=== PATIENT | female | born 1990 | race Caucasian/White ===

== ENCOUNTER 2023-05-27 07:59 | Outpatient (OUT) | payer MEDICARE, MEDICAID, SELFPAY ==
[2023-05-27 08:35] LABS: BUN Creatinine Ratio 13.6; Calcium 8.9 mg/dL (8.5-10.1); Chloride 103 mmol/L (98-107); Estimated GFR (African America >60 (>=60); Estimated GFR (Non-African Ame 57 (>=60); Glucose 85 mg/dL (74-106); Sodium 139 mmol/L (136-145)
== END 2023-05-27 08:00 | disposition home or self-care (01) ==
PROVIDERS: PCP Family Medicine; Visit Provider Family Medicine
DX: N25.1 Nephrogenic diabetes insipidus (principal); E23.2 Diabetes insipidus
CPT/HCPCS: 36415; 80048

== ENCOUNTER 2024-01-02 14:28 | Outpatient (OUT) | payer MEDICARE, MEDICAID, SELFPAY ==
[2024-01-02 15:39] LABS: HCG Qualitative NEGATIVE (NEGATIVE)
[2024-01-03 05:08] LABS: HBsAg Screen Negative (Negative); HCV Ab Non Reactive (Non Reactive); Hep A Ab, IgM Negative (Negative); Hep B Core Ab, IgM Negative (Negative)
== END 2024-01-02 14:29 | disposition home or self-care (01) ==
LOC: LAB 14:29
DX: Z04.41 Encounter for examination and observation following alleged adult rape (principal)
CPT/HCPCS: 36415; 80074; 84703

== ENCOUNTER 2024-01-04 10:53 | Outpatient (OUT) | payer MEDICARE, MEDICAID, SELFPAY ==
[2024-01-05 09:09] LABS: HIV Ab/p24 Ag Screen Non Reactive (Non Reactive)
[2024-01-05 10:09] LABS: Rapid Plasma Reagin, Quant Non Reactive titer (NonRea<1:1)
== END 2024-01-04 10:54 | disposition home or self-care (01) ==
PROVIDERS: PCP Family Medicine; Visit Provider Family Medicine
DX: T76.21XA Adult sexual abuse, suspected, initial encounter (principal); Z32.00 Encounter for pregnancy test, result unknown
CPT/HCPCS: 36415; 86592; 87389

== ENCOUNTER 2024-02-07 11:01 | Outpatient (OUT) | payer MEDICARE, MEDICAID, SELFPAY ==
[2024-02-08 05:08] LABS: HBsAg Screen Negative (Negative); HCV Ab Non Reactive (Non Reactive); Hep A Ab, IgM Negative (Negative); Hep B Core Ab, IgM Negative (Negative)
== END 2024-02-07 11:02 | disposition home or self-care (01) ==
LOC: LAB 11:02
PROVIDERS: PCP Family Medicine; Visit Provider Family Medicine
DX: Z20.5 Contact with and (suspected) exposure to viral hepatitis (principal)
CPT/HCPCS: 36415; 80074

== ENCOUNTER 2024-06-04 07:13 | Outpatient (OUT) | payer MEDICARE, MEDICAID, SELFPAY ==
--- OUTSIDE RECORDS SUMMARY | 2024-06-04 07:17 | XMS_ITS | CCD ---
Author Organization [facility] Care Team Providers Care Tank Tester Name Role Phone Unavailable Primary Care Provider Unavailabl e AL NICHOLAS, ALEX Admitting Unavailable AL ALEX PETERSON Attending Unavailable PROVIDER, UNKNOWN Admitting Unavailable PROVIDER, UNKNOWN Attending Unavailable Vaughan Robin SEVERINO Primary Care Provider [phone] GERONIMO LANGLEY Admitting Unavailable PASTOR SUAREZ Attending Unavailable PRASANTH REYES Attending Unavailable VAUGHANROBIN Primary Care Unavailable PASTOR SUAREZ Referring Unavailable PRASANTH REYES Attending Unavailable VAUGHANROBIN Primary Care Unavailable PASTOR SUAREZ Referring Unavailable VAUGHAN, DR ROBIN Byrd Consulting Unavailable VAUGHAN, DR ROBIN Byrd Attending Unavailable VAUGHAN, DR ROBIN Byrd Admitting Unavailable VAUGHAN, DR ROBIN Byrd Primary Care Unavailable VAUGHAN, DR ROBIN Byrd Attending Unavailable VAUGHAN, DR ROBIN Byrd Admitting Unavailable VAUGHAN, DR ROBIN Byrd Primary Care Unavailable VAUGHAN, DR ROBIN Byrd Consulting Unavailable UNLU, AZUL Consulting Unavailable VAUGHAN, DR ROBIN Byrd Consulting Unavailable VAUGHAN, DR ROBIN Byrd Attending Unavailable VAUGHAN, DR ROBIN yBrd Admitting Unavailable VAUGHAN, DR ROBIN Byrd Primary Care Unavailable VAUGHAN, DR ROBIN Byrd Consulting Unavailable VAUGHAN, DR ROBIN Byrd Attending Unavailable VAUGHAN, DR ROBIN Byrd Admitting Unavailable VAUGHAN, DR ROBIN Byrd Primary Care Unavailable VAUGHAN, DR ROBIN Byrd Attending Unavailable VAUGHAN, DR ROBIN Byrd Admitting Unavailable VAUGHAN, DR ROBIN Byrd Primary Care Unavailable VAUGHAN, DR ROBIN Byrd Consulting Unavailable ROBIN VAUGHAN Primary Care Physician [phone] KATIUSKA GANDHI Attending Unavailable Unavailable Primary Care Provider Unavailabl e VAUGHANROBIN Admitting Unavailable VAUGHANROBIN Attending Unavailable VAUGHAN, ROBIN Attending Unavailable VAUGHAN, ROBIN Admitting Unavailable VAUGHAN, ROBIN Attending Unavailable VAUGHAN, ROBIN Admitting Unavailable VAUGHAN, ROBIN Referring Unavailable ROBIN VAUGHAN Admitting Unavailable VAUGHANROBIN Attending Unavailable VAUGHANROBIN Attending Unavailable VAUGHANROBIN Admitting Unavailable Allergies Allergy Classification Reported Allergen(s) Allergy Type Date of Onset Reaction(s) Facility (5 sources) Amoxicillin / Clavulanate; Translations: [AMOXICILLIN-POT CLAVULANATE] Drug Allergy 05-03-2016 [facility] (3 sources) loracarbef; Translations: [LORACARBEF] Drug Allergy 05-03-2016 [facility] (3 sources) loracarbef Drug Allergy 07-21-2022 [facility] (1 source) Amoxicillin / Clavulanate Drug Allergy 12-22-2015 [facility] (1 source) loracarbef Drug Allergy 12-22-2015 [facility] (6 sources) Penicillins; Translations: [penicillins] Drug allergy 09-07-2012 [facility] Medications Current Medications Medication Drug Class(es) Dates Sig (Normalized) Sig (Original) bifidobacterium animalis [id number] unt / lactobacillus acidophilus [id number] unt oral capsule (1 source) Probiotic Produc t (ACIDOPHILUS HIGH-POTENCY) CAPS Take by mouth. 0 Active bisacodyl 10 mg rectal suppository (1 source) Stimulant Laxative bisacodyl 10 MG Suppository suppository Insert 10 mg rectally as needed for Constipation. 0 Active busPIRone hydrochloride 10 mg oral tablet (4 sources) take 1.5 tablets by mouth three times daily busPIRone (BUSPAR) 10 mg tablet Take 1.5 tablets (15 mg total) by mouth 3 (three) times a day. 0 Active take 20 mg by mouth three times daily BUSPIRONE HCL PO Take 20 mg by mouth 3 times daily. 0 Active take 1 tablet by mouth twice henrry ly busPIRone (BUSPAR) 10 MG tablet Take 10 mg by mouth 2 times daily. 0 Active calcium carbonate 500 mg cristiana wable tablet (2 sources) calcium carbonat e (TUMS) 200 mg elemental (500 mg) chewable tablet Chew 1 tablet (200 mg total) and swallow in the morning. 0 Active calcium carbonat e (Tums) 500 MG Chew Tab tablet Chew 1,000 mg as needed. 0 Active chlorhexidine gluconate 40 m g/ml medicated liquid soap (2 sources) chlorhexidine (H IBICLENS) 4 % external liquid Apply 1 Application (1 mL total) topically daily as needed for wound care. 0 Active take 15 mL by mouth twice daily chlorhexidine 0.12 % Solution oral solution Take 15 mL by mouth 2 times daily. 0 Active clonazePAM (8 sources) Benzodiazepine Start: 05-21-2011 clonazepam Ora l, TID, Refills(s) 0 Start Date: 05/21/11 Status: Ordered take 1 tablet by gladis twice daily as needed clonazePAM (KlonoPIN) 0.5 mg tablet Take 1 tablet (0.5 mg total) by mouth 2 (two) times a day as needed for seizures. 0 Active take 0.5 mg by mouth three times daily CLONAZEPAM PO Take 0.5 mg by mouth 3 times daily. 0 Active cloNIDine (4 sources) Central alpha-2 Adrenergic Agonist Start: 05-21-2011 clonidine patch(es), Refills(s) 0 Start Date: 05/21/11 Status: Ordered desmopressin acetate 0.2 mg oral tablet (4 sources) Vasopressin Analog, Factor VIII Activator take 1 tablet by mouth in the morning desmopressin (DDAVP) 0.2 mg tablet Take 1 tablet (200 mcg total) by mouth in the morning. 0 Active take 1 tablet by mouth twice henrry ly desmopressin (DDAVP) 0.2 MG tablet Take 0.2 mg by mouth 2 times daily. 0 Active Dextromethorphan / guaiFENesin (1 source) Uncompetitive M-ttwktm-L-aspartate Receptor Antagonist, Sigma-1 Agonist take 400 mg by mouth twice daily as needed Dextromethorphan-guaiFENesin (CHEST CONGESTION/COUGH RELIEF PO) Take 400 mg by mouth 2 times daily as needed. 0 Active docusate sodium 100 mg oral capsule (2 sources) take 1 capsule by mouth in the morning, then take 1 capsule by mouth at bedtime docusate sodium (COLACE) 100 mg capsule Take 1 capsule (100 mg total) by mouth in the morning and 1 capsule (100 mg total) before bedtime. 0 Active Docusate Sodium (DOK) 100 MG tablet Take 100 mg by mouth As directed as needed for Constipation. 0 Active Ethinyl Estradiol / Levonorgestrel (3 sources) Progestin, Estrogen, Progestin-containing Intrauterine Device Start: 02-02-2024 take 1 tablet by mouth once in the morning levonorgestreL-ethinyl estrad (AVIANE,ALESSE,LESSINA) 0.1-20 mg-mcg per tablet Indications: Surveillance of previously prescribed contraceptive pill Take 1 tablet by mouth in the morning. Pt takes continuously . 84 tablet 4 02/02/2024 Active End: 02-02-2024 take 1 tablet by mouth once in the morning levonorgestreL-ethinyl estrad (AVIANE,ALESSE,LESSINA) 0.1-20 mg-mcg per tablet Take 1 tablet by mouth in the morning. Pt takes continuously . 0 02/02/2024 Discontinued (Reorder) take 0.1-20 tablets by mouth once daily in the morning levonorgestrel-ethinyl estradiol (Vienva ) 0.1-20 MG-MCG tablet Take 1 tablet by mouth daily every morning. 0 Active folic acid 1 mg oral tablet (3 sources) take 1 tablet by mouth in the morning folic acid (FOLVITE) 1 mg tablet Take 1 tablet (1 mg total) by mouth in the morning. 0 Active gabapentin (5 sources) Anti-epileptic Agent Start: 05-21-2011 gabapentin Oral, Refills(s) 0 Start Date: 05/21/11 Status: Ordered take 1 capsule by [facility] three times daily gabapentin (NEURONTIN) 300 MG capsule Ta ke 300 mg by mouth 3 times daily. 0 Active hydroCHLOROthiazide 25 mg oral tablet (3 sources) Thiazide Diuretic take 1 tablet by mouth once daily hydroCHLOROthiazide (HYDRODIURIL) 25 mg tablet Take 1 tablet (25 mg total) by mouth daily. 0 Active Lactobacillus (1 source) Lactobacillus (ACIDOPHILUS/BIFIDUS PO) Take by mouth. 0 Active Lactobacillus acidophilus (1 source) Lactobacillus ac idophilus (ACIDOPHILUS ORAL) Take by mouth. 0 Active Lactulose (4 sources) Osmotic Laxative Start: 2010 lactulose Oral, Daily, EA, Refills(s) 0 Start Date: 05/21/11 Status: Ordered Levonorgestrel-Ethinyl Estrad (AVIANE ORAL) (1 source) Levonorgestrel-E thinyl Estrad (AVIANE ORAL) Take by mouth. 0 Active levothyroxine sodium 0.075 mg oral tablet (8 sources) l-Thyroxine Start: 2022 End: 2023 take 1 tablet by mouth in the morning levothyroxine (SYNTHROID, LEVOTHROID) 75 MCG tablet Take 1 tablet (75 mcg total) by mouth in the morning. 0 11/02/2023 03/01/2024 Active Start: 05-21-2011 levothyroxine Daily, Refills(s) 0 Start Date: 05/21/11 Status: Ordered take 1 tablet by gladis th once daily before breakfast levothyroxine 75 MCG tablet Take 75 mcg by mouth every morning before breakfast. 0 Active [place] (4 sources) Start: 05-21-2011 lithium Oral, Refills(s) 0 Start Date: 05/21/11 Status: Ordered loperamide hydrochloride 2 mg oral tablet (1 source) Opioid Agonist Loperamide HCl 2 MG tablet Take 2 mg by mouth As directed as needed. 0 Active loratadine 10 mg disintegrating oral tablet (2 sources) loratadine (CLAR ITIN REDITABS) 10 mg disintegrating tablet Dissolve 1 tablet (10 mg total) on tongue in the morning. 0 Active take 1 tablet by gladis th once daily as needed loratadine 10 MG tablet Take 10 mg by mo uth daily as needed. 0 Active melatonin 5 mg oral capsule (2 sources) melatonin (CIRCA DIN) capsule Take by mouth. 0 Active Melatonin 5 MG C APS Take by mouth. 0 Active metoprolol tartrate 50 mg oral tablet (5 sources) beta-Adrenergic Rodney metoprol ol tartrate (LOPRESSOR) 100 mg tablet Take 25 mg by mouth in the morning. 0 Active take 1 tablet by gladis th in the morning, then take 1 tablet by mouth at bedtime metoprolol tartrate (LOPRESSOR) 50 mg tablet Take 1 tablet (50 mg total) by mouth in the morning and 1 tablet (50 mg total) before bedtime. 0 Active take 1 tablet by mouth four time s daily metoprolol 100 MG tab regular release Take 100 mg by mouth 4 times daily. 0 Active mirtazapine 15 mg oral tablet (2 sources) take 1 tablet by mouth once daily mirtazapine (REMERON) 15 mg tablet Take 1 tablet (15 mg total) by mouth nightly. 0 Active Nasonex (4 sources) Corticosteroid Start: 1 Nasonex Nasal, Daily, Refill(s) 0 Start Date: 05/21/11 Status: Ordered Singulair (8 sources) Leukotriene Receptor Antagonist Start: 1 Singulair qPM, Refills(s) 0 Start Date: 05/21/11 Status: Ordered take 1 tablet by mouth once sanjana y montelukast (SINGULAIR) 10 mg tablet Take 1 tablet (10 mg total) by mouth nightly. 0 Active naltrexone hydrochloride 50 mg oral tablet (4 sources) Opioid Antagonist take 1 tablet by mouth in the morning naltrexone (REVIA) 50 mg tablet Take 1 tablet (50 mg total) by mouth in the morning. 0 Active take 1 tablet by mouth once sanjana y naltrexone 50 MG tablet Take 50 mg by mouth daily. 0 Active Zyprexa (4 sources) Atypical Antipsychotic Start: 05-21-2011 Zyprexa Refills(s) 0 Start Date: 05/21/11 Status: Ordered ondansetron 4 mg oral tablet (2 sources) Serotonin-3 Receptor Antagonist take 1 tablet by mouth every eight hours as needed for nausea and vomiting ondansetron (ZOFRAN) 4 mg tablet Take 1 tablet (4 mg total) by mouth every 8 (eight) hours as needed for nausea or vomiting. 0 Active Potassium (1 source) Potassium (POTASSIMIN ORAL) Take by mouth. 0 Active potassium chloride 1.33 meq/ml oral solution (2 sources) take 20 mEq by mouth once daily in the morning potassium chloride 20 MEQ/15ML (10%) Solution Take 20 mEq by mouth daily every morning. 0 Active sennosides, alf 8.6 mg oral tablet (2 sources) take 1 tablet by mouth in the morning senna (SENOKOT) 8.6 mg tablet Take 1 tablet (8.6 mg total) by mouth in the morning. 0 Active take 2 tablets by mouth twice da tejal senna 8.6 MG tablet Take 17.2 mg by mouth 2 times daily. 0 Active Thioridazine (4 sources) Phenothiazine Start: 05-21-2011 thioridazine Oral, TID, Refills(s) 0 Start Date: 05/21/11 Status: Ordered divalproex sodium 125 mg delayed release oral capsule (1 source) Mood Stabilizer, Anti-epileptic Agent take 1 capsule by mouth in the morning, then take 1 capsule by mouth at bedtime divalproex sprinkle (DEPAKOTE SPRINKLE) 125 mg capsule Take 1 capsule (125 mg total) by mouth in the morning and 1 capsule (125 mg total) before bedtime. 0 Active Completed/Discontinued Medications Medication Drug Class(es) Dates Sig (Normalized) Sig (Original) acetaminophen 325 mg oral tablet (3 sources) Start: 08-26-2022 End: 08-26-2022 take 1 tablet by mouth every four hours as needed acetaminophen (TYLENOL) tablet 650 mg take 325 mg rectal r oute every four hours as needed for pain acetaminophen (TYLENOL) 325 mg supposito ry Insert 1 suppository (325 mg total) into the rectum every 4 (four) hours as needed for pain. 0 Active take 1 tablet by gladis th every four hours as needed acetaminophen 325 MG tablet Take 325 mg by mouth every 4 hours as needed for Mild Pain. 0 Active calcium chloride 0.0014 meq/ ml / potassium chloride 0.004 meq/ml / sodium chloride 0.103 meq/ml / sodium lactate 0.028 meq/ml injectable solution (1 source) Start: 08-26-2022 End: 08-26-2022 lactated ringers IV solution Problems Active Problems Problem Classification Problem Date Documented Date Episodic/Chronic Contraceptive and procreative management (1 source) Oral contraception; Translations: [Encounter for surveillance of contraceptive pills] 02-02-2024 Episodic Disorders of teeth and jaw (7 sources) Dental caries; Translations: [Dental caries, unspecified] Onset: 02-20-2019 Episodic Fever of unknown origin (4 sources) Fever, unspecified; Translations: [FEVER UNSPECIFIED] Onset: 02-17-2023 Episodic Malaise and fatigue (1 source) Weakness; Translations: [WEAKNESS] Onset: 02-20-2023 Episodic Other aftercare (5 sources) 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; Translations: [OTH INTERMEDIATE CURRENT DRUG THERAPY] Onset: 12-20-2022 Episodic Other diseases of kidney and ureters (5 sources) Nephrogenic diabetes insipidus; 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] Onset: 10-13-2022 Chronic Other endocrine disorders (2 sources) Diabetes insipidus; Translations: [Diabetes insipidus] Onset: 12-06-2023 Chronic Other nutritional; endocrine; and metabolic disorders (1 source) Developmental delay; Translations: [Unspecified lack of expected normal physiological development in childhood] Episodic Other nutritional; endocrine; and metabolic disorders (2 sources) Unspecified lack of expected normal physiological development in childhood; Translations: [Unspecified lack of expected normal physiological development in childhood] Onset: 08-17-2022 Episodic Other screening for suspected conditions (not mental disorders or infectious disease) (1 source) Patient encounter status; Translations: [Encounter for other screening for malignant neoplasm of breast] 02-02-2024 Episodic Other upper respiratory disease (1 source) Nasal congestion; Translations: [NASAL CONGESTION] Onset: 02-20-2023 Episodic Thyroid disorders (9 sources) Hypothyroidism; Translations: [Hypothyroidism, unspecified] Onset: 08-17-2022 Chronic Past or Other Problems Problem Classification Problem Date Documented Date Episodic/Chronic Fluid and electrolyte disorders (1 source) Hyperosmolality and hypernatremia; Translations: [HYPEROSMOLALITY AND HYPERNATREMIA] Onset: 10-15-2022 Episodic Genitourinary symptoms and ill-defined conditions (1 source) Other polyuria; Translations: [OTHER POLYURIA] Onset: 10-15-2022 Episodic Other and unspecified benign neoplasm (1 source) Benign neoplasm of pituitary gland; Translations: [BENIGN NEOPLASM OF PITUITARY GLAND] Onset: 10-15-2022 Episodic Other nutritional; endocrine; and metabolic disorders (1 source) Polydipsia; Translations: [POLYDIPSIA] Onset: 10-15-2022 Episodic Results Test Name Value Interpretation Reference Range Facility .Interpretation:on HCV Ab IA Ql Comment Invalid Interpretation Code [facility] Comment on above: Result Comment: Not infected with HCV unless early or acute infection is suspected (which may be delayed in an immunocompromised individual), or other evidence exists to indicate HCV infection. Performed at: [facility] [address] [id number] PhD Amaris Valdes Performed By: #### 2 [id number] #### [facility] [address] [place] [address] Acute Hepatitis A B C Panelo n 03-23-2024 HAV IgM IA Ql Negative Invalid Interpretation Code Negative [facility] Comment on above: Performed By: #### 2 [id number] #### [facility] [address] [place] [address] HBV core IgM IA Ql Negative Invalid Interpretation Code Negative [facility] Comment on above: Performed By: #### 2 [id number] #### [facility] [address] [place] [address] HBV surface Ag IA Ql Negative Invalid Interpretation Code Negative [facility] Comment on above: Performed By: #### 2 [id number] #### [facility] [address] [place] [address] HCV IgG IA Ql Non-Reactive Invalid Interpretation Code Non Reactive [facility] Comment on above: Result Comment: Perf ormed at: [facility] [address] [id number] PhD Amaris Valdes Performed By: #### 2 [id number], [id number] #### [facility] [address] [place] [address] Physician Orderon 03-21-2024 Physician Order [id number]# 1.00TIFF Normal [facility] Consent for Treatmenton Consent for Treatment [id number]#1 .00TIFF Normal [facility] Physician Orderon 02-01-2024 Physician Order [id number]# 1.00TIFF Normal [facility] XR Adult Swallowing Function w/ Videoon 02-01-2024 XR Adult Swallowing Function w/ Video Exam Date/Time: 02/01/2024 10:02 EST Reason for Exam: [id number] Report IMPRESSION: Modified barium swallow performed by Speech Pathology. Please refer to the report by the Speech Pathologist in the medical record. XR Adult Swallowing Function w/ Video HISTORY: Patient on nectar thick liquids currently. Mental disability. TECHNIQUE: Fluoroscopy was provided for an oropharyngeal phase swallowing examination performed by Speech Pathology with the patient swallowing multiple consistencies. Air Kerma (Ka,r): 4.1 mGy DAP: 94.91 uGy*m2 Comparison: 08/03/2016. RESULT: Limitations from patient cooperation. Oral phase: Grossly unremarkable mastication and bolus formation with transfer to the oropharynx. Pharyngeal phase: Good pharyngeal elevation and epiglottic excursion without distinct aspiration. Esophageal phase: No diverticulum, stricture, or fistula in the visualized upper esophagus. Residual: Some vallecular and piriform sinus residue, which adequately cleared with further swallowing. Ordering Provider: ROBIN VAUGHAN FINAL REPORT Dictated: 02/01/2024 10:27 am Robin Crawford MD Signed (Electronic Signature): 02/01/2024 10:27 am Signed by: Robin Crawford MD Transcribed by: BRITTANY Technologist: ALESSIA Technical Comments Radiation Dose: Ka,r in mGy = na DAP = na Normal [facility] Physician Orderon 01-11-2024 Physician Order [id number]# 1.00TIFF Normal [facility] T3 Freeon 12-02-2023 Free T3 [Mass/Vol] 2.5 pg/mL Invalid Interpretation Code 2.0-4.[address] [facility] Comment on above: Result Comment: Perf ormed at: [facility] [address] [id number] PhD Amaris Valdes Performed By: #### 2 [id number], [id number], 8266109, 8158569, 1100051, [id number], [id number] #### [facility] [address] [place] [address] CMPon 12-01-2023 Albumin [Mass/Vol] 3.8 g/dL Normal 3.3-5.[address] [facility] Comment on above: Performed By: #### 2 413066, 3809417, 0120390, 0517505, 2987889, 16210922, 6620979 #### [facility] [address] [place] [address] Albumin/Globulin [Mass ratio] 1.4 {ratio} Normal 1.1-2.[address] [facility] Comment on above: Performed By: #### 2 995350, 9447496, 3198050, 8826118, 7862888, 78586201, 4666337 #### [facility] [address] [place] [address] Alk Phos 38 Int._Unit/L Normal 21-98 [facility] Comment on above: Performed By: #### 2 410634, 1659786, 6300002, 6182168, 8863021, 07058013, 0750274 #### [facility] [address] [place] [address] ALT 7 Int._Unit/L Normal 6-46 [facility] Comment on above: Performed By: #### 2 395815, 7965411, 7465364, 2045742, 1298013, 10148477, 2804852 #### [facility] [address] [place] [address] Anion gap [Moles/Vol] 13 mmol/L Normal 6-[address] [facility] Comment on above: Performed By: #### 2 012406, 2457179, 5722210, 6076092, 4314869, 70090572, 9721400 #### [facility] [address] [place] [address] AST 17 Int._Unit/L Normal 5-43 [facility] Comment on above: Performed By: #### 2 621351, 2114434, 6909823, 1994204, 3994732, 48898481, 0115826 #### [facility] [address] [place] [address] Bili Total 0.3 mg/dL Normal 0.0-1.[address] [facility] Comment on above: Performed By: #### 2 242687, 2907606, 5629706, 3697222, 4976255, 04376989, 0361347 #### [facility] [address] [place] [address] BUN/Creat Ratio 16 No Units Normal 10-20 [facility] Comment on above: Performed By: #### 2 831863, 4340409, 3181529, 7388972, 5993846, 12343381, 3730741 #### [facility] [address] [place] [address] Calcium [Mass/Vol] 9.0 mg/dL Normal 8.9-11.[address] [facility] Comment on above: Performed By: #### 2 763253, 0316711, 5954526, 3302520, 5970704, 42840806, 7777735 #### [facility] [address] [place] [address] Chloride [Moles/Vol] 103 mmol/L Normal 101-111 [facility] Comment on above: Performed By: #### 2 212019, 5785534, 7679418, 9643952, 5683950, 16557569, 9786938 #### [facility] [address] [place] [address] CO2 [Moles/Vol] 26 mmol/L Normal 21-31 [facility] Comment on above: Performed By: #### 2 971639, 0656421, 6246955, 1067582, 1540979, 05630467, 2717415 #### [facility] [address] [place] [address] Creatinine [Mass/Vol] 1.1 mg/dL Normal 0.5-1.[address] [facility] Comment on above: Performed By: #### 2 713742, 9428275, 8573452, 7928410, 0275998, 20009159, 2446280 #### [facility] [address] [place] [address] Globulin (S) [Mass/Vol] 2.8 g/dL Normal 1.4-4.[address] [facility] Comment on above: Performed By: #### 2 111856, 7307315, 0042180, 2228684, 7599546, 17694924, 7025059 #### [facility] [address] [place] [address] Glucose [Mass/Vol] 68 mg/dL Normal 55-[address] [facility] Comment on above: Performed By: #### 2 242361, 3559596, 6801870, 3442412, 6486676, 41847459, 9438641 #### [facility] [address] [place] [address] Potassium [Moles/Vol] 4.1 mmol/L Normal 3.5-5.[address] [facility] Comment on above: Performed By: #### 2 684131, 1543390, 7940662, 0264271, 1611842, 07928703, 7639889 #### [facility] [address] [place] [address] Protein [Mass/Vol] 6.6 g/dL Normal 6.0-7.[address] [facility] Comment on above: Performed By: #### 2 644214, 5172688, 1372040, 9568865, 6542282, 25651201, 2313027 #### [facility] [address] [place] [address] Sodium [Moles/Vol] 138 mmol/L Normal 135-[address] [facility] Comment on above: Performed By: #### 2 652967, 2249129, 1581640, 8422700, 5501703, 23299654, 6925790 #### [facility] [address] [place] [address] Urea nitrogen [Mass/Vol] 18 mg/dL Normal 5-[address] [facility] Comment on above: Performed By: #### 2 005312, 0762358, 5151129, 7678715, 0081004, 09658628, 2174071 #### [facility] [facility] [address] [place] [address] Lipid Panelon 12-01-2023 Cholesterol [Mass/Vol] 113 mg/dL Low 120-[address] [facility] Comment on above: Performed By: #### 2 368086, 6851220, 2334894, 2120027, 2802106, 58820261, 7505392 #### [facility] [address] [place] [address] Cholesterol in HDL [Mass/Vol] 23 mg/dL Invalid Interpretation Code [facility] Comment on above: Result Comment: '>= 60 LOW RISK' '<= 40 HIGH RISK' Performed By: #### 2 707828, 4448551, 1887736, 9191950, 9220214, 07518537, 5186958 #### [facility] [address] [place] [address] Cholesterol in LDL [Mass/Vol] 71 mg/dL Normal <=[address] [facility] Comment on above: Performed By: #### 2 041326, 1310116, 1345142, 3666885, 6830777, 53517307, 3749950 #### [facility] [address] [place] [address] Cholesterol in VLDL [Mass/Vol] 37 mg/dL Normal 7-[address] [facility] Comment on above: Performed By: #### 2 569815, 8424349, 7472511, 8413425, 6074381, 38139502, 6791844 #### [facility] [address] [place] [address] Triglyceride [Mass/Vol] 186 mg/dL High <=[address] [facility] Comment on above: Performed By: #### 2 888596, 7786524, 3817228, 2109048, 7246097, 46720969, 5340979 #### [facility] [address] [place] [address] eGFRon 12-01-2023 GFR/1.73 sq M.predicted among non-blacks MDRD (S/P/Bld) [Vol rate/Area] mL/min/{1.73_m2} Normal >=[address] [facility] Comment on above: Order Comment: Order added by Discern Expert. Performed By: #### 2 891801, 0904548, 0547874, 7796252, 0878710, 15442421, 0004969 #### [facility] [address] [place] [address] CBC w/Indiceson 11-30-2023 Erythrocyte distribution width (RBC) [Ratio] 13.5 % Normal 10.9-14.[address] [facility] Comment on above: Performed By: #### 2 700973, 2440322, 8469307, 4088028, 7982731, 36597517, 2847666 #### [facility] [address] [place] [address] Hematocrit (Bld) [Volume fraction] 42.1 % Normal 34.0-46.[address] [facility] Comment on above: Performed By: #### 2 875281, 1452058, 6375306, 9288424, 1056342, 82572943, 9103404 #### [facility] [address] [place] [address] Hemoglobin (Bld) [Mass/Vol] 14.4 g/dL Normal 12.0-16.[address] [facility] Comment on above: Performed By: #### 2 304126, 7272942, 7569602, 8453020, 6612346, 59543236, 1437058 #### [facility] [address] [place] [address] MCH (RBC) [Entitic mass] 33.7 pg Normal 27.0-34.[address] [facility] Comment on above: Performed By: #### 2 640535, 5516057, 0934270, 0877364, 4374284, 23619942, 8316088 #### [facility] [address] [place] [address] MCHC (RBC) [Mass/Vol] 34.2 g/dL Normal 31.4-36.[address] [facility] Comment on above: Performed By: #### 2 873031, 9823899, 5095407, 4757351, 4781258, 62387911, 8832923 #### [facility] [address] [place] [address] MCV (RBC) [Entitic vol] 98.8 fL Normal 80.0-100.[address] [facility] Comment on above: Performed By: #### 2 608378, 4713454, 4819668, 7446851, 5489094, 11862782, 9980255 #### [facility] [address] [place] [address] Platelet mean volume (Bld) [Entitic vol] 8.6 fL Normal 6.4-10.[address] [facility] Comment on above: Performed By: #### 2 261550, 1256512, 2983642, 9380152, 9258035, 02486689, 9215328 #### [facility] [address] [place] [address] Platelets (Bld) [#/Vol] 141.0 E9/L Low 150.0-500.[address] [facility] Comment on above: Performed By: #### 2 159506, 1404888, 5994660, 0437395, 4268809, 03841299, 5538705 #### [facility] [address] [place] [address] RBC (Bld) [#/Vol] 4.3 E12/L Normal 4.3-5.[address] [facility] Comment on above: Performed By: #### 2 064190, 9558036, 2690041, 9781665, 6848309, 03330135, 1924461 #### [facility] [address] [place] [address] WBC corrected for nucl RBC Auto (Bld) [#/Vol] 9.8 E9/L Normal 4.0-11.[address] [facility] Comment on above: Performed By: #### 2 626143, 7835546, 9680472, 2442158, 2599072, 36258516, 0519319 #### [facility] [address] [place] [address] Free T4on 11-30-2023 Free T4 [Mass/Vol] 0.92 ng/dL Normal 0.58-1.[address] [facility] Comment on above: Performed By: #### 2 181424, 0564462, 0472901, 8151859, 5015816, 63397873, 0010173 #### [facility] [address] [place] [address] Physician Orderon 11-30-2023 Physician Order [id number]# 1.00TIFF Normal [facility] TSHon 11-30-2023 TSH Qn 5.07 m[IU]/L Normal 0.34-5.[address] [facility] Comment on above: Performed By: #### 2 240035, 0371225, 4067231, 8475472, 6905520, 46099691, 8472503 #### [facility] [address] [place] [address] Follow-Upon 11-02-2023 Follow-Up [id number] Tiffany Mcintosh 1990 F Date Provider Department Center 11/02/2023 316-ALIVIA, KATIUSKA Mackenzie [facility] ENDOCR [facility] No family history on file Level of Service:22639 FL OFFICE/OUTPATIENT ESTABLISHED MOD MDM 30-39 MIN () Reason for Visit and Comments: Follow-up [249790] Normal [facility] BMPon 10-13-2023 Anion gap [Moles/Vol] 13 mmol/L Normal - [facility] Comment on above: Performed By: #### 2 735080, 63906017, 1220838, 5002773 #### [facility] [address] [place] [address] Calcium [Mass/Vol] 8.8 mg/dL Low 8.9-11.[address] [facility] Comment on above: Performed By: #### 2 627623, 02793732, 6783681, 1696445 #### [facility] [address] [place] [address] Chloride [Moles/Vol] 109 mmol/L Normal 101-111 [facility] Comment on above: Performed By: #### 2 630624, 94928934, 3546520, 8150503 #### [facility] [address] [place] [address] CO2 [Moles/Vol] 23 mmol/L Normal 21-31 [facility] Comment on above: Performed By: #### 2 732932, 81832388, 7847677, 1360014 #### [facility] [address] [place] [address] Creatinine [Mass/Vol] 1.1 mg/dL Normal 0.5-1.[address] [facility] Comment on above: Performed By: #### 2 068273, 81517835, 4812312, 7455915 #### [facility] [address] [place] [address] Glucose [Mass/Vol] 74 mg/dL Normal 55-[address] [facility] Comment on above: Result Comment: If t his glucose result represents a fasting glucose, interpretation should refer to the following reference range: 55-99 mg/dL Performed By: #### 2 444782, 63313715, 4986736, 2528947 #### [facility] [address] [place] [address] Potassium [Moles/Vol] 4.0 mmol/L Normal 3.5-5.[address] [facility] Comment on above: Performed By: #### 2 902357, 41324276, 6597165, 7185482 #### [facility] [address] [place] [address] Sodium [Moles/Vol] 141 mmol/L Normal 135-[address] [facility] Comment on above: Performed By: #### 2 914054, 84612429, 1518840, 9406227 #### [facility] [address] [place] [address] Urea nitrogen [Mass/Vol] 23 mg/dL High 5-[address] [facility] Comment on above: Performed By: #### 2 536066, 46666836, 8387390, 0564359 #### [facility] [address] [place] [address] Urea nitrogen/Creatinine [Mass ratio] 21 No Units High 10-[address] [facility] Comment on above: Performed By: #### 2 667357, 13478059, 4871675, 8598994 #### [facility] [address] [place] [address] Free T4on 10-13-2023 Free T4 [Mass/Vol] 1.45 ng/dL Normal 0.58-1.[address] [facility] Comment on above: Performed By: #### 2 090559, 5915876, 0878176, 7112635, 1748603, 96541831, 3673010 #### [facility] [address] [place] [address] TSHon 10-13-2023 TSH Qn 6.49 m[IU]/L High 0.34-5.[address] [facility] Comment on above: Performed By: #### 2 293952, 7139565, 6608552, 3614757, 6437830, 23213552, 6939118 #### [facility] [address] [place] [address] eGFRon 10-13-2023 GFR/1.73 sq M.predicted among non-blacks MDRD (S/P/Bld) [Vol rate/Area] 67 mL/min/1.73 m2 Normal >=[address] [facility] Comment on above: Order Comment: Order added by Discern Expert. Result Comment: Principal Architect david kidney disease could be indicated at eGFR's of less than 60 mL/min/1.73m2. Kidney failure is indicated at less than 15 mL/min/1.73m2. Performed By: #### 2 990758, 6485836, 8667381, 6113582, 3467524, 11261990, 8941965 #### [facility] [address] [place] [address] CHEMISTRYOrdered By: SYSTEM SYSTEM on 10-12-2023 Anion gap [Moles/Vol] 13 mmol/L Normal 6 - 16 mEq/L [facility] Calcium [Mass/Vol] 8.8 mg/dL Low 8.9 - 11. 1 mg/dL [facility] Chloride [Moles/Vol] 109 mmol/L Normal 101 - 1 11 mmol/L [facility] CO2 [Moles/Vol] 23 mmol/L Normal 21 - 31 mmol/L [facility] Creatinine [Mass/Vol] 1.1 mg/dL Normal 0.5 - 1.3 mg/dL [facility] Free T4 [Mass/Vol] 1.45 ng/dL Normal 0.58 - 1. 64 ng/dL [facility] GFR/1.73 sq M.predicted among non-blacks MDRD (S/P/Bld) [Vol rate/Area] 67 mL/min/1.73 m2 Normal >=59mL/min/1 .73 m2 [facility] Comment on above: Interpretive Data: C hronic kidney disease could be indicated at eGFR's of less than 60 mL/min/1.73m2. Kidney failure is indicated at less than 15 mL/min/1.73m2. Glucose [Mass/Vol] 74 mg/dL Normal 55 - 199 mg/dL [facility] Comment on above: Interpretive Data: I f this glucose result represents a fasting glucose, interpretation should refer to the following reference range: 55-99 mg/dL Potassium [Moles/Vol] 4.0 mmol/L Normal 3.5 - 5.3 mmol/L [facility] Sodium [Moles/Vol] 141 mmol/L Normal 135 - 145 mmol/L [facility] TSH Qn 6.49 m[IU]/L High 0.34 - 5.60 mcIU/mL [facility] Urea nitrogen [Mass/Vol] 23 mg/dL High 5 - 21 mg/dL [facility] Urea nitrogen/Creatinine [Mass ratio] 21 mg/mg High 10 - 20 [facility] Physician Orderon 10-12-2023 Physician Order [id number]#1 .00TIFF Normal [facility] CHEMISTRYOrdered By: SYSTEM SYSTEM on 08-17-2023 Valproate [Moles/Vol] 70 microgram/mL Normal 50 - 99 mcg/mL [facility] Physician Orderon 08-17-2023 Physician Order [id number]# 1.00CD:[address] [facility] Valproic Acidon 08-17-2023 Valproate [Moles/Vol] 70 microgram/mL Normal 50-[address] [facility] Comment on above: Performed By: #### 2 720368, 1586793, 3470186, 3910843, 5647577, 70500470, 1219730 #### [facility] [address] [place] [address] XR CHEST 2 Von 02-18-2023 XR CHEST 2 V EXAM: XR CHEST 2 V HISTORY: Congestion COMPARISON: 12/14/2019 TECHNIQUE: PA and lateral views of the chest FINDINGS: The level of inspiration is suboptimal. There is no focal airspace consolidation or acute infiltrate. The cardiomediastinal silhouette is not enlarged. No evidence of pleural effusion or pneumothorax are identified. No acute osseous abnormality. IMPRESSION: No acute cardiopulmonary process. Electronically authenticated by: AZUL UNLU Date: 2023-02-17 22:47 Normal [facility] DEPAKENE/ VALPROIC ACIDon DEPAKENE 74.8 ug/ml Normal 50.0-100.0 [facility] Comment on above: Performed By: #### V ALP #### [facility] [address] [place] [address] Dr. Wali Holly Orders Onlyon 12-15-2022 Orders Only [id number] Tiffany Mcintosh 1990 F Date Provider Department Center 12/15/2022 316-KATIUSKA [facility] ENDOCR [facility] No family history on file Normal [facility] FREE T4on 12-14-2022 Free T4 [Mass/Vol] 0.83 ng/dL Normal 0.76-1.46 [facility] Comment on above: Performed By: #### F T4 #### [facility] [address] [place] [address] Dr. Wali Holly TSHon 12-14-2022 TSH 4.513 uIU/mL Critically high 0.358-3.740 [facility] Comment on above: Performed By: #### T SH #### [facility] [address] [place] [address] Dr. Wali Holly OSMOLALITY URINEon 2 Osmolality, Urine 280 mOsmol/kg Normal [facility] Comment on above: Result Comment: 24 h r : 300 - 900 Random: 50 - 1400 After 12hr fluid restriction: >850 Performed By: #### O SMOU #### [facility] [address] [place] [address] Dr. Wali Holly OSMOLALITYon 10-13-2022 Osmolality [Osmolality] 281 mosm/kg Normal 275-295 [facility] Comment on above: Performed By: #### O SMO #### [facility] [address] [place] [address] Dr. Wali Holly FREE T4on 10-12-2022 Free T4 [Mass/Vol] 0.91 ng/dL Normal 0.76-1.46 [facility] Comment on above: Performed By: #### F T4 #### [facility] [address] [place] [address] Dr. Wali Holly PROF CHEM 8 (BAS METB)on Anion gap [Moles/Vol] 6.1 mmol/L Normal [facility] Comment on above: Performed By: #### B MP, TSH #### [facility] [address] [place] [address] Dr. Wali Holly Calcium [Mass/Vol] 9.1 mg/dL Normal 8.5-10.1 [facility] Comment on above: Performed By: #### B MP, TSH #### [facility] [address] [place] [address] Dr. Wali Holly Chloride [Moles/Vol] 102 mmol/L Normal 98-107 [facility] Comment on above: Performed By: #### B MP, TSH #### [facility] [address] [place] [address] Dr. Wali Holly CO2 [Moles/Vol] 34.9 mmol/L Critically high 21.0-32.0 [facility] Comment on above: Performed By: #### B MP, TSH #### [facility] [address] [place] [address] Dr. Wali Holly Creatinine [Mass/Vol] 1.35 mg/dL Critically high 0.55-1.02 [facility] Comment on above: Performed By: #### B MP, TSH #### [facility] [address] [address] [address] Wali Holly EGFR-AF [place]TH [place]OREAN 54 mL/min/1.73m2 Critically low >=60 [facility] Comment on above: Performed By: #### B MP, TSH #### [facility] [address] [address] [address] Wali Holly EGFR-NON AF [place] 45 mL/min/1.73m2 Critically low >=60 [facility] Comment on above: Performed By: #### B MP, TSH #### [facility] [address] [address] [address] Wali Holly Glucose [Mass/Vol] 84 mg/dL Normal 74-106 [facility] Comment on above: Performed By: #### B JOB, TSH #### [facility] [address] [place] [address] Dr. Wali Holly Potassium [Moles/Vol] 4.0 mmol/L Normal 3.5-5.1 [facility] Comment on above: Performed By: #### B MP, TSH #### [facility] [address] [place] [address] Dr. Wali Holly Sodium [Moles/Vol] 139 mmol/L Normal 136-145 [facility] Comment on above: Performed By: #### B MP, TSH #### [facility] [address] [place] [address] Dr. Wali Holly Urea nitrogen [Mass/Vol] 15.0 mg/dL Normal 7.0-18.0 [facility] Comment on above: Performed By: #### B MP, TSH #### [facility] [address] [place] [address] Dr. Wali Holly Urea nitrogen/Creatinine [Mass ratio] 11.1 mg/mg Normal [facility] Comment on above: Performed By: #### B MP, TSH #### [facility] [address] [place] [address] Dr. Wali Holly TSHon 10-12-2022 TSH 5.185 uIU/mL Critically high 0.358-3.740 [facility] Comment on above: Performed By: #### B MP, TSH #### [facility] [address] [place], [place] [address] Dr. Wali Holly CARDIAC RHYTHM (SCANNED)on 0 08-26-2022 [facility] CBC AND ELECTRONIC DIFFon Basophils (Bld) [#/Vol] 0.06 10*3/uL Normal 0.00-0.15 [facility] Comment on above: Performed By: #### L AB980 #### [facility] (DEFAULT) [address] [address] Basophils/100 WBC (Bld) 0.8 % Normal [facility] Comment on above: Performed By: #### L AB980 #### [facility] (DEFAULT) [address] [address] DIFF STATUS Electronic Differential Normal [facility] Comment on above: Performed By: #### L AB980 #### [facility] (DEFAULT) [address] [address] Eosinophils (Bld) [#/Vol] 0.07 10*3/uL Normal 0.00-0.42 [facility] Comment on above: Performed By: #### L AB980 #### [facility] (DEFAULT) [address] [address] Eosinophils/100 WBC (Bld) 1.0 % Normal [facility] Comment on above: Performed By: #### L AB980 #### [facility] (DEFAULT) [address] [address] Hematocrit (Bld) [Volume fraction] 39.1 % Normal 34.9-44.3 [facility] Comment on above: Performed By: #### L AB980 #### [facility] (DEFAULT) [address] [address] Hemoglobin (Bld) [Mass/Vol] 13.3 g/dL Normal 11.4-15.2 [facility] Comment on above: Performed By: #### L AB980 #### [facility] (DEFAULT) [address] [place] [address] Immature Grans % 1.8 % Normal [facility] Comment on above: Performed By: #### L AB980 #### [facility] (DEFAULT) [address] [place] [address] Immature Grans Absolute 0.13 K/uL High <=0.08 [facility] Comment on above: Performed By: #### L AB980 #### [facility] (DEFAULT) [address] [place] [address] Lymphocytes (Bld) [#/Vol] 3.29 10*3/uL Normal 1.16-3.51 [facility] Comment on above: Performed By: #### L AB980 #### [facility] (DEFAULT) [address] [address] Lymphocytes/100 WBC (Bld) 46.0 % Normal [facility] Comment on above: Performed By: #### L AB980 #### [facility] (DEFAULT) [address] [address] MCV (RBC) [Entitic vol] 100.3 fL High 79.6-97.7 [facility] Comment on above: Performed By: #### L AB980 #### [facility] (DEFAULT) [address] [address] Mean Cell Hgb 34.1 pg High 25.9-33.9 [facility] Comment on above: Performed By: #### L AB980 #### [facility] (DEFAULT) [address] [address] Mean Cell Hgb Conc 34.0 g/dL Normal 31.4-35.9 [facility] Comment on above: Performed By: #### L AB980 #### [facility] (DEFAULT) [address] [place] [address] Monocytes (Bld) [#/Vol] 0.82 10*3/uL Normal 0.22-0.87 [facility] Comment on above: Performed By: #### L AB980 #### [facility] (DEFAULT) [address] [place] [address] Monocytes/100 WBC (Bld) 11.5 % Normal [facility] Comment on above: Performed By: #### L AB980 #### [facility] (DEFAULT) [address] [place] [address] Nucleated RBC 0.0 /100 WBC Normal <=0.2 [facility] Comment on above: Performed By: #### L AB980 #### [facility] (DEFAULT) [address] [place] [address] Platelet mean volume (Bld) [Entitic vol] 9.9 fL Normal 8.5-12.2 [facility] Comment on above: Performed By: #### L AB980 #### [facility] (DEFAULT) [address] [place] [address] Platelets (Bld) [#/Vol] 110 10*3/uL Low 150-393 [facility] Comment on above: Performed By: #### L AB980 #### [facility] (DEFAULT) [address] [place] [address] RBC (Bld) [#/Vol] 3.90 10*6/uL Low 3.91-5.04 [facility] Comment on above: Performed By: #### L AB980 #### [facility] (DEFAULT) [address] [place] [address] RBC Distribution 12.2 % Normal 10.8-14.9 [facility] Comment on above: Performed By: #### L AB980 #### [facility] (DEFAULT) [address] [place] [address] Segs + Bands Auto 38.9 % Normal [facility] Comment on above: Performed By: #### L AB980 #### [facility] (DEFAULT) [address] [place] [address] Segs + Bands,Absolute Auto 2.78 K/uL Normal 1.64-7.28 [facility] Comment on above: Performed By: #### L AB980 #### [facility] (DEFAULT) [address] [place] [address] WBC (Bld) [#/Vol] 7.15 10*3/uL Normal 3.99-11.19 [facility] Comment on above: Performed By: #### L AB980 #### [facility] (DEFAULT) [address] [place] [address] Basophils (Bld) [#/Vol] 0.06 10*3/uL 0.00 - 0.15 K/uL [facility] Basophils/100 WBC (Bld) 0.8 % [facility] Differential cell count method Nom (Bld) Electronic Differential [facility] Eosinophils (Bld) [#/Vol] 0.07 10*3/uL 0.00 - 0.42 K/uL [facility] Eosinophils/100 WBC (Bld) 1.0 % [facility] Erythrocyte distribution width (RBC) [Ratio] 12.2 % 10.8 - 14.9 % [facility] Hematocrit (Bld) [Volume fraction] 39.1 % 34.9 - 44.3 % [facility] Hemoglobin (Bld) [Mass/Vol] 13.3 g/dL 11.4 - 15.2 g/dL [facility] Immature granulocytes (Bld) [#/Vol] 0.13 10*3/uL High <=0.08 [facility] Immature granulocytes/100 WBC (Bld) 1.8 % [facility] Interpretation and review of laboratory results Abnormal [facility] Lymphocytes (Bld) [#/Vol] 3.29 10*3/uL 1.16 - 3.51 K/uL [facility] Lymphocytes/100 WBC (Bld) 46.0 % [facility] MCH (RBC) [Entitic mass] 34.1 pg High 25.9 - 33.9 pg [facility] MCHC (RBC) [Mass/Vol] 34.0 g/dL 31.4 - 35.9 g/dL [facility] MCV (RBC) [Entitic vol] 100.3 fL High 79.6 - 97.7 fL [facility] Monocytes (Bld) [#/Vol] 0.82 10*3/uL 0.22 - 0.87 K/uL [facility] Monocytes/100 WBC (Bld) 11.5 % [facility] Neutrophils (Bld) [#/Vol] 2.78 10*3/uL 1.64 - 7.28 K/uL [facility] Nucleated RBC/100 WBC (Bld) [Ratio] 0.0 % <=0.2 /100 WBC [facility] [facility] mean volume (Bld) [Entitic vol] 9.9 fL 8.5 - 12.2 fL [facility] Platelets (Bld) [#/Vol] 110 10*3/uL Low 150 - 393 K/uL [facility] RBC (Bld) [#/Vol] 3.90 10*6/uL Low [facility] Segmented neutrophils/100 WBC (Bld) 38.9 % [facility] WBC (Bld) [#/Vol] 7.15 10*3/uL 3.99 - 11. 19 K/uL [facility] CHEM 6 (LYTES, BUN CREA)on 0 08-17-2022 Anion gap [Moles/Vol] 10 mmol/L Normal 7-17 [facility] Comment on above: Performed By: #### C HM6 #### [facility] (DEFAULT) [address] [place] [address] Chloride [Moles/Vol] 103 mmol/L Normal 98-108 [facility] Comment on above: Performed By: #### C HM6 #### [facility] (DEFAULT) [address] [place] [address] CO2 [Moles/Vol] 31 mmol/L Normal 21-31 [facility] Comment on above: Performed By: #### C HM6 #### [facility] (DEFAULT) [address] [place] [address] Creatinine [Mass/Vol] 1.16 mg/dL Normal 0.50-1.20 [facility] Comment on above: Performed By: #### C HM6 #### [facility] (DEFAULT) [address] [place] [address] GFR/1.73 sq M.predicted among non-blacks MDRD (S/P/Bld) [Vol rate/Area] 63 mL/min/{1.73_m2} Normal >=60 [facility] Comment on above: Result Comment: Repo rted eGFR is based on the CKD-EPI 2020 equation using creatinine, age, and sex. Performed By: #### C HM6 #### [facility] (DEFAULT) [address] [place] [address] Potassium [Moles/Vol] 4.0 mmol/L Normal 3.5-5.0 [facility] Comment on above: Performed By: #### C HM6 #### [facility] (DEFAULT) [address] [place] [address] Sodium [Moles/Vol] 140 mmol/L Normal 135-145 [facility] Comment on above: Performed By: #### C HM6 #### [facility] (DEFAULT) [address] [place] [address] Urea nitrogen [Mass/Vol] 10 mg/dL Normal 7-25 [facility] Comment on above: Performed By: #### C HM6 #### [facility] (DEFAULT) [address] [place] [address] Urea nitrogen/Creatinine [Mass ratio] 9 mg/mg Normal [facility] Comment on above: Performed By: #### C HM6 #### [facility] (DEFAULT) [address] [place] [address] Anion gap [Moles/Vol] 10 mmol/L 7 - 17 mmol/L [facility] Chloride [Moles/Vol] 103 mmol/L 98 - 10 8 mmol/L [facility] CO2 [Moles/Vol] 31 mmol/L 21 - 31 mmol/L [facility] Creatinine [Mass/Vol] 1.16 mg/dL 0.50 - 1.20 mg/dL [facility] GFR/1.73 sq M.predicted CKD-EPI (S/P/Bld) [Vol rate/Area] 63 >=60 mL/min/1.73m 2 [facility] Comment on above: Reported eGFR is bas ed on the CKD-EPI 2020 equation using creatinine, age, and sex. Potassium [Moles/Vol] 4.0 mmol/L 3.5 - 5.0 mmol/L [facility] Sodium [Moles/Vol] 140 mmol/L 135 - 145 mmol/L [facility] Urea nitrogen [Mass/Vol] 10 mg/dL 7 - 25 mg/dL [facility] Urea nitrogen/Creatinine [Mass ratio] 9 mg/mg [facility] Progress Noteson 08-05-2022 [employer] Interface Message Text Spoke to Kari @ [facility], she will call back when she gets to her office to schedule patient's OR visit----- Friday, August 05, 2022 at 11:13:45 AM ----- ----- Provider: Edelmira Bella Specialist -- Clinic: [place] ----- Normal [facility] Progress Noteson 08-25-2021 [employer] Aut[employer] Interface Message Text Pt is special needs. She presents with her mother and a caregiver. Pt cannot tolerate dental work done in an office setting. She is very uncooperative. Mother states that she will hold her down, but that she is a biter. I explained that our staff cannot take the risk of getting bitten by a patient. Dr. De La Cruz did a limited exam. OR is recommended for comprehensive exam and prophy. Last OR was February of 2019. LG is mom: Camille Arnaldo [phone] Call the Replaced by [facility] for [phone] ext: [phone] Tx request sent. 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 [facility] [place]: OR ----- Signed on Wednesday, August 25, 2021 at 9:36:43 AM ----- ----- Provider: Rogelio Ryan DDS -- [place]: [place] ----- Normal [facility] Vital Signs Date Time Vital Sign Value Performing Clinician Facility 02-02-2024 11:15-0500 Body height 147.3 cm Pf Mingler Operator [facility] 02-02-2024 11:15-0500 Body mass index (BMI) [Ratio] 25.08 kg/m2 [facility] 02-02-2024 11:15-0500 Body weight 54.43 kg [facility] 02-02-2024 11:15-0500 Diastolic blood pressure 78 mm[Hg] [facility] 02-02-2024 11:15-0500 Systolic blood pressure 110 mm[Hg] [facility] 08-26-2022 15:30-0400 Body temperature 97.5 [degF] Pastorhakeem Pricestra DDS Work Phone: [facility] 08-26-2022 15:30-0400 Diastolic blood pressure 57 mm[Hg] Pastor Beetstra DDS Work Phone: [facility] 08-26-2022 15:30-0400 Heart rate 101 /min Pastor Beetstra DDS Work Phone: [facility] 08-26-2022 15:30-0400 Respiratory rate 16 /min Pastor Beetstra DDS Work Phone: [facility] 08-26-2022 15:30-0400 SaO2% (BldA) [Mass fraction] 99 % Pastor Beetstra DDS Work Phone: [facility] 08-26-2022 15:30-0400 Systolic blood pressure 107 mm[Hg] Pastor Beetstra DDS Work Phone: [facility] 08-26-2022 12:00-0400 Body height 160 cm Pastor Suarez DDS Work Phone: [facility] 08-26-2022 12:00-0400 Body mass index (BMI) [Ratio] 21.43 kg/m2 Pastor Suarez DDS Work Phone: [facility] 08-26-2022 12:00-0400 Body weight 54.88 kg Pastor Suarez DDS Work Phone: [facility] 08-17-2022 10:00-0400 Body height 160 cm Prasanth Reyes PA-C Work Phone: [facility] 08-17-2022 10:00-0400 Body mass index (BMI) [Ratio] 21.79 kg/m2 Prasanth Reyes PA-C Work Phone: [facility] 08-17-2022 10:00-0400 Body temperature 97.39 [degF] Prasanth Reyes PA-C Work Phone: [facility] 08-17-2022 10:00-0400 Body weight 55.79 kg Prasanth Reyes PA-C Work Phone: [facility] 08-17-2022 10:00-0400 Diastolic blood pressure 64 mm[Hg] Prasanth Reyes PA-C Work Phone: [facility] 08-17-2022 10:00-0400 Heart rate 69 /min Prasanth Reyes PA-C Work Phone: [facility] 08-17-2022 10:00-0400 Respiratory rate 18 /min Prasanth Reyes PA-C Work Phone: [facility] 08-17-2022 10:00-0400 SaO2% (BldA) [Mass fraction] 97 % Prasanth Reyes PA-C Work Phone: [facility] 08-17-2022 10:00-0400 Systolic blood pressure 98 mm[Hg] Prasanth Reyes PA-C Work Phone: [facility] Encounters Encounter Date Encounter Type Care Provider Facility Start: 03-21-2024 End: 03-21-2024 Lab Drop off ROBIN VAUGHAN [facility] Start: 03-21-2024 End: 03-22-2024 ambulatory ROBIN VAUGHAN [facility] Start: 02-02-2024 End: 02-02-2024 Patient encounter procedure 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 Operator [facility] Comment on above: Encounter for screen ing breast examination (Primary Dx); Surveillance of previously prescribed contraceptive pill Start: 02-01-2024 End: 02-02-2024 ambulatory ROBIN VAUGHAN [facility] Start: 02-01-2024 End: 02-01-2024 Patient encounter procedure ROBIN VAUGHAN [facility] Start: 11-30-2023 End: 12-01-2023 ambulatory ROBIN VAUGHAN [facility] Start: 11-02-2023 End: 11-02-2023 ambulatory KATIUSKA GANDHI [facility] Start: 10-12-2023 End: 10-13-2023 ambulatory ROBIN VAUGHAN [facility] Start: 10-12-2023 End: 10-12-2023 Lab Drop off ROBIN VAUGHAN [facility] Start: 08-17-2023 End: 08-18-2023 ambulatory ROBIN VAUGHAN [facility] Start: 08-17-2023 End: 08-17-2023 Lab Drop off ROBIN VAUGHAN [facility] Start: 02-17-2023 End: 02-18-[address] ROBIN VAUGHAN Facility: Start: 02-02-2023 End: 02-03-[address] ROBIN VAUGHAN Facility:[facility] Start: 12-14-2022 End: 12-15-[address] ROBIN VAUGHAN Facility:[facility] Start: 10-13-2022 End: 10-13-[address] ROBIN VAUGHAN Facility:[facility] Start: 10-12-2022 End: 10-13-[address] ROBIN VAUGHAN Facility: Start: 08-26-2022 End: 08-26-2022 ambulatory GERONIMO LANGLEY Facility:[facility] Start: 08-26-2022 End: 08-26-2022 Subsequent hospital visit by physician Pastor Suarez DDS Work Phone: [facility] Comment on above: Periodontal disease Start: 08-17-2022 ambulatory PRASANTH REYES Facility:[facility] Start: 08-17-2022 Encounter for other preprocedural examination PRASANTH REYES Facility:[facility] Start: 08-17-2022 End: 08-17-2022 Office consultation new/estab patient 40 min Prasanth Reyes PA-C Work Phone: [facility]Pro[facility] Comment on above: Preop exam for inter nal medicine (Primary Dx); Periodontal disease; Developmental delay; Hypothyroidism, unspecified type Start: 08-17-2022 End: 08-17-2022 Patient encounter status Prasanth Reyes PA-C Work Phone: Pre-Procedure [facility] Start: 08-05-2022 ambulatory ALEX RYAN [facility] Start: 08-04-2022 [facility] Leonela Dee DDTawana Work Phone: [facility] Start: 08-25-2021 End: 08-26-2021 ambulatory UNKNOWN PROVIDER Facility:[facility] Procedures Date Procedure Procedure Detail Performing Clinician Start: 02-02-2024 Microscopic observat ion [Identifier] in Cervix by Cyto stain Pfws Mingler Operator Start: 08-26-2022 CARDIAC RHYTHM Other Ot her Start: 08-17-2022 CBC AND ELECTRONIC DIFF Prasanth Reyes PA-C Work Phone: Start: 08-17-2022 Complete blood count with white cell differential, automated Prasanth Reyes PA-C Work Phone: Start: 08-17-2022 Creatinine blood Prasanth Reyes PA-C Work Phone: Plan of Treatment Date Care Activity Detail Author Start: 02-22-2038 Shingles (RZV) Vacci ne (1 of 2) Shingles (RZV) Vaccine (1 of 2) [facility] Start: 02-01-2025 Adult BMI Screening Adult BMI Screen ing [facility] Start: 02-01-2025 Tobacco Screening Tobacco Screening [facility] Start: 08-17-2023 Potassium [Moles/vol ume] in Serum or Plasma POTASSIUM [facility] Start: 07-29-2023 COVID-19 Vaccine ( season) COVID-19 Vaccine ( season) [facility] Start: 07-29-2023 Influenza vaccination Influenza Vacc ine [facility] Start: 08-28-2022 Influenza vaccination Influenza Vacc ine (#1) [facility] Start: 08-26-2022 End: 08-26-2022 Admission to same day surgery center 08/26/2022 Surgery Multispecialty Pastor Suarez DDS [address] [place] [address] [facility] Comment on above: FULL MOUTH REHABILIT ATION Start: 08-26-2022 Subsequent hospital visit by physician 08/26/2022 Hospital Encounter Multispecialty Pastor Suarez DDS [address] [place] [address] Periodontal disease [facility] Comment on above: Periodontal disease Start: 08-26-2022 End: 08-26-2022 Unlisted procedure dentoalveolar structures [facility]ATION Periodontal disease Dental caries 08/26/2022 1:35 PM EDT [facility] Start: 08-26-2022 End: 08-26-2022 Patient encounter procedure 08/26/2022 Appointment Multispecialty [facility] Start: 07-29-2022 Influenza vaccination INFLUENZA VACC INE (#1) [facility] Start: 05-29-2021 COVID-19 Vaccine (3 - Booster for Pfizer series) COVID-19 Vaccine (3 - Booster for Pfizer series) [facility] Start: 02-24-2021 COVID-19 VACCINE (3 - Booster for Pfizer series) COVID-19 VACCINE (3 - Booster for Pfizer series) [facility] Start: 07-17-2019 DTaP,Tdap and Td Vaccines (2 - Td or Tdap) DTaP,Tdap and Td Vaccines (2 - Td or Tdap) [facility] Start: 07-17-2019 Tetanus vaccination Tetanus (T d or Tdap) [facility] Start: 02-22-2009 Screening for malign ant neoplasm of cervix [facility] Start: 01-26-2009 Annual wellness visit Annual W ellness Visit (G0438) [facility] Start: 02-22-2007 Third diphtheria, tetanus and acellular pertussis (DTaP) vaccination TDAP (ADULT) [facility] Start: 02-22-2006 Adult BMI Follow Up Plan Adult BMI F ollow Up Plan [facility] Start: 02-22-2006 Hepatitis C screening Hepatitis C An tibody [facility] Start: 02-22-2006 Tetanus vaccination TETANUS [facility] Start: 02-22-2003 HIV screening [facility] Start: 2000 Depression Screening Depression [facility] Start: 1988 Hepatitis C antibody , confirmatory test HEPATITIS C VIRUS SCREENING [facility] Start: 1988 Thyroid stimulating hormone measurement TSH [facility] DENTAL RESTORATIONS DENTAL RADHA RATIONS Routine scheduled Caries [facility] Noninvasive ear/puls e oximetry single deter FL NONINVASV OXYGEN SATUR; SINGLE FL - OFFICE PERFORMED Routine Preop exam for internal medicine Periodontal disease Developmental delay Hypothyroidism, unspecified type Ordered: 08/17/2022 [facility] Comment on above: Ordered: 08/17/2022 Immunizations Immunization Date Immunization Notes Care Provider Scarlett woo 12-30-2020 Pfizer (12+ yrs) BREE S-COV-2 (COVID-19) vaccine, mRNA, spike protein, LNP, pres. free, 30 mcg/0.3mL dose (IVT=734) Leonela Lica DDS Work Phone: [facility] 12-09-2020 Pfizer (12+ yrs) BREE S-COV-2 (COVID-19) vaccine, mRNA, spike protein, LNP, pres. free, 30 mcg/0.3mL dose (ATM=925) Leonela Lica DDS Work Phone: [facility] 09-03-2020 influenza, injectabl e, quadrivalent, preservative free Leonela Lica DDS Work Phone: [facility] 09-03-2020 influenza virus vacc ine, unspecified formulation Leonela Lica DDS Work Phone: [facility] 07-17-2009 tetanus toxoid, redu magnus diphtheria toxoid, and acellular pertussis vaccine, adsorbed Leonela Lica DDS Work Phone: [facility] Payers Date Payer Category Payer Medicaid [id number] 2008 Medicare [id number] 1988 Unknown [id number] 2.16. [id number] 1988 Unknown [id number] 2.16. [id number] 1988 Unknown [id number] 2.16. [id number] 1988 Unknown [id number] 2.16. [id number] 1988 Unknown [id number] 2.16. [id number] 1988 Unknown [id number] 2.16.8 [id number] 1988 Unknown [id number] 2.16.8 [id number] 1988 Unknown [id number] 2.16.8 [id number] 1988 Unknown [id number] 2.16.8 [id number] 1988 Unknown [id number] 2.16.8 [id number] 1959 Medicaid [id number] 1961 Medicare [id number] Unknown [id number] 2.16.84 [id number] Unknown [id number] 2.16.84 [id number] Unknown [id number] 2.16.84 [id number] Unknown [id number] 2.16.84 [id number] Unknown [id number] 2.16.84 [id number] Social History Date Type Detail Facility Tobacco smoking stat [facility] Tobacco smoking consumption unknown [facility] Work Phone: Start: 1988 [facility]igned At [facility] Start: 08-26-2022 End: 02-02-2024 Tobacco smoking status NHIS Never smoked tobacco [facility] Start: 08-26-2022 End: 02-02-2024 Tobacco use and exposure Smokeless tobacco non-user [facility] Start: 08-26-2022 End: 02-02-2024 Alcohol intake Lifetime non-drinker (finding) [facility] Tobacco smoking status No Smokin g Status Entered [facility] Start: 05-09-2019 End: 02-02-2024 Sex Assigned At Female [facility] Start: 05-09-2019 End: 02-02-2024 History of Social function [facility] Childcare Unknown [facility] Clinical Notes 08-17-2022 to 03-21-2024 Thea Fuentes APRN-SKEIN TIER - 02/02/2024 11:00 AM ESTNursing Notes - Marcelino Augustin RN - 08/26/2022 3:35 PM EDTNursing Notes - Marcelino Augustin RN - 08/26/2022 3:35 PM EDTPatient Instructions Note Date & Type Note Facility 03-21-2024 Evaluation + Plan note Diagnostic Tests PendingAcute Hepatitis A B C Panel 03/21/24 [facility] 02-02-2024 History of Present illness Narrative Kyle Mcintosh is a 33 y.o. female new patient who presents for medicare pelvic and clinical breast exam screening for cancer. She is non verbal and accompanied by a caregiver today. Caregiver has written instructions that patient is not to have a pap / pelvic. She was seen by Dr. La last in 2021. She is not sexually active, but takes OCPs for period control. She skips placebo week for two months and takes it on the third month so she only has four periods per year. She needs a refill. Hot flashes - None Bladder issues - None Bowel issues - None History of abnormal Pap smear: no Last pap: last annual exam was 12/14/21. Mom refuses pap / pelvic exam for pt. Family history of uterine or ovarian cancer: unsure Regular self breast exam: no Last mammogram: na Family history of breast cancer: unsure Family history of colon cancer: unsure Family history of pancreatic or prostate cancer: unsure Working no : How many children? 0 Smoker no Dexa Scan: no Colonoscopy: no PHQ-9 screening: unable to obtain The following portions of the patient's history were reviewed and updated as appropriate: allergies, current medications, past family history, past medical history, past social history, past surgical history, problem list, and medication reconciliation was completed including current medication and post discharge medication. Review of Systems Constitutional: Negative. Respiratory: Negative. Negative for chest tightness and shortness of breath. Cardiovascular: Negative. Negative for chest pain and palpitations. Gastrointestinal: Negative. Genitourinary: Negative. Neurological: Positive for speech difficulty. Psychiatric/Behavioral: Positive for agitation and dysphoric mood. Objective Vitals: 02/02/24 1115 BP: 110/78 Body mass index is 25.08 kg/m . Physical Exam Vitals and nursing note reviewed. Cardiovascular: Rate and Rhythm: Normal rate and regular rhythm. Pulses: Normal pulses. Heart sounds: Normal heart sounds. Pulmonary: Effort: Pulmonary effort is normal. Breath sounds: Normal breath sounds. Abdominal: General: Bowel sounds are normal. Palpations: Abdomen is soft. Skin: General: Skin is warm and dry. Neurological: Mental Status: She is alert. Mental status is at baseline. Psychiatric: Speech: She is noncommunicative. Behavior: Behavior is cooperative. Cognition and Memory: Cognition is impaired. Tiffany was seen today for gynecologic exam. Diagnoses and all orders for this visit: Encounter for screening breast examination Surveillance of previously prescribed contraceptive pill - levonorgestreL-ethinyl estrad (AVIANE,ALESSE,LESSINA) 0.1-20 mg-mcg per tablet; Take 1 tablet by mouth in the morning. Pt takes continuously . 1. Refill of OCPs sent. 2. Warning signs discussed with caregiver. 3. Yearly mammograms recommended at age 40. 4. Educational material provided. 5. Questions answered. 6. Return for Medicare pelvic / breast exam and / or PRN. HANSEL Campa APRN-CNP Lisa M Franco, APRN-CNP 02/02/24 1525 documented in this encounter [facility] 11-02-2023 Note Attestation signed by Katiuska Gandhi at 11/02/2023 12:05 PM By using the attestations below, the signing clinician agrees that I have read and verify that the documentation has been personally reviewed by me and ensure that the documentation accurately reflects the encounter. GC: I personally saw this patient on the day of the encounter, performed the herring portion(s) of the service and participated in the management and confirm the resident's documentation. Please note there may be an additional personal documentation from me. Subjective Patient ID: Tiffany Mcintosh is a 33 y.o. female who presents for Follow-up. HPI Ms. Mcintosh was referred to the endocrinology clinic in 2016 for evaluation and management of diabetes insipidus. Her mother is present. 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 Her mother provided most of information at the initial visit Reportedly , in 2017 couple of month before the initial visit, when she was admitted to the Hospital due to aspirational pneumonia, her fluid intake was restricted and developed severe hypernatremia >160 mmol/L. She was born vaginally, and her process was complicated and difficulty and prolonged delivery and apparent meconium aspiration. At the time of initial visit she was one a half tablet of 0.2 mg desmopressin TID. In March 2017 her DDAVP was increased to 0.4 mg from 0.3 mg at bedtime and that helped with decreasing the number of wet diapers at night Interval history: Last appointment in October 2022. Patient is accompanied by her mother today. She denies any concerns. She thinks she asked for water whenever she is thirsty. Other than that no concerns, no recent sickness or hospitalization ROS: Unable to obtain from the patient due to verbal insufficiency Objective Visit Vitals BP 105/71 (BP Location: Left arm, Patient Position: Sitting, BP Cuff Size: Adult) Pulse 90 Physical Exam Constitutional: Appearance: She is not toxic-appearing. HENT: Head: Normocephalic and atraumatic. Mouth/Throat: Mouth: Mucous membranes are moist. Eyes: Extraocular Movements: Extraocular movements intact. Cardiovascular: Rate and Rhythm: Normal rate and regular rhythm. Pulmonary: Effort: Pulmonary effort is normal. No respiratory distress. Abdominal: Palpations: Abdomen is soft. Musculoskeletal: Cervical back: Normal range of motion. No tenderness. Right lower leg: No edema. Left lower leg: No edema. Skin: General: Skin is warm. Neurological: General: No focal deficit present. Mental Status: She is alert. Psychiatric: Comments: Unable to asses Labs: 10/14/2023 Sodium 141, TSH 6.47, free T41.41, rest of the electrolytes and creatinine stable 10/15/2022 Na: 139 K: 4.0 Cl: 102 HCO3: 34.9 Cr: 1.35 eGFR: 45 Serum osmolarity: 281 Urine osmolarity: 280 09/30/2021 Sodium: 142 Potassium: 4.3 creatinine: 1.1 eGFR, non-AA: 57 other remainder of CMP: unremarkable Hb: 14.3 Hct: 42.3 10/15/2022 TSH: 5.185 Free T4: 0.91 09/30/2021 TSH: 3.671 [0.34-=5.600 uIU/mL] Free T4: 0.98 [0.70-1.48 ng/dL] Assessment/Plan 1. Diabetes insipidus (CMS/HCC) -History of diabetes insipidus in the setting of injury due to prolonged labor - Currently on desmopressin 0.3 mg in the morning, 0.2 mg afternoon, 0.4 mg at night - Electrolytes stable as well as patient exhibited to ask for water, no evidence of any hyper or hypovolemia on physical examination - Continue current treatment with desmopressin - Osmolality, urine; Future - Basic metabolic panel; Future 2. Hypothyroidism, unspecified type Thyroid hormone status: [] Euthyroid (appropriately replaced) [x] Hypothyroid (under-replaced) [] Thyrotoxic (over-replaced) [] Unclear (to be determined) Levothyroxine dosage adjustment: [Increase] [ 75 ]mcg/day. From 50 mcg Instruction to patient [x] Patient' mother was made aware of medication changes and advised to update medication list [] Information regarding thyroid hormone treatment including proper administration was discussed and brochure was given to the patient [] Changes of thyroid hormone requirement with age was discussed and brochure was given to the patient [] With the advanced age (>65 years) and/or cardiovascular conditions, based on the current evidence it is reasonable to raise the target serum TSH to 4-6?mIU/L. [] Hypothyroidism or under-replacement and health risks including increased cholesterol, cardiovascular events, and myxedema coma were discussed [] Thyrotoxicosis or over-replacement and health risks including atrial fibrillation, thromboembolic events, and osteoporosis were discussed [] Information regarding thyroid hormone, and fe (more content not included)... [facility] 08-26-2022 Note Formatting of this n ote might be different from the original. 1530: Pt arrived on unit, initial assessment and vitals completed, pt positioned on cart, no belongings in SPR to return, call light in reach, family on their way from atrium, this RN to stay with pt until family arrives, no further needs at this time. 1545: IV removed, AVS reviewed with mother and caregiver, no questions. Pt helped to restroom and dressed for discharge. Pt escorted to lobby via wheelchair and left in care of mother while waiting for ship engineer by this RN. [facility] 08-26-2022 Miscellaneous Notes 1530: Pt arrived on unit, initial assessment and vitals completed, pt positioned on cart, no belongings in SPR to return, call light in reach, family on their way from atrium, this RN to stay with pt until family arrives, no further needs at this time. 1545: IV removed, AVS reviewed with mother and caregiver, no questions. Pt helped to restroom and dressed for discharge. Pt escorted to lobby via wheelchair and left in care of mother while waiting for ship engineer by this RN. Current Facility-Administered Medications: chlorhexidine (PERIDEX) 0.12 % oral solution, , , PRN, Pastor Suarez DDS, 15 mL at 08/26/22 1358 haloperidol lactate (HALDOL) injection 1 mg, 1 mg, Intravenous, Once PRN, Juan Dozier DDS HYDROmorphone (DILAUDID) injection 0.2 mg, 0.2 mg, Intravenous, Q5 MIN PRN OR HYDROmorphone (DILAUDID) injection 0.5 mg, 0.5 mg, Intravenous, Q5 MIN PRN, Juan Dozier DDS ketamine (KETALAR) injection 0-500 mg, 0-500 mg, Intramuscular, Once, Juan Dozier DDS lactated ringers IV solution, , Intravenous, Continuous, Rosa Rochelle Siddiqui DDS, Last Rate: 50 mL/hr at 08/26/22 1245, New Bag at 08/26/22 1245 promethazine (PHENERGAN) injection 6.25 mg, 6.25 mg, Intravenous, Q1H PRN, Juan Dozier DDS Facility-Administered Medications Ordered in Other Encounters: dexAMETHasone (DECADRON) injection, , Intravenous, PRN, Juan Dozier DDS, 8 mg at 08/26/22 1357 glycopyrrolate (ROBINUL) injection, , Intravenous, PRN, Juan Dozier DDS, 0.2 mg at 08/26/22 1349 ketamine (KETALAR) injection, , Intravenous, PRN, Juan Dozier DDS, 50 mg at 08/26/22 1347 ketorolac (TORADOL) injection, , Intravenous, PRN, Juan Dozier DDS, 30 mg at 08/26/22 1430 lactated ringers IV solution, , Intravenous, Continuous PRN, Juan Dozier DDS, New Bag at 08/26/22 1337 Midazolam HCl (PF) (VERSED) injection, , Intravenous, PRN, Juan Dozier DDS, 2 mg at 08/26/22 1337 ondansetron 4mg/2ml (ZOFRAN) injection, , Intravenous, PRN, Juan Dozier DDS, 8 mg at 08/26/22 1435 phenylephrine (NEOSYNEPHRINE) syringe, , Intravenous, PRN, Juan Dozier DDS, 100 mcg at 08/26/22 1405 propofol (DIPRIVAN) injection, , Intravenous, PRN, Juan Dozier DDS, 100 mg at 08/26/22 1348 rocuronium (ZEMURON) injection, , Intravenous, PRN, Juan Dozier DDS, 50 mg at 08/26/22 1349 sugammadex (BRIDION) injection, , Intravenous, PRN, Juan Dozier DDS, 110 mg at 08/26/22 1443 Current Outpatient Medications Medication Instructions acetaminophen (TYLENOL) 325 mg, Oral, EVERY 4 HOURS NEEDED bisacodyl (DULCOLAX) 10 mg, Rectal, NEEDED BUSPIRONE HCL PO 20 mg, Oral, 3 TIMES DAILY calcium carbonate (TUMS) 1,000 mg, Oral, NEEDED chlorhexidine 0.12 % Solution oral solution 15 mL, Oral, 2 TIMES DAILY CLONAZEPAM PO 0.5 mg, Oral, 3 TIMES DAILY desmopressin (DDAVP) 0.2 mg, Oral, 3 TIMES DAILY, Take 1 and 1/5 tablets in the morning. 1 tablet at noon and two tablets at bedtime. Dextromethorphan-guaiFENesin (CHEST CONGESTION/COUGH RELIEF PO) 400 mg, Oral, 2 TIMES DAILY NEEDED Docusate Sodium (DOK) 100 mg, Oral, DIRECTED PRN FOLIC ACID PO 1 mg, Oral, DAILY EVERY MORNING hydroCHLOROthiazide (HYDRODIURIL) 25 mg, Oral, DAILY EVERY MORNING Lactobacillus (ACIDOPHILUS/BIFIDUS PO) Take by mouth. levonorgestrel-ethinyl estradiol (Vienva) 0.1-20 MG-MCG tablet 1 tablet, Oral, DAILY EVERY MORNING levothyroxine (SYNTHROID) 75 mcg, Oral, DAILY BEFORE BREAKFAST Loperamide HCl 2 mg, Oral, DIRECTED PRN loratadine (CLARITIN) 10 mg, Oral, DAILY NEEDED metoprolol (LOPRESSOR) 100 mg, Oral, 4 TIMES DAILY montelukast (SINGULAIR) 10 mg, Oral, EVERY EVENING naltrexone (DEPADE) 50 mg, Oral, 2 TIMES DAILY ondansetron (ZOFRAN) 4 mg, Oral, EVERY 8 HOURS NEEDED potassium chloride 20 MEQ/15ML (10%) Solution 20 mEq, Oral, DAILY EVERY MORNING senna (SENOKOT) 17.2 mg, Oral, 2 TIMES DAILY Op Note Attending: Pastor Suarez Surgeons: Pastor Suarez Resident: Rosa Siddiqui Pre-op Diagnosis: Dental Caries, Periodontal Disease Post-op Diagnosis: Dental Caries, Periodontal Disease Operation: FMR Anesthesia (including local): GA via NETT 0 mL 0.5% Marcaine with 1:200,000 epinephrine 0 mL 1% Lidocaine with 1:100,000 epinephrine Indications & Consents: Due to patient s uncooperative nature and regarding dental treatment as well as her medical diagnoses of developmental delay, requires dental treatment in an OR setting under general anesthesia for the safety of the patient and the providers. Consents were obtained from patient / patient s guardian and updated. Procedure: The patient was brought to the OR NPO appropriate and placed in a supine position at 13:37. Following a ketamine injection (if applicable) IV access was obtained and anesthesia was initiated. The patient was prepped and draped in routine fashion. A full mouth series of radiographs were exposed. A throat pack was placed at 14:13. A complete intra/extra oral exam was completed and a treatment plan was established. Mouth was rinsed with 0.12% Chlorhexidine gluconate solution with toothbrush. Noted Class II mobility teeth #[id number]. Full mouth scaling was performed with an ultrasonic watch assembly inspector. Teeth were polished with prophy paste and prophy cup on slow speed handpiece. Fluoride varnish was applied to teeth. The throat pack was removed at 14:43. The patient was extubated and transferred to PACU in stable condition. Written and verbal post-operative instructions were provided to the patient s escort. Condition: Stable Disposition: Patient to follow up at dental clinic prn and with the [facility] dental clinic for regular exams. EBL (estimated blood loss): minimal TRF (total fluid replacement): 500 mL Lactated Ringers TABBY Guzman DDS, [facility] Tiffany Mcintosh ([id number]) PRE OPERATIVE DIAGNOSIS Periodontal disease [K05.6] Dental caries [K02.9] POST OPERATIVE DIAGNOSIS Post-Op Diagnosis Codes: * Periodontal disease [K05.6] * Dental caries [K02.9] PROCEDURE PERFORMED Procedure(s) (LRB): FULL MOUTH REHABILITATION (N/A) PRIMARY CLOSURE Yes INTRAOPERATIVE FINDINGS No significant abnormalities SURGEON Surgeon(s) and Role: * Pastor Suarez DDS - Primary ANESTHESIOLOGIST Anesthesiologist: Katiuska Aguirre DO Magnetizer Assisting: Juan Dozier DDS SURGICAL STAFF Board Certified Behavioral Analyst: Maria Del Rosario Scanlon RN Scrub Person: Jimmy Neri Resident Assisting: Rosa Siddiqui DDS COMPLICATIONS None ESTIMATED BLOOD LOSS minimal SPECIMENS No specimen sent * No specimens in log * Pastor Suarez DDS August 26, 2022 2:47 PM documented in this encounter [facility] 08-26-2022 Note Formatting of this n ote is different from the original. Current Facility-Administered Medications: chlorhexidine (PERIDEX) 0.12 % oral solution, , , PRN, Pastor Suarez DDS, 15 mL at 08/26/22 1358 haloperidol lactate (HALDOL) injection 1 mg, 1 mg, Intravenous, Once PRN, Juan Dozier DDS HYDROmorphone (DILAUDID) injection 0.2 mg, 0.2 mg, Intravenous, Q5 MIN PRN OR HYDROmorphone (DILAUDID) injection 0.5 mg, 0.5 mg, Intravenous, Q5 MIN PRN, Juan Dozier DDS ketamine (KETALAR) injection 0-500 mg, 0-500 mg, Intramuscular, Once, Juan Dozier DDS lactated ringers IV solution, , Intravenous, Continuous, Rosa Siddiqui DDS, Last Rate: 50 mL/hr at 08/26/22 1245, New Bag at 08/26/22 1245 promethazine (PHENERGAN) injection 6.25 mg, 6.25 mg, Intravenous, Q1H PRN, Juan Doizer DDS Facility-Administered Medications Ordered in Other Encounters: dexAMETHasone (DECADRON) injection, , Intravenous, PRN, Juan Dozier DDS, 8 mg at 08/26/22 1357 glycopyrrolate (ROBINUL) injection, , Intravenous, PRN, Juan Dozier DDS, 0.2 mg at 08/26/22 1349 ketamine (KETALAR) injection, , Intravenous, PRN, Juan Dozier DDS, 50 mg at 08/26/22 1347 ketorolac (TORADOL) injection, , Intravenous, PRN, Juan Dozier DDS, 30 mg at 08/26/22 1430 lactated ringers IV solution, , Intravenous, Continuous PRN, Juan Dozier DDS, New Bag at 08/26/22 1337 Midazolam HCl (PF) (VERSED) injection, , Intravenous, PRN, Juan Dozier DDS, 2 mg at 08/26/22 1337 ondansetron 4mg/2ml (ZOFRAN) injection, , Intravenous, PRN, Juan Dozier DDS, 8 mg at 08/26/22 1435 phenylephrine (NEOSYNEPHRINE) syringe, , Intravenous, PRN, Juan Dozier DDS, 100 mcg at 08/26/22 1405 propofol (DIPRIVAN) injection, , Intravenous, PRN, Juan Dozier DDS, 100 mg at 08/26/22 1348 rocuronium (ZEMURON) injection, , Intravenous, PRN, Juan Dozier DDS, 50 mg at 08/26/22 1349 sugammadex (BRIDION) injection, , Intravenous, PRN, Juan Dozier DDS, 110 mg at 08/26/22 1443 Current Outpatient Medications Medication Instructions acetaminophen (TYLENOL) 325 mg, Oral, EVERY 4 HOURS NEEDED bisacodyl (DULCOLAX) 10 mg, Rectal, NEEDED BUSPIRONE HCL PO 20 mg, Oral, 3 TIMES DAILY calcium carbonate (TUMS) 1,000 mg, Oral, NEEDED chlorhexidine 0.12 % Solution oral solution 15 mL, Oral, 2 TIMES DAILY CLONAZEPAM PO 0.5 mg, Oral, 3 TIMES DAILY desmopressin (DDAVP) 0.2 mg, Oral, 3 TIMES DAILY, Take 1 and 1/5 tablets in the morning. 1 tablet at noon and two tablets at bedtime. Dextromethorphan-guaiFENesin (CHEST CONGESTION/COUGH RELIEF PO) 400 mg, Oral, 2 TIMES DAILY NEEDED Docusate Sodium (DOK) 100 mg, Oral, DIRECTED PRN FOLIC ACID PO 1 mg, Oral, DAILY EVERY MORNING hydroCHLOROthiazide (HYDRODIURIL) 25 mg, Oral, DAILY EVERY MORNING Lactobacillus (ACIDOPHILUS/BIFIDUS PO) Take by mouth. levonorgestrel-ethinyl estradiol (Vienva) 0.1-20 MG-MCG tablet 1 tablet, Oral, DAILY EVERY MORNING levothyroxine (SYNTHROID) 75 mcg, Oral, DAILY BEFORE BREAKFAST Loperamide HCl 2 mg, Oral, DIRECTED PRN loratadine (CLARITIN) 10 mg, Oral, DAILY NEEDED metoprolol (LOPRESSOR) 100 mg, Oral, 4 TIMES DAILY montelukast (SINGULAIR) 10 mg, Oral, EVERY EVENING naltrexone (DEPADE) 50 mg, Oral, 2 TIMES DAILY ondansetron (ZOFRAN) 4 mg, Oral, EVERY 8 HOURS NEEDED potassium chloride 20 MEQ/15ML (10%) Solution 20 mEq, Oral, DAILY EVERY MORNING senna (SENOKOT) 17.2 mg, Oral, 2 TIMES DAILY Op Note Attending: Pastor Suarez Surgeons: Pastor Suarez Resident: Rosa Siddiqui Pre-op Diagnosis: Dental Caries, Periodontal Disease Post-op Diagnosis: Dental Caries, Periodontal Disease Operation: FMR Anesthesia (including local): GA via NETT 0 mL 0.5% Marcaine with 1:200,000 epinephrine 0 mL 1% Lidocaine with 1:100,000 epinephrine Indications & Consents: Due to patient s uncooperative nature and regarding dental treatment as well as her medical diagnoses of developmental delay, requires dental treatment in an OR setting under general anesthesia for the safety of the patient and the providers. Consents were obtained from patient / patient s guardian and updated. Procedure: The patient was brought to the OR NPO appropriate and placed in a supine position at 13:37. Following a ketamine injection (if applicable) IV access was obtained and anesthesia was initiated. The patient was prepped and draped in routine fashion. A full mouth series of radiographs were exposed. A throat pack was placed at 14:13. A complete intra/extra oral exam was completed and a treatment plan was established. Mouth was rinsed with 0.12% Chlorhexidine gluconate solution with toothbrush. Noted Class II mobility teeth #[id number]. Full mouth scaling was performed with an ultrasonic watch assembly inspector. Teeth were polished with prophy paste and prophy cup on slow speed handpiece. Fluoride varnish was applied to teeth. The throat pack was removed at 14:43. The patient was extubated and transferred to PACU in stable condition. Written and verbal post-operative instructions were provided to the patient s escort. Condition: Stable Disposition: Patient to follow up at dental clinic prn and with the [facility] dental clinic for regular exams. EBL (estimated blood loss): minimal TRF (total fluid replacement): 500 mL Lactated Ringers TABBY Guzman DDS, [facility] Work Phone: 08-26-2022 Note Formatting of this n ote might be different from the original. Tiffany Mcintosh ([id number]) PRE OPERATIVE DIAGNOSIS Periodontal disease [K05.6] Dental caries [K02.9] POST OPERATIVE DIAGNOSIS Post-Op Diagnosis Codes: * Periodontal disease [K05.6] * Dental caries [K02.9] PROCEDURE PERFORMED Procedure(s) (LRB): FULL MOUTH REHABILITATION (N/A) PRIMARY CLOSURE Yes INTRAOPERATIVE FINDINGS No significant abnormalities SURGEON Surgeon(s) and Role: * Pastor Suarez DDS - Primary ANESTHESIOLOGIST Anesthesiologist: Katiuska Aguirre DO Magnetizer Assisting: Juan Dozier DDS SURGICAL STAFF Board Certified Behavioral Analyst: Maria Del Rosario Scanlon RN Scrub Person: Jimmy Neri Resident Assisting: Rosa Siddiqui DDS COMPLICATIONS None ESTIMATED BLOOD LOSS minimal SPECIMENS No specimen sent * No specimens in log * Pastor Suarez DDS August 26, 2022 2:47 PM [facility] 08-26-2022 Nurse Surgical operation note Pt came to OR with toy ball. Ball taken with pt to PACU. [facility] 08-26-2022 Nurse Note Pt came to OR with toy ball. Ball taken with pt to PACU. documented in this encounter [facility] 08-26-2022 History and physical note Hospitalist updated H&P. Patient seen and examined at bedside. Chart reviewed including recent OPAC note on 08/17/2022. Collateral information obtained from the patient's mother and caregiver (also at bedside.) No recent changes. Appears to be around her baseline. No recent medication changes. The facility has been holding the patient's medications in anticipation for the procedure as directed. NAD Heart without murmur Lungs CTAB No absolute contraindications to proceed with surgery at this time. Hubert Ledbetter DO [facility] Work Phone: 08-26-2022 History and physical note Hospitalist updated H&P. Patient seen and examined at bedside. Chart reviewed including recent OPAC note on 08/17/2022. Collateral information obtained from the patient's mother and caregiver (also at bedside.) No recent changes. Appears to be around her baseline. No recent medication changes. The facility has been holding the patient's medications in anticipation for the procedure as directed. NAD Heart without murmur Lungs CTAB No absolute contraindications to proceed with surgery at this time. Hubert Ledbetter DO documented in this encounter [facility] 08-17-2022 History and physical note Images from the original note were not included. History of Present Illness Ms. Mcintosh is a 32 y.o. female is being evaluated in [facility] due to her medical condition of Periodontal disease , which increases her risk for perioperative complications. Pt also has a hx of: Developmental Delay Hypothyroidism Name: Tiffany Mcintosh Date of Surgery: 08/26/2022 1:35 PM Surgeon: Pastor Suarez DDS Pre-Op Diagnosis: Periodontal disease Planned Procedure: FULL MOUTH REHABILITATION Do you take ASA? No Why do you take ASA? N/A Do you have any cardiac stents? No Do you have a Port? No Where is it located? N/A When was it last used? N/A ANESTHESIA/AIRWAY Anesthesia alerts - Severe Developmental Delay, Autism, NonVerbal Personal history of problems related to anesthesia (ex.Malignant Hyperthermia): no Family History of problems related to anesthesia (ex.Malignant Hyperthermia: no Pacer/AICD: no Glaucoma: no Beta Rodney: no Diabetic Mellitus: no HANSA: no STOP-BANG Risk Assessment (3 or more YES responses is high risk) Do you snore - No Are you frequently tired during the day? - No Have you been observed gasping or choking while asleep? - No Do you have high blood pressure? - No Age more than 50? - No Gender male? - No Neck circumference greater than 40 cm? - No Neck Circumference (cm): 28 BMI more then 35? - No Body mass index is 21.79 kg/m . Mallampati class - Unable to access TM Distance - 3 Oral Opening - Unable to access Teeth - Unable to access Cervical range of motion - Unable to access Neck circumference - Neck Circumference (cm): 28 Allergies and adverse drug reactions Allergies Allergen Reactions Augmentin [Amoxicillin-Pot Clavulanate] Lorabid [Loracarbef] Anesthesia/Airway A/P - Does pt meet criteria for liberalized NPO? no. If no, why? ASA 3 or more Anesthesia Record Reviewed by me 03/02/19: CARDIOVASCULAR History: Blood pressure 98/64, pulse 69, temperature 97.4 F (36.3 C), resp. rate 18, height 1.6 m (5' 3 ), weight 55.8 kg (123 lb), SpO2 97 %. Pt denies any hx of CAD, Arrhythmia's, CHF or CVA/TIA. Pt denies any cardiac stents, pacemaker or artificial heart valvular replacement. Pt denies any chest pain, JAMES, palpitations or orthopnea. BP Readings from Last 3 Encounters: 08/17/22 98/64 Functional status - :Low: Pt is not able to go up one flight of stairs, walk one block around neighborhood or perform household duties. CARDIAC TESTING: No ECG performed today. Cardiovascular A/P - No further cardiac testing. This patient is in a low risk category as calculated using the RCRI with 0 risk factors. This pt has 0 points and a 3.9% risk of major cardiac event in the perioperative setting. PULMONARY Social History Tobacco Use Smoking Status Not on file Smokeless Tobacco Not on file Do you Vape? No Pulmonary A/P - Pt denies any smoking hx. Pt denies any SOB, wheezing, cough, fever, chills or any acute illnesses. SUBSTANCE ABUSE Social History Substance and Sexual Activity Alcohol Use None Social History Substance and Sexual Activity Drug Use Not on file Substance Abuse A/P - Pt denies any substance abuse hx. CLOTTING/BLEEDING History of DVT/PE - no Are you a Jehovah Witness? - no In case of surgeons plan or unforseen emergency, are you okay with receiving blood products? - yes Mother Camille Mcintosh(Mother) is the guardian and will be present on the morning of surgery. Estimated Creatinine Clearance: 57 mL/min (by C-G formula based on SCr of 1.16 mg/dL). A/P - Pt denies any bleeding or clotting disorders. Recommend standard DVT/PE prophylaxis postoperatively. ENDOCRINE Diabetes A/P - Pt denies any hx of diabetes. No results found for: HGBA1C No results found for: GLUCOSE ADDITIONAL DIAGNOSES OF CONCERN Developmental Disorder/Autism/Schizoaffective Disorder- Pt is in a nursing facility and requires 24hr supervision. Pt is in a wheelchair. Mother denies any seizure hx. MEDICATIONS Current Outpatient Medications Medication Sig acetaminophen 325 MG tablet Take 325 mg by mouth every 4 hours as needed for Mild Pain. bisacodyl 10 MG Suppository suppository Insert 10 mg rectally as needed for Constipation. BUSPIRONE HCL PO Take 20 mg by mouth 3 times daily. calcium carbonate (Tums) 500 MG Chew Tab tablet Chew 1,000 mg as needed. chlorhexidine 0.12 % Solution oral solution Take 15 mL by mouth 2 times daily. CLONAZEPAM PO Take 0.5 mg by mouth 3 times daily. desmopressin 0.2 MG tablet Take 0.2 mg by mouth 3 times daily. Take 1 and 1/5 tablets in the morning. 1 tablet at noon and two tablets at bedtime. Dextromethorphan-guaiFENesin (CHEST CONGESTION/COUGH RELIEF PO) Take 400 mg by mouth 2 times daily as needed. Docusate Sodium (DOK) 100 MG tablet Take 100 mg by mouth As directed as needed for Constipation. FOLIC ACID PO Take 1 mg by mouth daily every morning. hydroCHLOROthiazide 25 MG tablet Take 25 mg by mouth daily every morning. levonorgestrel-ethinyl estradiol (Vienva) 0.1-20 MG-MCG tablet Take 1 tablet by mouth daily every morning. levothyroxine 75 MCG tablet Take 75 mcg by mouth every morning before breakfast. Loperamide HCl 2 MG tablet Take 2 mg by mouth As directed as needed. loratadine 10 MG tablet Take 10 mg by mouth daily as needed. metoprolol 100 MG tab regular release Take 100 mg by mouth 4 times daily. montelukast 10 MG tablet Take 10 mg by mouth every evening. naltrexone 50 MG tablet Take 50 mg by mouth 2 times daily. ondansetron 4 MG tablet Take 4 mg by mouth every 8 hours as needed for Nausea / Vomiting. potassium chloride 20 MEQ/15ML (10%) Solution Take 20 mEq by mouth daily every morning. Lactobacillus (ACIDOPHILUS/BIFIDUS PO) Take by mouth. (Patient not taking: Reported on 08/17/2022) senna 8.6 MG tablet Take 17.2 mg by mouth 2 times daily. Medication A/P - Instructions for preoperative medications given to the patient in AVS. LABS Orders Placed This Encounter CBC, EDIF, PLATELET CHEM 6 (LYTES, BUN CREA) CBC AND ELECTRONIC DIFF desmopressin 0.2 MG tablet hydroCHLOROthiazide 25 MG tablet levothyroxine 75 MCG tablet metoprolol 100 MG tab regular release montelukast 10 MG tablet naltrexone 50 MG tablet potassium chloride 20 MEQ/15ML (10%) Solution levonorgestrel-ethinyl estradiol (Vienva) 0.1-20 MG-MCG tablet acetaminophen 325 MG tablet bisacodyl 10 MG Suppository suppository Dextromethorphan-guaiFENesin (CHEST CONGESTION/COUGH RELIEF PO) Docusate Sodium (DOK) 100 MG tablet Loperamide HCl 2 MG tablet loratadine 10 MG tablet ondansetron 4 MG tablet senna 8.6 MG tablet calcium carbonate (Tums) 500 MG Chew Tab tablet Pulse Ox Lab A/P - Labs ordered. Lab Results Component Value Date SODIUM 140 08/17/2022 POTASSIUM 4.0 08/17/2022 CHLORIDE 103 08/17/2022 CO2 31 08/17/2022 BUN 10 08/17/2022 CREATSERUM 1.16 08/17/2022 Lab Results Component Value Date WBC 7.15 08/17/2022 HGB 13.3 08/17/2022 HCT 39.1 08/17/2022 PLATELET 110 (L) 08/17/2022 MCV 100.3 (H) 08/17/2022 Anesthesia/Medical Assessment/plan: Reviewed patient's history, assessment & ECG findings with Anesthesiologist Dr Catarina Angeles. This patient has been medically OPTIMIZED FOR SURGERY. [facility] [address] [facility] Review of Systems (OSUROS)Review of Systems Unable to perform ROS: Patient nonverbal Physical Examination (PHYSEXAM)Physical Exam Constitutional: Comments: Very limited exam. Pt screaming/yelling during encounter. HENT: Head: Normocephalic. Eyes: Conjunctiva/sclera: Conjunctivae normal. Pulmonary: Effort: Pulmonary effort is normal. Abdominal: General: Abdomen is flat. Skin: General: Skin is dry. Psychiatric: Comments: Per family pt is a her baseline. Past Medical History: Diagnosis Date Constipation Hypothyroidism Kidney failure 2014? Seizure No past surgical history on file. Patient Care Team: Robin Vaughan DO as PCP - General (Family Medicine) History reviewed. No pertinent family history. Social History Socioeconomic History Marital status: Single [facility] 08-17-2022 History and physical note Images from the original note were not included. History of Present Illness Ms. Mcintosh is a 32 y.o. female is being evaluated in [facility] due to her medical condition of Periodontal disease , which increases her risk for perioperative complications. Pt also has a hx of: Developmental Delay Hypothyroidism Name: Tiffany Mcintosh Date of Surgery: 08/26/2022 1:35 PM Surgeon: Pastor Suarez DDS Pre-Op Diagnosis: Periodontal disease Planned Procedure: FULL MOUTH REHABILITATION Do you take ASA? No Why do you take ASA? N/A Do you have any cardiac stents? No Do you have a Port? No Where is it located? N/A When was it last used? N/A ANESTHESIA/AIRWAY Anesthesia alerts - Severe Developmental Delay, Autism, NonVerbal Personal history of problems related to anesthesia (ex.Malignant Hyperthermia): no Family History of problems related to anesthesia (ex.Malignant Hyperthermia: no Pacer/AICD: no Glaucoma: no Beta Rodney: no Diabetic Mellitus: no HANSA: no STOP-BANG Risk Assessment (3 or more YES responses is high risk) Do you snore - No Are you frequently tired during the day? - No Have you been observed gasping or choking while asleep? - No Do you have high blood pressure? - No Age more than 50? - No Gender male? - No Neck circumference greater than 40 cm? - No Neck Circumference (cm): 28 BMI more then 35? - No Body mass index is 21.79 kg/m . Mallampati class - Unable to access TM Distance - 3 Oral Opening - Unable to access Teeth - Unable to access Cervical range of motion - Unable to access Neck circumference - Neck Circumference (cm): 28 Allergies and adverse drug reactions Allergies Allergen Reactions Augmentin [Amoxicillin-Pot Clavulanate] Lorabid [Loracarbef] Anesthesia/Airway A/P - Does pt meet criteria for liberalized NPO? no. If no, why? ASA 3 or more Anesthesia Record Reviewed by me 03/02/19: CARDIOVASCULAR History: Blood pressure 98/64, pulse 69, temperature 97.4 F (36.3 C), resp. rate 18, height 1.6 m (5' 3 ), weight 55.8 kg (123 lb), SpO2 97 %. Pt denies any hx of CAD, Arrhythmia's, CHF or CVA/TIA. Pt denies any cardiac stents, pacemaker or artificial heart valvular replacement. Pt denies any chest pain, JAMES, palpitations or orthopnea. BP Readings from Last 3 Encounters: 08/17/22 98/64 Functional status - :Low: Pt is not able to go up one flight of stairs, walk one block around neighborhood or perform household duties. CARDIAC TESTING: No ECG performed today. Cardiovascular A/P - No further cardiac testing. This patient is in a low risk category as calculated using the RCRI with 0 risk factors. This pt has 0 points and a 3.9% risk of major cardiac event in the perioperative setting. PULMONARY Social History Tobacco Use Smoking Status Not on file Smokeless Tobacco Not on file Do you Vape? No Pulmonary A/P - Pt denies any smoking hx. Pt denies any SOB, wheezing, cough, fever, chills or any acute illnesses. SUBSTANCE ABUSE Social History Substance and Sexual Activity Alcohol Use None Social History Substance and Sexual Activity Drug Use Not on file Substance Abuse A/P - Pt denies any substance abuse hx. CLOTTING/BLEEDING History of DVT/PE - no Are you a Jehovah Witness? - no In case of surgeons plan or unforseen emergency, are you okay with receiving blood products? - yes Mother Camille Mcintosh(Mother) is the guardian and will be present on the morning of surgery. Estimated Creatinine Clearance: 57 mL/min (by C-G formula based on SCr of 1.16 mg/dL). A/P - Pt denies any bleeding or clotting disorders. Recommend standard DVT/PE prophylaxis postoperatively. ENDOCRINE Diabetes A/P - Pt denies any hx of diabetes. No results found for: HGBA1C No results found for: GLUCOSE ADDITIONAL DIAGNOSES OF CONCERN Developmental Disorder/Autism/Schizoaffective Disorder- Pt is in a nursing facility and requires 24hr supervision. Pt is in a wheelchair. Mother denies any seizure hx. MEDICATIONS Current Outpatient Medications Medication Sig acetaminophen 325 MG tablet Take 325 mg by mouth every 4 hours as needed for Mild Pain. bisacodyl 10 MG Suppository suppository Insert 10 mg rectally as needed for Constipation. BUSPIRONE HCL PO Take 20 mg by mouth 3 times daily. calcium carbonate (Tums) 500 MG Chew Tab tablet Chew 1,000 mg as needed. chlorhexidine 0.12 % Solution oral solution Take 15 mL by mouth 2 times daily. CLONAZEPAM PO Take 0.5 mg by mouth 3 times daily. desmopressin 0.2 MG tablet Take 0.2 mg by mouth 3 times daily. Take 1 and 1/5 tablets in the morning. 1 tablet at noon and two tablets at bedtime. Dextromethorphan-guaiFENesin (CHEST CONGESTION/COUGH RELIEF PO) Take 400 mg by mouth 2 times daily as needed. Docusate Sodium (DOK) 100 MG tablet Take 100 mg by mouth As directed as needed for Constipation. FOLIC ACID PO Take 1 mg by mouth daily every morning. hydroCHLOROthiazide 25 MG tablet Take 25 mg by mouth daily every morning. levonorgestrel-ethinyl estradiol (Vienva) 0.1-20 MG-MCG tablet Take 1 tablet by mouth daily every morning. levothyroxine 75 MCG tablet Take 75 mcg by mouth every morning before breakfast. Loperamide HCl 2 MG tablet Take 2 mg by mouth As directed as needed. loratadine 10 MG tablet Take 10 mg by mouth daily as needed. metoprolol 100 MG tab regular release Take 100 mg by mouth 4 times daily. montelukast 10 MG tablet Take 10 mg by mouth every evening. naltrexone 50 MG tablet Take 50 mg by mouth 2 times daily. ondansetron 4 MG tablet Take 4 mg by mouth every 8 hours as needed for Nausea / Vomiting. potassium chloride 20 MEQ/15ML (10%) Solution Take 20 mEq by mouth daily every morning. Lactobacillus (ACIDOPHILUS/BIFIDUS PO) Take by mouth. (Patient not taking: Reported on 08/17/2022) senna 8.6 MG tablet Take 17.2 mg by mouth 2 times daily. Medication A/P - Instructions for preoperative medications given to the patient in AVS. LABS Orders Placed This Encounter CBC, EDIF, PLATELET CHEM 6 (LYTES, BUN CREA) CBC AND ELECTRONIC DIFF desmopressin 0.2 MG tablet hydroCHLOROthiazide 25 MG tablet levothyroxine 75 MCG tablet metoprolol 100 MG tab regular release montelukast 10 MG tablet naltrexone 50 MG tablet potassium chloride 20 MEQ/15ML (10%) Solution levonorgestrel-ethinyl estradiol (Vienva) 0.1-20 MG-MCG tablet acetaminophen 325 MG tablet bisacodyl 10 MG Suppository suppository Dextromethorphan-guaiFENesin (CHEST CONGESTION/COUGH RELIEF PO) Docusate Sodium (DOK) 100 MG tablet Loperamide HCl 2 MG tablet loratadine 10 MG tablet ondansetron 4 MG tablet senna 8.6 MG tablet calcium carbonate (Tums) 500 MG Chew Tab tablet Pulse Ox Lab A/P - Labs ordered. Lab Results Component Value Date SODIUM 140 08/17/2022 POTASSIUM 4.0 08/17/2022 CHLORIDE 103 08/17/2022 CO2 31 08/17/2022 BUN 10 08/17/2022 CREATSERUM 1.16 08/17/2022 Lab Results Component Value Date WBC 7.15 08/17/2022 HGB 13.3 08/17/2022 HCT 39.1 08/17/2022 PLATELET 110 (L) 08/17/2022 MCV 100.3 (H) 08/17/2022 Anesthesia/Medical Assessment/plan: Reviewed patient's history, assessment & ECG findings with Anesthesiologist Dr Catarina Angeles. This patient has been medically OPTIMIZED FOR SURGERY. [facility] [address] [facility] Review of Systems (OSUROS)Review of Systems Unable to perform ROS: Patient nonverbal Physical Examination (PHYSEXAM)Physical Exam Constitutional: Comments: Very limited exam. Pt screaming/yelling during encounter. HENT: Head: Normocephalic. Eyes: Conjunctiva/sclera: Conjunctivae normal. Pulmonary: Effort: Pulmonary effort is normal. Abdominal: General: Abdomen is flat. Skin: General: Skin is dry. Psychiatric: Comments: Per family pt is a her baseline. Past Medical History: Diagnosis Date Constipation Hypothyroidism Kidney failure 2014? Seizure No past surgical history on file. Patient Care Team: Robin Vaughan DO as PCP - General (Family Medicine) History reviewed. No pertinent family history. Social History Socioeconomic History Marital status: Single documented in this encounter [facility] 08-17-2022 History of Present illness Narrative 32 YO F for Full mouth rehabilitation with Dr. Suarez Developmental Delay Hypothyroid HTN Prior anesthetic with grade 1 view with mac 3 Prior ketamine IM though has had more recent anesthetics and tolerated IV well Arun Montes MD Sausage Cutter Anesthesiology / Pain Management [facility] Addendum 08/18/22: Family called an notified [facility] that pt was unable to take jello to take her medications on the morning of surgery. Pt's family was instructed the if pt was unable to follow strict guideline instructions that were provided on the morning of surgery, then she should not take any of pt's medications on the morning of surgery. Discussed this medication plan with Dr Catarina Angeles who agreed plan of action for this medication issue. documented in this encounter [facility] 08-17-2022 Instructions Opal Sparks RN - 08/17/2022 10:30 AM EDT Patient Medication Instructions: - Only take: acetaminophen 325 MG tablet, Take 325 mg by mouth every 4 hours as needed for Mild Pain. BUSPIRONE HCL 20 mg CLONAZEPAM 0.5 mg desmopressin 0.2 MG levonorgestrel-ethinyl estradiol (Vienva) 0.1-20 MG-MCG levothyroxine 75 MCG metoprolol 100 MG ondansetron 4 MG tablet, Take 4 mg by mouth every 8 hours as needed for Nausea / Vomiting. on the morning of surgery with a sip of water. Do not take any of your other medications on the morning of surgery. If you use an Inhaler/Inhalers on a daily basis, then use your inhaler on the morning of surgery. - Do NOT take Herbal Medication (including multi-vitamin, fish oil ([place]-3), garlic, Glucosamine - Chondroitin ,gingko, ginseng, Vitamin E, probiotics) vitamins and supplements 2 weeks before surgery. - Do NOT take Excedrin, ibuprofen, Advil, Voltaren (Diclofenac), Motrin, naproxen, or Aleve, Mobic (Meloxicam) for the 7-14 days before surgery. Acetaminophen (Tylenol) is ok to take up until the day of surgery. Patient Pre-Operative Instructions: Please hold your Naltrexone for 5 days prior to your scheduled procedure date. Diet Instructions: -NO food or drink after 11 pm the night before surgery except for enough water to take your medications. (No Candy, Mints and/or Gum) If she is unable to swallow medication using just water, then she may take it with a tablespoon (15 mL) of non-red jello or of mashed up, non-red popsicle. The jello or popsicle must NOT contain any fruit or other food bits and the amount must be minimal to reduce the risk of pneumonia if she vomits. The jello or popsicle also must NOT be red, pink or orange so that it will not be mistaken for blood if she vomits. - Do NOT wear any hearing aids, jewelry, watches, rings, hairpieces, makeup, glasses or contact lenses with you into your surgery. - Shower the night before and the morning of surgery. - Do NOT shave, or pluck hair from anywhere near the surgical site one week prior to surgery. - Price your teeth and rinse your mouth the morning of surgery. - Do NOT bring your dentures or partials with you into surgery. They may be lost. Give them to someone to bring to you after surgery. If you are unable to complete your scheduled testing or appointments made by [facility] please contact [facility] at [phone]. Failure to do so could delay or cancel your surgery. If you Vape, please do not Vape for 24 hrs prior to your scheduled surgery date. DO NOT USE ANY ILLICIT DRUGS BETWEEN NOW AND THE DAY OF YOUR SURGERY. LIMIT YOUR ALCOHOL USE BETWEEN NOW AND THE DAY OF SURGERY. Please hold any marijuana usage to 24 hrs prior to your scheduled surgery date. Illegal Drugs (suchs as; cocaine, heroine,crystal meth) and Alcohol, can alter the way anesthesia effects patients. In addition, smoking illicit drugs, can alter the way a patient returns to breathing on their own after being on a ventilator. Illegal drugs can change the effectiveness of prescription pain medications, requiring different dosages and can have interactions with anesthesia drugs, causing serious complications. Use of illicit drugs prior to your scheduled surgery date may be a cause for cancellation of your surgery. If you become ill, develop a fever, cough, or any type of infection within 14 days of your scheduled surgery, please call the surgeon's office. You may need to have your surgery moved, as we would not want to put you at risk for complications due to an illness. If you are placed on Antibiotics within 1 week of surgery, please notify our team immediately at [phone]. - If you have Sleep apnea and have a CPAP or BIPAP, then bring your CPAP mask and machine with you to the hospital. Also, if you have been ordered a chest x-ray, please report to the Imaging Department on to first floor (to the right of the [facility] on the first floor) prior to leaving the building. Please contact Medical Information Management Department for all records requests. [phone] [phone] AVS/ALBERT documented in this encounter [facility] Evaluation + Plan note No data available for this section [facility] Evaluation note Diagnosis Caries- Primary Unspecified dental caries [facility] Preop exam for internal medicine- Primary Other specified pre-operative examination Periodontal disease Unspecified gingival and periodontal disease Developmental delay Unspecified delay in development Hypothyroidism, unspecified type Periodontal disease Unspecified gingival and periodontal disease Dental caries Unspecified dental caries [facility] Encounter for screening breast examination- Primary Surveillance of previously prescribed contraceptive pill [facility]* Attachments The following attachments cannot be sent through Care Everywhere. * Dental Surgery: Generic: Post-op (Czech) [facility] No data available for this section [facility] Attachments The following attachments cannot be sent through Care Everywhere. * Ethinyl Estradiol and Levonorgestrel, ADULT (Czech) * Cervical cancer screening tests (Czech) [facility] No data available for this section [facility] Narrative* Auth/Cert Specialty Diagnoses / Procedures Referred By Herson terrazas Referred To Contact Diagnoses Periodontal disease Dental caries Periodontal disease [K05.6] Dental caries [K02.9] Procedures [place] DENTAL SURGERY PROCEDURE FULL MOUTH REHABILITATION [facility] [address] [place] [address] [facility] [address] [place] [address] Referral ID Status Reason Start Date Expiration Date Visits Re quested Visits Authorized [id number] 1 1 [facility] Summary Purpose Family History No Family History Records FoundNo Family History Records FoundNo Family History Records Found No data available for this section No Family History Records Found No data available for this section No data available for this section No Family History Records Found Advance Directives No Advanced Directives Records FoundDocuments on File Type Date Recorded 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 Physician Order 02/02/2024 11:17 AM DNR CC Reason for Referral Specialty Diagnoses / Procedures Referred By Contac t Referred To Contact Procedures LOW RISK - NO PHARMACOLOGICAL DVT PROPHYLAXIS Pastor Suarez DDS [address] [place] [address] Referral ID Status Reason Start Date Expiration Date V isits Requested Visits Authorized [id number] New Request 08/26/2022 09/20/2023 1 1 Specialty Diagnoses / Procedures Referred By Contac t Referred To Contact Procedures DVT/VTE RISK ASSESSMENT Pastor Suarez DDS [address] [place] [address] Referral ID Status Reason Start Date Expiration Date V isits Requested Visits Authorized [id number] New Request 08/26/2022 09/20/2023 1 1 Additional Source Comments INFORMATION SOURCE (unrecogn ized section and content) DATE CREATED AUTHOR 08/07/2022 [facility] DATE CREATED AUTHOR AUTHOR'S ORGANIZ ATION 08/29/2022 [facility] DATE CREATED AUTHOR AUTHOR'S ORGANIZ ATION 03/05/2023 [facility] DATE CREATED AUTHOR AUTHOR'S ORGANIZ ATION 11/04/2023 [facility] DATE CREATED AUTHOR AUTHOR'S ORGANIZ ATION 03/23/2024 [facility] Reason for Visit (unrecogniz ed section and content) Reason Comments Preoperative Assessment Specialty Diagnoses / Procedures Referred By Contac t Referred To Contact PreOp Diagnoses Periodontal disease Dental caries Fidel Suarezhen Carmelita TABBY [address] [place] [address] [facility] [address] [place] [address] Referral ID Status Reason Start Date Expiration Date V isits Requested Visits Authorized [id number] Pending Review 06/24/2022 07/19/2023 1 1 Reason Comments Gynecologic Exam Pt is here for breas t exam. Care Teams (unrecognized sec tion and content) Tank Tester Relationship Specialty Start Date End Date Robin Vaughan DO [address] [place] [address] PCP - General Family Medicine 08/17/22 Tank Tester Relationship Specialty Start Date End Date Robin VaughanDO [address] [place] [address] PCP - General Family Medicine 08/17/22 Continuous Active and Recently Administ ered Medications (unrecognized section and content) Medication Order 08/24/2022 08/25/2022 08/26/2022 lactated ringers IV solution (CANCELED) Intravenous, at 50 mL/hr, CONTINUOUS, Starting on Sary 08/26/22 at 1145, Until Sary 08/26/22 at 1527, Pre-op/Pre-Proc 1245 ($$New Bag$$ - Provider: Eunice Desai RN) PRN Medication Order 08/24/2022 08/25/2022 08/26/2022 acetaminophen (TYLENOL) tablet 650 mg 650 mg, Oral, EVERY 4 HOURS NEEDED, Starting on Sary 08/26/22 at 1518, Until Sary 08/26/22 at 1804, Mild Pain, Maximum dose of acetaminophen is 4000 mg from all sources in 24 hours., Post-op/Post-Proc chlorhexidine (PERIDEX) 0.12 % oral solution (CANCELED) NEEDED, Starting on Sary 08/26/22 at 1358, Until Sary 08/26/22 at 1453, Intra-op/Intra-Proc 1358 (Given - Provid er: Pastor Suarez, DDS - Comment: mouth) FOR RECORDS PERTAINING TO PATIENTS WHO ARE OR HAVE BEEN ENROLLED IN A CHEMICAL DEPENDENCY/SUBSTANCEABUSE PROGRAM, SOME INFORMATION MAY BE OMITTED. This clinical summary was aggregated from multiple sources. Caution should be exercised in using it in the provision of clinical care. This summary normalizes information from multiple sources, and as a consequence, information in this document may materially change the coding, format and clinical context of patient data. In addition, data may be omitted in some cases. CLINICAL DECISIONS SHOULD BE BASED ON THE PRIMARY CLINICAL RECORDS. [facility]. provides no warranty or guarantee of the accuracy or completeness of information in this document.
[2024-06-04 08:04] LABS: Anion Gap 9.6; BUN Creatinine Ratio 13.2; Calcium 8.7 mg/dL (8.5-10.1); Carbon Dioxide 31.1 mmol/L (21.0-32.0); Chloride 103 mmol/L (98-107); Estimated GFR (African America >60 (>=60); Estimated GFR (Non-African Ame 54 (>=60); Glucose 84 mg/dL (74-106); Potassium 3.7 mmol/L (3.5-5.1); Sodium 140 mmol/L (136-145)
== END 2024-06-04 07:14 | disposition home or self-care (01) ==
LOC: LAB 07:15
PROVIDERS: PCP Family Medicine; Visit Provider Family Medicine
DX: E23.2 Diabetes insipidus (principal); N18.9 Chronic kidney disease, unspecified
CPT/HCPCS: 36415; 80048

== ENCOUNTER 2024-08-21 06:24 | Outpatient (OUT) | payer MEDICARE, MEDICAID, SELFPAY ==
--- OUTSIDE RECORDS SUMMARY | 2024-08-21 06:27 | XMS_ITS | CCD ---
Author Organization [facility] Care Team Providers Care Route Rider Supervisor Name Role Phone Unavailable Primary Care Provider Unavailabl e AL NICHOLAS, ALEX Admitting Unavailable AL ALEX PETERSON Attending Unavailable PROVIDER, UNKNOWN Admitting Unavailable PROVIDER, UNKNOWN Attending Unavailable Vaughan Robin SEVERINO Primary Care Provider GERONIMO LANGLEY Admitting Unavailable PASTOR SUAREZ Attending [...] Consulting Unavailable ROBIN VAUGHAN Primary Care Physician KATIUSKA GANDHI Attending Unavailable Unavailable Primary Care [...] Clavulanate; Translations: [AMOXICILLIN-POT CLAVULANATE] Drug Allergy 05-03-2016 [facility] (3 sources) loracarbef; Translations: [LORACARBEF] Drug Allergy 05-03-2016 [facility] (3 sources) loracarbef Drug Allergy 07-21-[address] [facility] (1 source) Amoxicillin / Clavulanate Drug Allergy 12-22-2015 [facility] (1 source) loracarbef Drug Allergy 12-22-2015 [facility] (6 sources) Penicillins; Translations: [penicillins] Drug allergy 09-07-2012 [facility] Medications Current Medications Medication Drug Class(es) Dates Sig (Normalized) Sig (Original) bifidobacterium animalis [id number] unt / lactobacillus acidophilus [id number] unt oral capsule (1 source) Probiotic Produc [...] Active Dextromethorphan / guaiFENesin (1 source) Uncompetitive Q-wtzjae-J-aspartate Receptor Antagonist, Sigma-1 Agonist take 400 mg [...] 05/21/11 Status: Ordered take 1 capsule by [facility] three times daily gabapentin (NEURONTIN) 300 MG [...] mouth every morning before breakfast. 0 Active [place] (4 sources) Start: 05-21-2011 lithium Oral, Refills(s) [...] mouth daily every morning. 0 Active sennosides, retirement 8.6 mg oral tablet (2 sources) take [...] 02-20-2023 Epis[facility] Other aftercare (5 sources) Other terminal manager (current) drug therapy; Translations: [OTH [facility] CURRENT DRUG THERAPY] Onset: 12-20-2022 Episodic Other [...] Ab IA Ql Comment Invalid Interpretation Code [facility] Comment on above: Result Comment: Not infected with HCV unless early or acute infection is suspected (which may be delayed in an immunocompromised individual), or other evidence exists to indicate HCV infection. Performed at: [facility] [address] [id number] PhD Amaris Valdes Performed By: #### 2 [id number], [id number] #### [facility] [address] [place] [address] Acute Hepatitis A B C Panelo n 03-23-2024 HAV IgM IA Ql Negative Invalid Interpretation Code Negative [facility] Comment on above: Performed By: #### 2 [id number] #### [facility] [address] [place] [address] HBV core IgM IA Ql Negative Invalid Interpretation Code Negative [facility] Comment on above: Performed By: #### 2 [id number], [id number] #### [facility] [address] [place] [address] HBV surface Ag IA Ql Negative Invalid Interpretation Code Negative [facility] Comment on above: Performed By: #### 2 [id number], [id number] #### [facility] [address] [place] [address] HCV IgG IA Ql Non-Reactive Invalid Interpretation Code Non Reactive [facility] Comment on above: Result Comment: Perf ormed at: [facility] [address] [id number] PhD Amaris Valdes Performed By: #### 2 [id number], [id number] #### [facility] [address] [place] [address] Physician Orderon 03-21-2024 Physician Order [id number]# 1.00TIFF Normal [facility] Consent for Treatmenton Consent for Treatment [id number]#1 .00TIFF Normal [facility] Physician Orderon 02-01-2024 Physician Order [id number]# 1.00TIFF Normal [facility] XR Adult Swallowing Function w/ Videoon [...] mGy = na DAP = na Normal [facility] Physician Orderon 01-11-2024 Physician Order [id number]# 1.00TIFF Normal [facility] T3 Freeon 12-02-2023 Free T3 [Mass/Vol] 2.5 pg/mL Invalid Interpretation Code 2.0-4.4 [facility] Comment on above: Result Comment: Perf ormed at: [facility] [address] [id number] PhD Amaris Valdes Performed By: #### 2 739838, 0042246, 3305834, 1986258, 4888179, 83168357, 9303529 #### [facility] [address] [place] [address] CMPon 12-01-2023 Albumin [Mass/Vol] 3.8 g/dL Normal 3.3-5.0 [facility] Comment on above: Performed By: #### 2 226778, 3799333, 7596995, 6995248, 0502292, 67085522, 4520882 #### [facility] [address] [place] [address] Albumin/Globulin [Mass ratio] 1.4 {ratio} Normal 1.1-2.2 [facility] Comment on above: Performed By: #### 2 407322, 5468978, 3387047, 3068765, 9941855, 51261255, 4776761 #### [facility] [address] [place] [address] Alk Phos 38 Int._Unit/L Normal 21-98 [facility] Comment on above: Performed By: #### 2 036205, 5942806, 5378219, 3376911, 5485254, 04921214, 9993469 #### [facility] [address] [place] [address] ALT 7 Int._Unit/L Normal 6-46 [facility] Comment on above: Performed By: #### 2 641582, 8263063, 9874972, 2655668, 7303470, 28352298, 9619364 #### [facility] [address] [place] [address] Anion gap [Moles/Vol] 13 mmol/L Normal 6-16 [facility] Comment on above: Performed By: #### 2 530431, 8373017, 6694270, 0697521, 0227657, 02823118, 8965675 #### [facility] [address] [place] [address] AST 17 Int._Unit/L Normal 5-43 [facility] Comment on above: Performed By: #### 2 318731, 9012627, 0198201, 4976201, 1928356, 83426318, 5620393 #### [facility] [address] [place] [address] Bili Total 0.3 mg/dL Normal 0.0-1.1 [facility] Comment on above: Performed By: #### 2 936810, 7422555, 2940616, 1188483, 6192291, 52282673, 6280290 #### [facility] [address] [place] [address] BUN/Creat Ratio 16 No Units Normal 10-20 [facility] Comment on above: Performed By: #### 2 351855, 8601536, 3260714, 6296309, 4881732, 01454620, 0602573 #### [facility] [address] [place] [address] Calcium [Mass/Vol] 9.0 mg/dL Normal 8.9-11.1 [facility] Comment on above: Performed By: #### 2 639219, 5254439, 9692714, 1147856, 6600464, 97641399, 3852019 #### [facility] [address] [place] [address] Chloride [Moles/Vol] 103 mmol/L Normal 101-111 [facility] Comment on above: Performed By: #### 2 749280, 5690065, 2231160, 6600646, 9812684, 63351432, 2572981 #### [facility] [address] [place] [address] CO2 [Moles/Vol] 26 mmol/L Normal 21-31 [facility] Comment on above: Performed By: #### 2 906506, 7438365, 1949447, 1210626, 0074775, 01012040, 6918616 #### [facility] [address] [place] [address] Creatinine [Mass/Vol] 1.1 mg/dL Normal 0.5-1.3 [facility] Comment on above: Performed By: #### 2 498208, 7769726, 1910371, 1413671, 9863606, 49869901, 6557337 #### [facility] [address] [place] [address] Globulin (S) [Mass/Vol] 2.8 g/dL Normal 1.4-4.0 [facility] Comment on above: Performed By: #### 2 031097, 1457245, 8629023, 7538423, 5468995, 23116613, 0043121 #### [facility] [address] [place] [address] Glucose [Mass/Vol] 68 mg/dL Normal 55-199 [facility] Comment on above: Performed By: #### 2 140519, 7263595, 0785403, 9001385, 1683992, 55045979, 1333726 #### [facility] [address] [place] [address] Potassium [Moles/Vol] 4.1 mmol/L Normal 3.5-5.3 [facility] Comment on above: Performed By: #### 2 199016, 3984604, 1186132, 3138710, 7289050, 99179782, 5390657 #### [facility] [address] [place] [address] Protein [Mass/Vol] 6.6 g/dL Normal 6.0-7.8 [facility] Comment on above: Performed By: #### 2 324590, 7970743, 0833010, 7389428, 2129508, 56446626, 2399535 #### [facility] [address] [place] [address] Sodium [Moles/Vol] 138 mmol/L Normal 135-145 [facility] Comment on above: Performed By: #### 2 291789, 2324816, 6873685, 3055906, 4330545, 66174481, 0113144 #### [facility] [address] [place] [address] Urea nitrogen [Mass/Vol] 18 mg/dL Normal 5-21 [facility] Comment on above: Performed By: #### 2 894078, 8589900, 6208067, 9853607, 9136819, 85320595, 2240547 #### [facility] [address] [place] [address] Lipid Panelon 12-01-2023 Cholesterol [Mass/Vol] 113 mg/dL Low 120-200 [facility] Comment on above: Performed By: #### 2 032046, 0959518, 7693744, 1519305, 1318879, 91441531, 7033989 #### [facility] [address] [place] [address] Cholesterol in HDL [Mass/Vol] 23 mg/dL Invalid Interpretation Code [facility] Comment on above: Result Comment: '>= 60 LOW RISK' '<= 40 HIGH RISK' Performed By: #### 2 490086, 0604303, 2395026, 8502135, 7082143, 87989019, 7477699 #### [facility] [address] [place] [address] Cholesterol in LDL [Mass/Vol] 71 mg/dL Normal <=129 [facility] Comment on above: Performed By: #### 2 604588, 8707611, 6314343, 1424593, 1617155, 64132330, 9430557 #### [facility] [address] [place] [address] Cholesterol in VLDL [Mass/Vol] 37 mg/dL Normal 7-40 [facility] Comment on above: Performed By: #### 2 824053, 8082354, 2783544, 5266028, 5441939, 33070597, 6612763 #### [facility] [address] [place] [address] Triglyceride [Mass/Vol] 186 mg/dL High <=149 [facility] Comment on above: Performed By: #### 2 714902, 5569203, 8437956, 9372696, 4355667, 88050937, 1451175 #### [facility] [address] [place] [address] eGFRon 12-01-2023 GFR/1.73 sq M.predicted among non-blacks MDRD (S/P/Bld) [Vol rate/Area] mL/min/{1.73_m2} Normal >=59 [facility] Comment on above: Order Comment: Order added by Discern Expert. Performed By: #### 2 694791, 5468674, 7438478, 5619398, 3545367, 15492860, 3605264 #### [facility] [address] [place] [address] CBC w/Indiceson 11-30-2023 Erythrocyte distribution width (RBC) [Ratio] 13.5 % Normal 10.9-14.2 [facility] Comment on above: Performed By: #### 2 978521, 2418853, 3842370, 0018526, 7446448, 61427789, 8615212 #### [facility] [address] [place] [address] Hematocrit (Bld) [Volume fraction] 42.1 % Normal 34.0-46.0 [facility] Comment on above: Performed By: #### 2 638967, 6103177, 2481142, 6749063, 5213438, 97567659, 9993945 #### [facility] [address] [place] [address] Hemoglobin (Bld) [Mass/Vol] 14.4 g/dL Normal 12.0-16.0 [facility] Comment on above: Performed By: #### 2 828943, 6761048, 2640047, 9689640, 6142064, 80474409, 0500585 #### [facility] [address] [place] [address] MCH (RBC) [Entitic mass] 33.7 pg Normal 27.0-34.0 [facility] Comment on above: Performed By: #### 2 429415, 8741601, 6968413, 5589576, 4722440, 11407942, 0742055 #### [facility] [address] [place] [address] MCHC (RBC) [Mass/Vol] 34.2 g/dL Normal 31.4-36.0 [facility] Comment on above: Performed By: #### 2 678686, 9775055, 6840221, 7121483, 6202961, 56013739, 1499296 #### [facility] [address] [place] [address] MCV (RBC) [Entitic vol] 98.8 fL Normal 80.0-100.0 [facility] Comment on above: Performed By: #### 2 822170, 9131241, 7047635, 2486540, 6821307, 08123535, 3415931 #### [facility] [address] [place] [address] Platelet mean volume (Bld) [Entitic vol] 8.6 fL Normal 6.4-10.8 [facility] Comment on above: Performed By: #### 2 222373, 1473594, 8855662, 2138553, 7590209, 41318544, 1398385 #### [facility] [address] [place] [address] Platelets (Bld) [#/Vol] 141.0 E9/L Low 150.0-500.0 [facility] Comment on above: Performed By: #### 2 574143, 9228641, 8612884, 4736936, 0577711, 94157378, 5358992 #### [facility] [address] [place] [address] RBC (Bld) [#/Vol] 4.3 E12/L Normal 4.3-5.9 [facility] Comment on above: Performed By: #### 2 962971, 2593890, 6015741, 7473927, 4651439, 43759208, 1630838 #### [facility] [address] [place] [address] WBC corrected for nucl RBC Auto (Bld) [#/Vol] 9.8 E9/L Normal 4.0-11.0 [facility] Comment on above: Performed By: #### 2 722405, 7994550, 0761392, 2298175, 3629684, 53232874, 8065380 #### [facility] [address] [place] [address] Free T4on 11-30-2023 Free T4 [Mass/Vol] 0.92 ng/dL Normal 0.58-1.64 [facility] Comment on above: Performed By: #### 2 429135, 3154358, 5827993, 0315799, 8605088, 16988886, 2496483 #### [facility] [address] [place] [address] Physician Orderon 11-30-2023 Physician Order [id number]# 1.00TIFF Normal [facility] TSHon 11-30-2023 TSH Qn 5.07 m[IU]/L Normal 0.34-5.60 [facility] Comment on above: Performed By: #### 2 470443, 8812948, 7263744, 1476310, 6034171, 65463423, 0882892 #### [facility] [address] [place] [address] Follow-Upon 11-02-2023 Follow-Up [id number] Tiffany Mcintosh 1990 F Date Provider Department Center 11/02/2023 316-ALIVIA, KATIUSKA Mackenzie [facility] ENDOCR [facility] No family history on file Level of Service:68511 LA OFFICE/OUTPATIENT ESTABLISHED MOD MDM 30-39 MIN () Reason for Visit and Comments: Follow-up [693132] Normal [facility] BMPon 10-13-2023 Anion gap [Moles/Vol] 13 mmol/L Normal - [facility] Comment on above: Performed By: #### 2 904778, 52652594, 2586557, 3826761 #### [facility] [address] [place] [address] Calcium [Mass/Vol] 8.8 mg/dL Low 8.9-11.1 [facility] Comment on above: Performed By: #### 2 500188, 23973838, 3674981, 9479374 #### [facility] [address] [place] [address] Chloride [Moles/Vol] 109 mmol/L Normal 101-111 [facility] Comment on above: Performed By: #### 2 252358, 21611287, 4180166, 6485492 #### [facility] [address] [place] [address] CO2 [Moles/Vol] 23 mmol/L Normal 21-31 [facility] Comment on above: Performed By: #### 2 242328, 54189455, 0624304, 3466697 #### [facility] [address] [place] [address] Creatinine [Mass/Vol] 1.1 mg/dL Normal 0.5-1.3 [facility] Comment on above: Performed By: #### 2 484837, 75285052, 6478620, 5125744 #### [facility] [address] [place] [address] Glucose [Mass/Vol] 74 mg/dL Normal 55-199 [facility] Comment on above: Result Comment: If t his glucose result represents a fasting glucose, interpretation should refer to the following reference range: 55-99 mg/dL Performed By: #### 2 308924, 96439741, 4929258, 1404079 #### [facility] [address] [place] [address] Potassium [Moles/Vol] 4.0 mmol/L Normal 3.5-5.3 [facility] Comment on above: Performed By: #### 2 204794, 41352493, 3869514, 1320501 #### [facility] [address] [place] [address] Sodium [Moles/Vol] 141 mmol/L Normal 135-145 [facility] Comment on above: Performed By: #### 2 668876, 36549260, 3557736, 3324558 #### [facility] [address] [place] [address] Urea nitrogen [Mass/Vol] 23 mg/dL High 5-21 [facility] Comment on above: Performed By: #### 2 593880, 60050440, 1757267, 2319762 #### [facility] [address] [place] [address] Urea nitrogen/Creatinine [Mass ratio] 21 No Units High 10-20 [facility] Comment on above: Performed By: #### 2 971606, 37472754, 0463901, 3781751 #### [facility] [address] [place] [address] Free T4on 10-13-2023 Free T4 [Mass/Vol] 1.45 ng/dL Normal 0.58-1.64 [facility] Comment on above: Performed By: #### 2 204681, 7615340, 6963813, 3624496, 4587312, 14422508, 7930503 #### [facility] [address] [place] [address] TSHon 10-13-2023 TSH Qn 6.49 m[IU]/L High 0.34-5.60 [facility] Comment on above: Performed By: #### 2 505391, 3188410, 6466189, 1523185, 5912630, 43837637, 2909534 #### [facility] [address] [place] [address] eGFRon 10-13-2023 GFR/1.73 sq M.predicted among non-blacks MDRD (S/P/Bld) [Vol rate/Area] 67 mL/min/1.73 m2 Normal >=59 [facility] Comment on above: Order Comment: Order added by Discern Expert. Result Comment: Tuber Helper david kidney disease could be indicated at eGFR's of less than 60 mL/min/1.73m2. Kidney failure is indicated at less than 15 mL/min/1.73m2. Performed By: #### 2 647665, 7871378, 5091492, 1707502, 0465956, 32836170, 1285296 #### [facility] [address] [place] [address] CHEMISTRYOrdered By: SYSTEM SYSTEM on 10-12-2023 Anion [...] 67 mL/min/1.73 m2 Normal >=59mL/min/1 .73 m2 [facility] Comment on above: Interpretive Data: [...] [facility] Physician Orderon 10-12-2023 Physician Order [id number]#1 .00TIFF Normal [facility] CHEMISTRYOrdered By: SYSTEM SYSTEM on 08-17-2023 Valproate [Moles/Vol] 70 microgram/mL Normal 50 - 99 mcg/mL [facility] Remisol Physician Orderon 08-17-2023 Physician Order [id number]# 1.00CD:127 Normal [facility] Valproic Acidon 08-17-2023 Valproate [Moles/Vol] 70 microgram/mL Normal 50-99 [facility] Comment on above: Performed By: #### 2 239521, 2482524, 3073760, 0782314, 3313469, 23937430, 6728696 #### [facility] [address] [place] [address] XR CHEST 2 Von 02-18-2023 XR CHEST [...] by: AZUL UNLU Date: 2023-02-17 22:47 Normal [facility] DEPAKENE/ VALPROIC ACIDon DEPAKENE 74.8 ug/ml Normal 50.0-100.0 [facility] Comment on above: Performed By: #### V ALP #### [facility] [address] [place] [address] Dr. Wali Holly Orders Onlyon 12-15-2022 Orders Only [id number] Tiffany Mcintosh 1990 F Date Provider Department Center 12/15/2022 316-KATIUSKA GANDHI [facility] ENDOCR [facility] No family history on file Normal [facility] FREE T4on 12-14-2022 Free T4 [Mass/Vol] 0.83 ng/dL Normal 0.76-1.46 [facility] Comment on above: Performed By: #### F T4 #### [facility] [address] [place] [address] Dr. Wali Holly TSHon 12-14-2022 TSH 4.513 uIU/mL Critically high 0.358-3.740 [facility] Comment on above: Performed By: #### T SH #### [facility] [address] [place] [address] Dr. Wali Holly OSMOLALITY URINEon 2 Osmolality, Urine 280 mOsmol/kg Normal [facility] Comment on above: Result Comment: 24 h r : 300 - 900 Random: 50 - 1400 After 12hr fluid restriction: >850 Performed By: #### O SMOU #### [facility] [address] [place] [address] Dr. Wali Holly OSMOLALITYon 10-13-2022 Osmolality [Osmolality] 281 mosm/kg Normal 275-295 [facility] Comment on above: Performed By: #### O SMO #### [facility] [address] [place] [address] Dr. Wali Holly FREE T4on 10-12-2022 Free T4 [Mass/Vol] 0.91 ng/dL Normal 0.76-1.46 [facility] Comment on above: Performed By: #### F T4 #### [facility] [address] [place] [address] Dr. Wali Holly PROF CHEM 8 (BAS METB)on Anion gap [Moles/Vol] 6.1 mmol/L Normal [facility] Comment on above: Performed By: #### B MP, TSH #### [facility] [address] [place] [address] Dr. Wali Holly Calcium [Mass/Vol] 9.1 mg/dL Normal 8.5-10.1 [facility] Comment on above: Performed By: #### B MP, TSH #### [facility] [address] [place] [address] Dr. Wali Holly Chloride [Moles/Vol] 102 mmol/L Normal 98-107 [facility] Comment on above: Performed By: #### B MP, TSH #### [facility] [address] [place] [address] Dr. Wali Holly CO2 [Moles/Vol] 34.9 mmol/L Critically high 21.0-32.0 [facility] Comment on above: Performed By: #### B MP, TSH #### [facility] [address] [place] [address] Dr. Wali Holly Creatinine [Mass/Vol] 1.35 mg/dL Critically high 0.55-1.02 [facility] Comment on above: Performed By: #### B MP, TSH #### [facility] [address] [address] [address] Wali Holly EGFR-AF PALAUAN 54 mL/min/1.73m2 Critically low >=60 [facility] Comment on above: Performed By: #### B MP, TSH #### [facility] [address] [address] [address] Wali Holly EGFR-NON AF PALAUAN 45 mL/min/1.73m2 Critically low >=60 [facility] Comment on above: Performed By: #### B MP, TSH #### [facility] [address] [address] [address] Wali Holly Glucose [Mass/Vol] 84 mg/dL Normal 74-106 [facility] Comment on above: Performed By: #### B JOB, TSH #### [facility] [address] [place] [address] Dr. Wali Holly Potassium [Moles/Vol] 4.0 mmol/L Normal 3.5-5.1 [facility] Comment on above: Performed By: #### B MP, TSH #### [facility] [address] [place] [address] Dr. Wali Holly Sodium [Moles/Vol] 139 mmol/L Normal 136-145 [facility] Comment on above: Performed By: #### B MP, TSH #### [facility] [address] [place] [address] Dr. Wali Holly Urea nitrogen [Mass/Vol] 15.0 mg/dL Normal 7.0-18.0 [facility] Comment on above: Performed By: #### B MP, TSH #### [facility] [address] [place] [address] Dr. Wali Holly Urea nitrogen/Creatinine [Mass ratio] 11.1 mg/mg Normal [facility] Comment on above: Performed By: #### B MP, TSH #### [facility] [address] [place] [address] Dr. Wali Holly TSHon 10-12-2022 TSH 5.185 uIU/mL Critically high 0.358-3.740 [facility] Comment on above: Performed By: #### B MP, TSH #### [facility] [address] [place], [place] [address] Dr. Wali Holly CARDIAC RHYTHM (SCANNED)on 0 08-26-[address] [facility] CBC AND ELECTRONIC DIFFon Basophils (Bld) [#/Vol] 0.06 10*3/uL Normal 0.00-0.15 [facility] Comment on above: Performed By: #### L [id number] #### [facility] (DEFAULT) [address] [address] Basophils/100 WBC (Bld) 0.8 % Normal [facility] Comment on above: Performed By: #### L [id number] #### [facility] (DEFAULT) [address] [address] DIFF STATUS Electronic Differential Normal [facility] Comment on above: Performed By: #### L [id number] #### [facility] (DEFAULT) [address] [address] Eosinophils (Bld) [#/Vol] 0.07 10*3/uL Normal 0.00-0.42 [facility] Comment on above: Performed By: #### L [id number] #### [facility] (DEFAULT) [address] [address] Eosinophils/100 WBC (Bld) 1.0 % Normal [facility] Comment on above: Performed By: #### L [id number] #### [facility] (DEFAULT) [address] [address] Hematocrit (Bld) [Volume fraction] 39.1 % Normal 34.9-44.3 [facility] Comment on above: Performed By: #### L [id number] #### [facility] (DEFAULT) [address] [address] Hemoglobin (Bld) [Mass/Vol] 13.3 g/dL Normal 11.4-15.2 [facility] Comment on above: Performed By: #### L [id number] #### [facility] (DEFAULT) [address] [place] [address] Immature Grans % 1.8 % Normal [facility] Comment on above: Performed By: #### L [id number] #### [facility] (DEFAULT) [address] [place] [address] Immature Grans Absolute 0.13 K/uL High <=0.08 [facility] Comment on above: Performed By: #### L [id number] #### [facility] (DEFAULT) [address] [place] [address] Lymphocytes (Bld) [#/Vol] 3.29 10*3/uL Normal 1.16-3.51 [facility] Comment on above: Performed By: #### L [id number] #### [facility] (DEFAULT) [address] [address] Lymphocytes/100 WBC (Bld) 46.0 % Normal [facility] Comment on above: Performed By: #### L [id number] #### [facility] (DEFAULT) [address] [address] MCV (RBC) [Entitic vol] 100.3 fL High 79.6-97.7 [facility] Comment on above: Performed By: #### L [id number] #### [facility] (DEFAULT) [address] [address] Mean Cell Hgb 34.1 pg High 25.9-33.9 [facility] Comment on above: Performed By: #### L [id number] #### [facility] (DEFAULT) [address] [address] Mean Cell Hgb Conc 34.0 g/dL Normal 31.4-35.9 [facility] Comment on above: Performed By: #### L [id number] #### [facility] (DEFAULT) [address] [place] [address] Monocytes (Bld) [#/Vol] 0.82 10*3/uL Normal 0.22-0.87 [facility] Comment on above: Performed By: #### L [id number] #### [facility] (DEFAULT) [address] [place] [address] Monocytes/100 WBC (Bld) 11.5 % Normal [facility] Comment on above: Performed By: #### L [id number] #### [facility] (DEFAULT) [address] [place] [address] Nucleated RBC 0.0 /100 WBC Normal <=0.2 [facility] Comment on above: Performed By: #### L [id number] #### [facility] (DEFAULT) [address] [place] [address] Platelet mean volume (Bld) [Entitic vol] 9.9 fL Normal 8.5-12.2 [facility] Comment on above: Performed By: #### L [id number] #### [facility] (DEFAULT) [address] [place] [address] Platelets (Bld) [#/Vol] 110 10*3/uL Low 150-393 [facility] Comment on above: Performed By: #### L [id number] #### [facility] (DEFAULT) [address] [place] [address] RBC (Bld) [#/Vol] 3.90 10*6/uL Low 3.91-5.04 [facility] Comment on above: Performed By: #### L [id number] #### [facility] (DEFAULT) [address] [place] [address] RBC Distribution 12.2 % Normal 10.8-14.9 [facility] Comment on above: Performed By: #### L [id number] #### [facility] (DEFAULT) [address] [place] [address] Segs + Bands Auto 38.9 % Normal [facility] Comment on above: Performed By: #### L [id number] #### [facility] (DEFAULT) [address] [place] [address] Segs + Bands,Absolute Auto 2.78 K/uL Normal 1.64-7.28 [facility] Comment on above: Performed By: #### L [id number] #### [facility] (DEFAULT) [address] [place] [address] WBC (Bld) [#/Vol] 7.15 10*3/uL Normal 3.99-11.19 [facility] Comment on above: Performed By: #### L [id number] #### [facility] (DEFAULT) [address] [place] [address] Basophils (Bld) [#/Vol] 0.06 10*3/uL 0.00 - 0.15 K/uL [facility] Basophils/100 WBC (Bld) 0.8 % [facility] Differential cell count method Nom (Bld) Electronic Differential [facility] Eosinophils (Bld) [#/Vol] 0.07 10*3/uL 0.00 - 0.42 K/uL [facility] Eosinophils/100 WBC (Bld) 1.0 % [facility] Erythrocyte distribution width (RBC) [Ratio] 12.2 % 10.8 - 14.9 % [facility] Hematocrit (Bld) [Volume fraction] 39.1 % 34.9 - 44.3 % [facility] Hemoglobin (Bld) [Mass/Vol] 13.3 g/dL 11.4 - 15.2 g/dL [facility] Immature granulocytes (Bld) [#/Vol] 0.13 10*3/uL High <=0.[address] [facility] Immature granulocytes/100 WBC (Bld) 1.8 % [facility] Interpretation and review of laboratory results Abnormal [facility] Lymphocytes (Bld) [#/Vol] 3.29 10*3/uL 1.16 - 3.51 K/uL [facility] Lymphocytes/100 WBC (Bld) 46.0 % [facility] MCH (RBC) [Entitic mass] 34.1 pg High 25.9 - 33.[address] [facility] MCHC (RBC) [Mass/Vol] 34.0 g/dL 31.4 - 35.9 g/dL [facility] MCV (RBC) [Entitic vol] 100.3 fL High 79.6 - 97.[address] [facility] Monocytes (Bld) [#/Vol] 0.82 10*3/uL 0.22 - 0.87 K/uL [facility] Monocytes/100 WBC (Bld) 11.5 % [facility] Neutrophils (Bld) [#/Vol] 2.78 10*3/uL 1.64 - 7.28 K/uL [facility] Nucleated RBC/100 WBC (Bld) [Ratio] 0.0 % <=0.2 /[address] [facility] Platelet mean volume (Bld) [Entitic vol] 9.9 fL 8.5 - 12.[address] [facility] Platelets (Bld) [#/Vol] 110 10*3/uL Low 150 - 393 K/uL [facility] RBC (Bld) [#/Vol] 3.90 10*6/uL Low [facility] Segmented neutrophils/100 WBC (Bld) 38.9 % [facility] WBC (Bld) [#/Vol] 7.15 10*3/uL 3.99 - 11. 19 K/uL [facility] CHEM 6 (LYTES, BUN CREA)on 0 08-17-2022 Anion gap [Moles/Vol] 10 mmol/L Normal 7-17 [facility] Comment on above: Performed By: #### C HM6 #### [facility] (DEFAULT) [address] [place] [address] Chloride [Moles/Vol] 103 mmol/L Normal 98-108 [facility] Comment on above: Performed By: #### C HM6 #### [facility] (DEFAULT) [address] [place] [address] CO2 [Moles/Vol] 31 mmol/L Normal 21-31 [facility] Comment on above: Performed By: #### C HM6 #### [facility] (DEFAULT) [address] [place] [address] Creatinine [Mass/Vol] 1.16 mg/dL Normal 0.50-1.20 [facility] Comment on above: Performed By: #### C HM6 #### [facility] (DEFAULT) [address] [place] [address] GFR/1.73 sq M.predicted among non-blacks MDRD (S/P/Bld) [Vol rate/Area] 63 mL/min/{1.73_m2} Normal >=60 [facility] Comment on above: Result Comment: Repo rted eGFR is based on the CKD-EPI 2020 equation using creatinine, age, and sex. Performed By: #### C HM6 #### [facility] (DEFAULT) [address] [place] [address] Potassium [Moles/Vol] 4.0 mmol/L Normal 3.5-5.0 [facility] Comment on above: Performed By: #### C HM6 #### [facility] (DEFAULT) [address] [place] [address] Sodium [Moles/Vol] 140 mmol/L Normal 135-145 [facility] Comment on above: Performed By: #### C HM6 #### [facility] (DEFAULT) [address] [place] [address] Urea nitrogen [Mass/Vol] 10 mg/dL Normal 7-25 [facility] Comment on above: Performed By: #### C HM6 #### [facility] (DEFAULT) [address] [place] [address] Urea nitrogen/Creatinine [Mass ratio] 9 mg/mg Normal [facility] Comment on above: Performed By: #### C HM6 #### [facility] (DEFAULT) [address] [place] [address] Anion gap [Moles/Vol] 10 mmol/L 7 - 17 mmol/L [facility] Chloride [Moles/Vol] 103 mmol/L 98 - 10 8 mmol/L [facility] CO2 [Moles/Vol] 31 mmol/L 21 - 31 mmol/L [facility] Creatinine [Mass/Vol] 1.16 mg/dL 0.50 - 1.20 mg/dL [facility] GFR/1.73 sq M.predicted CKD-EPI (S/P/Bld) [Vol rate/Area] 63 >=60 mL/min/1.73m [address] [facility] Comment on above: Reported eGFR is bas ed on the CKD-EPI 2020 equation using creatinine, age, and sex. Potassium [Moles/Vol] 4.0 mmol/L 3.5 - 5.0 mmol/L [facility] Sodium [Moles/Vol] 140 mmol/L 135 - 145 mmol/L [facility] Urea nitrogen [Mass/Vol] 10 mg/dL 7 - 25 mg/dL [facility] Urea nitrogen/Creatinine [Mass ratio] 9 mg/mg [facility] Progress Noteson 08-05-2022 Top Bottom Attaching Machine Operator Authentication Interface Message Text Spoke to Kari @ [place], she will call back when she gets to her office to schedule patient's OR visit----- Friday, August 05, 2022 at 11:13:45 AM ----- ----- Provider: Edelmira Bella Specialist -- Clinic: [facility] ----- Normal [facility] Progress Noteson 08-25-2021 Top Bottom Attaching Machine Operator Authentication Interface Message Text Pt is special [...] of 2019. LG is mom: Camille Arnaldo [phone] Call the [facility] for [phone] ext: [phone] Tx request sent. SCRUB WHEEL OPERATOR [facility] [place]: OR ----- Signed on Wednesday, August 25, 2021 at 9:36:43 AM ----- ----- Provider: Rogelio Ryan DDS -- Clinic: [facility] ----- Normal [facility] Vital Signs Date Time Vital Sign Value Performing Clinician Facility 02-02-2024 11:15-0500 Body height 147.3 cm Pf Brick [facility] 02-02-2024 11:15-0500 Body mass index (BMI) [Ratio] 25.08 kg/m2 [facility] 02-02-2024 11:15-0500 Body weight 54.43 kg [facility] 02-02-2024 11:15-0500 Diastolic blood pressure 78 mm[Hg] [facility] 02-02-2024 11:15-0500 Systolic blood pressure 110 mm[Hg] [facility] 08-26-2022 15:30-0400 Body temperature 97.5 [degF] Pastorhakeem Pricestra DDS Work Phone: [facility] 08-26-2022 15:30-0400 Diastolic blood pressure 57 mm[Hg] Pastor Beetstra DDS Work Phone: [facility] 08-26-2022 15:30-0400 Heart rate 101 /min Pastor Beetstra DDS Work Phone: [facility] 08-26-2022 15:30-0400 Respiratory rate 16 /min Pastor Beetstra DDS Work Phone: [facility] 08-26-2022 15:30-0400 SaO2% (BldA) [Mass fraction] 99 % Pastor Beetstra DDS Work Phone: [facility] 08-26-2022 15:30-0400 Systolic blood pressure 107 mm[Hg] Pastor Beetstra DDS Work Phone: [facility] 08-26-2022 12:00-0400 Body height 160 cm Pastor Suarez DDS Work Phone: [facility] 08-26-2022 12:00-0400 Body mass index (BMI) [Ratio] 21.43 kg/m2 Pastor Suarez DDS Work Phone: [facility] 08-26-2022 12:00-0400 Body weight 54.88 kg Pastor Suarez DDS Work Phone: [facility] 08-17-2022 10:00-0400 Body height 160 cm Prasanth Reyes PA-C Work Phone: [facility] 08-17-2022 10:00-0400 Body mass index (BMI) [Ratio] 21.79 kg/m2 Prasanth Reyes PA-C Work Phone: [facility] 08-17-2022 10:00-0400 Body temperature 97.39 [degF] Prasanth Reyes PA-C Work Phone: [facility] 08-17-2022 10:00-0400 Body weight 55.79 kg Prasanth Reyes PA-C Work Phone: [facility] 08-17-2022 10:00-0400 Diastolic blood pressure 64 mm[Hg] Prasanth Reyes PA-C Work Phone: [facility] 08-17-2022 10:00-0400 Heart rate 69 /min Prasanth Reyes PA-C Work Phone: [facility] 08-17-2022 10:00-0400 Respiratory rate 18 /min Prasanth Reyes PA-C Work Phone: [facility] 08-17-2022 10:00-0400 SaO2% (BldA) [Mass fraction] 97 % Prasanth Reyes PA-C Work Phone: [facility] 08-17-2022 10:00-0400 Systolic blood pressure 98 mm[Hg] Prasanth Reyes PA-C Work Phone: [facility] Encounters Encounter Date Encounter Type Care Provider Facility Start: 03-21-2024 End: 03-21-2024 Lab Drop off ROBIN VAUGHAN [facility] Start: 03-21-2024 End: 03-22-2024 ambulatory ROBIN VAUGHAN Facility:[facility] Start: 02-02-2024 End: 02-02-2024 Patient encounter procedure Pfws Ob [facility] Comment on above: Encounter for screen ing breast examination (Primary Dx); Surveillance of previously prescribed contraceptive pill Start: 02-01-2024 End: 02-02-2024 ambulatory ROBIN VAUGHAN Facility:[facility] Start: 02-01-2024 End: 02-01-2024 Patient encounter procedure ROBIN VAUGHAN [facility] Start: 11-30-2023 End: 12-01-2023 ambulatory ROBIN VAUGHAN Facility:[facility] Start: 11-02-2023 End: 11-02-2023 ambulatory KATIUSKA GANDHI [facility] Start: 10-12-2023 End: 10-13-2023 ambulatory ROBIN VAUGHAN Facility:[facility] Start: 10-12-2023 End: 10-12-2023 Lab Drop off ROBIN VAUGHAN [facility] Start: 08-17-2023 End: 08-18-2023 ambulatory ROBIN VAUGHAN Facility:[facility] Start: 08-17-2023 End: 08-17-2023 Lab Drop off ROBIN VAUGHAN [facility] Start: 02-17-2023 End: 02-18-[address] ROBIN VAUGHAN Facility: Start: 02-02-2023 End: 02-03-[address] ROBIN VAUGHAN Facility:[facility] Start: 12-14-2022 End: 12-15-[address] ROBIN VAUGHAN Facility:[facility] Start: 10-13-2022 End: 10-13-[address] ROBIN VAUGHAN Facility:[facility] Start: 10-12-2022 End: 10-13-[address] ROBIN VAUGHAN Facility: Start: 08-26-2022 End: 08-26-2022 ambulatory GERONIMO LANGLEY Facility:[facility] Start: 08-26-2022 End: 08-26-2022 Subsequent hospital visit by physician Pastor Suarez DDS Work Phone: [facility] Comment on above: Periodontal disease Start: 08-17-2022 ambulatory PRASANTH REYES Facility:[facility] Start: 08-17-2022 Encounter for other preprocedural examination PRASANTH REYES Facility:[facility] Start: 08-17-2022 End: 08-17-2022 Office consultation new/estab patient 40 min Prasanth Reyes PA-C Work Phone: Pre-Procedure Evaluation and Assessment [facility] Comment on above: Preop exam for inter nal medicine (Primary Dx); Periodontal disease; Developmental delay; Hypothyroidism, unspecified type Start: 08-17-2022 End: 08-17-2022 Patient encounter status Prasanth Reyes PA-C Work Phone: Pre-Procedure Evaluation and Assessment [facility] Start: 08-05-2022 ambulatory [facility]LEX RYAN [facility] Start: 08-04-2022 Admission to [facility] Leonela Dee DDTawana Work Phone: [facility] Start: 08-25-2021 End: 08-26-2021 ambulatory UNKNOWN PROVIDER Facility:[facility] Procedures Date Procedure Procedure Detail Performing Clinician Start: 02-02-2024 Microscopic observat ion [Identifier] in Cervix by Cyto stain Pfws [facility] Start: 08-26-2022 CARDIAC RHYTHM Other Ot her [...] 2) Shingles (RZV) Vaccine (1 of 2) [facility] Start: 02-01-2025 Adult BMI Screening Adult BMI Screen ing [facility] Start: 02-01-2025 Tobacco Screening Tobacco Screening [facility] Start: 08-17-2023 Potassium [Moles/vol ume] in Serum or Plasma POTASSIUM [facility] Start: 07-29-2023 COVID-19 Vaccine ( season) COVID-19 Vaccine ( season) [facility] Start: 07-29-2023 Influenza vaccination Influenza Vacc ine [facility] Start: 08-28-2022 Influenza vaccination Influenza Vacc ine (#1) [facility] Start: 08-26-2022 End: 08-26-2022 Admission to same day surgery center 08/26/2022 Surgery Multispecialty Pastor Suarez DDS [address] [place] [address] FULL MOUTH REHABILITATION [facility] Comment on above: FULL MOUTH REHABILIT ATION Start: 08-26-2022 Subsequent hospital visit by physician 08/26/2022 Hospital Encounter Multispecialty Pastor Suarez DDS [address] [place] [address] Periodontal disease [facility] Comment on above: Periodontal disease Start: 08-26-2022 End: 08-26-2022 Unlisted procedure dentoalveolar structures FULL MOUTH REHABILITATION Periodontal disease Dental caries 08/26/2022 1:35 PM EDT [facility] Start: 08-26-2022 End: 08-26-2022 Patient encounter procedure 08/26/2022 Appointment Multispecialty [facility] Start: 07-29-2022 Influenza vaccination INFLUENZA VACC INE (#1) [facility] Start: 05-29-2021 COVID-19 Vaccine (3 - Booster for Pfizer series) COVID-19 Vaccine (3 - Booster for Pfizer series) [facility] Start: 02-24-2021 COVID-19 VACCINE (3 - Booster for Pfizer series) COVID-19 VACCINE (3 - Booster for Pfizer series) [facility] Start: 07-17-2019 DTaP,Tdap and Td Vaccines (2 - Td or Tdap) DTaP,Tdap and Td Vaccines (2 - Td or Tdap) [facility] Start: 07-17-2019 Tetanus vaccination Tetanus (T d or Tdap) [facility] Start: 02-22-2009 Screening for malign ant neoplasm of cervix [facility] Start: 01-26-2009 Annual wellness visit Annual W ellness Visit (G0438) [facility] Start: 02-22-2007 Third diphtheria, tetanus and acellular pertussis (DTaP) vaccination TDAP (ADULT) [facility] Start: 02-22-2006 Adult BMI Follow Up Plan Adult BMI F ollow Up Plan [facility] Start: 02-22-2006 Hepatitis C screening Hepatitis C An tibody [facility] Start: 02-22-2006 Tetanus vaccination TETANUS [facility] Start: 02-22-2003 HIV screening [facility] Start: 2000 Depression Screening Depression [facility] Start: 1988 Hepatitis C antibody , confirmatory test HEPATITIS C VIRUS SCREENING [facility] Start: 1988 Thyroid stimulating hormone measurement TSH [facility] DENTAL RESTORATIONS DENTAL RADHA RATIONS Routine scheduled Caries [facility] Noninvasive ear/puls e oximetry single deter LA NONINVASV OXYGEN SATUR; SINGLE LA - OFFICE PERFORMED Routine Preop exam for internal medicine Periodontal disease Developmental delay Hypothyroidism, unspecified type Ordered: 08/17/[address] [facility] Comment on above: Ordered: 08/17/2022 Immunizations Immunization Date Immunization Notes Care Provider Scarlett woo 12-30-2020 Pfizer (12+ yrs) BREE S-COV-2 (COVID-19) vaccine, mRNA, spike protein, LNP, pres. free, 30 mcg/0.3mL dose (PRQ=242) Leonela Lica DDS Work Phone: [facility] 12-09-2020 Pfizer (12+ yrs) BREE S-COV-2 (COVID-19) vaccine, mRNA, spike protein, LNP, pres. free, 30 mcg/0.3mL dose (SDS=014) Leonela Lica DDS Work Phone: [facility] 09-03-2020 influenza, injectabl e, quadrivalent, preservative free Leonela Lica DDS Work Phone: [facility] 09-03-2020 influenza virus vacc ine, unspecified formulation Leonela Lica DDS Work Phone: [facility] 07-17-2009 tetanus toxoid, redu magnus diphtheria toxoid, and acellular pertussis vaccine, adsorbed Leonela Lica DDS Work Phone: [facility] Payers Date Payer Category Payer Medicaid [id number] 2008 Medicare [id number] 1988 Unknown [id number] 2.16. [id number] 1988 Unknown [id number] 2.16. [id number] 1988 Unknown [id number] 2.16. [id number] 1988 Unknown [id number] 2.16. [id number] 1988 Unknown [id number] 2.16. [id number] 1988 Unknown [id number] 2.16.8 [id number] 1988 Unknown [id number] 2.16.8 [id number] 1988 Unknown [id number] 2.16.8 [id number] 1988 Unknown [id number] 2.16.8 [id number] 1988 Unknown [id number] 2.16.8 [id number] 1959 Medicaid [id number] 1961 Medicare [id number] Unknown [id number] 2.16.84 [id number] Unknown [id number] 2.16.84 [id number] Unknown [id number] 2.16.84 [id number] Unknown [id number] 2.16.84 [id number] Unknown [id number] 2.16.84 [id number] Social History Date Type Detail Facility Tobacco smoking stat [facility] Tobacco smoking consumption unknown [facility] Work Phone: Start: 1988 Sex Assigned At [facility] Start: 08-26-2022 End: 02-02-2024 Tobacco smoking status NHIS Never smoked tobacco [facility] Start: 08-26-2022 End: 02-02-2024 Tobacco use and exposure Smokeless tobacco non-user [facility] Start: 08-26-2022 End: 02-02-2024 Alcohol intake Lifetime non-drinker (finding) [facility] Tobacco smoking status No Smokin g Status Entered [facility] Start: 05-09-2019 End: 02-02-2024 Sex Assigned At Female [facility] Start: 05-09-2019 End: 02-02-2024 History of Social function [facility] Childcare Unknown [facility] Clinical Notes 08-17-2022 to 03-21-2024 Thea Fuentes APRN-NETWORKING TECHNICIAN - 02/02/2024 11:00 AM ESTNursing Notes - Marcelino Augustin RN - 08/26/2022 3:35 PM EDTNursing Notes - Marcelino Augustin RN - 08/26/2022 3:35 PM EDTPatient Instructions Note Date & Type Note Facility 03-21-2024 Evaluation + Plan note Diagnostic Tests PendingAcute Hepatitis A B C Panel 03/21/24 [facility] 02-02-2024 History of Present illness Narrative [...] APRN-CNP 02/02/24 1525 documented in this encounter [facility] [employer] 11-02-2023 Note Attestation signed by Katiuska Gandhi [...] hormone, and fe (more content not included)... [facility] 08-26-2022 Note Formatting of this n [...] in care of mother while waiting for coordinator of online programs by this RN. [facility] 08-26-2022 Miscellaneous Notes 1530: Pt arrived on [...] in care of mother while waiting for coordinator of online programs by this RN. Current Facility-Administered Medications: chlorhexidine [...] mouth scaling was performed with an ultrasonic supervisor drapery hanging. Teeth were polished with prophy paste and prophy cup on slow speed handpiece. Fluoride varnish was applied to teeth. The throat pack was removed at 14:43. The patient was extubated and transferred to PACU in stable condition. Written and verbal post-operative instructions were provided to the patient s escort. Condition: Stable Disposition: Patient to follow up at dental clinic prn and with the [facility] dental clinic for regular exams. EBL (estimated blood loss): minimal TRF (total fluid replacement): 500 mL Lactated Ringers TABBY Guzman DDS, [facility] Tiffany Mcintosh ([id number]) PRE OPERATIVE DIAGNOSIS Periodontal disease [K05.6] Dental caries [K02.9] POST OPERATIVE DIAGNOSIS Post-Op Diagnosis Codes: * Periodontal disease [K05.6] * Dental caries [K02.9] PROCEDURE PERFORMED Procedure(s) (LRB): FULL MOUTH REHABILITATION (N/A) PRIMARY CLOSURE Yes INTRAOPERATIVE FINDINGS No significant abnormalities SURGEON Surgeon(s) and Role: * Pastor Suarez DDS - Primary ANESTHESIOLOGIST Anesthesiologist: Katiuska Aguirre DO School Resource Officer Assisting: Juan Dozier DDS SURGICAL STAFF [employer] Rep: Maria Del Rosario Scanlon RN Scrub Person: Jimmy Neri Resident Assisting: Rosa Siddiqui DDS COMPLICATIONS None ESTIMATED BLOOD LOSS minimal SPECIMENS No specimen sent * No specimens in log * Pastor Suarez DDS August 26, 2022 2:47 PM documented in this encounter [facility] 08-26-2022 Note Formatting of this n ote [...] mouth scaling was performed with an ultrasonic supervisor drapery hanging. Teeth were polished with prophy paste and prophy cup on slow speed handpiece. Fluoride varnish was applied to teeth. The throat pack was removed at 14:43. The patient was extubated and transferred to PACU in stable condition. Written and verbal post-operative instructions were provided to the patient s escort. Condition: Stable Disposition: Patient to follow up at dental clinic prn and with the [facility] dental clinic for regular exams. EBL (estimated blood loss): minimal TRF (total fluid replacement): 500 mL Lactated Ringers TABBY Guzman DDS[facility] Work Phone: 08-26-2022 Note Formatting of this n ote might be different from the original. Tiffany Mcintosh ([id number]) PRE OPERATIVE DIAGNOSIS Periodontal disease [K05.6] Dental caries [K02.9] POST OPERATIVE DIAGNOSIS Post-Op Diagnosis Codes: * Periodontal disease [K05.6] * Dental caries [K02.9] PROCEDURE PERFORMED Procedure(s) (LRB): FULL MOUTH REHABILITATION (N/A) PRIMARY CLOSURE Yes INTRAOPERATIVE FINDINGS No significant abnormalities SURGEON Surgeon(s) and Role: * Pastor Suarez DDS - Primary ANESTHESIOLOGIST Anesthesiologist: Katiuska Aguirre DO School Resource Officer Assisting: Juan Dozier DDS SURGICAL STAFF Solar Sales Rep: Maria Del Rosario Scanlon RN Scrub Person: Jimmy Neri Resident Assisting: Rosa Siddiqui DDS COMPLICATIONS None ESTIMATED BLOOD LOSS minimal SPECIMENS No specimen sent * No specimens in log * Pastor Suarez DDS August 26, 2022 2:[address] [facility] 08-26-2022 Nurse Surgical operation note Pt came to OR with toy ball. Ball taken with pt to PACU. [facility] 08-26-2022 Nurse Note Pt came to OR with toy ball. Ball taken with pt to PACU. documented in this encounter [facility] 08-26-2022 History and physical note Hospitalist updated [...] surgery at this time. Hubert Ledbetter DO [facility] Work Phone: 08-26-2022 History and physical note [...] Hubert Ledbetter DO documented in this encounter [facility] 08-17-2022 History and physical note Images from the original note were not included. History of Present Illness Ms. Mcintosh is a 32 y.o. female is being evaluated in [facility] due to her medical condition of [...] patient has been medically OPTIMIZED FOR SURGERY. [facility] Perioperative Clinic [facility] [address] [facility] Review of Systems (OSUROS)Review of Systems [...] Social History Socioeconomic History Marital status: Single [facility] 08-17-2022 History and physical note Images from the original note were not included. History of Present Illness Ms. Mcintosh is a 32 y.o. female is being evaluated in [facility] due to her medical condition of [...] patient has been medically OPTIMIZED FOR SURGERY. [facility] Perioperative Clinic [facility] [address] [facility] Review of Systems (OSUROS)Review of Systems [...] Marital status: Single documented in this encounter [facility] 08-17-2022 History of Present illness Narrative 32 YO F for Full mouth rehabilitation with Dr. Suarez Developmental Delay Hypothyroid HTN Prior anesthetic with grade 1 view with mac 3 Prior ketamine IM though has had more recent anesthetics and tolerated IV well Arun Montes MD Antenna Installer Anesthesiology / Pain Management [facility] Addendum 08/18/22: Family called an notified [facility] [...] medication issue. documented in this encounter [facility] 08-17-2022 Instructions Opal Sparks RN - 08/17/2022 [...] take Herbal Medication (including multi-vitamin, fish oil ([place]-3), garlic, Glucosamine - Chondroitin ,gingko, ginseng, Vitamin [...] site one week prior to surgery. - [place] your teeth and rinse your mouth the morning of surgery. - Do NOT bring your dentures or partials with you into surgery. They may be lost. Give them to someone to bring to you after surgery. If you are unable to complete your scheduled testing or appointments made by [facility] please contact [facility] at [phone]. Failure to do so could delay or [...] surgery, please notify our team immediately at [phone]. - If you have Sleep apnea and have a CPAP or BIPAP, then bring your CPAP mask and machine with you to the hospital. Also, if you have been ordered a chest x-ray, please report to the Imaging Department on to first floor (to the right of the [facility] on the first floor) prior to leaving the building. Please contact Medical Information Management Department for all records requests. [phone] [phone] AVS/ALBERT documented in this encounter [facility] Evaluation + Plan note No data available for this section [facility] Evaluation note Diagnosis Caries- Primary Unspecified dental caries [facility] Preop exam for internal medicine- Primary Other specified pre-operative examination Periodontal disease Unspecified gingival and periodontal disease Developmental delay Unspecified delay in development Hypothyroidism, unspecified type Periodontal disease Unspecified gingival and periodontal disease Dental caries Unspecified dental caries [facility] Encounter for screening breast examination- Primary Surveillance of previously prescribed contraceptive [facility] Attachments The following attachments cannot be sent through Care Everywhere. * Dental Surgery: Generic: Post-op (Czech) [facility] No data available for this section [facility] Attachments The following attachments cannot be sent through Care Everywhere. * Ethinyl Estradiol and Levonorgestrel, ADULT (Czech) * Cervical cancer screening tests (Czech) [facility] No data available for this section [facility] Narrative* Auth/Cert Specialty Diagnoses / Procedures Referred By Herson terrazas Referred To Contact Diagnoses Periodontal disease Dental caries Periodontal disease [K05.6] Dental caries [K02.9] Procedures LA DENTAL SURGERY PROCEDURE FULL MOUTH REHABILITATION [facility] [address] [place] [address] [facility] [address] [place] [address] Referral ID Status Reason Start Date Expiration Date Visits Re quested Visits Authorized [id number] [address] [facility] Summary Purpose Family History No Family History Records FoundNo Family History Records FoundNo Family History Records Found No data available for this section No Family History Records Found No data available for this section No data available for this section No Family History Records Found Advance Directives No Advanced Directives Records FoundDocuments on File Type Date Recorded Patient Process Control Specialist Expl anation DNR Physician Order 02/02/2024 11:17 AM DNR CC Reason for Referral Specialty Diagnoses / Procedures Referred By Contac t Referred To Contact Procedures LOW RISK - NO PHARMACOLOGICAL DVT PROPHYLAXIS Pastor Suarez DDS [address] [place] [address] Referral ID Status Reason Start Date Expiration Date V isits Requested Visits Authorized [id number] New Request 08/26/2022 09/20/2023 1 1 Specialty Diagnoses / Procedures Referred By Contac t Referred To Contact Procedures DVT/VTE RISK ASSESSMENT Pastor Suarez DDS [address] [place] [address] Referral ID Status Reason Start Date Expiration Date V isits Requested Visits Authorized [id number] New Request 08/26/2022 09/20/2023 1 1 Additional Source Comments INFORMATION SOURCE (unrecogn ized section and content) DATE CREATED AUTHOR 08/07/2022 [facility] DATE CREATED AUTHOR AUTHOR'S ORGANIZ ATION 08/29/2022 [facility] DATE CREATED AUTHOR AUTHOR'S ORGANIZ ATION 03/05/2023 [facility] DATE CREATED AUTHOR AUTHOR'S ORGANIZ ATION 11/04/2023 [facility] DATE CREATED AUTHOR AUTHOR'S ORGANIZ ATION 03/23/2024 [facility] Reason for Visit (unrecogniz ed section and content) Reason Comments Preoperative Assessment Specialty Diagnoses / Procedures Referred By Contac t Referred To Contact PreOp Diagnoses Periodontal disease Dental caries Fidel Suarezhen Carmelita TABBY [address] [place] [address] [facility] [address] [place] [address] Referral ID Status Reason Start Date Expiration Date V isits Requested Visits Authorized [id number] Pending Review 06/24/2022 07/19/2023 1 1 Reason Comments Gynecologic Exam Pt is here for breas t exam. 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 [facility]. provides no warranty or guarantee of the accuracy or completeness of information in this document.
[2024-08-22 05:08] LABS: HBsAg Screen Negative (Negative); HCV Ab Non Reactive (Non Reactive); Hep A Ab, IgM Negative (Negative); Hep B Core Ab, IgM Negative (Negative)
== END 2024-08-21 06:25 | disposition home or self-care (01) ==
LOC: LAB 06:25
PROVIDERS: PCP Family Medicine; Visit Provider Family Medicine
DX: Z04.41 Encounter for examination and observation following alleged adult rape (principal)
CPT/HCPCS: 36415; 80074

== ENCOUNTER 2024-10-09 07:00 | Outpatient (OUT) | payer MEDICARE, MEDICAID, SELFPAY ==
--- OUTSIDE RECORDS SUMMARY | 2024-10-09 07:03 | XMS_ITS | CCD ---
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 General Name Role Phone Unavailable Primary Care Provider Unavailabl e AL MASHNI, ALEX Admitting Unavailable AL MASOPAL, ALEX Attending Unavailable PROVIDER, UNKNOWN Admitting Unavailable PROVIDER, [...] Consulting Unavailable ROBIN VAUGHAN Primary Care Physician [phone] KATIUSKA GANDHI Attending Unavailable Unavailable Primary Care Provider Unavailabl e VAUGHANROBIN Admitting Unavailable VAUGHAN, ROBIN Attending Unavailable VAUGHAN, ROBIN Attending Unavailable VAUGHAN, ROBIN Admitting Unavailable VAUGHAN, ROBNI Attending Unavailable VAUGHAN, ROBIN Admitting Unavailable ROBIN VAUGHAN Referring Unavailable ROBIN VAUGHAN Admitting Unavailable ROBIN VAUGHAN Attending Unavailable ROBIN VAUGHAN Attending Unavailable VAUGHANROBIN Admitting Unavailable Unavailable Primary Care Provider UnavailRobin Reyez MD Primary Care Provider [phone] MEDHAT RANGEL Attending Unavailable SREEDHAR RANGEL Attending Unavailable Allergies Allergy Classification Reported Allergen(s) Allergy Type Date of Onset Reaction(s) Facility (7 sources) Amoxicillin / Clavulanate; Translations: [AMOXICILLIN-POT CLAVULANATE] Drug Allergy 02-12-2016 [facility] (5 sources) loracarbef; Translations: [LORACARBEF] Drug Allergy 05-03-2016 [facility] (3 sources) loracarbef Drug Allergy 07-21-2022 [facility] (1 source) Amoxicillin / Clavulanate Drug Allergy 12-22-2015 [facility] (1 source) loracarbef Drug Allergy 12-22-2015 [facility] (8 sources) Penicillins; Translations: [penicillins] Drug allergy 09-07-[address] [facility] Medications Current Medications Medication Drug Class(es) Dates Sig (Normalized) Sig (Original) bacillus coagulans [id number] unt / lactobacillus acidophilus [id number] unt oral tablet (2 sources) take 1 tablet by mouth once daily Lactobacillus (Acidophilus/L-Spo rogenes) tablet Acidophilus Ex Str (L. sporog) 35 million-25 million cell tablet TAKE ONE TABLET BY MOUTH ONCE DAILY Active betamethasone 0.5 mg/ml / clotrimazole 10 mg/ml topical lotion (2 sources) Azole Antifungal, Corticosteroid Start: 09-20-2024 End: 10-20-2024 clotrimazole-betam ethasone (Lotrisone) lotion Indications: Tinea Pedis Apply topically 2 (two) times a day Apply To Affected Area Twice per Day 30 mL 1 09/20/2024 10/20/2024 Active bifidobacterium animalis [id number] unt / lactobacillus acidophilus [id number] unt oral capsule (1 source) Probiotic Produc t (ACIDOPHILUS HIGH-POTENCY) CAPS Take by mouth. 0 Active bisacodyl 10 mg rectal suppository (1 source) Stimulant Laxative bisacodyl 10 MG Suppository suppository Insert 10 mg rectally as needed for Constipation. 0 Active busPIRone hydrochloride 15 mg oral tablet (6 sources) take 1 tablet by mouth three times daily busPIRone (Buspar) 15 MG tablet TAKE ONE TABLET BY MOUTH 3 TIMES DAILY BUSPAR Active take 1.5 tablets by mouth three times [...] mouth 2 times daily. 0 Active clonazePAM (10 sources) Benzodiazepine Start: 05-21-2011 clonazepam Ora l, TID, Refills(s) 0 Start Date: 05/21/11 Status: Ordered take 1 tablet by mouth three alyssa es daily clonazePAM (KlonoPIN) 0.5 MG tablet TAKE ONE TABLET BY MOUTH 3 TIMES DAILY KLONOPIN Active take 1 tablet by gladis th twice daily as needed clonazePAM (KlonoPIN) 0.5 mg tablet Take 1 tablet (0.5 mg total) by mouth 2 (two) times a day as needed for seizures. 0 Active cloNIDine (4 sources) Central alpha-2 Adrenergic Agonist Start: 05-21-2011 clonidine patch(es), Refills(s) 0 Start Date: 05/21/11 Status: Ordered desmopressin acetate 0.2 mg oral tablet (6 sources) Vasopressin Analog, Factor VIII Activator desmopressin (DDAV P) 0.2 MG tablet TAKE 1 AND 12 TABLETS IN THE MORNING, 1 TABLET AT NOON AND 2 TABLETS AT BEDTIME DDAVP Active take 1 tablet by mouth twice henrry ly desmopressin (DDAVP) 0.2 MG tablet Take 0.2 mg by mouth 2 times daily. 0 Active Dextromethorphan / guaiFENesin (1 source) Uncompetitive G-fsouml-O-aspartate Receptor Antagonist, Sigma-1 Agonist take 400 mg [...] Constipation. 0 Active Ethinyl Estradiol / Levonorgestrel (5 sources) Progestin, Estrogen, Progestin-containing Intrauterine Device Start: 02-02-2024 take 1 tablet by mouth once in the morning levonorgestreL-ethinyl estrad (AVIANE,ALESSE,LESSINA) 0.1-20 mg-mcg per tablet Indications: Surveillance of previously prescribed contraceptive pill Take 1 tablet by mouth in the morning. Pt takes continuously . 84 tablet 4 02/02/2024 Active Aviane 0.1-20 MG -MCG tablet TAKE 1 TABLET BY MOUTH DAILY. SKIP PLACEBO PILLS FOR PACK 1 AND 2, TAKE PLACEBO PILLS FOR PACK 3. Active End: 02-02-2024 take 1 tablet by mouth once in the morning levonorgestreL-ethinyl estrad (AVIANE,ALESSE,LESSINA) 0.1-20 mg-mcg per tablet Take 1 tablet by mouth in the morning. Pt takes continuously . 0 02/02/2024 Discontinued (Reorder) folic acid 1 mg oral tablet (5 sources) take 1 tablet by mouth once daily folic acid (Folvite) 1 MG tablet Take 1 tablet by mouth Daily Active gabapentin (5 sources) Anti-epileptic Agent Start: 05-21-2011 gabapentin Oral, Refills(s) 0 Start Date: 05/21/11 Status: Ordered take 1 capsule by mo [facility] three times daily gabapentin (NEURONTIN) 300 MG capsule Ta ke 300 mg by mouth 3 times daily. 0 Active hydroCHLOROthiazide 25 mg oral tablet (5 sources) Thiazide Diuretic take 1 tablet by mouth once daily hydroCHLOROthiazide (HYDRODiuril) 25 MG tablet Take 1 tablet by mouth Daily Active Lactobacillus (1 source) Lactobacillus (ACIDOPHILUS/BIFIDUS PO) Take by mouth. 0 Active Lactobacillus acidophilus (1 source) Lactobacillus ac idophilus (ACIDOPHILUS ORAL) Take by mouth. 0 Active Lactulose (4 sources) Osmotic Laxative Start: 011 lactulose Oral, Daily, EA, Refills(s) 0 Start Date: 05/21/11 Status: Ordered Levonorgestrel-Ethinyl Estrad (AVIANE ORAL) (1 source) Levonorgestrel-E thinyl Estrad (AVIANE ORAL) Take by mouth. 0 Active levothyroxine sodium 0.075 mg oral tablet (10 sources) l-Thyroxine Start: 023 End: 024 levothyroxine (Synthroid, Levoxyl) 75 MCG tablet TAKE 12 TABLET BY MOUTH ONCE DAILY 11/02/2023 Active Start: 05-21-2011 levothyroxine Daily, Refills(s) 0 Start Date: 05/21/11 Status: Ordered take 1 tablet by gladis once daily before breakfast levothyroxine 75 MCG tablet Take 75 mcg by mouth every morning before breakfast. 0 Active [place] (4 sources) Start: 05-21-2011 lithium Oral, Refills(s) 0 Start Date: 05/21/11 Status: Ordered loperamide hydrochloride 2 mg oral tablet (1 source) Opioid Agonist Loperamide HCl 2 MG tablet Take 2 mg by mouth As directed as needed. 0 Active loratadine 10 mg oral tablet (4 sources) take 1 tablet by mouth once daily loratadine (Claritin) 10 MG tablet Take 1 tablet by mouth Daily Active loratadine (CLAR ITIN REDITABS) 10 mg disintegrating tablet Dissolve 1 tablet (10 mg total) on tongue in the morning. 0 Active melatonin 5 mg oral capsule (2 sources) melatonin (CIRCA DIN) capsule Take by mouth. 0 Active Melatonin 5 MG C APS Take by mouth. 0 Active metoprolol tartrate 25 mg oral tablet (9 sources) beta-Adrenergic Rodney Start: 09-13-2024 metopr olol tartrate (Lopressor) 25 MG tablet 09/13/2024 Active take 1 tablet by mouth in the mo rning metoprolol tartrate (Lopressor) 50 MG tablet Take 50 mg by mouth in the morning and 50 mg in the evening. Active metoprolol tartr ate (LOPRESSOR) 100 mg tablet Take 25 mg by mouth in the morning. 0 Active take 1 tablet by mouth four time s daily metoprolol 100 MG tab regular release Take 100 mg by mouth 4 times daily. 0 Active mirtazapine 15 mg oral tablet (4 sources) take 1 tablet by mouth at bedtime mirtazapine (Remeron) 15 MG tablet Take 1 tablet by mouth at bedtime Active Nasonex (4 sources) Corticosteroid Start: 05-21-20 11 Nasonex Nasal, Daily, Refill(s) 0 Start Date: 05/21/11 Status: Ordered Singulair (10 sources) Leukotriene Receptor Antagonist Start: 05-21-20 11 Singulair qPM, Refills(s) 0 Start Date: 05/21/11 Status: Ordered take 1 tablet by mouth at bedtim e montelukast (Singulair) 10 MG tablet Take 1 tablet by mouth at bedtime Active naltrexone hydrochloride 50 mg oral tablet (6 sources) Opioid Antagonist take 1 tablet by mouth twice daily naltrexone (Depade) 50 MG tablet TAKE ONE TABLET BY MOUTH TWICE A DAY REVIA Active take 1 tablet by mouth once [...] Take by mouth. 0 Active potassium chloride 2.67 meq/ml oral solution (4 sources) take 6 [oz_av] by mouth once daily potassium chloride 40 MEQ/15ML (20%) solution TAKE 15ML BY MOUTH ONCE DAILY DILUTE IN 6 OZ OF WATER/JUICE PRIOR TO ADMINISTERING Active take 20 mEq by mouth once daily in the morning potassium chloride 20 MEQ/15ML (10%) Solution Take 20 mEq by mouth daily every morning. 0 Active sennosides, intermediate 8.6 mg oral tablet (2 sources) take 1 tablet by gladis th in the morning senna (SENOKOT) 8.6 mg [...] sodium 125 mg delayed release oral capsule (3 sources) Mood Stabilizer, Anti-epileptic Agent take 1 capsule by mouth in the morning divalproex sprinkle (Depakote Sprinkle) [address] capsule Take 125 mg by mouth in the morning and 125 mg in the evening. Active Completed/Discontinued Medications Medication Drug Class(es) Dates [...] source) Weakness; Translations: [WEAKNESS] Onset: 02-20-2023 Episodic Mycoses (2 sources) Onychomycosis due to dermatophyte ; Translations: [Tinea unguium] 09-20-2024 Episodic Other aftercare (5 sources) Other [employer] (current) drug therapy; Translations: [OTH [facility] CURRENT DRUG THERAPY] Onset: 12-20-2022 Episodic Other connective tissue disease (4 sources) Pain of toe of left foot; Translations: [Pain in left toe(s)] 08-28-2024 Episodic Other connective tissue disease (2 sources) Pain of toe of right foot; Translations: [Pain in right toe(s)] 09-20-2024 Episodic Other diseases of kidney and ureters (5 sources) Nephrogenic diabetes insipidus; 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] Onset: 10-13-2022 Chronic Other endocrine disorders (2 sources) Diabetes insipidus; Translations: [Diabetes insipidus] Onset: 11-02-2023 Chronic Other nutritional; endocrine; and metabolic disorders [...] malignant neoplasm of breast] 02-02-2024 Episodic Other skin disorders (4 sources) Ingrowing nail; Translations: [Ingrowing nail] 08-28-2024 Episodic Other upper respiratory disease (1 source) Nasal congestion; Translations: [NASAL CONGESTION] Onset: 02-20-2023 Episodic Skin and subcutaneous tissue infections (6 sources) Cellulitis of left toe; Translations: [Cellulitis and abscess of toe, unspecified] 08-28-2024 Episodic Past or Other Problems Problem Classification Problem Date Documented Date Episodic/Chronic Anxiety disorders (5 sources) Anxiety; Translations: [Anxiety disorder, unspecified] Onset: 10-11-2018 Resolved: 08-28-2024 08-28-2024 Chronic Attention-deficit, conduct, and disruptive behavior disorders (5 sources) Attention deficit hyperactivity disorder; Translations: [Attention-deficit hyperactivity disorder, unspecified type] Onset: 10-11-2018 Resolved: 08-28-2024 08-28-2024 Chronic Coagulation and hemorrhagic disorders (5 sources) Thrombocytopenic disorder; Translations: [Thrombocytopenia, unspecified] Onset: 01-08-2016 Resolved: 08-28-2024 08-28-2024 Chronic Developmental disorders (10 sources) Developmental disorder; 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] Onset: 01-08-2016 Resolved: 08-28-2024 08-28-2024 Chronic Fluid and electrolyte disorders (1 source) Hyperosmolality and hypernatremia; Translations: [HYPEROSMOLALITY AND HYPERNATREMIA] Onset: 10-15-2022 Episodic Genitourinary symptoms and ill-defined conditions (1 source) Other polyuria; Translations: [OTHER POLYURIA] Onset: 10-15-2022 Episodic Mood disorders (5 sources) Bipolar disorder; Translations: [Bipolar disorder, unspecified] Onset: 10-11-2018 Resolved: 08-28-2024 08-28-2024 Chronic Other and unspecified benign neoplasm (1 source) Benign neoplasm of pituitary gland; Translations: [BENIGN NEOPLASM OF PITUITARY GLAND] Onset: 10-15-2022 Episodic Other diseases of kidney and ureters (5 sources) Acquired nephrogenic diabetes insipidus; 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] Onset: 01-15-2016 Resolved: 08-28-2024 08-28-2024 Chronic Other nutritional; endocrine; and metabolic disorders (1 source) Polydipsia; Translations: [POLYDIPSIA] Onset: 10-15-2022 Episodic Thyroid disorders (14 sources) Hypothyroidism; Translations: [Hypothyroidism, unspecified] Onset: 01-15-2016 Resolved: 08-28-2024 Chronic Results Test Name Value Interpretation Reference Range Facility .Interpretation:on HCV Ab IA Ql Comment Invalid Interpretation Code [facility] Comment on above: Result Comment: Not infected with HCV unless early or acute infection is suspected (which may be delayed in an immunocompromised individual), or other evidence exists to indicate HCV infection. Performed at: [facility] [id number] PhD Amaris Valdes Performed By: #### 2 [id number] #### [facility] [address] [place] [address] Acute Hepatitis A B C Panelo n 03-23-2024 HAV IgM IA Ql Negative Invalid Interpretation Code Negative [facility] Comment on above: Performed By: #### 2 [id number] #### [facility] [address] [id number] HBV core IgM IA Ql Negative Invalid Interpretation Code Negative [facility] Comment on above: Performed By: #### 2 [id number] #### [facility] [address] [id number] HBV surface Ag IA Ql Negative Invalid Interpretation Code Negative [facility] Comment on above: Performed By: #### 2 [id number], [id number] #### [facility] [address] [place] [address] HCV IgG IA Ql Non-Reactive Invalid Interpretation Code Non Reactive [facility] Comment on above: Result Comment: [facility] [address] [place], [place] [id number] PhD Amaris Valdes Performed By: #### 2 [id number], [id number] #### [facility] [address] [place] [address] Physician Orderon 03-21-2024 Physician Order [id number]# 1.00TIFF Normal [facility] Consent for Treatmenton 0 Consent for Treatment [id number]#1 .00TIFF Normal [facility] Physician Orderon 02-01-2024 Physician Order [id number]# 1.00TIFF Normal [facility] XR Adult Swallowing Function w/ Videoon 02-01-2024 [...] mGy = na DAP = na Normal [facility] Physician Orderon 01-11-2024 Physician Order [id number]# 1.00TIFF Normal [facility] T3 Freeon 12-02-2023 Free T3 [Mass/Vol] 2.5 pg/mL Invalid Interpretation Code 2.0-4.4 [facility] Comment on above: Result Comment: Perf ormed at: [facility] [address] [id number] PhD Amaris Valdes Performed By: #### 2 542306, 8862036, 1979267, 1512645, 3067023, 46757566, 9811010 #### [facility] [address] [place] [address] CMPon 12-01-2023 Albumin [Mass/Vol] 3.8 g/dL Normal 3.3-5.0 [facility] Comment on above: Performed By: #### 2 255106, 9038341, 4602579, 7486942, 8974448, 86435354, 2345173 #### [facility] [address] [place] [address] Albumin/Globulin [Mass ratio] 1.4 {ratio} Normal 1.1-2.2 [facility] Comment on above: Performed By: #### 2 453151, 1233133, 3493422, 5608565, 9715496, 74558378, 8407726 #### [facility] [address] [place] [address] Alk Phos 38 Int._Unit/L Normal 21-98 [facility] Comment on above: Performed By: #### 2 647663, 0864135, 9592043, 6951646, 6287487, 14173475, 8087241 #### [facility] [address] [place] [address] ALT 7 Int._Unit/L Normal 6-46 [facility] Comment on above: Performed By: #### 2 747581, 0577176, 9032296, 8265600, 3847328, 38333743, 2808420 #### [facility] [address] [place] [address] Anion gap [Moles/Vol] 13 mmol/L Normal 6-16 [facility] Comment on above: Performed By: #### 2 426612, 0961547, 7685130, 9550672, 7793372, 07183668, 3537447 #### [facility] [address] [place] [address] AST 17 Int._Unit/L Normal 5-43 [facility] Comment on above: Performed By: #### 2 394934, 4654768, 2446777, 7634512, 0588722, 61668884, 5519744 #### [facility] [address] [place] [address] Bili Total 0.3 mg/dL Normal 0.0-1.1 [facility] Comment on above: Performed By: #### 2 531717, 2731912, 0556806, 5610092, 6817670, 61959750, 0980424 #### [facility] [address] [place] [address] BUN/Creat Ratio 16 No Units Normal 10-[address] [facility] Comment on above: Performed By: #### 2 366579, 9850288, 7345233, 7778874, 4522323, 07494431, 8978551 #### [facility] [address] [place] [address] Calcium [Mass/Vol] 9.0 mg/dL Normal 8.9-11.1 [facility] Comment on above: Performed By: #### 2 541542, 2708468, 7001519, 8942406, 1327854, 85443665, 2180870 #### [facility] [address] [place] [address] Chloride [Moles/Vol] 103 mmol/L Normal 101-111 [facility] Comment on above: Performed By: #### 2 088532, 4223648, 0087264, 7285450, 0200876, 55437437, 7000751 #### [facility] [address] [place] [address] CO2 [Moles/Vol] 26 mmol/L Normal 21-31 [facility] Comment on above: Performed By: #### 2 467867, 8269249, 7362421, 2314678, 8205587, 99245302, 0886092 #### [facility] [address] [place] [address] Creatinine [Mass/Vol] 1.1 mg/dL Normal 0.5-1.3 [facility] Comment on above: Performed By: #### 2 769597, 5495278, 2581623, 9095594, 5170529, 73845328, 6289787 #### [facility] [address] [place] [address] Globulin (S) [Mass/Vol] 2.8 g/dL Normal 1.4-4.0 [facility] Comment on above: Performed By: #### 2 851941, 6640412, 3871399, 0028809, 3636081, 53717260, 7757358 #### [facility] [address] [place] [address] Glucose [Mass/Vol] 68 mg/dL Normal 55-199 [facility] Comment on above: Performed By: #### 2 521392, 9863339, 9759525, 5724194, 5623417, 27187092, 5826365 #### [facility] [address] [place] [address] Potassium [Moles/Vol] 4.1 mmol/L Normal 3.5-5.3 [facility] Comment on above: Performed By: #### 2 603701, 1861045, 9950123, 8425285, 7826355, 38799332, 1679982 #### [facility] [address] [place] [address] Protein [Mass/Vol] 6.6 g/dL Normal 6.0-7.8 [facility] Comment on above: Performed By: #### 2 976746, 7463574, 5288537, 9056615, 7064829, 54047267, 9454538 #### [facility] [address] [place] [address] Sodium [Moles/Vol] 138 mmol/L Normal 135-145 [facility] Comment on above: Performed By: #### 2 894716, 4762492, 5559215, 1678303, 8954971, 97167877, 2544406 #### [facility] [address] [place] [address] Urea nitrogen [Mass/Vol] 18 mg/dL Normal 5-21 [facility] Comment on above: Performed By: #### 2 137476, 1131959, 9038551, 7056649, 0897600, 84276832, 7044053 #### [facility] [address] [place] [address] Lipid Panelon 12-01-2023 Cholesterol [Mass/Vol] 113 mg/dL Low 120-200 [facility] Comment on above: Performed By: #### 2 656227, 1575196, 4575975, 2731166, 3791845, 00288919, 9449142 #### [facility] [address] [place] [address] Cholesterol in HDL [Mass/Vol] 23 mg/dL Invalid Interpretation Code [facility] Comment on above: Result Comment: '>= 60 LOW RISK' '<= 40 HIGH RISK' Performed By: #### 2 579862, 5115638, 5492601, 4596667, 5319979, 96351273, 8834827 #### [facility] [address] [place] [address] Cholesterol in LDL [Mass/Vol] 71 mg/dL Normal <=129 [facility] Comment on above: Performed By: #### 2 085183, 2057493, 0383090, 5624544, 6526936, 91500341, 7741786 #### [facility] [address] [place] [address] Cholesterol in VLDL [Mass/Vol] 37 mg/dL Normal 7-40 [facility] Comment on above: Performed By: #### 2 281459, 0265100, 1832091, 5047182, 4369140, 81608141, 6737983 #### [facility] [address] [place] [address] Triglyceride [Mass/Vol] 186 mg/dL High <=149 [facility] Comment on above: Performed By: #### 2 039930, 5602246, 9779467, 3811769, 5573885, 63349666, 0713349 #### [facility] [address] [place] [address] eGFRon 12-01-2023 GFR/1.73 sq M.predicted among non-blacks MDRD (S/P/Bld) [Vol rate/Area] mL/min/{1.73_m2} Normal >=59 [facility] Comment on above: Order Comment: Order added by Discern Expert. Performed By: #### 2 721561, 6177114, 6163746, 1480993, 8003252, 39039127, 9184216 #### [facility] [address] [place] [address] CBC w/Indiceson 11-30-2023 Erythrocyte distribution width (RBC) [Ratio] 13.5 % Normal 10.9-14.2 [facility] Comment on above: Performed By: #### 2 931220, 8208454, 9581289, 5138543, 2061079, 78308868, 8258266 #### [facility] [address] [place] [address] Hematocrit (Bld) [Volume fraction] 42.1 % Normal 34.0-46.0 [facility] Comment on above: Performed By: #### 2 722537, 8394831, 3580793, 4234471, 6360219, 50956646, 0743459 #### [facility] [address] [place] [address] Hemoglobin (Bld) [Mass/Vol] 14.4 g/dL Normal 12.0-16.0 [facility] Comment on above: Performed By: #### 2 921116, 5256555, 9195550, 5961483, 8293143, 00712452, 7687931 #### [facility] [address] [place] [address] MCH (RBC) [Entitic mass] 33.7 pg Normal 27.0-34.0 [facility] Comment on above: Performed By: #### 2 810023, 3291266, 0869950, 3039119, 2593642, 16577506, 4998514 #### [facility] [address] [place] [address] MCHC (RBC) [Mass/Vol] 34.2 g/dL Normal 31.4-36.0 [facility] Comment on above: Performed By: #### 2 667497, 3340880, 1282468, 2099023, 9229568, 97147212, 8632510 #### [facility] [address] [place] [address] MCV (RBC) [Entitic vol] 98.8 fL Normal 80.0-100.0 [facility] Comment on above: Performed By: #### 2 039911, 2463363, 6124441, 4056293, 7910833, 88596055, 8455981 #### [facility] [address] [place] [address] Platelet mean volume (Bld) [Entitic vol] 8.6 fL Normal 6.4-10.8 [facility] [facility] Comment on above: Performed By: #### 2 750906, 3391123, 7506947, 4496757, 9932720, 53004899, 8929586 #### [facility] [address] [place] [address] Platelets (Bld) [#/Vol] 141.0 E9/L Low 150.0-500.0 [facility] Comment on above: Performed By: #### 2 230990, 4317087, 4876384, 5274803, 9516126, 50078442, 5389793 #### [facility] [address] [place] [address] RBC (Bld) [#/Vol] 4.3 E12/L Normal 4.3-5.9 [facility] Comment on above: Performed By: #### 2 250053, 6705793, 9229294, 9057836, 9952078, 67822382, 9399746 #### [facility] [address] [place] [address] WBC corrected for nucl RBC Auto (Bld) [#/Vol] 9.8 E9/L Normal 4.0-11.0 [facility] Comment on above: Performed By: #### 2 102391, 6225305, 9158919, 2475612, 0367812, 53979430, 0758039 #### [facility] [address] [place] [address] Free T4on 11-30-2023 Free T4 [Mass/Vol] 0.92 ng/dL Normal 0.58-1.64 [facility] Comment on above: Performed By: #### 2 832811, 4327290, 5428486, 1827481, 3384026, 68609698, 7477438 #### [facility] [address] [place] [address] Physician Orderon 11-30-2023 Physician Order [id number]# 1.00TIFF Normal [facility] TSHon 11-30-2023 TSH Qn 5.07 m[IU]/L Normal 0.34-5.60 [facility] Comment on above: Performed By: #### 2 479531, 5911146, 6506187, 9895930, 1988145, 37390000, 3662942 #### [facility] [address] [place] [address] Follow-Upon 11-02-2023 Follow-Up [id number] Tiffany Mcintosh 1990 F Date Provider Department Center 11/02/2023 [facility] ENDOCR [facility] No family history on file Level of Service:43610 SC OFFICE/OUTPATIENT ESTABLISHED MOD MDM 30-39 MIN (GC) Reason for Visit and Comments: Follow-up [273111] Normal [facility] BMPon 10-13-2023 Anion gap [Moles/Vol] 13 mmol/L Normal 05-13 [facility] Comment on above: Performed By: #### 2 507495, 57991702, 1209175, 9848963 #### [facility] [address] [place] [address] Calcium [Mass/Vol] 8.8 mg/dL Low 8.9-11.1 [facility] Comment on above: Performed By: #### 2 774539, 08195438, 5088983, 2560945 #### [facility] [address] [place] [address] Chloride [Moles/Vol] 109 mmol/L Normal 101-111 [facility] Comment on above: Performed By: #### 2 751895, 98996787, 2370271, 4524170 #### [facility] [address] [place] [address] CO2 [Moles/Vol] 23 mmol/L Normal 21-31 [facility] Comment on above: Performed By: #### 2 225741, 21439506, 3798268, 9579404 #### [facility] [address] [place] [address] Creatinine [Mass/Vol] 1.1 mg/dL Normal 0.5-1.3 [facility] Comment on above: Performed By: #### 2 206125, 25154030, 1271932, 3203725 #### [facility] [address] [place] [address] Glucose [Mass/Vol] 74 mg/dL Normal 55-199 [facility] Comment on above: Result Comment: If t his glucose result represents a fasting glucose, interpretation should refer to the following reference range: 55-99 mg/dL Performed By: #### 2 445548, 95471965, 8846208, 6815841 #### [facility] [address] [place] [address] Potassium [Moles/Vol] 4.0 mmol/L Normal 3.5-5.3 [facility] Comment on above: Performed By: #### 2 474348, 99011188, 3993190, 8178669 #### [facility] [address] [place] [address] Sodium [Moles/Vol] 141 mmol/L Normal 135-145 [facility] Comment on above: Performed By: #### 2 873844, 84927217, 4409517, 0545062 #### [facility] [address] [place] [address] Urea nitrogen [Mass/Vol] 23 mg/dL High 5-21 [facility] Comment on above: Performed By: #### 2 714181, 70419858, 8788883, 7388886 #### [facility] [address] [place] [address] Urea nitrogen/Creatinine [Mass ratio] 21 No Units High 10-20 [facility] Comment on above: Performed By: #### 2 922031, 80380861, 9587209, 2365687 #### [facility] [address] [place] [address] Free T4on 10-13-2023 Free T4 [Mass/Vol] 1.45 ng/dL Normal 0.58-1.64 [facility] Comment on above: Performed By: #### 2 054382, 6365437, 4443555, 3325816, 2403273, 75875814, 4952961 #### [facility] [address] [place] [address] TSHon 10-13-2023 TSH Qn 6.49 m[IU]/L High 0.34-5.60 [facility] Comment on above: Performed By: #### 2 188404, 5776380, 1380762, 3091044, 2094991, 90975330, 8633936 #### [facility] [address] [place] [address] eGFRon 10-13-2023 GFR/1.73 sq M.predicted among non-blacks MDRD (S/P/Bld) [Vol rate/Area] 67 mL/min/1.73 m2 Normal >=59 [facility] Comment on above: Order Comment: Order added by Discern Expert. Result Comment: Shuttle Spotter david kidney disease could be indicated at eGFR's of less than 60 mL/min/1.73m2. Kidney failure is indicated at less than 15 mL/min/1.73m2. Performed By: #### 2 714508, 2881930, 2977876, 3795060, 9130849, 00043168, 4852025 #### [facility] [address] [place] [address] CHEMISTRYOrdered By: SYSTEM SYSTEM on 10-12-2023 Anion [...] 67 mL/min/1.73 m2 Normal >=59mL/min/1 .73 m2 [facility] Chem S Comment on above: Interpretive Data: [...] [facility] Physician Orderon 10-12-2023 Physician Order [id number]#1 .00TIFF Normal [facility] CHEMISTRYOrdered By: SYSTEM SYSTEM on 08-17-2023 Valproate [Moles/Vol] 70 microgram/mL Normal 50 - 99 mcg/mL [facility] Remisol Physician Orderon 08-17-2023 Physician Order [id number]# 1.00CD:127 Normal [facility] Valproic Acidon 08-17-2023 Valproate [Moles/Vol] 70 microgram/mL Normal 50-99 [facility] Comment on above: Performed By: #### 2 396186, 4767351, 5205597, 1276657, 5937182, 99362444, 9531169 #### [facility] [address] [place] [address] XR CHEST 2 Von 02-18-2023 XR CHEST [...] by: AZUL UNLU Date: 2023-02-17 22:47 Normal [facility] DEPAKENE/ VALPROIC ACIDon DEPAKENE 74.8 ug/ml Normal 50.0-100.[address] [facility] Comment on above: Performed By: #### V ALP #### [facility] [address] [place], [place] [address] Dr. Wali Holly Orders Onlyon 12-15-2022 Orders Only [id number] Tiffany Mcintosh 1990 F Date Provider Department Center 12/15/2022 316-[facility] ENDOCR [facility] No family history on file Normal [facility] FREE T4on 12-14-2022 Free T4 [Mass/Vol] 0.83 ng/dL Normal 0.76-1.46 [facility] Comment on above: Performed By: #### F T4 #### [facility] [address] [address] [address] Wali Holly TSHon 12-14-2022 TSH 4.513 uIU/mL Critically high 0.358-3.740 [facility] Comment on above: Performed By: #### T SH #### [facility] [address] [address] [address] Wali Holly OSMOLALITY URINEon Osmolality, Urine 280 mOsmol/kg Normal [facility] Comment on above: Result Comment: 24 h r : 300 - 900 Random: 50 - 1400 After 12hr fluid restriction: >850 Performed By: #### O SMOU #### [facility] [address] [place] [address] Dr. Wali Holly OSMOLALITYon 10-13-2022 Osmolality [Osmolality] 281 mosm/kg Normal 275-[address] [facility] Comment on above: Performed By: #### O SMO #### [facility] [address] [place] [address] Dr. Wali Holly FREE T4on 10-12-2022 Free T4 [Mass/Vol] 0.91 ng/dL Normal 0.76-1.46 [facility] Comment on above: Performed By: #### F T4 #### [facility] [address] [place] [address] Dr. Wali Holly PROF CHEM 8 (BAS METB)on Anion gap [Moles/Vol] 6.1 mmol/L Normal [facility] Comment on above: Performed By: #### B MP, TSH #### [facility] [address] [place] [address] Dr. Wali Holly Calcium [Mass/Vol] 9.1 mg/dL Normal 8.5-10.1 [facility] Comment on above: Performed By: #### B MP, TSH #### [facility] [address] [place] [address] Dr. Wali Holly Chloride [Moles/Vol] 102 mmol/L Normal 98-[address] [facility] Comment on above: Performed By: #### B MP, TSH #### [facility] [address] [address] [address] Wali Holly CO2 [Moles/Vol] 34.9 mmol/L Critically high 21.0-32.[address] [facility] Comment on above: Performed By: #### B MP, TSH #### [facility] [address] [address] [address] Wali Holly Creatinine [Mass/Vol] 1.35 mg/dL Critically high 0.55-1.[address] [facility] Comment on above: Performed By: #### B MP, TSH #### [facility] [address] [address] [address] Wali Holly EGFR-AF PRYDEINIG 54 mL/min/1.73m2 Critically low >=[address] [facility] Comment on above: Performed By: #### B JOB, TSH #### [facility] [address] [place] [address] Dr. Wali Holly EGFR-NON AF PRYDEINIG 45 mL/min/1.73m2 Critically low >=[address] [facility] Comment on above: Performed By: #### B JOB, TSH #### [facility] [address] [place] [address] Dr. Wali Holly Glucose [Mass/Vol] 84 mg/dL Normal 74-106 [facility] Comment on above: Performed By: #### B JOB, TSH #### [facility] [address] [address] [address] Wali Holly Potassium [Moles/Vol] 4.0 mmol/L Normal 3.5-5.[address] [facility] Comment on above: Performed By: #### B MP, TSH #### [facility] [address] [place] [address] Dr. Wali Holly Sodium [Moles/Vol] 139 mmol/L Normal 136-145 [facility] Comment on above: Performed By: #### B MP, TSH #### [facility] [address] [place] [address] Dr. Wali Holly Urea nitrogen [Mass/Vol] 15.0 mg/dL Normal 7.0-18.[address] [facility] Comment on above: Performed By: #### B JOB, TSH #### [facility] [address] [place] [address] Dr. Wali Holly Urea nitrogen/Creatinine [Mass ratio] 11.1 mg/mg Normal [facility] Comment on above: Performed By: #### B JOB, TSH #### [facility] [address] [address] [address] Wali Holly TSHon 10-12-2022 TSH 5.185 uIU/mL Critically high 0.358-3.740 [facility] Comment on above: Performed By: #### B JOB, TSH #### [facility] [address] [place] [address] Dr. Wali Holly CARDIAC RHYTHM (SCANNED)on 0 08-26-2022 [facility] CBC AND ELECTRONIC DIFFon Basophils (Bld) [#/Vol] 0.06 10*3/uL Normal 0.00-0.15 [facility] Comment on above: Performed By: #### L [id number] #### [facility] (DEFAULT) [address] [address] Basophils/100 WBC (Bld) 0.8 % Normal [facility] Comment on above: Performed By: #### L AB980 #### [facility] (DEFAULT) [address] [address] DIFF STATUS Electronic Differential Normal [facility] Comment on above: Performed By: #### L AB980 #### [facility] (DEFAULT) [address] [address] Eosinophils (Bld) [#/Vol] 0.07 10*3/uL Normal 0.00-0.42 [facility] Comment on above: Performed By: #### L AB980 #### [facility] (DEFAULT) [address] [address] Eosinophils/100 WBC (Bld) 1.0 % Normal [facility] Comment on above: Performed By: #### L AB980 #### [facility] (DEFAULT) [address] [address] Hematocrit (Bld) [Volume fraction] 39.1 % Normal 34.9-44.3 [facility] Comment on above: Performed By: #### L AB980 #### [facility] (DEFAULT) [address] [address] Hemoglobin (Bld) [Mass/Vol] 13.3 g/dL Normal 11.4-15.2 [facility] Comment on above: Performed By: #### L AB980 #### [facility] (DEFAULT) [address] [address] Immature Grans % 1.8 % Normal [facility] Comment on above: Performed By: #### L AB980 #### [facility] (DEFAULT) [address] [address] Immature Grans Absolute 0.13 K/uL High <=0.08 [facility] Comment on above: Performed By: #### L AB980 #### [facility] (DEFAULT) [address] [address] Lymphocytes (Bld) [#/Vol] 3.29 10*3/uL Normal 1.16-3.51 [facility] Comment on above: Performed By: #### L AB980 #### [facility] (DEFAULT) [address] [address] Lymphocytes/100 WBC (Bld) 46.0 % Normal [facility] Comment on above: Performed By: #### L AB980 #### [facility] (DEFAULT) [address] [address] MCV (RBC) [Entitic vol] 100.3 fL High 79.6-97.7 [facility] Comment on above: Performed By: #### L AB980 #### [facility] (DEFAULT) [address] [address] Mean Cell Hgb 34.1 pg High 25.9-33.9 [facility] Comment on above: Performed By: #### L AB980 #### [facility] (DEFAULT) [address] [address] Mean Cell Hgb Conc 34.0 g/dL Normal 31.4-35.9 [facility] Comment on above: Performed By: #### L AB980 #### [facility] (DEFAULT) [address] [place] [address] Monocytes (Bld) [#/Vol] 0.82 10*3/uL Normal 0.22-0.87 [facility] Comment on above: Performed By: #### L AB980 #### [facility] (DEFAULT) [address] [address] Monocytes/100 WBC (Bld) 11.5 % Normal [facility] Comment on above: Performed By: #### L AB980 #### [facility] (DEFAULT) [address] [address] Nucleated RBC 0.0 /100 WBC Normal <=0.2 [facility] Comment on above: Performed By: #### L AB980 #### [facility] (DEFAULT) [address] [address] Platelet mean volume (Bld) [Entitic vol] 9.9 fL Normal 8.5-12.2 [facility] Comment on above: Performed By: #### L AB980 #### [facility] (DEFAULT) [address] [address] Platelets (Bld) [#/Vol] 110 10*3/uL Low 150-393 [facility] Comment on above: Performed By: #### L AB980 #### [facility] (DEFAULT) [address] [address] RBC (Bld) [#/Vol] 3.90 10*6/uL Low 3.91-5.04 [facility] Comment on above: Performed By: #### L AB980 #### [facility] (DEFAULT) [address] [place] [address] RBC Distribution 12.2 % Normal 10.8-14.9 [facility] Comment on above: Performed By: #### L AB980 #### [facility] (DEFAULT) [address] [place] [address] Segs + Bands Auto 38.9 % Normal [facility] Comment on above: Performed By: #### L AB980 #### [facility] (DEFAULT) [address] [place] [address] Segs + Bands,Absolute Auto 2.78 K/uL Normal 1.64-7.28 [facility] Comment on above: Performed By: #### L AB980 #### [facility] (DEFAULT) [address] [place] [address] WBC (Bld) [#/Vol] 7.15 10*3/uL Normal 3.99-11.19 [facility] Comment on above: Performed By: #### L AB980 #### [facility] (DEFAULT) [address] [place] [address] Basophils (Bld) [#/Vol] 0.06 10*3/uL 0.00 - 0.15 K/uL [facility] Basophils/100 WBC (Bld) 0.8 % [facility] Differential cell count method Nom (Bld) Electronic Differential [facility] Eosinophils (Bld) [#/Vol] 0.07 10*3/uL 0.00 - 0.42 K/uL [facility] Eosinophils/100 WBC (Bld) 1.0 % [facility] Erythrocyte distribution width (RBC) [Ratio] 12.2 % 10.8 - 14.9 % [facility] Hematocrit (Bld) [Volume fraction] 39.1 % 34.9 - 44.3 % [facility] Hemoglobin (Bld) [Mass/Vol] 13.3 g/dL 11.4 - 15.2 g/dL [facility] Immature granulocytes (Bld) [#/Vol] 0.13 10*3/uL High <=0.08 [facility] Immature granulocytes/100 WBC (Bld) 1.8 % [facility] Interpretation and review of laboratory results Abnormal [facility] Lymphocytes (Bld) [#/Vol] 3.29 10*3/uL 1.16 - 3.51 K/uL [facility] Lymphocytes/100 WBC (Bld) 46.0 % [facility] MCH (RBC) [Entitic mass] 34.1 pg High 25.9 - 33.9 pg [facility] MCHC (RBC) [Mass/Vol] 34.0 g/dL 31.4 - 35.9 g/dL [facility] MCV (RBC) [Entitic vol] 100.3 fL High 79.6 - 97.7 fL [facility] Monocytes (Bld) [#/Vol] 0.82 10*3/uL 0.22 - 0.87 K/uL [facility] Monocytes/100 WBC (Bld) 11.5 % [facility] Neutrophils (Bld) [#/Vol] 2.78 10*3/uL 1.64 - 7.28 K/uL [facility] Nucleated RBC/100 WBC (Bld) [Ratio] 0.0 % <=0.2 /100 WBC [facility] Platelet mean volume (Bld) [Entitic vol] 9.9 fL 8.5 - 12.2 fL [facility] Platelets (Bld) [#/Vol] 110 10*3/uL Low 150 - 393 K/uL [facility] RBC (Bld) [#/Vol] 3.90 10*6/uL Low [facility] Segmented neutrophils/100 WBC (Bld) 38.9 % [facility] WBC (Bld) [#/Vol] 7.15 10*3/uL 3.99 - 11. 19 K/uL [facility] CHEM 6 (LYTES, BUN CREA)on 0 9-20-2022 Anion gap [Moles/Vol] 10 mmol/L Normal 7-17 [facility] Comment on above: Performed By: #### C HM6 #### [facility] (DEFAULT) [address] [place] [address] Chloride [Moles/Vol] 103 mmol/L Normal 98-108 [facility] Comment on above: Performed By: #### C HM6 #### OSDanni [facility] (DEFAULT) [address] [place] [address] CO2 [Moles/Vol] 31 mmol/L Normal 21-31 [facility] Comment on above: Performed By: #### C HM6 #### [facility] (DEFAULT) [address] [place] [address] Creatinine [Mass/Vol] 1.16 mg/dL Normal 0.50-1.20 [facility] Comment on above: Performed By: #### C HM6 #### Danni [facility] (DEFAULT) [address] [place] [address] GFR/1.73 sq M.predicted among non-blacks MDRD (S/P/Bld) [Vol rate/Area] 63 mL/min/{1.73_m2} Normal >=60 [facility] Comment on above: Result Comment: Repo rted eGFR is based on the CKD-EPI 2020 equation using creatinine, age, and sex. Performed By: #### C HM6 #### Danni [facility] (DEFAULT) [address] [place] [address] Potassium [Moles/Vol] 4.0 mmol/L Normal 3.5-5.0 [facility] Comment on above: Performed By: #### C HM6 #### [facility] (DEFAULT) [address] [place] [address] Sodium [Moles/Vol] 140 mmol/L Normal 135-145 [facility] Comment on above: Performed By: #### C HM6 #### [facility] (DEFAULT) [address] [place] [address] Urea nitrogen [Mass/Vol] 10 mg/dL Normal 7-25 [facility] Comment on above: Performed By: #### C HM6 #### [facility] (DEFAULT) [address] [place] [address] Urea nitrogen/Creatinine [Mass ratio] 9 mg/mg Normal [facility] Comment on above: Performed By: #### C HM6 #### [facility] (DEFAULT) [address] [place] [address] Anion gap [Moles/Vol] 10 mmol/L 7 - 17 mmol/L [facility] Chloride [Moles/Vol] 103 mmol/L 98 - 10 8 mmol/L [facility] CO2 [Moles/Vol] 31 mmol/L 21 - 31 mmol/L [facility] Creatinine [Mass/Vol] 1.16 mg/dL 0.50 - 1.20 mg/dL [facility] GFR/1.73 sq M.predicted CKD-EPI (S/P/Bld) [Vol rate/Area] 63 >=60 mL/min/1.73m 2 [facility] Comment on above: Reported eGFR is bas ed on the CKD-EPI 2020 equation using creatinine, age, and sex. Potassium [Moles/Vol] 4.0 mmol/L 3.5 - 5.0 mmol/L [facility] Sodium [Moles/Vol] 140 mmol/L 135 - 145 mmol/L [facility] Urea nitrogen [Mass/Vol] 10 mg/dL 7 - 25 mg/dL [facility] Urea nitrogen/Creatinine [Mass ratio] 9 mg/mg [facility] Progress Noteson 08-05-2022 [employer] Authentication Interface Message Text Spoke to Kari @ [employer], she will call back when she gets to her office to schedule patient's OR visit----- Friday, August 05, 2022 at 11:13:45 AM ----- ----- Provider: Edelmira Bella Specialist -- Clinic: [place] ----- Normal [facility] Progress Noteson 08-25-2021 [employer] Authentication Interface Message Text Pt is [...] February of 2019. LG is mom: Camille Mcintosh [phone] Call the [facility] for [phone] ext: [phone] Tx request sent. [facility] [place]: [place] ----- Signed on Wednesday, August 25, 2021 at 9:36:43 AM ----- ----- Provider: Rogelio Ryan DDS -- Clinic: [place] ----- Normal [facility] Vital Signs Date Time Vital Sign Value Performing Clinician Facility 02-02-2024 11:15-0500 Body height 147.3 cm [facility] 02-02-2024 11:15-0500 Body mass index (BMI) [Ratio] 25.08 kg/m2 [facility] 02-02-2024 11:15-0500 Body weight 54.43 kg [facility] 02-02-2024 11:15-0500 Diastolic blood pressure 78 mm[Hg] [facility] 02-02-2024 11:15-0500 Systolic blood pressure 110 mm[Hg] [facility] 08-26-2022 15:30-0400 Body temperature 97.5 [degF] Pastor Suarez DDS Work Phone: [facility] 08-26-2022 15:30-0400 Diastolic blood pressure 57 mm[Hg] Pastor Suarez DDS Work Phone: [facility] 08-26-2022 15:30-0400 Heart rate 101 /min Pastor Beetstra DDS Work Phone: [facility] 08-26-2022 15:30-0400 Respiratory rate 16 /min Pastor Pricestra DDS Work Phone: [facility] 08-26-2022 15:30-0400 SaO2% (BldA) [Mass fraction] 99 % Pastor Pricestra DDS Work Phone: [facility] 08-26-2022 15:30-0400 Systolic blood pressure 107 mm[Hg] Pastor Pricestra DDS Work Phone: [facility] 08-26-2022 12:00-0400 Body height 160 cm Pastor Pricestra DDS Work Phone: [facility] 08-26-2022 12:00-0400 Body mass index (BMI) [Ratio] 21.43 kg/m2 Pastor Pricestra DDS Work Phone: [facility] 08-26-2022 12:00-0400 Body weight 54.88 kg Pastor Pricestra DDS Work Phone: [facility] 08-17-2022 10:00-0400 Body height 160 cm Prasanth Reyes PA-C Work Phone: [facility] 08-17-2022 10:00-0400 Body mass index (BMI) [Ratio] 21.79 kg/m2 Prasanth Reyes PA-C Work Phone: [facility] 08-17-2022 10:00-0400 Body temperature 97.39 [degF] Prasanth Reyes PA-C Work Phone: [facility] 08-17-2022 10:00-0400 Body weight 55.79 kg Prasanth Reyes PA-C Work Phone: [facility] 09-20-2022 10:00-0400 Diastolic blood pressure 64 mm[Hg] Prasanth Reyes PA-C Work Phone: [facility] 08-17-2022 10:00-0400 Heart rate 69 /min Prasanth Reyes PA-C Work Phone: [facility] 08-17-2022 10:00-0400 Respiratory rate 18 /min Prasanth Reyes PA-C Work Phone: [facility] 08-17-2022 10:00-0400 SaO2% (BldA) [Mass fraction] 97 % Prasanth Reyes PA-C Work Phone: [facility] 08-17-2022 10:00-0400 Systolic blood pressure 98 mm[Hg] Prasanth Reyes PA-C Work Phone: [facility] Encounters Encounter Date Encounter Type Care Provider Facility Start: 09-20-2024 End: 09-20-2024 Bamboo flowsheet Sreedhar Caitlyn Mckinnonce DPM FACFAS Work Phone: [facility] Start: 09-20-2024 End: 09-20-2024 Bamboo flowsheet Sreedhar R Dolce DPM FACFAS Work Phone: [facility] Start: 09-20-2024 End: 09-20-2024 Patient encounter procedure Sreedhar R Dolce DPM FACFAS Work Phone: [facility] Comment on above: Onychocryptosis (Archana clayton Dx); Abscess, toe, left; Tinea unguium; Pain in left toe(s); Pain in right toe(s) Start: 09-20-2024 End: 09-20-2024 ambulatory SREEDHAR R KATHICE Not Available Start: 08-28-2024 End: 08-28-2024 Bamboo flowsheet Medhat Rangel DPM FACFAS Work Phone: [facility] Start: 08-28-2024 End: 08-28-2024 Bamboo flowsheet Medhat Rangel DPM FACFAS Work Phone: [facility] Start: 08-28-2024 End: 08-28-2024 ambulatory MEDHAT Walter RANGEL Not Available Start: 08-28-2024 End: 08-28-2024 Office outpatient new 30 minutes Medhat Walter Rangel DPM FACFAS Work Phone: [facility] Comment on above: Onychocryptosis (Archana clayton Dx); Pain in left toe(s); Cellulitis of left toe; Abscess, toe, left Start: 03-21-2024 End: 03-21-2024 Lab Drop off ROBIN VAUGHAN [facility] Start: 03-21-2024 End: 03-22-2024 ambulatory ROBIN VAUGHAN Facility:[facility] Start: 02-02-2024 End: 02-02-2024 Patient encounter procedure Pfws Ob Generation Technologist [facility] Comment on above: Encounter for screen ing breast examination (Primary Dx); Surveillance of previously prescribed contraceptive pill Start: 02-01-2024 End: 02-02-2024 ambulatory ROBIN VAUGHAN Facility:[facility] Start: 02-01-2024 End: 02-01-2024 Patient encounter procedure ROBIN VAUGHAN [facility] Start: 11-30-2023 End: 12-01-2023 ambulatory ROBIN VAUGHAN Facility:[facility] Start: 11-02-2023 End: 11-02-2023 ambulatory KATIUSKA GANDHI [facility] Start: 10-12-2023 End: 10-13-2023 ambulatory ROBIN VAUGHAN Facility:[facility] Start: 10-12-2023 End: 10-12-2023 Lab Drop off ROBIN VAUGHAN [facility] Start: 08-17-2023 End: 08-18-2023 ambulatory ROBIN VAUGHAN Facility:[facility] Start: 08-17-2023 End: 08-17-2023 Lab Drop off ROBIN VAUGHAN [facility] Start: 02-17-2023 End: 02-18-[address] ROBIN VAUGHAN Facility:[facility] Start: 02-02-2023 End: 02-03-[address] ROBIN VAUGHAN Facility:[facility] Start: 12-14-2022 End: 12-15-[address] ROBIN VAUGHAN Facility:[facility] Start: 10-13-2022 End: 10-13-[address] ROBIN VAUGHAN Facility:[facility] Start: 10-12-2022 End: 10-13-[address] ROBIN VAUGHAN Facility:[facility] Start: 08-26-2022 End: 08-26-2022 ambulatory GERONIMO LANGLEY Facility:[facility] Start: 08-26-2022 End: 08-26-2022 Subsequent hospital visit by physician Pastor Suarez DDTawana Work Phone: [facility] Comment on above: Periodontal disease Start: 08-17-2022 ambulatory PRASANTH REYES Facility:[facility] Start: 08-17-2022 Encounter for other preprocedural examination PRASANTH REYES Facility:[facility] Start: 08-17-2022 End: 08-17-2022 Office consultation new/estab patient 40 min Prasanth Reyes PA-C Work Phone: Pre-Procedure Evaluation and Assessment [facility] Comment on above: Preop exam for inter nal medicine (Primary Dx); Periodontal disease; Developmental delay; Hypothyroidism, unspecified type Start: 08-17-2022 End: 08-17-2022 Patient encounter status Prasanth Reyes PA-C Work Phone: Pre-Procedure Evaluation and Assessment [facility] Start: 08-05-2022 ambulatory ALEX Amanda y:[facility] Start: 08-04-[address] [facility] [place] Leonela Price DDTawana Work Phone: [facility] Start: 08-25-2021 End: 08-26-2021 ambulatory UNKNOWN PROVIDER Facility:[facility] Procedures Date Procedure Procedure Detail Performing Clinician Start: 02-02-2024 Microscopic observat ion [Identifier] in Cervix by Cyto stain Pfws Generation Technologist Start: 08-26-2022 CARDIAC RHYTHM Other Ot her [...] 2) Shingles (RZV) Vaccine (1 of 2) [facility] Start: 02-01-2025 Adult BMI Screening Adult BMI Screen ing [facility] Start: 02-01-2025 Tobacco Screening Tobacco Screening [facility] Start: 09-20-2024 End: 09-20-2024 Patient encounter procedure 09/20/2024 1:00 PM EDT Office Visit [facility] [address] [place] [id number] Sreedhar Rangel, DPM FACFAS [address] [place] [address] Arrived [facility] Comment on above: Arrived Start: 07-29-2024 Influenza vaccination Influenza Vacc ine (#1) [facility] Start: 08-17-2023 Potassium [Moles/vol ume] in Serum or Plasma POTASSIUM [facility] Start: 07-29-2023 COVID-19 Vaccine ( season) COVID-19 Vaccine ( season) [facility] Start: 07-29-2023 Influenza vaccination Influenza Vacc ine [facility] Start: 08-28-2022 Influenza vaccination Influenza Vacc ine (#1) [facility] Start: 08-26-2022 End: 08-26-2022 Admission to same day surgery center 08/26/2022 Surgery Multispecialty Pastor Suarez, MARTINEZS [address] [place] [id number] FULL MOUTH REHABILITATION PERIOP Comment on above: FULL MOUTH REHABILIT ATION Start: 08-26-2022 Subsequent hospital visit by physician 08/26/2022 Hospital Encounter Multispecialty Pastor Suarez, DDS [address] [place] [address] Periodontal disease [facility] Comment on above: Periodontal disease Start: 08-26-2022 End: 08-26-2022 Unlisted procedure dentoalveolar structures FULL MOUTH REHABILITATION Periodontal disease Dental caries 08/26/2022 1:35 PM EDT [facility] Start: 08-26-2022 End: 08-26-2022 Patient encounter procedure 08/26/2022 Appointment Multispecialty [facility] Start: 07-29-2022 Influenza vaccination INFLUENZA VACC INE (#1) [facility] Start: 05-29-2021 COVID-19 Vaccine (3 - Booster for Pfizer series) COVID-19 Vaccine (3 - Booster for Pfizer series) [facility] Start: 02-24-2021 COVID-19 VACCINE (3 - Booster for Pfizer series) COVID-19 VACCINE (3 - Booster for Pfizer series) [facility] Start: 07-17-2019 DTaP,Tdap and Td Vaccines (2 - Td or Tdap) DTaP,Tdap and Td Vaccines (2 - Td or Tdap) [facility] Start: 07-17-2019 Tetanus vaccination Tetanus (T d or Tdap) Booster [facility] Start: 02-22-2018 Screening for malign ant neoplasm of cervix [facility] Start: 02-22-2009 Screening for malign ant neoplasm of cervix [facility] Start: 01-26-2009 Annual wellness visit [id number] Start: 02-22-2007 Third diphtheria, tetanus and acellular pertussis (DTaP) vaccination TDAP (ADULT) [facility] Start: 02-22-2006 Adult BMI Follow Up Plan Adult BMI F ollow Up Plan [facility] Start: 02-22-2006 Hepatitis C screening Hepatitis C An tibody [facility] Start: 02-22-2006 Tetanus vaccination TETANUS [facility] Start: 02-22-2003 HIV screening [facility] Start: 2000 Depression Screening Depression [facility] Start: 1988 Hepatitis C antibody , confirmatory test HEPATITIS C VIRUS SCREENING [facility] Start: 1988 Thyroid stimulating hormone measurement TSH [facility] DENTAL RESTORATIONS DENTAL RADHA RATIONS Routine scheduled Caries [facility] Noninvasive ear/puls e oximetry single deter SC NONINVASV OXYGEN SATUR; SINGLE SC - OFFICE PERFORMED Routine Preop exam for internal medicine Periodontal disease Developmental delay Hypothyroidism, unspecified type Ordered: 08/17/2022 [facility] Comment on above: Ordered: 08/17/2022 Immunizations Immunization Date Immunization Notes Care Provider Scarlett woo 12-30-2020 Pfizer (12+ yrs) BREE S-COV-2 (COVID-19) vaccine, mRNA, spike protein, LNP, pres. free, 30 mcg/0.3mL dose (WED=247) Leonela Lica DDS Work Phone: [facility] 12-09-2020 Pfizer (12+ yrs) BREE S-COV-2 (COVID-19) vaccine, mRNA, spike protein, LNP, pres. free, 30 mcg/0.3mL dose (PNX=629) Leonela Lica DDS Work Phone: [facility] 09-03-2020 influenza, injectabl e, quadrivalent, preservative free Leonela Lica DDS Work Phone: [facility] 09-03-2020 influenza virus vacc ine, unspecified formulation Leonela Lica DDS Work Phone: [facility] 07-17-2009 tetanus toxoid, redu magnus diphtheria toxoid, and acellular pertussis vaccine, adsorbed Leonela Lica DDS Work Phone: [facility] Payers Date Payer Category Payer Medicaid [id number] 2008 Medicare [id number] 1988 Unknown [id number] 2.16. [id number] 1988 Unknown [id number] 2.16. [id number] 1988 Unknown [id number] 2.16. [id number] 1988 Unknown [id number] 2.16. [id number] 1988 Unknown [id number] 2.16. [id number] 1988 Unknown [id number] 2.16.8 40.1.518836.3.579.2.727 1988 Unknown [id number] 2.16.8 40.1.825327.3.579.2.727 1988 Unknown [id number] 2.16.8 40.1.876950.3.579.2.727 1988 Unknown [id number] 2.16.8 40.1.012784.3.579.2.727 1988 Unknown [id number] 2.16.8 [id number] 1988 Unknown [id number] 2.16.84 [id number] 1988 Unknown [id number] 2.16.84 [id number] 1961 Medicaid [id number] 1961 Medicare [id number] Unknown [id number] 2.16.84 [id number] Unknown [id number] 2.16.84 [id number] Unknown [id number] 2.16.84 [id number] Unknown [id number] 2.16.84 [id number] Unknown [id number] 2.16.84 [id number] Social History Date Type Detail Facility [facility] Work Phone: Start: 1990 [facility] Start: 08-26-2022 End: 09-20-2024 Tobacco smoking status IAIS Never smoked tobacco [facility] Start: 08-26-2022 End: 09-20-2024 Tobacco use and exposure Smokeless tobacco non-user [facility] Start: 08-26-2022 End: 02-02-2024 Alcohol intake Lifetime non-drinker (finding) [facility] Tobacco smoking status No Smokin g Status Entered [facility] Start: 02-02-2024 End: 09-20-2024 [facility]igned At [facility] Start: 02-02-2024 End: 09-20-2024 History of Social function [facility] Childcare Unknown [facility] Clinical Notes 08-17-2022 to 09-20-2024 Sreedhar Rangel DPM FACFAS - 09/20/2024 1:00 PM EDShayy Rangel DPM FACFAS - 08/28/2024 9:20 AM Jenny Fuentes APRN-GREGORY - 02/02/2024 11:00 AM Chet Scanlon RN - 08/26/2022 2:08 PM EDT Note Date & Type Note Facility 09-20-2024 History of Present illness Narrative Images from the original note were not included. Patient: iTffany Mcintosh : 1990 PCP: Robin Vaughan MD SUBJECTIVE This is a 34 y.o. female that presents today from [facility] facility with aid for follow up a nail avulsion /incision and drainage of abscess left . Patient is doing well they deny fever chills nausea vomiting. They deny any pain they have been compliant with her postoperative care they have been soaking the nail as directed and applying topical antibiotics. This patient presents today chief complaint of painful elongated nails digits 1 through 10. They cause marked limitation in ambulation due to pain and pressure from shoe gear. 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 ROS: Constitutional: Denies fever, chills, nausea, vomiting GI: Denies abdominal pain, cramping, loose stool, gastric ulcers Musculoskeletal: Denies low back pain, knee pain, systemic arthritis Neurologic: Denies burning, tingling, transient paralysis OBJECTIVE Physical examination: DERM: Positive hair growth to b/l feet with good skin turgor noted. Nail avulsion site is healing well no signs of infection no drainage no malodor. Mild fibrotic tissue noted within the nail fold. No ascending cellulitis or lymphangitis noted. Nails 1 through ten are elongated painful thick with subungual debris and discoloration VASC: Palpable pedal pulsed b/l with warm to cool tibia to toes b/l NEURO: Gross sensation intact digits 1-10 and b/l feeT MUSCULOSKELETAL: Muscle strength is +5 over 5 all intrinsic and extrinsic muscles tested ASSESSMENT 1. Onychocryptosis 2. Abscess, toe, left 3. Tinea unguium 4. Pain in left toe(s) 5. Pain in right toe(s) PLAN Patient may discontinue soaking the nail. They may discontinue topical antibiotics follow up p.r.n. The patient was educated on proper foot care as well as the etiology of onychomycosis. I educated the patient on proper shoe gear as well. Today the nails were debrided both in length and thickness 1 through 10 ALFONSO Villeda documented in this encounter [facility] 08-28-2024 History of Present illness Narrative Images from the original note were not included. Patient: Tiffany Mcintosh : 1990 PCP: Robin Vaughan MD SUBJECTIVE This is a 34 y.o. female presents today with a chief complaint of a painful ingrown toenail left foot. The state the pain has been present for several weeks and has progressively worsened. They have attempted trimming the nail back to no avail. They have noticed some erythema in drainage coming from the area. They have attempted soaking the nail and topical antibiotics to no avail. 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 Review of systems: Constitutional: Denies fever, chills, nausea, vomiting GI: Denies abdominal pain, cramping, loose stool, gastric ulcers Musculoskeletal: Denies low back pain, knee pain, systemic arthritis Neurologic: Denies burning, tingling, transient paralysis OBJECTIVE Physical Examination: DERM: Positive hair growth to b/l feet with good skin turgor noted. Negative openings in skin. The left great toe is incurvated and painful at the nail border. There is mild erythema and drainage noted. Pain on direct palpation of the incurvated border. Localized erythema. No ascending cellulitis or lymphangitis noted. VASC: DP /PT were palpable bilateral. Capillary refill time < 3 seconds Digits 1-5 bilateral NEUR: [place] 5.07 monofilament was intact B/L. Vibratory sensation was intact B/L Musculoskeletal: Muscle strength was +5 over 5 all intrinsic and extrinsic muscles tested. Radiographs: AP/MO/LAT: ASSESSMENT 1. Onychocryptosis 2. Pain in left toe(s) 3. Cellulitis of left toe PLAN The digit was prepped and draped in the usual sterile manner. We freed the offending nail border from the underlying ungual labia. Performed a slant back procedure draining a small abscess at the medial nail fold copiously lavaged with normal sterile saline. Apply topical antibiotics the patient's mother is to apply topical antibiotics daily and follow up with me in 2 weeks for reassessment. ALFONSO Marino documented in this encounter [facility] 03-21-2024 Evaluation + Plan note Diagnostic Tests PendingAcute Hepatitis A B C Panel 03/21/24 [facility] 02-02-2024 History of Present illness Narrative [...] APRN-CNP 02/02/24 1525 documented in this encounter [facility] 11-02-2023 Note Attestation signed by Katiuska Ganhdi at 11/02/2023 12:05 PM By using the [...] personal documentation from me. Subjective Patient ID: Tiffnay Mcintosh is a 33 y.o. female who [...] hormone, and fe (more content not included)... [facility] 08-26-2022 Note Formatting of this n [...] in care of mother while waiting for break and load operator by this RN. [facility] 08-26-2022 Miscellaneous Notes 1530: Pt arrived [...] in care of mother while waiting for break and load operator by this RN. Current Facility-Administered Medications: chlorhexidine [...] mouth scaling was performed with an ultrasonic platform operations director. Teeth were polished with prophy paste and prophy cup on slow speed handpiece. Fluoride varnish was applied to teeth. The throat pack was removed at 14:43. The patient was extubated and transferred to PACU in stable condition. Written and verbal post-operative instructions were provided to the patient s escort. Condition: Stable Disposition: Patient to follow up at dental clinic prn and [facility]. EBL (estimated blood loss): minimal TRF (total fluid replacement): 500 mL Lactated Ringers TABBY Guzman DDS, [facility] Tiffany Mcintosh ([id number]) PRE OPERATIVE DIAGNOSIS Periodontal disease [K05.6] Dental caries [K02.9] POST OPERATIVE DIAGNOSIS Post-Op Diagnosis Codes: * Periodontal disease [K05.6] * Dental caries [K02.9] PROCEDURE PERFORMED Procedure(s) (LRB): FULL MOUTH REHABILITATION (N/A) PRIMARY CLOSURE Yes INTRAOPERATIVE FINDINGS No significant abnormalities SURGEON Surgeon(s) and Role: * Pastor Suarez DDS - Primary ANESTHESIOLOGIST Anesthesiologist: Katiuska Aguirre DO Control Analyst Assisting: Juan Dozier DDS SURGICAL STAFF Loop Drier Operator: Maria Del Rosario Scanlon RN Scrub Person: Jimmy Neri Resident Assisting: Rosa Siddiqui DDS COMPLICATIONS None ESTIMATED BLOOD LOSS minimal SPECIMENS No specimen sent * No specimens in log * Pastor Suarez DDS August 26, 2022 2:47 PM documented in this encounter [facility] 08-26-2022 Note Formatting of this n [...] mouth scaling was performed with an ultrasonic platform operations director. Teeth were polished with prophy paste and prophy cup on slow speed handpiece. Fluoride varnish was applied to teeth. The throat pack was removed at 14:43. The patient was extubated and transferred to PACU in stable condition. Written and verbal post-operative instructions were provided to the patient s escort. Condition: Stable Disposition: Patient to follow up at dental clinic prn and [facility] for regular exams. EBL (estimated blood loss): minimal TRF (total fluid replacement): 500 mL Lactated Ringers TABBY Guzman DDS, [facility] Work Phone: 08-26-2022 Note Formatting of this n ote might be different from the original. Tiffany Mcintosh ([id number]) PRE OPERATIVE DIAGNOSIS Periodontal disease [K05.6] Dental caries [K02.9] POST OPERATIVE DIAGNOSIS Post-Op Diagnosis Codes: * Periodontal disease [K05.6] * Dental caries [K02.9] PROCEDURE PERFORMED Procedure(s) (LRB): FULL MOUTH REHABILITATION (N/A) PRIMARY CLOSURE Yes INTRAOPERATIVE FINDINGS No significant abnormalities SURGEON Surgeon(s) and Role: * Pastor Suarez DDS - Primary ANESTHESIOLOGIST Anesthesiologist: Katiuska Aguirre DO Control Analyst Assisting: Juan Dozier DDS SURGICAL STAFF Loop Drier Operator: Maria Del Rosario Scanlon RN Scrub Person: Jimmy Neri Resident Assisting: Rosa Siddiqui DDS COMPLICATIONS None ESTIMATED BLOOD LOSS minimal SPECIMENS No specimen sent * No specimens in log * Pastor Suarez DDS August 26, 2022 2:47 PM [facility] 08-26-2022 Nurse Surgical operation note Pt came to OR with toy ball. Ball taken with pt to PACU. [facility] 08-26-2022 Nurse Note Pt came to OR with toy ball. Ball taken with pt to PACU. documented in this encounter [facility] 08-26-2022 History and physical note Hospitalist [...] surgery at this time. Hubert Ledbetter DO [facility] Work Phone: 08-26-2022 History and physical [...] Hubert Ledbetter DO documented in this encounter [facility] 08-17-2022 History and physical note Images from the original note were not included. History of Present Illness Ms. Mcintosh is a 32 y.o. female is being evaluated in OPAC due to her medical condition of Periodontal [...] patient has been medically OPTIMIZED FOR SURGERY. [facility]ioperative [facility] [address] Review of Systems (OSUROS)Review of Systems [...] Social History Socioeconomic History Marital status: Single [facility] 08-17-2022 History and physical note Images from the original note were not included. History of Present Illness Ms. Mcintosh is a 32 y.o. female is being evaluated in [facility] due to her medical condition of Periodontal [...] patient has been medically OPTIMIZED FOR SURGERY. [facility] [address] Review of Systems (OSUROS)Review of Systems [...] Marital status: Single documented in this encounter [facility] 08[facility] History of Present illness Narrative 32 YO F for Full mouth rehabilitation with Dr. Suarez Developmental Delay Hypothyroid HTN Prior anesthetic with grade 1 view with mac 3 Prior ketamine IM though has had more recent anesthetics and tolerated IV well Arun Montes MD [employer] Anesthesiology / Pain Management [facility] Addendum 08/18/22: Family called an notified [...] medication issue. documented in this encounter [facility] 08-17-2022 Instructions Opal Sparks RN - 08/17/2022 [...] take Herbal Medication (including multi-vitamin, fish oil ([place]-3), garlic, Glucosamine - Chondroitin ,gingko, ginseng, Vitamin [...] site one week prior to surgery. - Sublette your teeth and rinse your mouth the morning of surgery. - Do NOT bring your dentures or partials with you into surgery. They may be lost. Give them to someone to bring to you after surgery. If you are unable to complete your scheduled testing or appointments made by [facility] please contact [facility] at [phone]. Failure to do so could delay or [...] surgery, please notify our team immediately at [phone]. - If you have Sleep apnea and have a CPAP or BIPAP, then bring your CPAP mask and machine with you to the hospital. Also, if you have been ordered a chest x-ray, please report to the Imaging Department on to first floor (to the right of the [employer] [facility] on the first floor) prior to leaving the building. Please contact Medical Information Management Department for all records requests. [phone] [phone] JOSH/ALBERT documented in this encounter [facility] Evaluation + Plan note No data available for this section [facility] Evaluation note Diagnosis Caries- Primary Unspecified dental caries [facility] Preop exam for internal medicine- Primary Other specified pre-operative examination Periodontal disease Unspecified gingival and periodontal disease Developmental delay Unspecified delay in development Hypothyroidism, unspecified type Periodontal disease Unspecified gingival and periodontal disease Dental caries Unspecified dental caries [facility] Encounter for screening breast examination- Primary Surveillance of previously prescribed contraceptive pill [facility]* Diagnosis Onychocryptosis- Primary Ingrowing nail Pain in left toe(s) Cellulitis of left toe Abscess, toe, left documented in this encounter [facility]* Diagnosis Onychocryptosis- Primary Ingrowing nail Abscess, toe, left Tinea unguium Dermatophytosis of nail Pain in left toe(s) Pain in right toe(s) [facility] Attachments The following attachments cannot be sent through Care Everywhere. * Dental Surgery: Generic: Post-op (Yemeni) [facility] No data available for this section [facility] Attachments The following attachments cannot be sent through Care Everywhere. * Ethinyl Estradiol and Levonorgestrel, ADULT (Yemeni) * Cervical cancer screening tests (Yemeni) [facility] No data available for this section [facility] Narrative* Auth/Cert Specialty Diagnoses / Procedures Referred By Herson terrazas Referred To Contact Diagnoses Periodontal disease Dental caries Periodontal disease [K05.6] Dental caries [K02.9] Procedures SC DENTAL SURGERY PROCEDURE [facility] [address] [place] [address] [facility] [address] [place] [address] Referral ID Status Reason Start Date Expiration Date Visits Re quested Visits Authorized [id number] 1 1 [facility] Summary Purpose Family History No Family History Records FoundNo Family History Records FoundNo Family History Records Found No data available for this section No Family History Records Found No data available for this section No data available for this section No Family History Records FoundNo Family History Records Found Advance Directives No Advanced Directives Records FoundDocuments on File Type Date Recorded 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 DNR Physician Order 02/02/2024 11:17 AM DNR CC Reason for Referral Specialty Diagnoses / Procedures Referred By Contac t Referred To Contact Procedures LOW RISK - NO PHARMACOLOGICAL DVT PROPHYLAXIS Pastor Suarez DDS [address] [employer] [address] [place] [address] Referral ID Status Reason Start Date Expiration Date V isits Requested Visits Authorized [id number] New Request 08/26/2022 09/20/2023 1 1 Specialty Diagnoses / Procedures Referred By Contac t Referred To Contact Procedures DVT/VTE RISK ASSESSMENT Pastor Suarez DDS [address] [place] [id number] Referral ID Status Reason Start Date Expiration Date V isits Requested Visits Authorized [id number] New Request 08/26/2022 09/20/2023 1 1 Additional Source Comments INFORMATION SOURCE (unrecogn ized section and content) DATE CREATED AUTHOR 08/07/2022 [facility] [employer] [facility] DATE CREATED AUTHOR AUTHOR'S ORGANIZ ATION 08/29/2022 [facility] DATE CREATED AUTHOR AUTHOR'S ORGANIZ ATION 03/05/2023 [facility] DATE CREATED AUTHOR AUTHOR'S ORGANIZ ATION 11/04/2023 [facility] DATE CREATED AUTHOR AUTHOR'S ORGANIZ ATION 03/23/2024 [facility] DATE CREATED AUTHOR AUTHOR'S ORGANIZ ATION 09/22/2024 [facility] EPIC Reason for Visit (unrecogniz ed section and content) Reason Comments Preoperative Assessment Specialty Diagnoses / Procedures Referred By Contac t Referred To Contact PreOp Diagnoses Periodontal disease Dental caries Beetstra, Pastor M, DDS [address] [place] [address] [facility] [address] [place] [address] Referral ID Status Reason Start Date Expiration Date V isits Requested Visits Authorized [id number] Pending Review 06/24/2022 07/19/2023 1 1 Reason Comments Gynecologic Exam Pt is here for breas t exam. Reason Comments Toenail Care Non DM nail care Care Teams (unrecognized sec tion and content) Machine Operator General Relationship Specialty Start Date End Date Robin Vaughan DO [address] [place] [address] PCP - General Family Medicine 08/17/22 Machine Operator General Relationship Specialty Start Date End Date Robin Vaughan DO [address] [place] [address] PCP - General Family Medicine 08/17/22 Machine Operator General Relationship Specialty Start Date End Date Robin Vaughan MD [address] [place] [address] PCP - General Family Medicine 08/28/24 Machine Operator General Relationship Specialty Start Date End Date Robin Vaughan MD [address] [place] [address] PCP - General Family Medicine 08/28/24 Machine Operator General Relationship Specialty Start Date End Date Robin Vaughna MD [address] [place] [address] PCP - General Family Medicine 08/28/24 Continuous Active and Recently Administ ered Medications [...] Intra-op/Intra-Proc 1358 (Given - Provid er: Pastor Suarez DDS - Comment: mouth) FOR RECORDS PERTAINING [...] BE BASED ON THE PRIMARY CLINICAL RECORDS. [employer] provides no warranty or guarantee of the accuracy or completeness of information in this document.
[2024-10-09 07:49] LABS: Basophils Absolute Auto 0.1 10^3/uL (0.0-0.1); Basophils Percent Auto 0.5 % (0.2-2.0); Eosinophils Absolute Auto 0.2 10^3/uL (0.0-0.7); Eosinophils Percent Auto 2.4 % (0.9-7.0); Hematocrit 43.4 % (36.0-48.0); Hemoglobin 14.8 g/dL (12.0-16.0); Immature Granulocytes Pct Auto 1.1 % (0.0-0.5); Lymphocytes Absolute Auto 4.3 10^3/uL (1.2-3.8); Lymphocytes Percent Auto 45.9 % (20.5-60.0); Mean Corpuscular HGB Conc 34.1 g/dL (29.9-35.2); Mean Corpuscular Hemoglobin 32.9 pg (26.7-34.0); Mean Corpuscular Volume 96.4 fL (81.0-99.0); Mean Platelet Volume 9.1 fL (9.5-13.5); Monocytes Percent Auto 11.2 % (1.7-12.0); Neutrophils Absolute Auto 3.6 10^3/uL (1.4-6.5); Neutrophils Percent Auto 38.9 % (43.0-75.0); Platelet Count 160 10^3/uL (150-450); Red Cell Distribution Width 12.4 % (11.0-15.0); White Blood Count 9.3 10^3/uL (4.0-11.0)
[2024-10-09 08:26] LABS: Alanine Aminotransferase 10 U/L (14-59); Albumin Globulin Ratio 0.8; Albumin Level 3.3 g/dL (3.4-5.0); Alkaline Phosphatase 45 U/L (46-116); Anion Gap 15.6; Aspartate Amino Transferase 16 U/L (15-37); Bilirubin Total 0.5 mg/dL (0.2-1.0); Calcium 8.9 mg/dL (8.5-10.1); Carbon Dioxide 26.5 mmol/L (21.0-32.0); Chloride 106 mmol/L (98-107); Estimated GFR (African America 56 (>=60 mL/min/1.73m^2); Estimated GFR (Non-African Ame 46 (>=60 mL/min/1.73m^2); Free T3 2.24 pg/mL (2.18-3.98); Globulin 3.9 g/dL; Glucose 81 mg/dL (74-106); Potassium 4.1 mmol/L (3.5-5.1); Sodium 144 mmol/L (136-145); Thyroid Stimulating Hormone 1.363 uIU/mL (0.358-3.740); Total Protein 7.2 g/dL (6.4-8.2)
[2024-10-09 08:48] LABS: Free T4 0.92 ng/dL (0.76-1.46)
[2024-10-10 04:08] LABS: Prolactin 32.2 ng/mL (4.8-33.4)
== END 2024-10-09 07:01 | disposition home or self-care (01) ==
LOC: LAB 07:00
PROVIDERS: PCP Family Medicine; Visit Provider Family Medicine
DX: F31.9 Bipolar disorder, unspecified (principal); D52.9 Folate deficiency anemia, unspecified; K59.00 Constipation, unspecified; E03.9 Hypothyroidism, unspecified; E22.1 Hyperprolactinemia
CPT/HCPCS: 36415; 80053; 84146; 84439; 84443; 84481; 85025

== ENCOUNTER 2024-12-11 06:52 | Outpatient (OUT) | payer MEDICARE, MEDICAID, SELFPAY ==
--- OUTSIDE RECORDS SUMMARY | 2024-12-11 06:56 | XMS_ITS | CCD ---
Author Organization [facility] Care Team Providers Care Computer Laboratory Technician Name Role Phone Unavailable Primary Care Provider [...] ROBIN Attending Unavailable VAUGHAN, ROBIN Admitting Unavailable ROBIN VAUGHAN Referring Unavailable ROBIN VAUGHAN Admitting Unavailable ROBIN VAUGHAN Attending Unavailable ROBIN VAUGHAN Attending Unavailable VAUGHANROBIN Admitting Unavailable Unavailable Primary Care Provider UnavailRobin Reyez MD Primary Care Provider [phone] MEDHAT RANGEL Attending Unavailable SREEDHAR RANGEL Attending Unavailable Allergies Allergy Classification Reported Allergen(s) Allergy Type Date of Onset Reaction(s) Facility (7 sources) Amoxicillin / Clavulanate; Translations: [AMOXICILLIN-POT CLAVULANATE] Drug Allergy 02-12-2016 [facility] (5 sources) loracarbef; Translations: [LORACARBEF] Drug Allergy 05-03-2016 [facility] (3 sources) loracarbef Drug Allergy 07-21-2022 [facility] (1 source) Amoxicillin / Clavulanate Drug Allergy 12-22-2015 [facility] (1 source) loracarbef Drug Allergy 12-22-2015 [facility] (8 sources) Penicillins; Translations: [penicillins] Drug allergy 09-07-2012 [facility] Medications Current Medications Medication Drug Class(es) Dates Sig (Normalized) Sig (Original) bacillus coagulans [id number] unt / lactobacillus acidophilus [id number] unt oral tablet (2 sources) take 1 [...] mL 1 09/20/2024 10/20/2024 Active bifidobacterium animalis [id number] unt / lactobacillus acidophilus [id number] unt oral capsule (1 source) Probiotic Produc [...] Active Dextromethorphan / guaiFENesin (1 source) Uncompetitive L-lcpcgh-M-aspartate Receptor Antagonist, Sigma-1 Agonist take 400 mg [...] Status: Ordered take 1 capsule by mo [facility] three times daily gabapentin (NEURONTIN) 300 MG [...] mouth every morning before breakfast. 0 Active [place] [facility] (4 sources) Start: 05-21-2011 lithium Oral, Refills(s) [...] mouth daily every morning. 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 Performed at: [facility] [id number] PhD Amaris Valdes Performed By: #### 2 [id number], [id number] #### [facility] [address] [place] [address] Acute Hepatitis A B C Panelo n 03-23-2024 HAV IgM IA Ql Negative Invalid Interpretation Code Negative [facility] Comment on above: Performed By: #### 2 [id number], [id number] #### [facility] [address] [id number] HBV core IgM IA Ql Negative Invalid Interpretation Code Negative [facility] Comment on above: Performed By: #### 2 [id number], [id number] #### [facility] [address] [id number] HBV surface Ag IA Ql Negative Invalid Interpretation Code Negative [facility] Comment on above: Performed By: #### 2 [id number], [id number] #### [facility] [address] [place] [address] HCV IgG IA Ql Non-Reactive Invalid Interpretation Code Non Reactive [facility] Comment on above: Result Comment: [facility] [address], [place] [id number] PhD Amaris Valdes Performed By: #### 2 [id number], [id number] #### [facility] [address] [place] [address] Physician Orderon 03-21-2024 Physician Order [id number]# 1.00TIFF Normal [facility] Consent for Treatmenton 0 Consent for Treatment [id number]#1 .00TIFF Normal [facility] Physician Orderon 02-01-2024 Physician Order [id number]# 1.00TIFF Normal [facility] XR Adult Swallowing Function w/ Videoon [...] mGy = na DAP = na Normal [facility] Physician Orderon 01-11-2024 Physician Order [id number]# 1.00TIFF Normal [facility] T3 Freeon 12-02-2023 Free T3 [Mass/Vol] 2.5 pg/mL Invalid Interpretation Code 2.0-4.4 [facility] Comment on above: Result Comment: Perf ormed at: [facility] [address] [id number] PhD Amaris Valdes Performed By: #### 2 580563, 0566867, 8749854, 6321450, 4224680, 50176856, 0867065 #### [facility] [address] [place] [address] CMPon 12-01-2023 Albumin [Mass/Vol] 3.8 g/dL Normal 3.3-5.0 [facility] Comment on above: Performed By: #### 2 146277, 4870487, 9108330, 9552847, 0060169, 10642342, 6652965 #### [facility] [address] [place] [address] Albumin/Globulin [Mass ratio] 1.4 {ratio} Normal 1.1-2.2 [facility] Comment on above: Performed By: #### 2 748979, 4679777, 9771541, 5171301, 3487190, 67630639, 2147845 #### [facility] [address] [place] [address] Alk Phos 38 Int._Unit/L Normal 21-98 [facility] Comment on above: Performed By: #### 2 262068, 4682292, 7775352, 0853720, 4370078, 34648070, 9262858 #### [facility] [address] [place] [address] ALT 7 Int._Unit/L Normal 6-46 [facility] Comment on above: Performed By: #### 2 327516, 0489304, 6825111, 9284697, 1898924, 83619973, 7037355 #### [facility] [address] [place] [address] Anion gap [Moles/Vol] 13 mmol/L Normal 6-16 [facility] Comment on above: Performed By: #### 2 076357, 3058393, 9378574, 1739757, 9365483, 68856310, 9400980 #### [facility] [address] [place] [address] AST 17 Int._Unit/L Normal 5-43 [facility] Comment on above: Performed By: #### 2 944514, 3721300, 9274267, 9396203, 2615125, 56290500, 2210030 #### [facility] [address] [place] [address] Bili Total 0.3 mg/dL Normal 0.0-1.1 [facility] Comment on above: Performed By: #### 2 385249, 0148224, 0441241, 2331507, 1957915, 60634944, 5270218 #### [facility] [address] [place] [address] BUN/Creat Ratio 16 No Units Normal 10-20 [facility] Comment on above: Performed By: #### 2 419174, 0517161, 5152920, 5168230, 4206573, 18525777, 8106775 #### [facility] [address] [place] [address] Calcium [Mass/Vol] 9.0 mg/dL Normal 8.9-11.1 [facility] Comment on above: Performed By: #### 2 590476, 3061676, 1728712, 2174169, 8505770, 28890208, 4293685 #### [facility] [address] [place] [address] Chloride [Moles/Vol] 103 mmol/L Normal 101-111 [facility] Comment on above: Performed By: #### 2 101152, 6488049, 0838956, 5035077, 9529904, 02482046, 8758237 #### [facility] [address] [place] [address] CO2 [Moles/Vol] 26 mmol/L Normal 21-31 [facility] Comment on above: Performed By: #### 2 073012, 2122204, 6650247, 3339085, 3498892, 40201899, 0158218 #### [facility] [address] [place] [address] Creatinine [Mass/Vol] 1.1 mg/dL Normal 0.5-1.3 [facility] Comment on above: Performed By: #### 2 505057, 1579553, 6422387, 9183647, 3739333, 00923600, 6427033 #### [facility] [address] [place] [address] Globulin (S) [Mass/Vol] 2.8 g/dL Normal 1.4-4.0 [facility] Comment on above: Performed By: #### 2 385591, 4132101, 9676098, 9950542, 7579011, 42415865, 8390060 #### [facility] [address] [place] [address] Glucose [Mass/Vol] 68 mg/dL Normal 55-199 [facility] Comment on above: Performed By: #### 2 050555, 9025878, 2400708, 2225020, 5583347, 50538960, 3703933 #### [facility] [address] [place] [address] Potassium [Moles/Vol] 4.1 mmol/L Normal 3.5-5.3 [facility] Comment on above: Performed By: #### 2 927734, 0872022, 9707990, 9635870, 3227854, 99345823, 2252100 #### [facility] [address] [place] [address] Protein [Mass/Vol] 6.6 g/dL Normal 6.0-7.8 [facility] Comment on above: Performed By: #### 2 585320, 2448188, 7080155, 3079636, 1201876, 57832906, 9893149 #### [facility] [address] [place] [address] Sodium [Moles/Vol] 138 mmol/L Normal 135-145 [facility] Comment on above: Performed By: #### 2 562353, 4958320, 5385690, 2641421, 9717003, 80429929, 1505655 #### [facility] [address] [place] [address] Urea nitrogen [Mass/Vol] 18 mg/dL Normal 5-21 [facility] Comment on above: Performed By: #### 2 882461, 9046819, 8052589, 1596868, 1383015, 57062630, 8574831 #### [facility] [address] [place] [address] Lipid Panelon 12-01-2023 Cholesterol [Mass/Vol] 113 mg/dL Low 120-200 [facility] Comment on above: Performed By: #### 2 537887, 3515762, 8371199, 4521385, 3048973, 63156416, 9200080 #### [facility] [address] [place] [address] Cholesterol in HDL [Mass/Vol] 23 mg/dL Invalid Interpretation Code [facility] Comment on above: Result Comment: '>= 60 LOW RISK' '<= 40 HIGH RISK' Performed By: #### 2 193351, 2537734, 0083086, 9965619, 5683702, 84382357, 2098669 #### [facility] [address] [place] [address] Cholesterol in LDL [Mass/Vol] 71 mg/dL Normal <=129 [facility] Comment on above: Performed By: #### 2 809595, 1902977, 4377566, 6637554, 5349341, 41195018, 2338395 #### [facility] [address] [place] [address] Cholesterol in VLDL [Mass/Vol] 37 mg/dL Normal 7-40 [facility] Comment on above: Performed By: #### 2 269017, 1563046, 8814704, 1076674, 3650519, 87358813, 2369680 #### [facility] [address] [place] [address] Triglyceride [Mass/Vol] 186 mg/dL High <=149 [facility] Comment on above: Performed By: #### 2 730649, 1497098, 8450764, 2711791, 4177280, 80425341, 2789499 #### [facility] [address] [place] [address] eGFRon 12-01-2023 GFR/1.73 sq M.predicted among non-blacks MDRD (S/P/Bld) [Vol rate/Area] mL/min/{1.73_m2} Normal >=59 [facility] Comment on above: Order Comment: Order added by Discern Expert. Performed By: #### 2 080531, 3742630, 3854335, 6150294, 3611399, 64059116, 1120961 #### [facility] [address] [place] [address] CBC w/Indiceson 11-30-2023 Erythrocyte distribution width (RBC) [Ratio] 13.5 % Normal 10.9-14.2 [facility] Comment on above: Performed By: #### 2 587552, 1997579, 8992785, 4669820, 0526488, 16323915, 4977353 #### [facility] [address] [place] [address] Hematocrit (Bld) [Volume fraction] 42.1 % Normal 34.0-46.0 [facility] Comment on above: Performed By: #### 2 030797, 8148196, 7457523, 0102944, 8316442, 34437437, 0889409 #### [facility] [address] [place] [address] Hemoglobin (Bld) [Mass/Vol] 14.4 g/dL Normal 12.0-16.0 [facility] Comment on above: Performed By: #### 2 167692, 4388949, 0124589, 2355586, 9695315, 42599492, 8403008 #### [facility] [address] [place] [address] MCH (RBC) [Entitic mass] 33.7 pg Normal 27.0-34.0 [facility] Comment on above: Performed By: #### 2 643906, 9326861, 3475590, 2008288, 2042450, 51446065, 8007302 #### [facility] [address] [place] [address] MCHC (RBC) [Mass/Vol] 34.2 g/dL Normal 31.4-36.0 [facility] Comment on above: Performed By: #### 2 474770, 3169837, 9253398, 6208489, 5786975, 31584988, 5482697 #### [facility] [address] [place] [address] MCV (RBC) [Entitic vol] 98.8 fL Normal 80.0-100.0 [facility] Comment on above: Performed By: #### 2 809985, 5469480, 2605216, 8379353, 4997606, 83768278, 0338126 #### [facility] [address] [place] [address] Platelet mean volume (Bld) [Entitic vol] 8.6 fL Normal 6.4-10.8 [facility] Comment on above: Performed By: #### 2 695844, 3675963, 2034454, 5787834, 3220335, 34978852, 5656093 #### [facility] [address] [place] [address] Platelets (Bld) [#/Vol] 141.0 E9/L Low 150.0-500.0 [facility] Comment on above: Performed By: #### 2 495988, 4100961, 0417755, 1470063, 4790692, 51562819, 9975117 #### [facility] [address] [place] [address] RBC (Bld) [#/Vol] 4.3 E12/L Normal 4.3-5.9 [facility] Comment on above: Performed By: #### 2 234152, 1559255, 7026749, 3445043, 0002856, 09453115, 6609537 #### [facility] [address] [place] [address] WBC corrected for nucl RBC Auto (Bld) [#/Vol] 9.8 E9/L Normal 4.0-11.0 [facility] Comment on above: Performed By: #### 2 499202, 6821747, 0525366, 1480125, 0462626, 30194333, 5501906 #### [facility] [address] [place] [address] Free T4on 11-30-2023 Free T4 [Mass/Vol] 0.92 ng/dL Normal 0.58-1.64 [facility] Comment on above: Performed By: #### 2 912562, 9300802, 7985340, 5080923, 4146236, 27759923, 2998775 #### [facility] [address] [place] [address] Physician Orderon 11-30-2023 Physician Order [id number]# 1.00TIFF Normal [facility] TSHon 11-30-2023 TSH Qn 5.07 m[IU]/L Normal 0.34-5.60 [facility] Comment on above: Performed By: #### 2 734531, 0130388, 1846805, 8598056, 9282578, 73182669, 8981046 #### [facility] [address] [place] [address] Follow-Upon 11-02-2023 Follow-Up [id number] Tiffany Mcintosh 1990 F Date Provider Department Center 11/02/2023 [facility]KATIUSKA GANDHI [facility] ENDOCR [facility] No family history on file Level of Service:98656 [place] OFFICE/OUTPATIENT ESTABLISHED MOD MDM 30-39 MIN (GC) Reason for Visit and Comments: Follow-up [634570] Normal [facility] BMPon 10-13-2023 Anion gap [Moles/Vol] 13 mmol/L Normal 05-13 [facility] Comment on above: Performed By: #### 2 503517, 55030755, 2767980, 4277109 #### [facility] [address] [place] [address] Calcium [Mass/Vol] 8.8 mg/dL Low 8.9-11.1 [facility] Comment on above: Performed By: #### 2 133028, 26360505, 0953161, 4187602 #### [facility] [address] [place] [address] Chloride [Moles/Vol] 109 mmol/L Normal 101-111 [facility] Comment on above: Performed By: #### 2 781688, 54622445, 4951113, 7858806 #### [facility] [address] [place] [address] CO2 [Moles/Vol] 23 mmol/L Normal 21-31 [facility] Comment on above: Performed By: #### 2 684342, 03674649, 1230386, 2101621 #### [facility] [address] [place] [address] Creatinine [Mass/Vol] 1.1 mg/dL Normal 0.5-1.3 [facility] Comment on above: Performed By: #### 2 820297, 48711469, 0059269, 8251663 #### [facility] [address] [place] [address] Glucose [Mass/Vol] 74 mg/dL Normal 55-199 [facility] Comment on above: Result Comment: If t his glucose result represents a fasting glucose, interpretation should refer to the following reference range: 55-99 mg/dL Performed By: #### 2 491472, 23848069, 8637622, 9514822 #### [facility] [address] [place] [address] Potassium [Moles/Vol] 4.0 mmol/L Normal 3.5-5.3 [facility] Comment on above: Performed By: #### 2 895791, 96235650, 4865413, 9970219 #### [facility] [address] [place] [address] Sodium [Moles/Vol] 141 mmol/L Normal 135-145 [facility] Comment on above: Performed By: #### 2 284537, 70887752, 7487661, 8639859 #### [facility] [address] [place] [address] Urea nitrogen [Mass/Vol] 23 mg/dL High 5-21 [facility] Comment on above: Performed By: #### 2 363111, 26797346, 1328285, 2552374 #### [facility] [address] [place] [address] Urea nitrogen/Creatinine [Mass ratio] 21 No Units High 10-20 [facility] Comment on above: Performed By: #### 2 665554, 03237869, 2160390, 0838784 #### [facility] [address] [place] [address] Free T4on 10-13-2023 Free T4 [Mass/Vol] 1.45 ng/dL Normal 0.58-1.64 [facility] Comment on above: Performed By: #### 2 035553, 0536949, 6759739, 8045274, 8016751, 77993936, 6523627 #### [facility] [address] [place] [address] TSHon 10-13-2023 TSH Qn 6.49 m[IU]/L High 0.34-5.60 [facility] Comment on above: Performed By: #### 2 720277, 8390517, 2223802, 9479739, 0588108, 16754293, 5846146 #### [facility] [address] [place] [address] eGFRon 10-13-2023 GFR/1.73 sq M.predicted among non-blacks MDRD (S/P/Bld) [Vol rate/Area] 67 mL/min/1.73 m2 Normal >=59 [facility] Comment on above: Order Comment: Order added by Discern Expert. Result Comment: Textile Colorist Formulator david kidney disease could be indicated at eGFR's of less than 60 mL/min/1.73m2. Kidney failure is indicated at less than 15 mL/min/1.73m2. Performed By: #### 2 753926, 8983455, 8776864, 0236485, 5906517, 49623916, 7387288 #### [facility] [address] [place] [address] CHEMISTRYOrdered By: SYSTEM SYSTEM on 10-12-2023 Anion [...] 67 mL/min/1.73 m2 Normal >=59mL/min/1 .73 m2 [facility] Comment on above: [...] [facility] Remisol Physician Orderon 10-12-2023 Physician Order [id number]#1 .00TIFF Normal [facility] CHEMISTRYOrdered By: SYSTEM SYSTEM on 08-17-2023 Valproate [Moles/Vol] 70 microgram/mL Normal 50 - 99 mcg/mL [facility] [place]isol Physician Orderon 08-17-2023 Physician Order [id number]# 1.00CD:127 Normal [facility] Valproic Acidon 08-17-2023 Valproate [Moles/Vol] 70 microgram/mL Normal 50-99 [facility] Comment on above: Performed By: #### 2 065311, 4704943, 5779954, 4589768, 2851091, 47474077, 8136889 #### [facility] [address] [place] [address] XR CHEST 2 Von 02-18-2023 XR CHEST [...] AZUL UNLU Date: 2023-02-17 22:47 Normal [facility] DEPAKENE/ VALPROIC ACIDon DEPAKENE 74.8 ug/ml Normal 50.0-100.0 [facility] Comment on above: Performed By: #### V ALP #### [facility] [address], [place] [address] Dr. Wali Holly Orders Onlyon 12-15-2022 Orders Only [id number] Tiffany Mcintosh 1990 F Date Provider Department Center 12/15/2022 316-KATIUSKA GANDHI [facility] ENDOCR [facility] No family history on file Normal [facility] FREE T4on 12-14-2022 Free T4 [Mass/Vol] 0.83 ng/dL Normal 0.76-1.46 [facility] Comment on above: Performed By: #### F T4 #### [facility] [address] [address] [address] Wali Holly TSHon 12-14-2022 TSH 4.513 uIU/mL Critically high 0.358-3.740 [facility] Comment on above: Performed By: #### T SH #### [facility] [address] [address] [address] Wali Holly OSMOLALITY URINEon Osmolality, Urine 280 mOsmol/kg Normal [facility] Comment on above: Result Comment: 24 h r : 300 - 900 Random: 50 - 1400 After 12hr fluid restriction: >850 Performed By: #### O SMOU #### [facility] [address] [place] [address] Dr. Wali Holly OSMOLALITYon 10-13-2022 Osmolality [Osmolality] 281 mosm/kg Normal 275-295 [facility] Comment on above: Performed By: #### O SMO #### [facility] [address] [place] [address] Dr. Wali Holly FREE T4on 10-12-2022 Free T4 [Mass/Vol] 0.91 ng/dL Normal 0.76-1.46 [facility] Comment on above: Performed By: #### F T4 #### [facility] [address] [place] [address] Dr. Wali Holly PROF CHEM 8 (BAS METB)on Anion gap [Moles/Vol] 6.1 mmol/L Normal [facility] Comment on above: Performed By: #### B MP, TSH #### [facility] [address] [place] [address] Dr. Wali Holly Calcium [Mass/Vol] 9.1 mg/dL Normal 8.5-10.1 [facility] Comment on above: Performed By: #### B MP, TSH #### [facility] [address] [place] [address] Dr. Wali Holly Chloride [Moles/Vol] 102 mmol/L Normal 98-107 [facility] Comment on above: Performed By: #### B MP, TSH #### [facility] [address] [address] [address] Wali Holly CO2 [Moles/Vol] 34.9 mmol/L Critically high 21.0-32.0 [facility] Comment on above: Performed By: #### B MP, TSH #### [facility] [address] [address] [address] Wali Holly Creatinine [Mass/Vol] 1.35 mg/dL Critically high 0.55-1.02 [facility] Comment on above: Performed By: #### B MP, TSH #### [facility] [address] [address] [address] Wali Holly EGFR-AF [place] 54 mL/min/1.73m2 Critically low >=60 [facility] Comment on above: Performed By: #### B JOB, TSH #### [facility] [address] [place] [address] Dr. Wali Holly EGFR-NON AF [place] 45 mL/min/1.73m2 Critically low >=60 [facility] Comment on above: Performed By: #### B JOB, TSH #### [facility] [address] [place] [address] Dr. Wali Holly Glucose [Mass/Vol] 84 mg/dL Normal 74-106 [facility] Comment on above: Performed By: #### B JOB, TSH #### [facility] [address] [address] [address] Wali Holly Potassium [Moles/Vol] 4.0 mmol/L Normal 3.5-5.1 [facility] Comment on above: Performed By: #### B MP, TSH #### [facility] [address] [place] [address] Dr. Wali Holly Sodium [Moles/Vol] 139 mmol/L Normal 136-145 [facility] Comment on above: Performed By: #### B MP, TSH #### [facility] [address] [place] [address] Dr. Wali Holly Urea nitrogen [Mass/Vol] 15.0 mg/dL Normal 7.0-18.0 [facility] Comment on above: Performed By: #### B JOB, TSH #### [facility] [address] [place] [address] Dr. Wali Holly Urea nitrogen/Creatinine [Mass ratio] 11.1 mg/mg Normal [facility] Comment on above: Performed By: #### B JOB, TSH #### [facility] [address] [address] [address] Wali Holly TSHon 10-12-2022 TSH 5.185 uIU/mL Critically high 0.358-3.740 [facility] Comment on above: Performed By: #### B JOB, TSH #### [facility] [address] [place] [address] Dr. Wali Holly CARDIAC RHYTHM (SCANNED)on 0 08-26-2022 [facility] CBC AND ELECTRONIC DIFFon Basophils (Bld) [#/Vol] 0.06 10*3/uL Normal 0.00-0.15 [facility] Comment on above: Performed By: #### L [id number] #### [facility] (DEFAULT) [address] [address] Basophils/100 WBC (Bld) 0.8 % Normal [facility] Comment on above: Performed By: #### L [id number] #### [facility] (DEFAULT) [address] [address] DIFF STATUS Electronic Differential Normal [facility] Comment on above: Performed By: #### L [id number] #### [facility] (DEFAULT) [address] [address] Eosinophils (Bld) [#/Vol] 0.07 10*3/uL Normal 0.00-0.42 [facility] Comment on above: Performed By: #### L [id number] #### [facility] (DEFAULT) [address] [address] Eosinophils/100 WBC (Bld) 1.0 % Normal [facility] Comment on above: Performed By: #### L [id number] #### [facility] (DEFAULT) [address] [address] Hematocrit (Bld) [Volume fraction] 39.1 % Normal 34.9-44.3 [facility] Comment on above: Performed By: #### L [id number] #### [facility] (DEFAULT) [address] [address] Hemoglobin (Bld) [Mass/Vol] 13.3 g/dL Normal 11.4-15.2 [facility] Comment on above: Performed By: #### L [id number] #### [facility] (DEFAULT) [address] [address] Immature Grans % 1.8 % Normal [facility] Comment on above: Performed By: #### L [id number] #### [facility] (DEFAULT) [address] [address] Immature Grans Absolute 0.13 K/uL High <=0.08 [facility] Comment on above: Performed By: #### L [id number] #### [facility] (DEFAULT) [address] [address] Lymphocytes (Bld) [#/Vol] 3.29 10*3/uL Normal 1.16-3.51 [facility] Comment on above: Performed By: #### L [id number] #### [facility] (DEFAULT) [address] [address] Lymphocytes/100 WBC (Bld) 46.0 % Normal [facility] Comment on above: Performed By: #### L [id number] #### [facility] (DEFAULT) [address] [address] MCV (RBC) [Entitic vol] 100.3 fL High 79.6-97.7 [facility] Comment on above: Performed By: #### L [id number] #### [facility] (DEFAULT) [address] [address] Mean Cell Hgb 34.1 pg High 25.9-33.9 [facility] Comment on above: Performed By: #### L [id number] #### [facility] (DEFAULT) [address] [address] Mean Cell Hgb Conc 34.0 g/dL Normal 31.4-35.9 [facility] Comment on above: Performed By: #### L [id number] #### [facility] (DEFAULT) [address] [place] [address] Monocytes (Bld) [#/Vol] 0.82 10*3/uL Normal 0.22-0.87 [facility] Comment on above: Performed By: #### L [id number] #### [facility] (DEFAULT) [address] [address] Monocytes/100 WBC (Bld) 11.5 % Normal [facility] Comment on above: Performed By: #### L [id number] #### [facility] (DEFAULT) [address] [address] Nucleated RBC 0.0 /100 WBC Normal <=0.2 [facility] Comment on above: Performed By: #### L [id number] #### [facility] (DEFAULT) [address] [address] Platelet mean volume (Bld) [Entitic vol] 9.9 fL Normal 8.5-12.2 [facility] Comment on above: Performed By: #### L [id number] #### [facility] (DEFAULT) [address] [address] Platelets (Bld) [#/Vol] 110 10*3/uL Low 150-393 [facility] Comment on above: Performed By: #### L [id number] #### [facility] (DEFAULT) [address] [address] RBC (Bld) [#/Vol] 3.90 10*6/uL Low 3.91-5.04 [facility] Comment on above: Performed By: #### L [id number] #### [facility] (DEFAULT) [address] [place] [address] RBC Distribution 12.2 % Normal 10.8-14.9 [facility] Comment on above: Performed By: #### L [id number] #### [facility] (DEFAULT) [address] [place] [address] Segs + Bands Auto 38.9 % Normal [facility] Comment on above: Performed By: #### L [id number] #### [facility] (DEFAULT) [address] [place] [address] Segs + Bands,Absolute Auto 2.78 K/uL Normal 1.64-7.28 [facility] Comment on above: Performed By: #### L [id number] #### [facility] (DEFAULT) [address] [place] [address] WBC (Bld) [#/Vol] 7.15 10*3/uL Normal 3.99-11.19 [facility] Comment on above: Performed By: #### L [id number] #### [facility] (DEFAULT) [address] [place] [address] Basophils (Bld) [#/Vol] 0.06 10*3/uL 0.00 - 0.15 K/uL [facility] Basophils/100 WBC (Bld) 0.8 % [facility] Differential cell count method Nom (Bld) Electronic Differential [facility] Eosinophils (Bld) [#/Vol] 0.07 10*3/uL 0.00 - 0.42 K/uL [facility] Eosinophils/100 WBC (Bld) 1.0 % [facility] Erythrocyte distribution width (RBC) [Ratio] 12.2 % 10.8 - 14.9 % [facility] Hematocrit (Bld) [Volume fraction] 39.1 % 34.9 - 44.3 % [facility] Hemoglobin (Bld) [Mass/Vol] 13.3 g/dL 11.4 - 15.2 g/dL [facility] Immature granulocytes (Bld) [#/Vol] 0.13 10*3/uL High <=0.08 [facility] Immature granulocytes/100 WBC (Bld) 1.8 % [facility] Interpretation and review of laboratory results Abnormal [facility] Lymphocytes (Bld) [#/Vol] 3.29 10*3/uL 1.16 - 3.51 K/uL [facility] Lymphocytes/100 WBC (Bld) 46.0 % [facility] MCH (RBC) [Entitic mass] 34.1 pg High 25.9 - 33.9 pg [facility] MCHC (RBC) [Mass/Vol] 34.0 g/dL 31.4 - 35.9 g/dL [facility] MCV (RBC) [Entitic vol] 100.3 fL High 79.6 - 97.7 fL [facility] Monocytes (Bld) [#/Vol] 0.82 10*3/uL 0.22 - 0.87 K/uL [facility] Monocytes/100 WBC (Bld) 11.5 % [facility] Neutrophils (Bld) [#/Vol] 2.78 10*3/uL 1.64 - 7.28 K/uL [facility] Nucleated RBC/100 WBC (Bld) [Ratio] 0.0 % <=0.2 /100 WBC [facility] Platelet mean volume (Bld) [Entitic vol] 9.9 fL 8.5 - 12.2 fL [facility] Platelets (Bld) [#/Vol] 110 10*3/uL Low 150 - 393 K/uL [facility] RBC (Bld) [#/Vol] 3.90 10*6/uL Low [facility] Segmented neutrophils/100 WBC (Bld) 38.9 % [facility] WBC (Bld) [#/Vol] 7.15 10*3/uL 3.99 - 11. 19 K/uL [facility] CHEM 6 (LYTES, BUN CREA)on 0 9-20-2022 Anion gap [Moles/Vol] 10 mmol/L Normal 7-17 [facility] Comment on above: Performed By: #### C HM6 #### [facility] (DEFAULT) [address] [place] [address] Chloride [Moles/Vol] 103 mmol/L Normal 98-108 [facility] Comment on above: Performed By: #### C HM6 #### [facility] (DEFAULT) [address] [place] [address] CO2 [Moles/Vol] 31 mmol/L Normal 21-31 [facility] Comment on above: Performed By: #### C HM6 #### [facility] (DEFAULT) [address] [place] [address] Creatinine [Mass/Vol] 1.16 mg/dL Normal 0.50-1.20 [facility] Comment on above: Performed By: #### C HM6 #### [facility] (DEFAULT) [address] [place] [address] GFR/1.73 sq M.predicted among non-blacks MDRD (S/P/Bld) [Vol rate/Area] 63 mL/min/{1.73_m2} Normal >=60 [facility] Comment on above: Result Comment: Repo rted eGFR is based on the CKD-EPI 2020 equation using creatinine, age, and sex. Performed By: #### C HM6 #### [facility] (DEFAULT) [address] [place] [address] Potassium [Moles/Vol] 4.0 mmol/L Normal 3.5-5.0 [facility] Comment on above: Performed By: #### C HM6 #### [facility] (DEFAULT) [address] [place] [address] Sodium [Moles/Vol] 140 mmol/L Normal 135-145 [facility] Comment on above: Performed By: #### C HM6 #### [facility] (DEFAULT) [address] [place] [address] Urea nitrogen [Mass/Vol] 10 mg/dL Normal 7-25 [facility] Comment on above: Performed By: #### C HM6 #### [facility] (DEFAULT) [address] [place] [address] Urea nitrogen/Creatinine [Mass ratio] 9 mg/mg Normal [facility] Comment on above: Performed By: #### C HM6 #### [facility] (DEFAULT) [address] [place] [address] Anion gap [Moles/Vol] 10 mmol/L 7 - 17 [facility] Chloride [Moles/Vol] 103 mmol/L 98 - 10 8 mmol/L [facility] CO2 [Moles/Vol] 31 mmol/L 21 - 31 mmol/L [facility] Creatinine [Mass/Vol] 1.16 mg/dL 0.50 - 1.20 mg/dL [facility] GFR/1.73 sq M.predicted CKD-EPI (S/P/Bld) [Vol rate/Area] 63 >=60 mL/min/1.73m 2 [facility] Comment on above: Reported eGFR is bas ed on the CKD-EPI 2020 equation using creatinine, age, and sex. Potassium [Moles/Vol] 4.0 mmol/L 3.5 - 5.0 mmol/L [facility] Sodium [Moles/Vol] 140 mmol/L 135 - 145 mmol/L [facility] Urea nitrogen [Mass/Vol] 10 mg/dL 7 - 25 mg/dL [facility] Urea nitrogen/Creatinine [Mass ratio] 9 mg/mg [facility] Progress Noteson 08-05-2022 [employer] Authentication Interface Message Text Spoke to Kari @ [place], she will call back when she gets to her office to schedule patient's OR visit----- Friday, August 05, 2022 at 11:13:45 AM ----- ----- Provider: Edelmira Bella Specialist -- Clinic: [place] ----- Normal [employer] [facility] Progress Noteson 08-25-2021 [employer] Visual Equipment Rental Clerk Authentication Interface Message Text Pt is special [...] of 2019. LG is mom: Camille Mcintosh [phone] Call the [facility] for [phone] ext: [phone] Tx request sent. [facility] [place]: OR ----- Signed on Wednesday, August 25, 2021 at 9:36:43 AM ----- ----- Provider: Rogelio Ryan DDS -- Clinic: [place] ----- Normal [employer] [facility] Vital Signs Date Time Vital Sign Value Performing Clinician Facility 02-02-2024 11:15-0500 Body height 147.3 cm [facility] 02-02-2024 11:15-0500 Body mass index (BMI) [Ratio] 25.08 kg/m2 [facility] 02-02-2024 11:15-0500 Body weight 54.43 kg [facility] 02-02-2024 11:15-0500 Diastolic blood pressure 78 mm[Hg] [facility] 02-02-2024 11:15-0500 Systolic blood pressure 110 mm[Hg] [facility] 08-26-2022 15:30-0400 Body temperature 97.5 [degF] Pastor Suarez DDS Work Phone: [facility] 08-26-2022 15:30-0400 Diastolic blood pressure 57 mm[Hg] Pastor Suarez DDS Work Phone: [facility] 08-26-2022 15:30-0400 Heart rate 101 /min Pastor Beetstra DDS Work Phone: [facility] 08-26-2022 15:30-0400 Respiratory rate 16 /min Pastor Pricestra DDS Work Phone: [facility] 08-26-2022 15:30-0400 SaO2% (BldA) [Mass fraction] 99 % Pastor Pricestra DDS Work Phone: [facility] 08-26-2022 15:30-0400 Systolic blood pressure 107 mm[Hg] Pastor Pricestra DDS Work Phone: [facility] 08-26-2022 12:00-0400 Body height 160 cm Pastor Pricestra DDS Work Phone: [facility] 08-26-2022 12:00-0400 Body mass index (BMI) [Ratio] 21.43 kg/m2 Pastor Pricestra DDS Work Phone: [facility] 08-26-2022 12:00-0400 Body weight 54.88 kg Pastor Pricestra DDS Work Phone: [facility] 08-17-2022 10:00-0400 Body height 160 cm Prasanth Reyes PA-C Work Phone: [facility] 08-17-2022 10:00-0400 Body mass index (BMI) [Ratio] 21.79 kg/m2 Prasanth Reyes PA-C Work Phone: [facility] 08-17-2022 10:00-0400 Body temperature 97.39 [degF] Prasanth Reyes PA-C Work Phone: [facility] 08-17-2022 10:00-0400 Body weight 55.79 kg Prasanth Reyes PA-C Work Phone: [facility] 09-20-2022 10:00-0400 Diastolic blood pressure 64 mm[Hg] Prasanth Reyes PA-C Work Phone: [facility] 08-17-2022 10:00-0400 Heart rate 69 /min Prasanth Reyes PA-C Work Phone: [facility] 08-17-2022 10:00-0400 Respiratory rate 18 /min Prasanth Reyes PA-C Work Phone: [facility] 08-17-2022 10:00-0400 SaO2% (BldA) [Mass fraction] 97 % Prasanth Reyes PA-C Work Phone: [facility] 08-17-2022 10:00-0400 Systolic blood pressure 98 mm[Hg] Prasanth Reyes PA-C Work Phone: [facility] Encounters Encounter Date Encounter Type Care [...] End: 03-21-2024 Lab Drop off ROBIN VAUGHAN [facility] Start: 03-21-2024 End: 03-22-2024 ambulatory ROBIN VAUGHAN [place] Start: 02-02-2024 End: 02-02-2024 Patient encounter procedure [employer] [employer] [facility] Comment on above: Encounter for screen ing breast examination (Primary Dx); Surveillance of previously prescribed contraceptive pill Start: 02-01-2024 End: 02-02-2024 ambulatory ROBIN VAUGHAN [place] Start: 02-01-2024 End: 02-01-2024 Patient encounter procedure ROBIN VAUGHAN [facility] Start: 11-30-2023 End: 12-01-2023 ambulatory ROBIN VAUGHAN [place] Start: 11-02-2023 End: 11-02-2023 ambulatory KATIUSKA GANDHI [facility] Start: 10-12-2023 End: 10-13-2023 ambulatory ROBIN VAUGHAN [place] Start: 10-12-2023 End: 10-12-2023 Lab Drop off ROBIN VAUGHAN [facility] Start: 08-17-2023 End: 08-18-2023 ambulatory ROBIN VAUGHAN [place] Start: 08-17-2023 End: 08-17-2023 Lab Drop off ROBIN VAUGHAN [facility] Start: 02-17-2023 End: 02-18-[address] ROBIN VAUGHAN Facility:[facility] Start: 02-02-2023 End: 02-03-[address] ROBIN VAUGHAN Facility:[facility] Start: 12-14-2022 End: 12-15-[address] ROBIN VAUGHAN Facility:[facility] Start: 10-13-2022 End: 10-13-[address] ROBIN VAUGHAN Facility:[facility] Start: 10-12-2022 End: 10-13-[address] ROBIN VAUGHAN Facility:[facility] Start: 08-26-2022 End: 08-26-2022 ambulatory GERONIMO LANGLEY Facility:[facility] Start: 08-26-2022 End: 08-26-2022 Subsequent hospital visit by physician Pastor Suarez DDTawana Work Phone: [facility] Comment on above: Periodontal disease Start: 08-17-2022 ambulatory PRASANTH REYES Facility:[facility] Start: 08-17-2022 Encounter for other preprocedural examination PRASANTH REYES Facility:[facility] Start: 08-17-2022 End: 08-17-2022 Office consultation new/estab patient 40 min Prasanth Reyes PA-C Work Phone: Pre-Procedure Evaluation and Assessment [facility] Comment on above: Preop exam for inter nal medicine (Primary Dx); Periodontal disease; Developmental delay; Hypothyroidism, unspecified type Start: 08-17-2022 End: 08-17-2022 Patient encounter status Prasanth Reyes PA-C Work Phone: Pre-Procedure Evaluation and Assessment [facility] Start: 08-05-2022 ambulatory ALEX Amanda y:[facility] Start: 08-04-2022 Admission to [facility] Leonela Price DDTawana Work Phone: [facility] Start: 08-25-2021 End: 08-26-2021 ambulatory UNKNOWN PROVIDER Facility:[facility] Procedures Date Procedure Procedure Detail Performing Clinician Start: 02-02-2024 Microscopic observat ion [Identifier] in Cervix by Cyto stain [employer] Start: 08-26-2022 CARDIAC RHYTHM Other Ot her [...] 2) Shingles (RZV) Vaccine (1 of 2) [facility] Start: 02-01-2025 Adult BMI Screening Adult BMI Screen ing [facility] Start: 02-01-2025 Tobacco Screening Tobacco Screening [facility] Start: 09-20-2024 End: 09-20-2024 Patient encounter procedure 09/20/2024 1:00 PM EDT Office Visit [facility] [address] [place] [id number] Sreedhar Rangel, DPM FACFAS [address] [place] [address] Arrived [facility] Comment on above: Arrived Start: 07-29-2024 Influenza vaccination Influenza Vacc ine (#1) [facility] Start: 08-17-2023 Potassium [Moles/vol ume] in Serum or Plasma POTASSIUM [facility] Start: 07-29-2023 COVID-19 Vaccine ( season) COVID-19 Vaccine ( season) [facility] Start: 07-29-2023 Influenza vaccination Influenza Vacc ine [facility] Start: 08-28-2022 Influenza vaccination Influenza Vacc ine (#1) [facility] Start: 08-26-2022 End: 08-26-2022 Admission to same day surgery center 08/26/2022 Surgery Multispecialty Pastor Suarez, MARTINEZS [address] [place] [address] [facility] Comment on above: FULL MOUTH REHABILIT ATION Start: 08-26-2022 Subsequent hospital visit by physician 08/26/2022 Hospital Encounter Multispecialty Pastor Suarez, DDS [address] [place] [address] Periodontal disease [facility] Comment on above: Periodontal disease Start: 08-26-2022 End: 08-26-2022 Unlisted procedure dentoalveolar structures [facility] Periodontal disease Dental caries 08/26/2022 1:35 PM EDT [facility] Start: 08-26-2022 End: 08-26-2022 Patient encounter procedure 08/26/2022 Appointment Multispecialty [facility] Start: 07-29-2022 Influenza vaccination INFLUENZA VACC INE (#1) [facility] Start: 05-29-2021 COVID-19 Vaccine (3 - Booster for Pfizer series) COVID-19 Vaccine (3 - Booster for Pfizer series) [facility] Start: 02-24-2021 COVID-19 VACCINE (3 - Booster for Pfizer series) COVID-19 VACCINE (3 - Booster for Pfizer series) [facility] Start: 07-17-2019 DTaP,Tdap and Td Vaccines (2 - Td or Tdap) DTaP,Tdap and Td Vaccines (2 - Td or Tdap) [facility] Start: 07-17-2019 Tetanus vaccination Tetanus (T d or Tdap) Booster [facility] Start: 02-22-2018 Screening for malign ant neoplasm of cervix [facility] Start: 02-22-2009 Screening for malign ant neoplasm of cervix [facility] Start: 01-26-2009 Annual wellness visit [id number] Start: 02-22-2007 Third diphtheria, tetanus and acellular pertussis (DTaP) vaccination TDAP (ADULT) [facility] Start: 02-22-2006 Adult BMI Follow Up Plan Adult BMI F ollow Up Plan [facility] Start: 02-22-2006 Hepatitis C screening Hepatitis C An tibody [facility] Start: 02-22-2006 Tetanus vaccination TETANUS [facility] Start: 02-22-2003 HIV screening [facility] Start: 2000 Depression Screening Depression [facility] Start: 1988 Hepatitis C antibody , confirmatory test HEPATITIS C VIRUS SCREENING [facility] Start: 1988 Thyroid stimulating hormone measurement TSH [facility] DENTAL RESTORATIONS DENTAL RADHA RATIONS Routine scheduled Caries [facility] Noninvasive ear/puls e oximetry single deter [place] NONINVASV OXYGEN SATUR; SINGLE NV - OFFICE PERFORMED Routine Preop exam for internal medicine Periodontal disease Developmental delay Hypothyroidism, unspecified type Ordered: 08/17/2022 [facility] Comment on above: Ordered: 08/17/2022 Immunizations Immunization Date Immunization Notes Care Provider Scarlett woo 12-30-2020 Pfizer (12+ yrs) BREE S-COV-2 (COVID-19) vaccine, mRNA, spike protein, LNP, pres. free, 30 mcg/0.3mL dose (EZL=579) Leonela Lica DDS Work Phone: [facility] 12-09-2020 Pfizer (12+ yrs) BREE S-COV-2 (COVID-19) vaccine, mRNA, spike protein, LNP, pres. free, 30 mcg/0.3mL dose (DFP=199) Leonela Lica DDS Work Phone: [facility] 09-03-2020 influenza, injectabl e, quadrivalent, preservative free Leonela Lica DDS Work Phone: [facility] 09-03-2020 influenza virus vacc ine, unspecified formulation Leonela Lica DDS Work Phone: [facility] 07-17-2009 tetanus toxoid, redu magnus diphtheria toxoid, and acellular pertussis vaccine, adsorbed Leonela Lica DDS Work Phone: [facility] Payers Date Payer Category Payer Medicaid [id number] 2008 Medicare [id number] 1988 Unknown [id number] 2.16. [id number] 1988 Unknown [id number] 2.16. [id number] 1988 Unknown [id number] 2.16. [id number] 1988 Unknown [id number] 2.16. 840.1.033602.3.579.2.594 1988 Unknown [id number] 2.16. 840.1.193343.3.579.2.594 1988 Unknown [id number] 2.16.8 40.1.454186.3.579.2.727 1988 Unknown [id number] 2.16.8 40.1.910060.3.579.2.727 1988 Unknown [id number] 2.16.8 40.1.319238.3.579.2.727 1988 Unknown [id number] 2.16.8 40.1.363821.3.579.2.727 1988 Unknown [id number] 2.16.8 40.1.947302.3.579.2.727 1988 Unknown [id number] 2.16.84 0.1.153745.3.579.2.1259 1988 Unknown [id number] 2.16.84 0.1.160479.3.579.2.1259 1959 Medicaid [id number] 1961 Medicare [id number] Unknown [id number] 2.16.84 0.1.097982.3.579.2.593 Unknown [id number] 2.16.84 0.1.225703.3.579.2.593 Unknown [id number] 2.16.84 0.1.453116.3.579.2.593 Unknown [id number] 2.16.84 0.1.927537.3.579.2.593 Unknown [id number] 2.16.84 0.1.055076.3.579.2.593 Social History Date Type Detail [facility] Work Phone: Start: 1988 [facility] [facility] Start: 08-26-2022 End: 09-20-2024 Tobacco smoking status MAIS Never smoked tobacco [facility] Start: 08-26-2022 End: 09-20-2024 Tobacco use and exposure Smokeless tobacco non-user [facility] Start: 08-26-2022 End: 02-02-2024 Alcohol intake Lifetime non-drinker (finding) [facility] Tobacco smoking status No Smokin g Status Entered [facility] Start: 02-02-2024 End: 09-20-2024 Sex Assigned At Female [facility] Start: 02-02-2024 End: 09-20-2024 History of Social function [facility] Childcare Unknown [facility] Clinical Notes 08-17-2022 to 09-20-2024 Sreedhar [...] Date Anxiety 10/11/2018 Attention deficit hyperactivity disorder ([facility]) 10/11/2018 Bipolar disorder ([facility]) 10/11/2018 Developmental disorder 08/28/2024 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 Mental developmental delay 01/08/2016 Thrombocytopenia ([facility]) 01/08/2016 Medications: No current outpatient medications on [...] 10 ALFONSO Villeda documented in this encounter [facility] 08-28-2024 History of Present illness Narrative Images [...] Date Anxiety 10/11/2018 Attention deficit hyperactivity disorder ([facility]) 10/11/2018 Bipolar disorder ([facility]) 10/11/2018 Developmental disorder 08/28/2024 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 Vibratory [...] reassessment. ALFONSO Marino documented in this encounter [facility] 03-21-2024 Evaluation + Plan note Diagnostic Tests PendingAcute Hepatitis A B C Panel 03/21/24 [facility] 02-02-2024 History of Present illness Narrative Kyle [...] APRN-CNP 02/02/24 1525 documented in this encounter [employer] 11-02-2023 Note Attestation signed by Katiuska Gandhi [...] hormone, and fe (more content not included)... [facility] 08-26-2022 Note Formatting of this n [...] in care of mother while waiting for ios architect by this RN. [facility] 08-26-2022 Miscellaneous Notes 1530: Pt arrived [...] in care of mother while waiting for ios architect by this RN. Current Facility-Administered Medications: chlorhexidine (PERIDEX) 0.12 % oral solution, , , PRN, Psator Suarez DDS, 15 mL at 08/26/22 1358 [...] 4mg/2ml (ZOFRAN) injection, , Intravenous, PRN, Juan Dzoier DDS, 8 mg at 08/26/22 1435 phenylephrine [...] mouth scaling was performed with an ultrasonic underground bolting machine operator. Teeth were polished with prophy paste and prophy cup on slow speed handpiece. Fluoride varnish was applied to teeth. The throat pack was removed at 14:43. The patient was extubated and transferred to PACU in stable condition. Written and verbal post-operative instructions were provided to the patient s escort. Condition: Stable Disposition: Patient to follow up at dental clinic prn and with the [facility] dental clinic for regular exams. EBL (estimated blood loss): minimal TRF (total fluid replacement): 500 mL Lactated Ringers TABBY Guzman DDS, [facility] Tiffany Mcintosh ([id number]) PRE OPERATIVE DIAGNOSIS Periodontal disease [K05.6] Dental caries [K02.9] POST OPERATIVE DIAGNOSIS Post-Op Diagnosis Codes: * Periodontal disease [K05.6] * Dental caries [K02.9] PROCEDURE PERFORMED Procedure(s) (LRB): FULL MOUTH REHABILITATION (N/A) PRIMARY CLOSURE Yes INTRAOPERATIVE FINDINGS No significant abnormalities SURGEON Surgeon(s) and Role: * Pastor Suarez DDS - Primary ANESTHESIOLOGIST Anesthesiologist: Katiuska Aguirre DO Project Design Engineer Assisting: Juan Dozier DDS SURGICAL STAFF Principal Clerk Typist: Maria Del Rosario Scanlon RN Scrub Person: Jimmy Neri Resident Assisting: Rosa Siddiqui DDS COMPLICATIONS None ESTIMATED BLOOD LOSS minimal SPECIMENS No specimen sent * No specimens in log * Pasotr Suarez DDS August 26, 2022 2:47 PM documented in this encounter [facility] 08-26-2022 Note Formatting of this n [...] mouth scaling was performed with an ultrasonic underground bolting machine operator. Teeth were polished with prophy paste and prophy cup on slow speed handpiece. Fluoride varnish was applied to teeth. The throat pack was removed at 14:43. The patient was extubated and transferred to PACU in stable condition. Written and verbal post-operative instructions were provided to the patient s escort. Condition: Stable Disposition: Patient to follow up at dental clinic prn and with the [facility] dental clinic for regular exams. EBL (estimated blood loss): minimal TRF (total fluid replacement): 500 mL Lactated Ringers TABBY Guzman DDS, [facility] Work Phone: 08-26-2022 Note Formatting of this n ote might be different from the original. Tiffany Mcintosh ([id number]) PRE OPERATIVE DIAGNOSIS Periodontal disease [K05.6] Dental caries [K02.9] POST OPERATIVE DIAGNOSIS Post-Op Diagnosis Codes: * Periodontal disease [K05.6] * Dental caries [K02.9] PROCEDURE PERFORMED Procedure(s) (LRB): FULL MOUTH REHABILITATION (N/A) PRIMARY CLOSURE Yes INTRAOPERATIVE FINDINGS No significant abnormalities SURGEON Surgeon(s) and Role: * Pastor Suarez DDS - Primary ANESTHESIOLOGIST Anesthesiologist: Katiuska Aguirre DO Project Design Engineer Assisting: Juan Dozier DDS SURGICAL STAFF Principal Clerk Typist: Maria Del Rosario Scanlon RN Scrub Person: Jimmy Neri Resident Assisting: Rosa Siddiqui DDS COMPLICATIONS None ESTIMATED BLOOD LOSS minimal SPECIMENS No specimen sent * No specimens in log * Pastor Suarez DDS August 26, 2022 2:47 PM [facility] 08-26-2022 Nurse Surgical operation note Pt came to OR with toy ball. Ball taken with pt to PACU. [facility] 08-26-2022 Nurse Note Pt came to OR with toy ball. Ball taken with pt to PACU. documented in this encounter [facility] 08-26-2022 History and physical note Hospitalist [...] surgery at this time. Hubert Ledbetter DO [facility] Work Phone: 08-26-2022 History and physical [...] Hubert Ledbetter DO documented in this encounter [facility] 08-17-2022 History and physical note Images [...] patient has been medically OPTIMIZED FOR SURGERY. [facility] Perioperative Clinic [facility] [address] [facility] Review of Systems (OSUROS)Review of Systems Unable [...] Social History Socioeconomic History Marital status: Single [facility] 08-17-2022 History and physical note Images [...] patient has been medically OPTIMIZ[facility] SURGERY. [facility] [address] [facility] Review of Systems (OSUROS)Review of Systems Unable [...] Marital status: Single [facility] History of Present illness Narrative 32 YO F for Full mouth rehabilitation with Dr. Suarez Developmental Delay Hypothyroid HTN Prior anesthetic with grade 1 view with mac 3 Prior ketamine IM though has had more recent anesthetics and tolerated IV well Arun Montes MD Program Manager Slp Anesthesiology / Pain Management [facility] Addendum 08/18/22: Family called an notified [...] medication issue. documented in this encounter [facility] 08-17-2022 Instructions Opal Sparks RN - [...] take Herbal Medication (including multi-vitamin, fish oil ([place]-3), garlic, Glucosamine - Chondroitin ,gingko, ginseng, Vitamin [...] site one week prior to surgery. - [place] your teeth and rinse your mouth the morning of surgery. - Do NOT bring your dentures or partials with you into surgery. They may be lost. Give them to someone to bring to you after surgery. If you are unable to complete your scheduled testing or appointments made by [facility] please contact [facility] at [phone]. Failure to do so could delay or [...] surgery, please notify our team immediately at [phone]. - If you have Sleep apnea and have a CPAP or BIPAP, then bring your CPAP mask and machine with you to the hospital. Also, if you have been ordered a chest x-ray, please report to the Imaging Department on to first floor (to the right of the [employer] [facility] on the first floor) prior to leaving the building. Please contact Medical Information Management Department for all records requests. [phone] JOSH/ALBERT documented [facility] Evaluation + Plan note No data available for this section [facility] Evaluation note Diagnosis Caries- Primary Unspecified dental caries [facility] Preop exam for internal medicine- Primary Other specified pre-operative examination Periodontal disease Unspecified gingival and periodontal disease Developmental delay Unspecified delay in development Hypothyroidism, unspecified type Periodontal disease Unspecified gingival and periodontal disease Dental caries Unspecified dental caries [facility] Diagnosis Encounter for screening breast examination- Primary Surveillance of previously prescribed contraceptive pill [facility] Diagnosis Onychocryptosis- Primary Ingrowing nail Pain in left toe(s) Cellulitis of left toe Abscess, toe, left [facility] Diagnosis Onychocryptosis- Primary Ingrowing nail Abscess, toe, left Tinea unguium Dermatophytosis of nail Pain in left toe(s) Pain in right toe(s) [facility]* Attachments The following attachments cannot be sent through Care Everywhere. * Dental Surgery: Generic: Post-op (Colombian) [facility] No data available for this section [facility] Attachments The following attachments cannot be sent through Care Everywhere. * Ethinyl Estradiol and Levonorgestrel, ADULT (Colombian) * Cervical cancer screening tests (Colombian) [facility] No data available for this section [facility] Narrative* Auth/Cert Specialty Diagnoses / Procedures Referred By Herson terrazas Referred To Contact Diagnoses Periodontal disease Dental caries Periodontal disease [K05.6] Dental caries [K02.9] Procedures [place] DENTAL SURGERY PROCEDURE FULL MOUTH REHABILITATION [facility] [address] [place] [address] [facility] [address] [place] [address] Referral ID Status Reason Start Date Expiration Date Visits Re quested Visits Authorized [id number] 1 1 [facility] Summary Purpose Family History No Family History Records FoundNo Family History Records FoundNo Family History Records Found No data available for this section No Family History Records Found No data available for this section No data available for this section No Family History Records FoundNo Family History Records Found Advance Directives No Advanced Directives Records FoundDocuments on File Type Date Recorded Patient Bisque Placer Expl anation DNR Physician Order 02/02/2024 11:17 AM DNR CC Reason for Referral Specialty Diagnoses / Procedures Referred By Contac t Referred To Contact Procedures LOW RISK - NO PHARMACOLOGICAL DVT PROPHYLAXIS Pastor Suarez DDS [address] [place] [address] Referral ID Status Reason Start Date Expiration Date V isits Requested Visits Authorized [id number] New Request 08/26/2022 09/20/2023 1 1 Specialty Diagnoses / Procedures Referred By Contac t Referred To Contact Procedures DVT/VTE RISK ASSESSMENT Pastor Suarez DDS [address] [place] [address] Referral ID Status Reason Start Date Expiration Date V isits Requested Visits Authorized [id number] New Request 08/26/2022 09/20/2023 1 1 Additional Source Comments INFORMATION SOURCE (unrecogn ized section and content) DATE CREATED AUTHOR 08/07/2022 [employer] [facility] DATE CREATED AUTHOR AUTHOR'S ORGANIZ ATION 08/29/2022 [facility] DATE CREATED AUTHOR AUTHOR'S ORGANIZ ATION 03/05/2023 [facility] DATE CREATED AUTHOR AUTHOR'S ORGANIZ ATION 11/04/2023 [facility] DATE CREATED AUTHOR AUTHOR'S ORGANIZ ATION 03/23/2024 [facility] DATE CREATED AUTHOR AUTHOR'S ORGANIZ ATION 09/22/2024 [facility] d[facility] Specialists EPIC Reason for Visit (unrecogniz ed section and content) Reason Comments Preoperative Assessment Specialty Diagnoses / Procedures Referred By Contac t Referred To Contact PreOp Diagnoses Periodontal disease Dental caries [employer], Pastor M, DDS [address] [place] [address] [facility] [address] [place] [address] Referral ID Status Reason Start Date Expiration Date V isits Requested Visits Authorized [id number] Pending Review 06/24/2022 07/19/2023 1 1 Reason Comments Gynecologic Exam Pt is here for breas t exam. 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 Relationship Specialty Start Date End Date Robin Vaughan DO [address] [place] [address] PCP - General Family Medicine 08/17/22 Computer Laboratory Technician Relationship Specialty Start Date End Date Robin Vaughan DO [address] [place] [address] PCP - General Family Medicine 08/17/22 Computer Laboratory Technician Relationship Specialty Start Date End Date Robin Vaughan MD [address] [place] [address] PCP - General Family Medicine 08/28/24 Computer Laboratory Technician Relationship Specialty Start Date End Date Robin Vaughan MD [address] [place] [address] PCP - General Family Medicine 08/28/24 Computer Laboratory Technician Relationship Specialty Start Date End Date Robin Vaughan MD [address] [place] [address] PCP - General Family Medicine 08/28/24 Continuous [...] BE BASED ON THE PRIMARY CLINICAL RECORDS. [employer] provides no warranty or guarantee of the accuracy or completeness of information in this document.
[2024-12-11 08:08] LABS: BUN Creatinine Ratio 9.8; Calcium 8.4 mg/dL (8.5-10.1); Chloride 107 mmol/L (98-107); Estimated GFR (African America >60 (>=60 mL/min/1.73m^2); Estimated GFR (Non-African Ame 55 (>=60 mL/min/1.73m^2); Glucose 79 mg/dL (74-106); Sodium 144 mmol/L (136-145)
== END 2024-12-11 06:53 | disposition home or self-care (01) ==
LOC: LAB 06:54
PROVIDERS: PCP Family Medicine; Visit Provider Family Medicine
DX: Z79.899 Other long term (current) drug therapy (principal); N18.30 Chronic kidney disease, stage 3 unspecified; E87.0 Hyperosmolality and hypernatremia; E22.1 Hyperprolactinemia; F31.9 Bipolar disorder, unspecified; F90.9 Attention-deficit hyperactivity disorder, unspecified type
CPT/HCPCS: 36415; 80048

== ENCOUNTER 2025-01-08 06:36 | Outpatient (OUT) | payer MEDICARE, MEDICAID, SELFPAY ==
--- OUTSIDE RECORDS SUMMARY | 2025-01-08 06:39 | XMS_ITS | CCD ---
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 Role Phone Unavailable Primary Care Provider Unavailabl e AL MASOPAL, ALEX Admitting Unavailable AL MASNGHIA JOSEPHTH Attending Unavailable PROVIDER, UNKNOWN Admitting Unavailable PROVIDER, [...] Consulting Unavailable ROBIN VAUGHAN Primary Care Physician [phone] Unavailable Primary Care Provider Unavailwolf e VAUGHANROBIN Admitting Unavailable VAUGHANROBIN Attending Unavailable VAUGHAN, ROBIN Attending Unavailable VAUGHAN, ROBIN Admitting Unavailable VAUGHAN, ROBIN Attending Unavailable VAUGHANROBIN Admitting Unavailable ROBIN VAUGHAN Referring Unavailable ROBIN VAUGHAN Admitting Unavailable ROBIN VAUGHAN Attending Unavailable ROBIN VAUGHAN Attending Unavailable ROBIN VAUGHAN Admitting Unavailable Unavailable Primary Care Provider UnavailRobin Reyez MD Primary Care Provider [phone] MEDHAT RANGEL Attending Unavailable SREEDHAR RANGEL Attending Unavailable KATIUSKA GANDHI Attending Unavailable Allergies Allergy Classification Reported Allergen(s) Allergy Type Date of Onset Reaction(s) Facility (8 sources) Amoxicillin / Clavulanate; Translations: [AMOXICILLIN-POT CLAVULANATE] Drug Allergy 02-12-2016 [facility] (5 sources) loracarbef; Translations: [LORACARBEF] Drug Allergy 05-03-2016 [facility] (4 sources) loracarbef Drug Allergy 07-21-2022 [facility] (1 source) Amoxicillin / Clavulanate Drug Allergy 12-22-2015 [facility] (1 source) loracarbef Drug Allergy 12-22-2015 [facility] (8 sources) Penicillins; Translations: [penicillins] Drug allergy 09-07-2012 [facility] Medications Current Medications Medication Drug Class(es) Dates Sig (Normalized) Sig (Original) bacillus coagulans [id number] unt / lactobacillus acidophilus [id number] unt oral tablet (2 sources) take 1 [...] mL 1 09/20/2024 10/20/2024 Active bifidobacterium animalis [id number] unt / lactobacillus acidophilus [id number] unt oral capsule (1 source) Probiotic Produc t (ACIDOPHILUS HIGH-POTENCY) CAPS Take by mouth. 0 Active bisacodyl 10 mg rectal suppository (1 source) Stimulant Laxative bisacodyl 10 MG Suppository suppository Insert 10 mg rectally as needed for Constipation. 0 Active busPIRone hydrochloride 15 mg oral tablet (7 sources) take 1 tablet by mouth three times daily busPIRone (Buspar) 15 MG tablet TAKE ONE TABLET BY MOUTH 3 TIMES DAILY BUSPAR Active take 1.5 tablets by mouth three times daily busPIRone (BUSPAR) 10 mg tablet Take 1.5 tablets (15 mg total) by mouth 3 (three) times a day. Active take 20 mg by mouth three times daily BUSPIRONE HCL PO Take 20 mg by mouth 3 times daily. 0 Active take 1 tablet by mouth twice henrry ly busPIRone (BUSPAR) 10 MG tablet Take 10 mg by mouth 2 times daily. 0 Active calcium carbonate 500 mg cristiana wable tablet (3 sources) calcium carbonat e (TUMS) 200 mg elemental (500 mg) chewable tablet Chew 1 tablet (200 mg total) and swallow in the morning. Active calcium carbonat e (Tums) 500 MG Chew Tab tablet Chew 1,000 mg as needed. 0 Active chlorhexidine gluconate 40 m g/ml medicated liquid soap (3 sources) chlorhexidine (H IBICLENS) 4 % external liquid Apply 1 Application (1 mL total) topically daily as needed for wound care. Active take 15 mL by mouth twice daily chlorhexidine 0.12 % Solution oral solution Take 15 mL by mouth 2 times daily. 0 Active clonazePAM (11 sources) Benzodiazepine Start: 05-21-2011 clonazepam Ora l, TID, Refills(s) 0 Start Date: 05/21/11 Status: Ordered take 1 tablet by mouth three alyssa es daily clonazePAM (KlonoPIN) 0.5 MG tablet TAKE ONE TABLET BY MOUTH 3 TIMES DAILY KLONOPIN Active take 1 tablet by gladis twice daily as needed clonazePAM (KlonoPIN) 0.5 mg tablet Take 1 tablet (0.5 mg total) by mouth 2 (two) times a day as needed for seizures. Active cloNIDine (4 sources) Central alpha-2 Adrenergic Agonist Start: 05-21-2011 clonidine patch(es), Refills(s) 0 Start Date: 05/21/11 Status: Ordered desmopressin acetate 0.2 mg oral tablet (7 sources) Vasopressin Analog, Factor VIII Activator desmopressin (DDAV P) 0.2 MG tablet TAKE 1 AND 12 TABLETS IN THE MORNING, 1 TABLET AT NOON AND 2 TABLETS AT BEDTIME DDAVP Active take 1 tablet by mouth twice henrry ly desmopressin (DDAVP) 0.2 MG tablet Take 0.2 mg by mouth 2 times daily. 0 Active Dextromethorphan / guaiFENesin (1 source) Uncompetitive T-iraewv-T-aspartate Receptor Antagonist, Sigma-1 Agonist take 400 mg by mouth twice daily as needed Dextromethorphan-guaiFENesin (CHEST CONGESTION/COUGH RELIEF PO) Take 400 mg by mouth 2 times daily as needed. 0 Active docusate sodium 100 mg oral capsule (3 sources) take 1 capsule by mouth in the morning, then take 1 capsule by mouth at bedtime docusate sodium (COLACE) 100 mg capsule Take 1 capsule (100 mg total) by mouth in the morning and 1 capsule (100 mg total) before bedtime. Active Docusate Sodium (DOK) 100 MG tablet Take 100 mg by mouth As directed as needed for Constipation. 0 Active Ethinyl Estradiol / Levonorgestrel (6 sources) Progestin, Estrogen, Progestin-containing Intrauterine Device Start: [...] (Reorder) folic acid 1 mg oral tablet (6 sources) take 1 tablet by mouth once daily folic acid (Folvite) 1 MG tablet Take 1 tablet by mouth Daily Active gabapentin (5 sources) Anti-epileptic Agent Start: 05-21-2011 gabapentin Oral, Refills(s) 0 Start Date: 05/21/11 Status: Ordered take 1 capsule by mo [facility] three times daily gabapentin (NEURONTIN) 300 MG capsule Ta ke 300 mg by mouth 3 times daily. 0 Active hydroCHLOROthiazide 25 mg oral tablet (6 sources) Thiazide Diuretic take 1 tablet by mouth once daily hydroCHLOROthiazide (HYDRODiuril) 25 MG tablet Take 1 tablet by mouth Daily Active Lactobacillus (1 source) Lactobacillus (ACIDOPHILUS/BIFIDUS PO) Take by mouth. 0 Active Lactobacillus acidophilus (2 sources) Lactobacillus ac idophilus (ACIDOPHILUS ORAL) Take by mouth. Active Lactobacillus ac idophilus (ACIDOPHILUS ORAL) Take by mouth. 0 Active Lactulose (4 sources) Osmotic Laxative Start: 05-21-2011 lactulose Ora l, Daily, EA, Refills(s) 0 Start Date: 05/21/11 Status: Ordered Levonorgestrel-Ethinyl Estrad (AVIANE ORAL) (1 source) Levonorgestrel-E thinyl Estrad (AVIANE ORAL) Take by mouth. 0 Active levothyroxine sodium 0.075 mg oral tablet (10 sources) l-Thyroxine Start: 11-02-2023 End: 03-01-2024 levothyroxine (Synthroid, Levoxyl) 75 MCG tablet TAKE 12 TABLET BY MOUTH ONCE DAILY 11/02/2023 Active Start: 05-21-2011 levothyroxine Daily, Refills(s) 0 Start Date: 05/21/11 Status: Ordered take 1 tablet by [facility] once daily before breakfast levothyroxine 75 MCG tablet Take 75 mcg by mouth every morning before breakfast. 0 Active Silas (4 sources) Start: 05-21-2011 lithium Oral, Refills(s) 0 Start Date: 05/21/11 Status: Ordered loperamide hydrochloride 2 mg oral tablet (1 source) Opioid Agonist Loperamide HCl 2 MG tablet Take 2 mg by mouth As directed as needed. 0 Active loratadine 10 mg oral tablet (5 sources) take 1 tablet by mouth once daily loratadine (Claritin) 10 MG tablet Take 1 tablet by mouth Daily Active loratadine (CLAR ITIN REDITABS) 10 mg disintegrating tablet Dissolve 1 tablet (10 mg total) on tongue in the morning. Active melatonin 5 mg oral capsule (3 sources) melatonin (CIRCA DIN) capsule Take by mouth. Active Melatonin 5 MG C APS Take by mouth. 0 Active metoprolol tartrate 25 mg oral tablet (11 sources) beta-Adrenergic Rodney Start: 09-13-2024 metopr olol tartrate (Lopressor) 25 MG tablet 09/13/2024 Active take 1 tablet by mouth in the mo rning metoprolol tartrate (Lopressor) 50 MG tablet Take 50 mg by mouth in the morning and 50 mg in the evening. Active metoprolol tartr ate (LOPRESSOR) 100 mg tablet Take 25 mg by mouth in the morning. Active take 1 tablet by mouth four time s daily metoprolol 100 MG tab regular release Take 100 mg by mouth 4 times daily. 0 Active mirtazapine 15 mg oral tablet (5 sources) take 1 tablet by mouth at bedtime mirtazapine (Remeron) 15 MG tablet Take 1 tablet by mouth at bedtime Active Nasonex (4 sources) Corticosteroid Start: 05-21-20 11 Nasonex Nasal, Daily, Refill(s) 0 Start Date: 05/21/11 Status: Ordered Singulair (11 sources) Leukotriene Receptor Antagonist Start: 05-21-20 11 Singulair qPM, Refills(s) 0 Start Date: 05/21/11 Status: Ordered take 1 tablet by mouth at bedtim e montelukast (Singulair) 10 MG tablet Take 1 tablet by mouth at bedtime Active naltrexone hydrochloride 50 mg oral tablet (7 sources) Opioid Antagonist take 1 tablet by [...] Status: Ordered ondansetron 4 mg oral tablet (3 sources) Serotonin-3 Receptor Antagonist take 1 tablet by mouth every eight hours as needed for nausea and vomiting ondansetron (ZOFRAN) 4 mg tablet Take 1 tablet (4 mg total) by mouth every 8 (eight) hours as needed for nausea or vomiting. Active Potassium (1 source) Potassium (POTASSIMIN ORAL) [...] mouth daily every morning. 0 Active sennosides, custodial 8.6 mg oral tablet (3 sources) take 1 tablet by gladis th in the morning senna (SENOKOT) 8.6 mg tablet Take 1 tablet (8.6 mg total) by mouth in the morning. Active take 2 tablets by mouth twice da tejal senna 8.6 MG tablet Take 17.2 mg by mouth 2 times daily. 0 Active Thioridazine (4 sources) Phenothiazine Start: 05-21-2011 thioridazine Oral, TID, Refills(s) 0 Start Date: 05/21/11 Status: Ordered divalproex sodium 125 mg delayed release oral capsule (4 sources) Mood Stabilizer, Anti-epileptic Agent take 1 capsule by mouth in the morning divalproex sprinkle (Depakote Sprinkle) [address] capsule Take 125 mg by mouth in the morning and 125 mg in the evening. Active Completed/Discontinued Medications Medication Drug Class(es) Dates Sig (Normalized) Sig (Original) acetaminophen 325 mg oral tablet (4 sources) Start: 08-26-2022 End: 08-26-2022 take 1 tablet by mouth every four hours as needed acetaminophen (TYLENOL) tablet 650 mg take 325 mg rectal r oute every four hours as needed for pain acetaminophen (TYLENOL) 325 mg supposito ry Insert 1 suppository (325 mg total) into the rectum every 4 (four) hours as needed for pain. 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 Normal [facility] Abstracton 12-27-2024 Abstract [id number] Tiffany Mcintosh 1990 F Date Provider Department O'Brien 12/27/2024 [id number] GANDHI. [facility]F [facility] No family history on file Normal [facility] Follow-Upon 12-27-2024 Follow-Up [id number] Tiffany Mcintosh 1990 F Date Provider Department O'Brien 12/27/2024 316-KATIUSKA GANDHI. [facility] No family history on file Level of Service:67717 [place] OFFICE/OUTPATIENT ESTABLISHED LOW MDM 20 MIN (GC) Reason for Visit and Comments: Follow-up [726366] Normal [facility] .Interpretation:on HCV Ab IA Ql Comment Invalid Interpretation Code [facility] Comment on above: Result Comment: Not infected with HCV unless early or acute infection is suspected (which may be delayed in an immunocompromised individual), or other evidence exists to indicate HCV infection. Performed at: [facility] [id number] PhD Amaris Valdes Performed By: #### 2 [id number], [id number] #### [facility] [address] [place] [address] Acute Hepatitis A B C Panelo n 03-23-2024 HAV IgM IA Ql Negative Invalid Interpretation Code Negative [facility] Comment on above: Performed By: #### 2 [id number] #### [facility] [address] [place] [address] HBV core IgM IA Ql Negative Invalid Interpretation Code Negative [facility] Comment on above: Performed By: #### 2 [id number] #### [facility] [address] [place] [address] HBV surface Ag IA Ql Negative Invalid Interpretation Code Negative [facility] Comment on above: Performed By: #### 2 [id number], [id number] #### [facility] [address] [place] [address] HCV IgG IA Ql Non-Reactive Invalid Interpretation Code Non Reactive [facility] Comment on above: Result Comment: Perf ormed at: [facility] [address] [id number] PhD Amaris Linaresfederica Performed By: #### 2 [id number], [id number] #### [facility] [address] [place] [address] Physician Orderon 03-21-2024 Physician Order [id number]# 1.00TIFF Normal [facility] Consent for Treatmenton Consent for Treatment [id number]#1 .00TIFF Normal [facility] Physician Orderon 02-01-2024 Physician Order [id number]# 1.00TIFF Normal [facility] XR Adult Swallowing Function w/ Videoon [...] mGy = na DAP = na Normal [facility] Physician Orderon 01-11-2024 Physician Order [id number]# 1.00TIFF Normal [facility] T3 Freeon 12-02-2023 Free T3 [Mass/Vol] 2.5 pg/mL Invalid Interpretation Code 2.0-4.4 [facility] Comment on above: Result Comment: Perf ormed at: [facility] [address] [id number] PhD Amaris Valdes Performed By: #### 2 309911, 1252383, 1824132, 5308571, 9414803, 88034910, 7164042 #### [facility] [address] [place] [address] CMPon 12-01-2023 Albumin [Mass/Vol] 3.8 g/dL Normal 3.3-5.0 [facility] Comment on above: Performed By: #### 2 094667, 4489160, 9418704, 8857325, 0436117, 42851612, 8525593 #### [facility] [address] [place] [address] Albumin/Globulin [Mass ratio] 1.4 {ratio} Normal 1.1-2.2 [facility] Comment on above: Performed By: #### 2 022152, 6322577, 3556468, 0085380, 3225905, 97225865, 4423377 #### [facility] [address] [place] [address] Alk Phos 38 Int._Unit/L Normal 21-98 [facility] Comment on above: Performed By: #### 2 238823, 7181522, 8587318, 6023947, 8776865, 82447361, 0064466 #### [facility] [address] [place] [address] ALT 7 Int._Unit/L Normal 6-46 [facility] Comment on above: Performed By: #### 2 765992, 8381042, 5678012, 7977976, 4857268, 24913413, 6879166 #### [facility] [address] [place] [address] Anion gap [Moles/Vol] 13 mmol/L Normal 6-16 [facility] Comment on above: Performed By: #### 2 209807, 0977262, 3081317, 4912037, 9104550, 03012371, 8890518 #### [facility] [address] [place] [address] AST 17 Int._Unit/L Normal 5-43 [facility] Comment on above: Performed By: #### 2 690705, 4851089, 2093783, 4255529, 4375312, 27141672, 8244930 #### [facility] [address] [place] [address] Bili Total 0.3 mg/dL Normal 0.0-1.1 [facility] Comment on above: Performed By: #### 2 921296, 8567260, 1992898, 2281907, 5823535, 22283345, 4748725 #### [facility] [address] [place] [address] BUN/Creat Ratio 16 No Units Normal 10-20 [facility] Comment on above: Performed By: #### 2 079345, 8845702, 6434501, 6539197, 5593335, 17276351, 2386303 #### [facility] [address] [place] [address] Calcium [Mass/Vol] 9.0 mg/dL Normal 8.9-11.1 [facility] Comment on above: Performed By: #### 2 137707, 3465186, 0681433, 3064804, 9182502, 65513582, 7438735 #### [facility] [address] [place] [address] Chloride [Moles/Vol] 103 mmol/L Normal 101-111 [facility] Comment on above: Performed By: #### 2 644969, 1729223, 2073627, 4764832, 8380582, 44217655, 9412079 #### [facility] [address] [place] [address] CO2 [Moles/Vol] 26 mmol/L Normal 21-31 [facility] Comment on above: Performed By: #### 2 379888, 9921430, 7800861, 3163871, 8995739, 41170023, 2866630 #### [facility] [address] [place] [address] Creatinine [Mass/Vol] 1.1 mg/dL Normal 0.5-1.3 [facility] Comment on above: Performed By: #### 2 336494, 7869934, 5809520, 7739916, 8191723, 56847607, 6042444 #### [facility] [address] [place] [address] Globulin (S) [Mass/Vol] 2.8 g/dL Normal 1.4-4.0 [facility] Comment on above: Performed By: #### 2 801319, 6434645, 5396657, 9057230, 3727451, 17497072, 0794053 #### [facility] [address] [place] [address] Glucose [Mass/Vol] 68 mg/dL Normal 55-199 [facility] Comment on above: Performed By: #### 2 913411, 0599583, 4250900, 5350921, 7838978, 93186351, 2900475 #### [facility] [address] [place] [address] Potassium [Moles/Vol] 4.1 mmol/L Normal 3.5-5.3 [facility] Comment on above: Performed By: #### 2 897903, 5740207, 6033889, 6965881, 9409371, 17592149, 3318086 #### [facility] [address] [place] [address] Protein [Mass/Vol] 6.6 g/dL Normal 6.0-7.8 [facility] Comment on above: Performed By: #### 2 583350, 9496843, 8381829, 4694728, 9139334, 26484278, 1979029 #### [facility] [address] [place] [address] Sodium [Moles/Vol] 138 mmol/L Normal 135-145 [facility] Comment on above: Performed By: #### 2 050411, 5912592, 0185776, 6113925, 5254603, 17080772, 3321071 #### [facility] [address] [place] [address] Urea nitrogen [Mass/Vol] 18 mg/dL Normal 5-21 [facility] Comment on above: Performed By: #### 2 038441, 2427191, 1080751, 7189425, 8931407, 16502039, 0245443 #### [facility] [address] [place] [address] Lipid Panelon 12-01-2023 Cholesterol [Mass/Vol] 113 mg/dL Low 120-200 [facility] Comment on above: Performed By: #### 2 156181, 9848831, 7721383, 9298706, 7812972, 14935851, 4033417 #### [facility] [address] [place] [address] Cholesterol in HDL [Mass/Vol] 23 mg/dL Invalid Interpretation Code [facility] Comment on above: Result Comment: '>= 60 LOW RISK' '<= 40 HIGH RISK' Performed By: #### 2 378532, 8446303, 8491081, 1427882, 3412759, 10575254, 8065669 #### [facility] [address] [place] [address] Cholesterol in LDL [Mass/Vol] 71 mg/dL Normal <=129 [facility] Comment on above: Performed By: #### 2 261252, 5625235, 9645715, 0706827, 6530034, 50051855, 6407548 #### [facility] [address] [place] [address] Cholesterol in VLDL [Mass/Vol] 37 mg/dL Normal 7-40 [facility] Comment on above: Performed By: #### 2 842230, 1896427, 3940206, 8141576, 2571201, 94723120, 1746603 #### [facility] [address] [place] [address] Triglyceride [Mass/Vol] 186 mg/dL High <=149 [facility] Comment on above: Performed By: #### 2 484771, 2383320, 3229248, 0034936, 9015251, 03253588, 8475789 #### [facility] [address] [place] [address] eGFRon 12-01-2023 GFR/1.73 sq M.predicted among non-blacks MDRD (S/P/Bld) [Vol rate/Area] mL/min/{1.73_m2} Normal >=59 [facility] Comment on above: Order Comment: Order added by Discern Expert. Performed By: #### 2 069242, 9207137, 1574316, 9798771, 7082030, 54806233, 2100500 #### [facility] [address] [place] [address] CBC w/Indiceson 11-30-2023 Erythrocyte distribution width (RBC) [Ratio] 13.5 % Normal 10.9-14.2 [facility] Comment on above: Performed By: #### 2 629739, 0078629, 0713097, 4429826, 4945488, 21238558, 3117619 #### [facility] [address] [place] [address] Hematocrit (Bld) [Volume fraction] 42.1 % Normal 34.0-46.0 [facility] Comment on above: Performed By: #### 2 416662, 6706249, 1796321, 0775441, 7150472, 70905736, 8065549 #### [facility] [address] [place] [address] Hemoglobin (Bld) [Mass/Vol] 14.4 g/dL Normal 12.0-16.0 [facility] Comment on above: Performed By: #### 2 515345, 5567953, 7006276, 2018619, 0825639, 73876947, 9241564 #### [facility] [address] [place] [address] MCH (RBC) [Entitic mass] 33.7 pg Normal 27.0-34.0 [facility] Comment on above: Performed By: #### 2 510627, 3628726, 6377118, 1904594, 6256632, 05049641, 4364498 #### [facility] [address] [place] [address] MCHC (RBC) [Mass/Vol] 34.2 g/dL Normal 31.4-36.0 [facility] Comment on above: Performed By: #### 2 056386, 3200023, 3910073, 2244387, 3029461, 03930162, 0101407 #### [facility] [address] [place] [address] MCV (RBC) [Entitic vol] 98.8 fL Normal 80.0-100.0 [facility] Comment on above: Performed By: #### 2 509475, 8071127, 3277120, 9429475, 4155241, 77549545, 8460754 #### [facility] [address] [place] [address] Platelet mean volume (Bld) [Entitic vol] 8.6 fL Normal 6.4-10.8 [facility] Comment on above: Performed By: #### 2 954801, 2160848, 5542663, 4432200, 0718763, 12200055, 9552645 #### [facility] [address] [place] [address] Platelets (Bld) [#/Vol] 141.0 E9/L Low 150.0-500.0 [facility] Comment on above: Performed By: #### 2 789254, 4820960, 1555136, 3581160, 1130912, 68975394, 9912601 #### [facility] [address] [place] [address] RBC (Bld) [#/Vol] 4.3 E12/L Normal 4.3-5.9 [facility] Comment on above: Performed By: #### 2 139888, 4472869, 5250887, 7078781, 1420359, 71234283, 9375144 #### [facility] [address] [place] [address] WBC corrected for nucl RBC Auto (Bld) [#/Vol] 9.8 E9/L Normal 4.0-11.0 [facility] Comment on above: Performed By: #### 2 422276, 2184447, 8835854, 8030385, 6710360, 98554564, 1557764 #### [facility] [address] [place] [address] Free T4on 11-30-2023 Free T4 [Mass/Vol] 0.92 ng/dL Normal 0.58-1.64 [facility] Comment on above: Performed By: #### 2 107227, 8510593, 6417351, 5837818, 4740531, 51149706, 1808383 #### [facility] [address] [place] [address] Physician Orderon 11-30-2023 Physician Order [id number]# 1.00TIFF Normal [facility] TSHon 11-30-2023 TSH Qn 5.07 m[IU]/L Normal 0.34-5.60 [facility] Comment on above: Performed By: #### 2 019610, 9645382, 4386459, 7612429, 9263821, 01624887, 2328176 #### [facility] [address] [place] [address] BMPon 10-13-2023 Anion gap [Moles/Vol] 13 mmol/L Normal 6-16 [facility] Comment on above: Performed By: #### 2 551686, 12966749, 3184594, 5321516 #### [facility] [address] [place] [address] Calcium [Mass/Vol] 8.8 mg/dL Low 8.9-11.1 [facility] Comment on above: Performed By: #### 2 393771, 81829816, 9393388, 5532219 #### [facility] [address] [place] [address] Chloride [Moles/Vol] 109 mmol/L Normal 101-111 [facility] Comment on above: Performed By: #### 2 106943, 09601238, 1279063, 2292724 #### [facility] [address] [place] [address] CO2 [Moles/Vol] 23 mmol/L Normal 21-31 [facility] Comment on above: Performed By: #### 2 966677, 58462698, 1782317, 2909970 #### [facility] [address] [place] [address] Creatinine [Mass/Vol] 1.1 mg/dL Normal 0.5-1.3 [facility] Comment on above: Performed By: #### 2 460549, 07220818, 7372968, 5399320 #### [facility] [address] [place] [address] Glucose [Mass/Vol] 74 mg/dL Normal 55-199 [facility] Comment on above: Result Comment: If t his glucose result represents a fasting glucose, interpretation should refer to the following reference range: 55-99 mg/dL Performed By: #### 2 [id number], [id number], [id number], [id number] #### [facility] [address] [place] [address] Potassium [Moles/Vol] 4.0 mmol/L Normal 3.5-5.3 [facility] Comment on above: Performed By: #### 2 [id number], [id number], [id number], [id number] #### [facility] [address] [place] [address] Sodium [Moles/Vol] 141 mmol/L Normal 135-145 [facility] Comment on above: Performed By: #### 2 [id number], [id number], [id number], [id number] #### [facility] [address] [place] [address] Urea nitrogen [Mass/Vol] 23 mg/dL High 5-21 [facility] Comment on above: Performed By: #### 2 186711, [id number], [id number], [id number] #### [facility] [address] [place] [address] Urea nitrogen/Creatinine [Mass ratio] 21 No Units High 10-20 [facility] Comment on above: Performed By: #### 2 [id number], [id number], [id number], [id number] #### [facility] [address] [place] [address] Free T4on 10-13-2023 Free T4 [Mass/Vol] 1.45 ng/dL Normal 0.58-1.64 [facility] Comment on above: Performed By: #### 2 723709, 8609105, 2962652, 4341218, 0112180, [id number], 8540488 #### [facility] [address] [place] [address] TSHon 10-13-2023 TSH Qn 6.49 m[IU]/L High 0.34-5.60 [facility] Comment on above: Performed By: #### 2 754772, 5632091, 3714223, 7141483, 4634666, [id number], 4439100 #### [facility] [address] [place] [address] eGFRon 10-13-2023 GFR/1.73 sq M.predicted among non-blacks MDRD (S/P/Bld) [Vol rate/Area] 67 mL/min/1.73 m2 Normal >=59 [facility] Comment on above: Order Comment: Order added by Discern Expert. Result Comment: Assistant Analyst david kidney disease could be indicated at eGFR's of less than 60 mL/min/1.73m2. Kidney failure is indicated at less than 15 mL/min/1.73m2. Performed By: #### 2 539102, 7878881, 0296316, 8401101, 9573826, [id number], [id number] #### [facility] [address] [place] [address] CHEMISTRYOrdered By: SYSTEM SYSTEM on 10-12-2023 Anion gap [Moles/Vol] 13 mmol/L Normal 6 - 16 mEq/L [facility] Calcium [Mass/Vol] 8.8 mg/dL Low 8.9 - 11. 1 mg/dL [facility] Chloride [Moles/Vol] 109 mmol/L Normal 101 - 1 11 mmol/L [facility] CO2 [Moles/Vol] 23 mmol/L Normal 21 - 31 mmol/L [facility] Creatinine [Mass/Vol] 1.1 mg/dL Normal 0.5 - 1.3 mg/dL [facility] Free T4 [Mass/Vol] 1.45 ng/dL Normal 0.58 - 1. 64 ng/dL [facility] Remisol GFR/1.73 sq M.predicted among non-blacks MDRD (S/P/Bld) [Vol rate/Area] 67 mL/min/1.73 m2 Normal >=59mL/min/1 .73 m2 [facility] Chem S Comment on above: Interpretive Data: C hronic kidney disease could be indicated at eGFR's of less than 60 mL/min/1.73m2. Kidney failure is indicated at less than 15 mL/min/1.73m2. Glucose [Mass/Vol] 74 mg/dL Normal 55 - 199 mg/dL [facility] Comment on above: Interpretive Data: I [...] [facility] Physician Orderon 10-12-2023 Physician Order [id number] .[id number] Normal [facility] CHEMISTRYOrdered By: SYSTEM SYSTEM on 08-17-2023 Valproate [Moles/Vol] 70 microgram/mL Normal 50 - 99 mcg/mL [facility] Physician Orderon 08-17-2023 Physician Order [id number]# [id number] Normal [facility] Valproic Acidon 08-17-2023 Valproate [Moles/Vol] 70 microgram/mL Normal 50-99 [facility] Comment on above: Performed By: #### 2 [id number], 0551153, 6638855, 0116392, [id number], [id number], 1315852 #### [facility] [address] [place] [address] XR CHEST 2 Von 02-18-2023 XR CHEST [...] acute cardiopulmonary process. Electronically authenticated by: AZUL BURTONU Date: 2023-02-17 22:47 Normal [facility] DEPAKENE/ VALPROIC ACIDon DEPAKENE 74.8 ug/ml Normal 50.0-100.0 [facility] Comment on above: Performed By: #### V ALP #### [facility] [address] [place] [address] Dr. Wali Holly FREE T4on 12-14-2022 Free T4 [Mass/Vol] 0.83 ng/dL Normal 0.76-1.46 [facility] Comment on above: Performed By: #### F T4 #### [facility] [address] [place] [address] Dr. Wali Holly TSHon 12-14-2022 TSH 4.513 uIU/mL Critically high 0.358-3.[address] [facility] Comment on above: Performed By: #### T SH #### [facility] [address] [place] [address] Dr. Wali Holly OSMOLALITY URINEon Osmolality, Urine 280 mOsmol/kg Normal [facility] Comment on above: Result Comment: 24 h r : 300 - 900 Random: 50 - 1400 After 12hr fluid restriction: >850 Performed By: #### O SMOU #### [facility] [address] [place] [address] Dr. Wali Holly OSMOLALITYon 10-13-2022 Osmolality [Osmolality] 281 mosm/kg Normal 275-295 [facility] Comment on above: Performed By: #### O SMO #### [facility] [address] [place] [address] Dr. Wali Holly FREE T4on 10-12-2022 Free T4 [Mass/Vol] 0.91 ng/dL Normal 0.76-1.[address] [facility] Comment on above: Performed By: #### F T4 #### [facility] [address] [place] [address] Dr. Wali Holly PROF CHEM 8 (BAS METB)on Anion gap [Moles/Vol] 6.1 mmol/L Normal [facility] Comment on above: Performed By: #### B MP, TSH #### [facility] [address] [place] [address] Dr. Wali Holly Calcium [Mass/Vol] 9.1 mg/dL Normal 8.5-10.[address] [facility] Comment on above: Performed By: #### B MP, TSH #### [facility] [address] [address] [address] Wali Holly Chloride [Moles/Vol] 102 mmol/L Normal 98-107 [facility] Comment on above: Performed By: #### B MP, TSH #### [facility] [address] [address] [address] Wali Holly CO2 [Moles/Vol] 34.9 mmol/L Critically high 21.0-32.0 [facility] Comment on above: Performed By: #### B MP, TSH #### [facility] [address] [address] [address] Wali Holly Creatinine [Mass/Vol] 1.35 mg/dL Critically high 0.55-1.02 [facility] Comment on above: Performed By: #### B MP, TSH #### [facility] [address] [place] [address] Dr. Wali Holly EGFR-AF VIET[place]ESE 54 mL/min/1.73m2 Critically low >=60 [facility] Comment on above: Performed By: #### B MP, TSH #### [facility] [address] [place] [address] Dr. Wali Holly EGFR-NON AF VIET[place]ESE 45 mL/min/1.73m2 Critically low >=60 [facility] Comment on above: Performed By: #### B MP, TSH #### [facility] [address] [place] [address] Dr. Wali Holly Glucose [Mass/Vol] 84 mg/dL Normal 74-[address] [facility] Comment on above: Performed By: #### B MP, TSH #### [facility] [address] [address] [address] Wali Holly Potassium [Moles/Vol] 4.0 mmol/L Normal 3.5-5.1 [facility] Comment on above: Performed By: #### B MP, TSH #### [facility] [address] [place] [address] Dr. Wali Holly Sodium [Moles/Vol] 139 mmol/L Normal 136-145 [facility] Comment on above: Performed By: #### B MP, TSH #### [facility] [address] [address] [address] Wali Holly Urea nitrogen [Mass/Vol] 15.0 mg/dL Normal 7.0-18.0 [facility] Comment on above: Performed By: #### B MP, TSH #### [facility] [address] [address] [address] Wali Holly Urea nitrogen/Creatinine [Mass ratio] 11.1 mg/mg Normal [facility] Comment on above: Performed By: #### B MP, TSH #### [facility] [address] [address] [address] Wali Holly TSHon 10-12-2022 TSH 5.185 uIU/mL Critically high 0.358-3.740 [facility] Comment on above: Performed By: #### B MP, TSH #### [facility] [address] [address] [address] Wali Holly CARDIAC RHYTHM (SCANNED)on 0 08-26-2022 [facility] CBC AND ELECTRONIC DIFFon Basophils (Bld) [#/Vol] 0.06 10*3/uL Normal 0.00-0.15 [facility] Comment on above: Performed By: #### L [id number] #### [facility] (DEFAULT) [address] [address] Basophils/100 WBC (Bld) 0.8 % Normal [facility] Comment on above: Performed By: #### L [id number] #### [facility] (DEFAULT) [address] [address] DIFF STATUS Electronic Differential Normal [facility] Comment on above: Performed By: #### L [id number] #### [facility] (DEFAULT) [address] [address] Eosinophils (Bld) [#/Vol] 0.07 10*3/uL Normal 0.00-0.42 [facility] Comment on above: Performed By: #### L AB980 #### [facility] (DEFAULT) [address] [place] [address] Eosinophils/100 WBC (Bld) 1.0 % Normal [facility] Comment on above: Performed By: #### L AB980 #### [facility] (DEFAULT) [address] [place] [address] Hematocrit (Bld) [Volume fraction] 39.1 % Normal 34.9-44.3 [facility] Comment on above: Performed By: #### L AB980 #### [facility] (DEFAULT) [address] [place] [address] Hemoglobin (Bld) [Mass/Vol] 13.3 g/dL Normal 11.4-15.2 [facility] Comment on above: Performed By: #### L AB980 #### [facility] (DEFAULT) [address] [address] Immature Grans % 1.8 % Normal [facility] Comment on above: Performed By: #### L AB980 #### [facility] (DEFAULT) [address] [place] [address] Immature Grans Absolute 0.13 K/uL High <=0.08 [facility] Comment on above: Performed By: #### L [id number] #### [facility] (DEFAULT) [address] [place] [address] Lymphocytes (Bld) [#/Vol] 3.29 10*3/uL Normal 1.16-3.51 [facility] Comment on above: Performed By: #### L AB980 #### [facility] (DEFAULT) [address] [address] Lymphocytes/100 WBC (Bld) 46.0 % Normal [facility] Comment on above: Performed By: #### L AB980 #### [facility] (DEFAULT) [address] [place] [address] MCV (RBC) [Entitic vol] 100.3 fL High 79.6-97.7 [facility] Comment on above: Performed By: #### L AB980 #### [facility] (DEFAULT) [address] [address] Mean Cell Hgb 34.1 pg High 25.9-33.9 [facility] Comment on above: Performed By: #### L AB980 #### [facility] (DEFAULT) [address] [address] Mean Cell Hgb Conc 34.0 g/dL Normal 31.4-35.9 [facility] Comment on above: Performed By: #### L AB980 #### [facility] (DEFAULT) [address] [address] Monocytes (Bld) [#/Vol] 0.82 10*3/uL Normal 0.22-0.87 [facility] Comment on above: Performed By: #### L AB980 #### [facility] (DEFAULT) [address] [address] Monocytes/100 WBC (Bld) 11.5 % Normal [facility] Comment on above: Performed By: #### L AB980 #### [facility] (DEFAULT) [address] [address] Nucleated RBC 0.0 /100 WBC Normal <=0.2 [facility] Comment on above: Performed By: #### L AB980 #### [facility] (DEFAULT) [address] [address] Platelet mean volume (Bld) [Entitic vol] 9.9 fL Normal 8.5-12.2 [facility] Comment on above: Performed By: #### L AB980 #### [facility] (DEFAULT) [address] [address] Platelets (Bld) [#/Vol] 110 10*3/uL Low 150-393 [facility] Comment on above: Performed By: #### L AB980 #### [facility] (DEFAULT) [address] [place] [address] RBC (Bld) [#/Vol] 3.90 10*6/uL Low 3.91-5.04 [facility] Comment on above: Performed By: #### L AB980 #### [facility] (DEFAULT) [address] [place] [address] RBC Distribution 12.2 % Normal 10.8-14.9 [facility] Comment on above: Performed By: #### L AB980 #### [facility] (DEFAULT) [address] [place] [address] Segs + Bands Auto 38.9 % Normal [facility] Comment on above: Performed By: #### L AB980 #### [facility] (DEFAULT) [address] [place] [address] Segs + Bands,Absolute Auto 2.78 K/uL Normal 1.64-7.28 [facility] Comment on above: Performed By: #### L AB980 #### [facility] (DEFAULT) [address] [place] [address] WBC (Bld) [#/Vol] 7.15 10*3/uL Normal 3.99-11.19 [facility] Comment on above: Performed By: #### L AB980 #### [facility] (DEFAULT) [address] [place] [address] Basophils (Bld) [#/Vol] 0.06 10*3/uL 0.00 - 0.15 K/uL [facility] Basophils/100 WBC (Bld) 0.8 % [facility] Differential cell count method Nom (Bld) Electronic Differential [facility] Eosinophils (Bld) [#/Vol] 0.07 10*3/uL 0.00 - 0.42 K/uL [facility] Eosinophils/100 WBC (Bld) 1.0 % [facility] Erythrocyte distribution width (RBC) [Ratio] 12.2 % 10.8 - 14.9 % [facility] Hematocrit (Bld) [Volume fraction] 39.1 % 34.9 - 44.3 % [facility] Hemoglobin (Bld) [Mass/Vol] 13.3 g/dL 11.4 - 15.2 g/dL [facility] Immature granulocytes (Bld) [#/Vol] 0.13 10*3/uL High <=0.08 [facility] Immature granulocytes/100 WBC (Bld) 1.8 % [facility] Interpretation and review of laboratory results Abnormal [facility] Lymphocytes (Bld) [#/Vol] 3.29 10*3/uL 1.16 - 3.51 K/uL [facility] Lymphocytes/100 WBC (Bld) 46.0 % [facility] MCH (RBC) [Entitic mass] 34.1 pg High 25.9 - 33.9 pg [facility] MCHC (RBC) [Mass/Vol] 34.0 g/dL 31.4 - 35.9 g/dL [facility] MCV (RBC) [Entitic vol] 100.3 fL High 79.6 - 97.7 fL [facility] Monocytes (Bld) [#/Vol] 0.82 10*3/uL 0.22 - 0.87 K/uL [facility] Monocytes/100 WBC (Bld) 11.5 % [facility] Neutrophils (Bld) [#/Vol] 2.78 10*3/uL 1.64 - 7.28 K/uL [facility] Nucleated RBC/100 WBC (Bld) [Ratio] 0.0 % <=0.2 /100 WBC [facility] Platelet mean volume (Bld) [Entitic vol] 9.9 fL 8.5 - 12.2 fL [facility] Platelets (Bld) [#/Vol] 110 10*3/uL Low 150 - 393 K/uL [facility] RBC (Bld) [#/Vol] 3.90 10*6/uL Low [facility] Segmented neutrophils/100 WBC (Bld) 38.9 % [facility] WBC (Bld) [#/Vol] 7.15 10*3/uL 3.99 - 11. 19 K/uL [facility] CHEM 6 (LYTES, BUN CREA)on 0 08-17-2022 Anion gap [Moles/Vol] 10 mmol/L Normal 7-17 [facility] Comment on above: Performed By: #### C HM6 #### [facility] (DEFAULT) [address] [place] [address] Chloride [Moles/Vol] 103 mmol/L Normal 98-108 [facility] Comment on above: Performed By: #### C HM6 #### [facility] (DEFAULT) [address] [address] CO2 [Moles/Vol] 31 mmol/L Normal 21-31 [facility] Comment on above: Performed By: #### C HM6 #### [facility] (DEFAULT) [address] [place] [address] Creatinine [Mass/Vol] 1.16 mg/dL Normal 0.50-1.20 [facility] Comment on above: Performed By: #### C HM6 #### [facility] (DEFAULT) [address] [place] [address] GFR/1.73 sq M.predicted among non-blacks MDRD (S/P/Bld) [Vol rate/Area] 63 mL/min/{1.73_m2} Normal >=60 [facility] Comment on above: Result Comment: Repo rted eGFR is based on the CKD-EPI 2020 equation using creatinine, age, and sex. Performed By: #### C HM6 #### [facility] (DEFAULT) [address] [place] [address] Potassium [Moles/Vol] 4.0 mmol/L Normal 3.5-5.0 [facility] Comment on above: Performed By: #### C HM6 #### [facility] (DEFAULT) [address] [place] [address] Sodium [Moles/Vol] 140 mmol/L Normal 135-145 [facility] Comment on above: Performed By: #### C HM6 #### [facility] (DEFAULT) [address] [place] [address] Urea nitrogen [Mass/Vol] 10 mg/dL Normal 7-25 [facility] Comment on above: Performed By: #### C HM6 #### [facility] (DEFAULT) [address] [place] [address] Urea nitrogen/Creatinine [Mass ratio] 9 mg/mg Normal [facility] Comment on above: Performed By: #### C HM6 #### [facility] (DEFAULT) [address] [place] [address] Anion gap [Moles/Vol] 10 mmol/L 7 - 17 mmol/L [facility] Chloride [Moles/Vol] 103 mmol/L 98 - 10 8 mmol/L [facility] CO2 [Moles/Vol] 31 mmol/L 21 - 31 mmol/L [facility] Creatinine [Mass/Vol] 1.16 mg/dL 0.50 - 1.20 mg/dL [facility] GFR/1.73 sq M.predicted CKD-EPI (S/P/Bld) [Vol rate/Area] 63 >=60 mL/min/1.73m 2 [facility] Comment on above: Reported eGFR is bas ed on the CKD-EPI 2020 equation using creatinine, age, and sex. Potassium [Moles/Vol] 4.0 mmol/L 3.5 - 5.0 mmol/L [facility] Sodium [Moles/Vol] 140 mmol/L 135 - 145 mmol/L [facility] Urea nitrogen [Mass/Vol] 10 mg/dL 7 - 25 mg/dL [facility] Urea nitrogen/Creatinine [Mass ratio] 9 mg/mg [facility] Progress Noteson 08-05-2022 Principal Developer Authentication Interface Message Text Spoke to Kari @ [employer], she will call back when she gets to her office to schedule patient's OR visit----- Friday, August 05, 2022 at 11:13:45 AM ----- ----- Provider: Edelmira Bella Specialist -- Clinic: [place] ----- Normal [facility] Progress Noteson 08-25-2021 Principal Developer Authentication Interface Message Text Pt is special [...] of 2019. LG is mom: Camille Mcintosh [phone] Call the [facility] for [phone] ext: [phone] Tx request sent. 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 [facility] [place]: OR ----- Signed on Wednesday, August 25, 2021 at 9:36:43 AM ----- ----- Provider: Rogelio Ryan DDS -- Clinic: [place] ----- Normal [facility] Vital Signs Date Time Vital Sign Value Performing Clinician Facility 02-02-2024 11:15-0500 Body height 147.3 cm [facility] 02-02-2024 11:15-0500 Body mass index (BMI) [Ratio] 25.08 kg/m2 [facility] 02-02-2024 11:15-0500 Body weight 54.43 kg [facility] 02-02-2024 11:15-0500 Diastolic blood pressure 78 mm[Hg] [facility] 02-02-2024 11:15-0500 Systolic blood pressure 110 mm[Hg] [facility] 08-26-2022 15:30-0400 Body temperature 97.5 [degF] Pastor Suarez DDS Work Phone: [facility] 08-26-2022 15:30-0400 Diastolic blood pressure 57 mm[Hg] Pastor Beetstra DDS Work Phone: [facility] 08-26-2022 15:30-0400 Heart rate 101 /min Pastor Beetstra DDS Work Phone: [facility] 08-26-2022 15:30-0400 Respiratory rate 16 /min Pastor Beetstra DDS Work Phone: [facility] 08-26-2022 15:30-0400 SaO2% (BldA) [Mass fraction] 99 % Pastor Beetstra DDS Work Phone: [facility] 08-26-2022 15:30-0400 Systolic blood pressure 107 mm[Hg] Pastor Beetstra DDS Work Phone: [facility] 08-26-2022 12:00-0400 Body height 160 cm Pastor Beetstra DDS Work Phone: [facility] 08-26-2022 12:00-0400 Body mass index (BMI) [Ratio] 21.43 kg/m2 Pastor Beetstra DDS Work Phone: [facility] 08-26-2022 12:00-0400 Body weight 54.88 kg Pastor Beetstra DDS Work Phone: [facility] 08-17-2022 10:00-0400 Body height 160 cm Prasanth Reyes PA-C Work Phone: [facility] 08-17-2022 10:00-0400 Body mass index (BMI) [Ratio] 21.79 kg/m2 Prasanth Reyes PA-C Work Phone: [facility] 08-17-2022 10:00-0400 Body temperature 97.39 [degF] Prasanth Reyes PA-C Work Phone: [facility] 08-17-2022 10:00-0400 Body weight 55.79 kg Prasanth Reyes PA-C Work Phone: [facility] 08-17-2022 10:00-0400 Diastolic blood pressure 64 mm[Hg] Prasanth Reyes PA-C Work Phone: [facility] 08-17-2022 10:00-0400 Heart rate 69 /min Prasanth Reyes PA-C Work Phone: [facility] 08-17-2022 10:00-0400 Respiratory rate 18 /min Prasanth Reyes PA-C Work Phone: [facility] 08-17-2022 10:00-0400 SaO2% (BldA) [Mass fraction] 97 % Prasanth Reyes PA-C Work Phone: [facility] 08-17-2022 10:00-0400 Systolic blood pressure 98 mm[Hg] Prasanth Reyes PA-C Work Phone: [facility] Encounters Encounter Date Encounter Type Care Provider Facility Start: 12-27-2024 End: 12-27-2024 ambulatory KATIUSKA GANDHI [facility] Start: 09-20-2024 End: 09-20-2024 Bamboo flowsheet Sreedhar [...] toe(s) Start: 09-20-2024 End: 09-20-2024 ambulatory SREEDHAR RANGEL Not Available Start: 08-28-2024 End: 08-28-2024 Bamboo flowsheet Medhat Rangel DPM FACFAS Work Phone: [facility] Start: 08-28-2024 End: 08-28-2024 Bamboo flowsheet Medhat Rangel DPM FACFAS Work Phone: [facility] Start: 08-28-2024 End: 08-28-2024 ambulatory MEDHAT RANGEL Not Available Start: 08-28-2024 End: 08-28-2024 Office outpatient new 30 minutes Medhat Rangel DPM FACFAS Work Phone: [facility] Comment on above: Onychocryptosis (Archana clayton Dx); Pain in left toe(s); Cellulitis of left toe; Abscess, toe, left Start: 07-06-2024 End: 07-09-2024 Telephone encounter Analy Taylor RN [facility] Start: 03-21-2024 End: 03-21-2024 Lab Drop off ROBIN VAUGHAN [facility] Start: 03-21-2024 End: 03-22-2024 ambulatory ROBIN VAUGHAN Facility:[facility] Start: 02-02-2024 End: 02-02-2024 Patient encounter procedure [facility] Ob Machine Loader [facility] Comment on above: Encounter for screen ing breast examination (Primary Dx); Surveillance of previously prescribed contraceptive pill Start: 02-01-2024 End: 02-02-2024 ambulatory ROBIN VAUGHAN Facility:[facility] Start: 02-01-2024 End: 02-01-2024 Patient encounter procedure ROBIN VAUGHAN [facility] Start: 11-30-2023 End: 12-01-2023 ambulatory ROBIN VAUGHAN Facility:[facility] Start: 10-12-2023 End: 10-13-2023 ambulatory ROBIN VAUGHAN Facility:[facility] Start: 10-12-2023 End: 10-12-2023 Lab Drop off ROBIN VAUGHAN [facility] Start: 08-17-2023 End: 08-18-2023 ambulatory ROBIN VAUGHAN Facility:[facility] Start: 08-17-2023 End: 08-17-2023 Lab Drop off ROBIN VAUGHAN [facility] Start: 02-17-2023 End: 02-18-[address] ROBIN VAUGHAN Facility:[facility] Start: 02-02-2023 End: 02-03-[address] ROBIN VAUGHAN Facility:[facility] Start: 12-14-2022 End: 12-15-[address] ROBIN VAUGHAN Facility:[facility] Start: 10-13-2022 End: 10-13-[address] ROBIN VAUGHAN Facility:[facility] Start: 10-12-2022 End: 10-13-[address] ROBIN VAUGHAN Facility: Start: 08-26-2022 End: 08-26-2022 ambulatory GERONIMO LANGLEY Facility:[facility] Start: 08-26-2022 End: 08-26-2022 Subsequent hospital visit by physician Pastor Suarez DDS Work Phone: LISA Comment on above: Periodontal disease Start: 08-17-2022 ambulatory PRASANTH REYES Facility:[facility] Start: 08-17-2022 Encounter for other preprocedural examination PRASANTH REYES Facility:[facility] Start: 08-17-2022 End: 08-17-2022 Office consultation new/estab patient 40 min Prasanth Reyes PA-C Work Phone: Pre-Procedure Evaluation and Assessment [facility] Comment on above: Preop exam for inter nal medicine (Primary Dx); Periodontal disease; Developmental delay; Hypothyroidism, unspecified type Start: 08-17-2022 End: 08-17-2022 Patient encounter status Prasanth Reyes PA-C Work Phone: Pre-Procedure Evaluation and [facility] Start: 08-05-2022 ambulatory ALEX RYAN Facilit y:[facility] Start: 08-04-2022 Admission to same da y surgery center Leonela Price DDS Work Phone: [facility] Start: 08-25-2021 End: 08-26-2021 ambulatory UNKNOWN PROVIDER Facility:[facility] Procedures Date Procedure Procedure Detail Performing Clinician Start: 02-02-2024 Microscopic observat ion [Identifier] in Cervix by Cyto stain [employer] Start: 08-26-2022 CARDIAC RHYTHM Other Ot her [...] 2) Shingles (RZV) Vaccine (1 of 2) [facility] Start: 02-01-2027 Screening for malign ant neoplasm of cervix Pap Smear [facility] Start: 02-01-2025 Adult BMI Screening Adult BMI Screen ing [facility] Start: 02-01-2025 Tobacco Screening Tobacco Screening [facility] Start: 09-20-2024 End: 09-20-2024 Patient encounter procedure 09/20/2024 1:00 PM EDT Office Visit [facility] [address] [place] [id number] Sreedhar Rangel, DPM FACFAS [address] [place] [address] Arrived [facility] Comment on above: Arrived Start: 07-29-2024 Influenza vaccination [facility] Start: 08-17-2023 Potassium [Moles/vol ume] in Serum or Plasma POTASSIUM [facility] Start: 07-29-2023 COVID-19 Vaccine () COVID-19 Vaccine () [facility] Start: 07-29-2023 Influenza vaccination Influenza Vacc ine [facility] Start: 08-28-2022 Influenza vaccination Influenza Vacc ine (#1) [facility] Start: 08-26-2022 End: 08-26-2022 Admission to same day surgery center 08/26/2022 Surgery Multispecialty Pastor Suarez DDS [address] [place] [address] FULL MOUTH REHABILITATION PERIOP Comment on above: FULL MOUTH REHABILIT ATION Start: 08-26-2022 Subsequent hospital visit by physician 08/26/2022 Hospital Encounter Multispecialty Pastor Suarez DDS [address] [place] [address] Periodontal disease LISA Comment on above: Periodontal disease Start: 08-26-2022 End: 08-26-2022 Unlisted procedure dentoalveolar structures FULL MOUTH REHABILITATION Periodontal disease Dental caries 08/26/2022 1:35 PM EDT [facility] Start: 08-26-2022 End: 08-26-2022 Patient encounter procedure 08/26/2022 Appointment Multispecialty PERIOP Start: 07-29-2022 Influenza vaccination INFLUENZA VACC INE (#1) [facility] Start: 05-29-2021 COVID-19 Vaccine (3 - Booster for Pfizer series) COVID-19 Vaccine (3 - Booster for Pfizer series) [facility] Start: 02-24-2021 COVID-19 VACCINE (3 - Booster for Pfizer series) COVID-19 VACCINE (3 - Booster for Pfizer series) [facility] Start: 07-17-2019 DTaP,Tdap and Td Vaccines (2 - Td or Tdap) DTaP,Tdap and Td Vaccines (2 - Td or Tdap) [facility] Start: 07-17-2019 Tetanus vaccination Tetanus (T d or Tdap) Booster [facility] Start: 02-22-2018 Screening for malign ant neoplasm of cervix [facility] Start: 03-28-2009 Screening for malign ant neoplasm of cervix [facility] Start: 01-26-2009 Annual wellness visit Annual W ellness Visit (G0438) [facility] Start: 02-22-2007 Third diphtheria, tetanus and acellular pertussis (DTaP) vaccination TDAP (ADULT) [facility] Start: 02-22-2006 Adult BMI Follow Up Plan Adult BMI F ollow Up Plan [facility] Start: 02-22-2006 Hepatitis C screening Hepatitis C An tibody [facility] Start: 02-22-2006 Tetanus vaccination TETANUS [facility] Start: 02-22-2003 HIV screening [facility] Start: 2000 Depression Screening Depression Scre ening [facility] Start: 1988 Hepatitis C antibody , confirmatory test HEPATITIS C VIRUS SCREENING [facility] Start: 1988 Thyroid stimulating hormone measurement TSH [facility] DENTAL RESTORATIONS DENTAL RADHA RATIONS Routine scheduled Caries [facility] Noninvasive ear/puls e oximetry single deter WA NONINVASV OXYGEN SATUR; SINGLE WA - OFFICE PERFORMED Routine Preop exam for internal medicine Periodontal disease Developmental delay Hypothyroidism, unspecified type Ordered: 08/17/2022 [facility] Comment on above: Ordered: 08/17/2022 Immunizations Immunization Date Immunization Notes Care Provider Scarlett woo 12-30-2020 Pfizer (12+ yrs) BREE S-COV-2 (COVID-19) vaccine, mRNA, spike protein, LNP, pres. free, 30 mcg/0.3mL dose (KOR=792) Leonela Lica DDS Work Phone: [facility] 12-09-2020 Pfizer (12+ yrs) BREE S-COV-2 (COVID-19) vaccine, mRNA, spike protein, LNP, pres. free, 30 mcg/0.3mL dose (TRB=367) Leonela Lica DDS Work Phone: [facility] 09-03-2020 influenza, injectabl e, quadrivalent, preservative free Leonela Lica DDS Work Phone: [facility] 09-03-2020 influenza virus vacc ine, unspecified formulation Leonela Lica DDS Work Phone: [facility] 07-17-2009 tetanus toxoid, redu magnus diphtheria toxoid, and acellular pertussis vaccine, adsorbed Leonela Dontaa DDS Work Phone: [facility] Payers Date Payer Category Payer Medicaid [id number] 2008 Medicare [id number] 1988 Unknown [id number] 2.16. [id number] 1988 Unknown [id number] 2.16. 840.1.003031.3.579.2.732 1988 Unknown [id number] 2.16. 840.1.362763.3.579.2.594 1988 Unknown [id number] 2.16. 840.1.537453.3.579.2.594 1988 Unknown [id number] 2.16. 840.1.734498.3.579.2.594 1988 Unknown [id number] 2.16.8 40.1.956221.3.579.2.727 1988 Unknown [id number] 2.16.8 40.1.857308.3.579.2.727 1988 Unknown [id number] 2.16.8 40.1.898228.3.579.2.727 1988 Unknown [id number] 2.16.8 40.1.924393.3.579.2.727 1988 Unknown [id number] 2.16.8 40.1.506699.3.579.2.727 1988 Unknown [id number] 2.16.84 0.1.353530.3.579.2.1259 1988 Unknown [id number] 2.16.84 0.1.627976.3.579.2.1259 1959 Medicaid [id number] 1961 Medicare [id number] Unknown [id number] 2.16.84 0.1.561360.3.579.2.593 Unknown [id number] 2.16.84 0.1.341187.3.579.2.593 Unknown [id number] 2.16.84 0.1.904177.3.579.2.593 Unknown [id number] 2.16.84 0.1.975201.3.579.2.593 Unknown [id number] 2.16.84 0.1.698021.3.579.2.593 Social History Date Type Detail Facility Tobacco smoking stat [facility] Tobacco smoking consumption unknown [facility] Work Phone: Start: 1990 [facility] Start: 08-26-2022 End: 02-02-2024 Tobacco smoking status [email or web address] Never smoked tobacco [facility] Start: 08-26-2022 End: 02-02-2024 Tobacco use and exposure Smokeless tobacco non-user [facility] Start: 08-26-2022 End: 02-02-2024 Alcohol intake Lifetime non-drinker (finding) [facility] Tobacco smoking status No Smokin g Status Entered [facility] Start: 05-09-2019 End: 02-02-2024 Sex Assigned At Female [facility] Start: 05-09-2019 End: 02-02-2024 [facility] of [facility] Clinical Notes 08-17-2022 to 12-27-2024 Sreedhar Rangel DPM FACFAS - 09/20/2024 1:00 PM EDShayy Rangel DPM FACRAFIQ - 08/28/2024 9:20 AM EDTTelephone Encounter - Analy Taylor RN - 07/06/2024 1:51 PM EDTPatient Instructions Note Date & Type Note Facility 12-27-2024 Note Attestation signed by Katiuska Gandhi at 12/27/2024 12:39 PM By using the attestations below, the [...] be an additional personal documentation from me. Additional Comments: Subjective Patient ID: Tiffany Mcintosh is a 34 y.o. female who presents for Follow-up. Interval history: Last visit 10/2023, patient was recommended to continue same doses of DDAVP. Levothyroxine was increased to 75 mcg daily. She is taking Desmopressin 0.3 mg in the morning, 0.2 mg afternoon, 0.4 mg at night. She is able to state that she is thirsty, drinking fluids about once per hour. Her urination frequency is unchanged compared to last visit. Overall she is doing well. Patients caregivers request DDAVP afternoon dose to be moved. Background history: Ms. Mcintosh was referred to the endocrinology clinic in 2017 for evaluation and management of diabetes insipidus. [...] decreasing the number of wet diapers at night. ROS: Unable to obtain from the patient due to verbal insufficiency Objective Visit Vitals BP 103/71 (BP Location: Left arm, Patient Position: Sitting, BP Cuff Size: Adult) Pulse 88 Physical Exam Constitutional: Appearance: She is not [...] alert. Psychiatric: Comments: Unable to asses Labs: 11/2024: Na 144 Normal TSH (to be uploaded in media section) 09/2024: Na 144 10/14/2023 Sodium 141, TSH 6.47, free T41.41, [...] hyper or hypovolemia on physical examination - We will change to BID dosing of desmopressin per request: 0.4 mg in the AM and 0.5 pm at night - Repeat BMP prior to next visit 2. Hypothyroidism, unspecified type Thyroid hormone status: [x] Euthyroid (appropriately replaced) [] Hypothyroid (under-replaced) [] Thyrotoxic (over-replaced) [] Unclear (to be determined) Levothyroxine dosage adjustment: [Continue] [ 75 ]mcg/day. Instruction to patient [] Patient' mother was made aware of medication [...] raise the target serum TSH to 4-6?mIU/L. [ (more content not included)... [facility] 09-20-2024 History of Present illness Narrative Images from the original note were not included. Patient: Tiffany Mcintosh : 1990 PCP: Robin Vaughan MD SUBJECTIVE This is a 34 y.o. 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 ([facility]) 01/15/2016 Mental developmental delay 01/08/2016 Thrombocytopenia ([facility] 01/08/2016 Medications: No current outpatient medications on [...] 10 ALFONSO Villeda documented in this encounter [facility] 08-28-2024 History of Present illness Narrative [...] Date Anxiety 10/11/2018 Attention deficit hyperactivity disorder ([facility]) 10/11/2018 Bipolar disorder ([facility]) 10/11/2018 Developmental disorder 08/28/2024 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 Vibratory [...] reassessment. ALFONSO Marino documented in this encounter [facility] 07-06-2024 Miscellaneous Notes Judy Serna Nurse from [facility] called requesting a clarification fax be sent to them at [phone] for the patient's medication Aviane. The patient is currently taking the Aviane daily and skipping her placebo weeks on week 1 and week 2. She then will take the placebo week on week 3. They are requesting a letter stating that the patient can continue taking the medication as above. Please Advise. MOIZ Hidalgo, RN That is colin Letter printed for the patient and was faxed to [facility]. MOIZ Hidalgo, RN documented in this encounter [facility] 07-06-2024 Telephone encounter Note Judy Serna, Nurse from [facility] called requesting a clarification fax be sent to them at [phone] for the patient's medication Aviane. The patient is currently taking the Aviane daily and skipping her placebo weeks on week 1 and week 2. She then will take the placebo week on week 3. They are requesting a letter stating that the patient can continue taking the medication as above. Please Advise. MOIZ Hidalgo, RN [facility] 07-06-2024 Telephone encounter Note That is colin [facility] 07-06-2024 Telephone encounter Note Letter printed for the patient and was faxed to [facility]. MOIZ Hidalgo, RN [facility] 03-21-2024 Evaluation + Plan note Diagnostic Tests PendingAcute Hepatitis A B C Panel 03/21/24 [facility] 02-02-2024 History of Present illness Narrative [...] APRN-CNP 02/02/24 1525 documented in this encounter [facility] 08-26-2022 Note Formatting of this n [...] in care of mother while waiting for residential advisor by this RN. [facility] 08-26-2022 Miscellaneous Notes 1530: Pt [...] in care of mother while waiting for residential advisor by this RN. Current Facility-Administered Medications: chlorhexidine (PERIDEX) 0.12 % oral solution, , , PRN, Pasotr Suarez DDS, 15 mL at 08/26/22 1358 [...] mouth scaling was performed with an ultrasonic equipment oiler. Teeth were polished with prophy paste and [...] clinic prn and with the [facility] dental clinic for regular exams. EBL (estimated blood loss): minimal TRF (total fluid replacement): 500 mL Lactated Ringers TABBY Guzman DDS, MSHA Tiffany Anupama Mcintosh ([id number]) PRE OPERATIVE DIAGNOSIS Periodontal disease [K05.6] Dental caries [K02.9] POST OPERATIVE DIAGNOSIS Post-Op Diagnosis Codes: * Periodontal disease [K05.6] * Dental caries [K02.9] PROCEDURE PERFORMED Procedure(s) (LRB): FULL MOUTH REHABILITATION (N/A) PRIMARY CLOSURE Yes INTRAOPERATIVE FINDINGS No significant abnormalities SURGEON Surgeon(s) and Role: * Pastor Suarez DDS - Primary ANESTHESIOLOGIST Anesthesiologist: Katiuska Aguirre DO Machine Setter Sheet Metal Assisting: Juan Dozier DDS SURGICAL STAFF Self Defense Instructor: Maria Del Rosario Scanlon RN Scrub Person: Jimmy Neri Resident Assisting: Rosa Siddiqui DDS COMPLICATIONS None ESTIMATED BLOOD LOSS minimal SPECIMENS No specimen sent * No specimens in log * Pastor Suarez DDS August 26, 2022 2:47 PM documented in this encounter [facility] 08-26-2022 Note Formatting of this n ote [...] as her medical diagnoses of developmental delay, Ms.Seeberger requires dental treatment in an OR setting [...] mouth scaling was performed with an ultrasonic equipment oiler. Teeth were polished with prophy paste and [...] clinic prn and with the [facility] dental clinic for regular exams. EBL (estimated blood loss): minimal TRF (total fluid replacement): 500 mL Lactated Ringers TABBY Guzman DDS, [facility] Work Phone: 08-26-2022 Note Formatting of this n ote might be different from the original. Tiffany Mcintosh ([id number]) PRE OPERATIVE DIAGNOSIS Periodontal disease [K05.6] Dental caries [K02.9] POST OPERATIVE DIAGNOSIS Post-Op Diagnosis Codes: * Periodontal disease [K05.6] * Dental caries [K02.9] PROCEDURE PERFORMED Procedure(s) (LRB): FULL MOUTH REHABILITATION (N/A) PRIMARY CLOSURE Yes INTRAOPERATIVE FINDINGS No significant abnormalities SURGEON Surgeon(s) and Role: * Pastor Suarez DDS - Primary ANESTHESIOLOGIST Anesthesiologist: Katiuska Aguirre DO Machine Setter Sheet Metal Assisting: Juan Kunzler, DDS SURGICAL STAFF Self Defense Instructor: Maria Del Rosario Scanlon RN Scrub Person: Jimmy Neri Resident Assisting: Rosa Siddiqui DDS COMPLICATIONS None ESTIMATED BLOOD LOSS minimal SPECIMENS No specimen sent * No specimens in log * Pastor Suarez DDS August 26, 2022 2:47 PM [facility] 08-26-2022 Nurse Surgical operation note Pt came to OR with toy ball. Ball taken with pt to PACU. [facility] 08-26-2022 Nurse Note Pt came to OR with toy ball. Ball taken with pt to PACU. documented in this encounter [facility] 08-26-2022 History and physical note [...] surgery at this time. Hubert Ledbetter DO [facility] Work Phone: 08-26-2022 History and [...] Hubert Ledbetter DO documented in this encounter [facility] 08-17-2022 History and physical note [...] patient has been medically OPTIMIZED FOR SURGERY. [facility] Per[facility]operative [facility] [address] [facility] Review [...] Social History Socioeconomic History Marital status: [facility] History and physical note Images from the original note were not included. History of Present Illness Ms. Mcintosh is a 32 y.o. female is being evaluated in [facility] due to her medical condition of [...] patient has been medically OPTIMIZED FOR SURGERY. [facility]ioperative Clinic The [place] [address] [facility] Review of [...] History: Diagnosis Date Constipation Hypothyroidism Kidney failure 2015? Seizure No past surgical history on file. Patient Care Team: Robin Vaughan DO as PCP - General (Family Medicine) History reviewed. No pertinent family history. Social History Socioeconomic History Marital status: Single [facility] 08-[facility] History of Present illness Narrative 32 YO F for Full mouth rehabilitation with Dr. Suarez Developmental Delay Hypothyroid HTN Prior anesthetic with grade 1 view with mac 3 Prior ketamine IM though has had more recent anesthetics and tolerated IV well Arun Montes MD Stripping Shovel Operator Anesthesiology / Pain Management [facility] Addendum 08/18/22: Family called an notified [facility] [...] medication issue. documented in this encounter [facility] 08-17-2022 Instructions Opal Sparks RN [...] take Herbal Medication (including multi-vitamin, fish oil ([place]-3), garlic, Glucosamine - Chondroitin ,gingko, ginseng, Vitamin [...] site one week prior to surgery. - [place] your teeth and rinse your mouth the morning of surgery. - Do NOT bring your dentures or partials with you into surgery. They may be lost. Give them to someone to bring to you after surgery. If you are unable to complete your scheduled testing or appointments made by [facility] please contact [facility] at [phone]. Failure to do so could delay or [...] surgery, please notify our team immediately at [phone]. - If you have Sleep apnea and have a CPAP or BIPAP, then bring your CPAP mask and machine with you to the hospital. Also, if you have been ordered a chest x-ray, please report to the Imaging Department on to first floor (to the right of the [employer]ILIAN on the first floor) prior to leaving the building. Please contact Medical Information Management Department for all records requests. [phone] [phone] JOSH/ALBERT documented in this encounter [facility] Evaluation + Plan note No data available for this section [facility] Evaluation note Diagnosis Caries- Primary Unspecified dental caries [facility] Preop exam for internal medicine- Primary Other specified pre-operative examination Periodontal disease Unspecified gingival and periodontal disease Developmental delay Unspecified delay in development Hypothyroidism, unspecified type Periodontal disease Unspecified gingival and periodontal disease Dental caries Unspecified dental caries [facility] Diagnosis Encounter for screening breast examination- Primary Surveillance of previously prescribed contraceptive pill [facility] Diagnosis Onychocryptosis- Primary Ingrowing nail Pain in left toe(s) Cellulitis of left toe Abscess, toe, left documented in this encounter [facility]* Diagnosis Onychocryptosis- Primary Ingrowing nail Abscess, toe, left Tinea unguium Dermatophytosis of nail Pain in left toe(s) Pain in right toe(s) documented in this encounter [facility] Discharge instructions* Attachments The following attachments cannot be sent through Care Everywhere. * Dental Surgery: Generic: Post-op (Togolese) [facility] No data available for this section [facility] Attachments The following attachments cannot be sent through Care Everywhere. * Ethinyl Estradiol and Levonorgestrel, ADULT (Togolese) * Cervical cancer screening tests (Togolese) [facility]ructionsNot on file documented in [facility] note No data available for this section [facility] Narrative* Auth/Cert Specialty Diagnoses / Procedures Referred By Contac t Referred To Contact Diagnoses Periodontal disease Dental caries Periodontal disease [K05.6] Dental caries [K02.9] Procedures [place] DENTAL SURGERY PROCEDURE FULL MOUTH REHABILITATION [facility] [address] [place] [address] [facility] [address] [place] [address] Referral ID Status Reason Start Date Expiration Date Visits Re quested Visits Authorized [id number] 1 1 [facility] Summary Purpose Family History No Family History Records FoundNo Family History Records FoundNo Family History Records Found No data available for this section No data available for this section No data available for this section No Family History Records FoundNo Family History Records FoundNo Family History Records Found Advance Directives No Advanced Directives Records FoundDocuments on File Type Date Recorded Patient Saw Cleaner Expl anation DNR Physician Order 02/02/2024 11:17 AM DNR CC Reason for Referral Specialty Diagnoses / Procedures Referred By Contac t Referred To Contact Procedures LOW RISK - NO PHARMACOLOGICAL DVT PROPHYLAXIS Pastor Suarez DDS [employer] [address] [place] [address] Referral ID Status Reason Start Date Expiration Date V isits Requested Visits Authorized [id number] New Request 08/26/2022 09/20/2023 1 1 Specialty Diagnoses / Procedures Referred By Contac t Referred To Contact Procedures DVT/VTE RISK ASSESSMENT Pastor Suarez DDS [address] [place] [address] Referral ID Status Reason Start Date Expiration Date V isits Requested Visits Authorized [id number] New Request 08/26/2022 09/20/2023 1 1 Additional Source Comments INFORMATION SOURCE (unrecogn ized section and content) DATE CREATED AUTHOR 08/07/2022 [facility] DATE CREATED AUTHOR AUTHOR'S ORGANIZ ATION 08/29/2022 [facility] DATE CREATED AUTHOR AUTHOR'S ORGANIZ ATION 03/05/2023 [facility] DATE CREATED AUTHOR AUTHOR'S ORGANIZ ATION 03/23/2024 Keene Jaciel [facility] ical [facility] DATE CREATED AUTHOR AUTHOR'S ORGANIZ ATION 09/22/2024 [facility] EPIC DATE CREATED AUTHOR AUTHOR'S ORGANIZ ATION 12/31/2024 [facility] Reason for Visit (unrecogniz ed section and content) Reason Comments Preoperative Assessment Specialty Diagnoses / Procedures Referred By Herson terrazas Referred To Contact PreOp Diagnoses Periodontal disease Dental caries Pastor Suarez, DDS [address] [place] [id number] [facility] [address] [place] [address] Referral ID Status Reason Start Date Expiration Date V isits Requested Visits Authorized [id number] Pending Review 06/24/2022 07/19/2023 1 1 Reason Comments Gynecologic Exam Pt is here for breas t exam. Reason Comments Toenail Care Non DM nail care Care Teams (unrecognized sec tion and content) Gas Generator Operator Relationship Specialty Start Date End Date Robin Vaughan DO [address] [place] [address] PCP - General Family Medicine 08/17/22 Gas Generator Operator Relationship Specialty Start Date End Date Robin Vaughan DO [address] [place] [address] PCP - General Family Medicine 08/17/22 Gas Generator Operator Relationship Specialty Start Date End Date Robin Vaughan MD [address] [place] [address] PCP - General Family Medicine 08/28/24 Gas Generator Operator Relationship Specialty Start Date End Date Robin Vaughan MD [address] [place] [address] PCP - General Family [facility] 08/28/24 Gas Generator Operator Relationship Specialty Start Date End Date Robin Vaughan MD [facility] [address] [place] [address] PCP - General Family Medicine 08/28/24 Continuous [...] BE BASED ON THE PRIMARY CLINICAL RECORDS. [facility] [employer] [facility]. provides no warranty or guarantee of the accuracy or completeness of information in this document.
[2025-01-08 10:25] LABS: Valproic Acid 71.1 ug/mL (50.0-100.0)
== END 2025-01-08 06:37 | disposition home or self-care (01) ==
LOC: LAB 06:36
PROVIDERS: PCP Family Medicine; Visit Provider Family Medicine
DX: F31.9 Bipolar disorder, unspecified (principal); Z79.899 Other long term (current) drug therapy
CPT/HCPCS: 36415; 80164

== ENCOUNTER 2025-10-08 06:49 | Outpatient (OUT) | payer MEDICARE, MEDICAID, SELFPAY ==
--- OUTSIDE RECORDS SUMMARY | 2025-10-08 06:51 | XMS_ITS | CCD ---
Author Organization [facility] Care Team Providers Care Insurance Actuary Name Role Phone Unavailable Primary Care Provider Unavailabl e NGHIA RYANTH Admitting Unavailable AL ALEX PETERSON Attending Unavailable [...] Consulting Unavailable ROBIN VAUGHAN Primary Care Physician ROBIN VAUGHAN Admitting Unavailable VAUGHAN, ROBIN Attending Unavailable VAUGHAN, ROBIN Attending Unavailable VAUGHAN, ROBIN Admitting Unavailable VAUGHAN, ROBIN Attending Unavailable VAUGHAN, ROBIN Admitting Unavailable VAUGHAN, ROBIN Referring Unavailable VAUGHAN, ROBIN Admitting Unavailable ROBIN VAUGHAN Attending Unavailable ROBIN VAUGHAN Attending Unavailable ROBIN VAUGHAN Admitting Unavailable Unavailable Primary Care Provider Robin Spivey MD A Primary Care Provider [phone] KATIUSKA GANDHI Attending Unavailable Unavailable Primary Care Provider Robin Spivey MD Primary Care Provider [phone] JOSE LORENZO Attending Unavailable JOSE LORENZO Referring Unavailable ROBIN VAUGHAN Primary Care Unavailable Robin Vaughan MD Primary Care Provider MEDHAT RANGEL Attending Unavailable MEDHAT RANGEL Attending Unavailable MEDHAT RANGEL Attending Unavailable MEDHAT RANGEL Attending Unavailable Allergies Allergy ClassificationReported Allergen(s)Allergy TypeDate of OnsetReaction(s) Facility (20 sources)Amoxicillin / Clavulanate; Translations: [AMOXICILLIN-POT CLAVULANATE]Drug Thtiggp33-93-0580ZzksdynxTezdkJswyqa (17 sources)loracarbef; Translations: [LORACARBEF]Drug Ncwaxex41-50-5613 [facility] (4 sources)loracarbefDrug Nzwzdcs93-71-5120[facility] ([facility])Amoxicillin / ClavulanateDrug Enzxwtv11-67-5734Rrq [facility] (1 source)loracarbefDrug Owulfqo69-71-7938Nsm [facility] (20 sources)Penicillins; Translations: [penicillins]Drug ffhonfh51-93-9577 [facility] Medications Current Medications MedicationDrug Class(es)DatesSig (Normalized)Sig (Original)bacillus coagulans [id number] unt / lactobacillus acidophilus [id number] unt oral tablet (14 sources)take 1 tablet by mouth once dailyLactobacillus (Acidophilus/L- Sporogenes) tablet Acidophilus Ex Str (L. sporog) 35 million-25 million cell tablet TAKE ONE TABLET BY MOUTH ONCE DAILY Activebetamethasone 0.5 mg/ml / clotrimazole 10 mg/ml topical lotion (2 sources)Azole Antifungal, CorticosteroidStart: 09-20-2024 End: 74-32-6610sczvjjgwptha-betamethasone (Lotrisone) lotion Indications: Tinea Pedis Apply topically 2 (two) times a day Apply To Affected Area Twice per Day 30 mL 1 09/20/2024 10/20/2024 Activebifidobacterium animalis [id number] unt / lactobacillus acidophilus [id number] unt oral capsule (1 source)Probiotic Product (ACIDOPHILUS HIGH-POTENCY) CAPS Take by mouth. 0 Activebisacodyl 10 mg rectal suppository (2 sources)Stimulant Laxativebisacodyl (DULCOLAX) [address] 1 suppository rectally daily ActivebusPIRone hydrochloride 15 mg oral tablet (20 sources)take 1 tablet by mouth three times dailybusPIRone (Buspar) 15 MG tablet TAKE ONE TABLET BY MOUTH 3 TIMES DAILY BUSPAR Activetake 2 tablets by mouth three times dailybusPIRone (BUSPAR) 15 MG tablet Take 30 mg by mouth 3 times daily Activetake 1.5 tablets by mouth three times dailybusPIRone (BUSPAR) 10 mg tablet Take 1.5 tablets (15 mg total) by mouth 3 (three) times a day. Activetake 20 mg by mouth three times dailyBUSPIRONE HCL PO Take 20 mg by mouth 3 times daily. 0 Activetake 1 tablet by mouth twice dailybusPIRone (BUSPAR) 10 MG tablet Take 10 mg by mouth 2 times daily. 0 Activecalcium carbonate 500 mg chewable tablet (4 sources)take 2 tablets by mouth every four hours as needed for nauseacalcium carbonate (TUMS) 500 MG chewable tablet Take 2 tablets by mouth every 4 hours as needed (nausea or upset stomach) Activecalcium carbonate (TUMS) 200 mg elemental (500 mg) chewable tablet Chew 1 tablet (200 mg total) andswallow in the morning. Activechlorhexidine gluconate 40 mg/ml medicated liquid soap (3 sources)chlorhexidine (HIBICLENS) 4 % external liquid Apply 1 Application (1 mL total) topically daily as needed for wound care. Activetake 15 mL by mouth twice dailychlorhexidine 0.12 % Solution oral solution Take 15 mL by mouth 2 times daily. 0 ActiveclonazePAM 0.5 mg oral tablet (20 sources)BenzodiazepineStart: 45-83-1169frwt 1 tablet by mouth three times dailyclonazePAM (KLONOPIN) 0.5 MG tablet Take 1 tablet by mouth 3 times daily 60 tablet 3 01/22/2016 ActiveStart: 50-91-3212mreztajsxm Oral, TID, Refills(s) 0 Start Date: 05/21/11 Status: Orderedtake 1 tablet by mouth twice daily as needed clonazePAM (KlonoPIN) 0.5 mg tablet Take 1 tablet (0.5 mg total) by mouth 2 (two) times a day as needed for seizures. ActivecloNIDine (4 sources)Central alpha-2 Adrenergic AgonistStart: 48-14-9538lngrogwkc patch(es), Refills(s) 0 Start Date: 05/21/11 Status: Ordereddesmopressin acetate 0.1 mg oral tablet (20 sources)Vasopressin Analog, Factor VIII ActivatorStart: 75-03-0415mcmo 2 tablets by mouth three times dailydesmopressin (DDAVP) 0.1 MG tablet Take 2 tablets by mouth 3 times daily 30 tablet 3 09/02/2022 Activedesmopressin (DDAVP) 0.2 MG tablet TAKE 1 AND 12 TABLETS IN THE MORNING, 1 TABLET AT NOON AND 2 TABL ETS AT BEDTIME DDAVP Activetake 1 tablet by mouth twice dailydesmopressin (DDAVP) 0.2 MG tablet Take 0.2 mg by mouth 2 times daily. 0 Active Dextromethorphan / guaiFENesin (1 source)Uncompetitive M-rtntxi-B-aspartate Receptor Antagonist, Sigma-1 Agonisttake 400 mg by mouth twice daily as neededDextromethorphan-guaiFENesin (CHEST CONGESTION/COUGH RELIEF PO) Take 400 mg by mouth 2 times daily as needed. 0 Activedocusate sodium 100 mg oral capsule (4 sources)Start: 25-38-8515udrnaduu (COLACE, DULCOLAX) 100 MG CAPS Take 100 mg by mouth as needed 30 capsule 3 01/22/2016 ActiveDocusate Sodium (DOK) 100 MG tablet Take 100 mg by mouth As directed as needed for Constipation. 0 Active econazole nitrate 10 mg/ml topical cream (1 source)Azole AntifungalStart: 10-02-2025 End: 50-39-1793rzezwmcoq nitrate 1 % cream Indications: Tinea Pedis Apply topically Daily Apply to affected area daily 30 g 1 10/02/2025 11/01/2025 Active Ethinyl Estradiol / Levonorgestrel (19 sources)Progestin, Estrogen, Progestin-containing Intrauterine DeviceStart: 78-71-0250dqxc 1 tablet by mouth once in the morninglevonorgestreL-ethinyl estrad (AVIANE,ALESSE,LESSINA) 0.1-20 mg-mcg per tablet Indications: Surveill ance of previously prescribed contraceptive pill Take 1 tablet by mouth in the morning. Pt takes continuously . 84 tablet 4 02/02/2024 ActiveAviane 0.1-20 MG- MCG tablet TAKE 1 TABLET BY MOUTH DAILY. SKIP PLACEBO PILLS FOR PACK 1 AND 2, TAKEPLACEBO PILLS FOR PACK 3. Active End: 00-59-7635mttm 1 tablet by mouth once in the morninglevonorgestreL-ethinyl estrad (AVIANE,ALESSE,LESSINA) 0.1-20 mg-mcg per tablet Take 1 tablet by mouth in the morning. Pt takes continuously . 0 02/02/2024 Discontinued (Reorder) fluocinonide 0.5 mg/ml topical cream (1 source)Corticosteroidfluocinonide (LIDEX) 0.05 % cream Apply topically 2 times daily Apply topically 2 times daily. Activefolic acid 1 mg oral tablet (19 sources)take 1 tablet by mouth once dailyfolic acid (Folvite) 1 MG tablet Take 1 tablet by mouth Daily Activegabapentin (5 sources)Anti-epileptic AgentStart: 98-47-8991kitiylwyex Oral, Refills(s) 0 Start Date: 05/21/11 Status: Orderedtake 1 capsule by mouth three times daily gabapentin (NEURONTIN) 300 MG capsule Take 300 mg by mouth 3 times daily. 0 Atntcd73 hr guaiFENesin 600 mg extended release oral tablet (1 source)take 1 tablet by mouth twice dailyguaiFENesin (MUCINEX) 600 MG extended release tablet Take 1 tablet by mouth 2 times daily Active hydroCHLOROthiazide 25 mg oral tablet (18 sources)Thiazide Diuretictake 1 tablet by mouth once daily hydroCHLOROthiazide (HYDRODiuril) 25 MG tablet Take 1 tablet by mouth Daily ActiveLactobacillus (2 sources)Lactobacillus (ACIDOPHILUS EXTRA STRENGTH PO) Take by mouth daily ActiveLactobacillus (ACIDOPHILUS/BIFIDUS PO) Take by mouth. 0 Active Lactobacillus acidophilus (2 sources)Lactobacillus acidophilus (ACIDOPHILUS ORAL) Take by mouth. Active Lactobacillus acidophilus (ACIDOPHILUS ORAL) Take by mouth. 0 ActiveLactulose (4 sources)Osmotic LaxativeStart: 48-87-8874vdkzbepqq Oral, Daily, EA, Refills(s) 0 Start Date: 05/21/11 Status: OrderedLevonorgestrel-Ethinyl Estrad (AVIANE ORAL) (1 source)Levonorgestrel-Ethinyl Estrad (AVIANE ORAL) Take by mouth. 0 Active levothyroxine sodium 0.075 mg oral tablet (20 sources)l-ThyroxineStart: 11-02-2023 End: 81-20-9636eyuodofjhyupm (Synthroid, Levoxyl) 75 MCG tablet TAKE 12 TABLET BY MOUTH ONCE DAILY 11/02/2023 ActiveStart: 94-91-7295tlmtjbbtdikod Daily, Refills(s) 0 Start Date: 05/21/11 Status: OrderedLithium (4 sources)Start: 59-31-9822mwyrjiv Oral, Refills(s) 0 Start Date: 05/21/11 Status: Orderedloperamide hydrochloride 2 mg oral tablet (1 source)Opioid AgonistLoperamide HCl 2 MG tablet Take 2 mg by mouth As directed as needed. 0 Activeloratadine 10 mg oral tablet (18 sources)take 1 tablet by mouth once dailyloratadine (Claritin) 10 MG tablet Take 1 tablet by mouth Daily Activeloratadine (CLARITIN REDITABS) 10 mg disintegrating tablet Dissolve 1 tablet (10 mg total) on tongue in the morning. Activemelatonin 5 mg oral capsule (3 sources)melatonin (CIRCADIN) capsule Take by mouth. ActiveMelatonin 5 MG CAPS Take by mouth. 0 Activemetoprolol tartrate 50 mg oral tablet (20 sources)beta-Adrenergic BlockerStart: 77-65-6702qxne 1 tablet by mouth twice dailymetoprolol tartrate (LOPRESSOR) 50 MG tablet Indications: Moderate dehydration , Increased heart rate , Tachycardia , SOB (shortness of breath) , Bilateral leg edema Take 1 tablet by mouth 2 times daily 180 tablet 3 12/10/2024 ActiveStart: 24-15-9311vggahmpvdv tartrate (Lopressor) 25 MG tablet 09/13/2024 Activemetoprolol tartrate (LOPRESSOR) 100 mg tablet Take 25 mg by mouth in the morning. Activetake 1 tablet by mouth four times dailymetoprolol 100 MG tab regular release Take 100 mg by mouth 4 times daily. 0 Activemirtazapine 15 mg oral tablet (18 sources)take 1 tablet by mouth at bedtimemirtazapine (Remeron) 15 MG tablet Take 1 tablet by mouth at bedtime ActiveNasonex (4 sources)CorticosteroidStart: 22-20-1394Gcfvlht Nasal, Daily, Refill(s) 0 Start Date: 05/21/11 Status: Orderedmontelukast 10 mg oral tablet (20 sources)Leukotriene Receptor AntagonistStart: 29-98-5471ybgt 1 tablet by mouth once dailymontelukast (SINGULAIR) 10 MG tablet Take 1 tablet by mouth nightly 30 tablet 3 02/16/2016 ActiveStart: 88-58-7631Cjwhmvbcq qPM, Refills(s) 0 Start Date: 05/21/11 Status: Orderednaltrexone hydrochloride 50 mg oral tablet (20 sources)Opioid Antagonisttake 1 tablet by mouth twice dailynaltrexone (Depade) 50 MG tablet TAKE ONE TABLET BY MOUTH TWICE A DAY REVIA Activetake 0.5 tablet by mouth at bedtimenaltrexone (DEPADE) 50 MG tablet Indications: Moderate dehydration , Increased heart rate , Tachycardia , SOB (shortness of breath) , Bilateral leg edema Take 0.5 tablets by mouth in the morning and at bedtime Activetake 1 tablet by mouth once dailynaltrexone 50 MG tablet Take 50 mg by mouth daily. 0 ActiveZyprexa (4 sources)Atypical AntipsychoticStart: 92-60-6617Brsjthw Refills(s) 0 Start Date: 05/21/11 Status: Orderedondansetron 4 mg disintegrating oral tablet (4 sources)Serotonin-3 Receptor Antagonisttake 1 tablet by mouth every six hours as needed for nauseaondansetron (ZOFRAN-ODT) 4 MG disintegrating tablet Take 1 tablet by mouth every 6 hours as needed for Nausea or Vomiting Activetake 1 tablet by mouth every eight hours as needed for nausea and vomitingondansetron (ZOFRAN) 4 mg tablet Take 1 tablet (4 mg total) by mouth every 8 (eight) hours as needed for nausea or vomiting. ActivePotassium (1 source)Potassium (POTASSIMIN ORAL) Take by mouth. 0 Activepotassium chloride 2.67 meq/ml oral solution (17 sources)take 6 [oz_av] by mouth once dailypotassium chloride 40 MEQ/15ML (20%) solution TAKE 15ML BY MOUTH ONCE DAILY DILUTE IN 6 OZ OF WATER/JUICE PRIOR TO ADMINISTERING Activetake 15 mL by mouth once dailyPotassium Chloride 40 MEQ/15ML (20%) SOLN Take 15 mLs by mouth daily Activetake 20 mEq by mouth once daily in the morningpotassium chloride 20 MEQ/15ML (10%) Solution Take 20 mEq by mouth daily every morning. 0 ActiveSennosides (SENNA LAX PO) (1 source)Sennosides (SENNA LAX PO) Take by mouth 2 times daily Active sennosides, nursing home 8.6 mg oral tablet (3 sources)take 1 tablet by mouth in the morningsenna (SENOKOT) 8.6 mg tablet Take 1 tablet (8.6 mg total) by mouth in the morning. Activetake 2 tablets by mouth twice dailysenna 8.6 MG tablet Take 17.2 mg by mouth 2 times daily. 0 ActiveThioridazine (4 sources)PhenothiazineStart: 27-84-4325hasozfpyejqx Oral, TID, Refills(s) 0 Start Date: 05/21/11 Status: Orderedtolnaftate 10 mg/ml topical cream (1 source)tolnaftate (TINACTIN) 1 % cream Apply topically 2 times daily Apply topically 2 times daily. Activetriamcinolone acetonide 1 mg/ml topical cream (1 source)Corticosteroidtriamcinolone (KENALOG) 0.1 % cream Apply topically 2 times daily Apply topically 2 times daily. Activedivalproex sodium 125 mg delayed release oral capsule (17 sources)Mood Stabilizer, Anti-epileptic Agenttake 1 capsule by mouth in the morningdivalproex sprinkle (Depakote Sprinkle) [address] capsule Take 125 mg by mouth in the morning and 125 mg in the evening. Activetake 8 tablets by mouth twice daily, then take 8 tablets by mouth twice dailydivalproex (DEPAKOTE) [address] tablet Take 8 tablets by mouth 2 times daily 8 tablets BID Active Completed/Discontinued Medications MedicationDrug Class(es)DatesSig (Normalized)Sig (Original)acetaminophen 325 mg oral tablet (5 sources)Start: 08-26-2022 End: 21-78-7327defc 1 tablet by mouth every four hours as neededacetaminophen (TYLENOL) tablet 650 mgtake 2 tablets by mouth every four hours as needed for painacetaminophen (TYLENOL) 325 MG tablet Take 2 tablets by mouth every 4 hours as needed for Pain Activetake 325 mg rectal route every four hours as needed for painacetaminophen (TYLENOL) 325 mg suppository Insert 1 suppository (325 mg total) into the rectum every 4 (four) hours as needed for pain. Activetake 1 tablet by mouth every four hours as neededacetaminophen 325 MG tablet Take 325 mg by mouth every 4 hours as needed for Mild Pain. 0 Activecalcium chloride 0.0014 meq/ml / potassium chloride 0.004 meq/ml / sodium chloride 0.103 meq/ml / sodium lactate 0.028 meq/ml injectable solution (1 source)Start: 08-26-2022 End: 83-37-5570omvoiltj ringers IV solution Problems Active Problems Problem ClassificationProblemDateDocumented DateEpisodic/ChronicCardiac dysrhythmias (3 sources)Tachycardia; Translations: [Tachycardia, unspecified]Onset: 402166-64-4376YeqdakwiBjvyuwzov of teeth and jaw (7 sources)Dental caries; Translations: [Dental caries, unspecified]Onset: 71-18-7500JhjdzeniGcwep of unknown origin (4 sources)Fever, unspecified; Translations: [FEVER UNSPECIFIED]Onset: 00-78-3623GmtakcrxJgpll and electrolyte disorders (8 sources)Hyperosmolality and hypernatremia; Translations: [Moderate dehydration]Onset: 379629-07-3030JxwgnxxfMvdpizz and fatigue (1 source)Weakness; Translations: [WEAKNESS]Onset: 31-32-3785TryahjjbLpgfpoe (6 sources)Onychomycosis due to dermatophyte ; Translations: [Tinea unguium] 40-75-9110IpvilqkuFtgnwpdptee deficiencies (1 source)Deficiency of macronutrients; Translations: [Mild protein-calorie malnutrition]82-85-1411QscdlycKycib aftercare (5 sources)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; Translations: [OTH [facility] CURRENT DRUG THERAPY]Onset: 47-03-8688OfarmsouIrywb connective tissue disease (9 sources)Pain of toe of left foot; Translations: [Pain in left toe(s)] 02-10-6252CaffteskQlktp connective tissue disease (5 sources)Pain of toe of right foot; Translations: [Pain in right toe(s)] 28-57-9393JexfpsepKiaqm diseases of kidney and ureters (5 sources)Nephrogenic diabetes insipidus; 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]Onset: 01-31-2312WlbzzayMldsv endocrine disorders (3 sources)Diabetes insipidus; Translations: [Diabetes insipidus]Onset: 38-15-7222XuxgtpwJnckg lower respiratory disease (1 source)Dyspnea; Translations: [Shortness of breath]25-09-6238GvzslqzmBgkxm lower respiratory disease (1 source)Shortness of breath; Translations: [Shortness of breath]Onset: 78-66-1593EzveipmxNimpz nutritional; endocrine; and metabolic disorders (1 source)Hypophosphatemia; Translations: [Other disorders of phosphorus metabolism]Onset: 662482-89-9822GfrotdkFnxvf nutritional; endocrine; and metabolic disorders (1 source)Developmental delay; Translations: [Unspecified lack of expected normal physiological development in childhood]EpisodicOther nutritional; endocrine; and metabolic disorders (2 sources)Unspecified lack of expected normal physiological development in childhood; Translations: [Unspecified lack of expected normal physiological development in childhood]Onset: 30-66-4524QzgjdcqhRhjfg skin disorders (10 sources)Ingrowing nail; Translations: [Ingrowing nail]23-20-3151Xavblhoc Other upper respiratory disease (1 source)Nasal congestion; Translations: [NASAL CONGESTION]Onset: 02-20-2023 EpisodicResidual codes; unclassified (1 source)Bilateral lower limb edema; Translations: [Localized edema]01-24-2025 EpisodicResidual codes; unclassified (1 source)Localized edema; Translations: [Localized edema]Onset: 01-24-2025 EpisodicSkin and subcutaneous tissue infections (14 sources)Cellulitis of left toe; Translations: [Cellulitis and abscess of toe, unspecified]28-49-9228Yohmktjm Past or Other Problems Problem ClassificationProblemDateDocumented DateEpisodic/ChronicAcute and unspecified renal failure (1 source)Acute renal failure syndrome; Translations: [Acute kidney failure, unspecified]Onset: 01-08-2016 Resolved: 446457-30-5358CzaamcroNjnpjhv disorders (17 sources)Anxiety; Translations: [Anxiety disorder, unspecified]Onset: 10-11-2018 Resolved: 463338-95-8864UrkrnzeOsrrrogcv-mmwfygw, conduct, and disruptive behavior disorders (17 sources)Attention deficit hyperactivity disorder; Translations: [Attention- deficit hyperactivity disorder, unspecified type]Onset: 10-11-2018 Resolved: 153917-86-0897TheqoqbMiscknltsuc and hemorrhagic disorders (18 sources)Thrombocytopenic disorder; Translations: [Thrombocytopenia, unspecified]Onset: 01-08-2016 Resolved: 374678-95-5526WmtpmtzIhleqxmbwwzpb and procreative management (1 source)Oral contraception; Translations: [Encounter for surveillance of contraceptive pills]83-30-7005ImmmwlzfMjbjpmpnjp and other anemia (1 source)Anemia; Translations: [Anemia, unspecified]Onset: EpisodicDevelopmental disorders (20 sources)Developmental disorder; 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]Onset: 01-08-2016 Resolved: 737638-96-0903KehtitfHwbwhozsdfpsz symptoms and ill-defined conditions (1 source)Other polyuria; Translations: [OTHER POLYURIA]Onset: 10-15-2022 EpisodicIntestinal obstruction without hernia (1 source)Intestinal obstruction co-occurrent and due to decreased peristalsis; Translations: [Ileus, unspecified]Onset: 187418-11-0396EkfvfhdnKruf disorders (17 sources)Bipolar disorder; Translations: [Bipolar disorder, unspecified] Onset: 10-11-2018 Resolved: 739519-17-4923AogwigjCchut and unspecified benign neoplasm (1 source)Benign neoplasm of pituitary gland; Translations: [BENIGN NEOPLASM OF PITUITARY GLAND]Onset: 82-05-7388WkqzcetmBkrlw diseases of kidney and ureters (18 sources)Acquired nephrogenic diabetes insipidus; 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]Onset: 01-15-2016 Resolved: 219577-83-7156RerccqyCcdnk nervous system disorders (1 source)Metabolic encephalopathy; Translations: [Metabolic encephalopathy] Resolved: 891201-83-1332FbncvtxChqtw nutritional; endocrine; and metabolic disorders (1 source)Polydipsia; Translations: [POLYDIPSIA]Onset: 93-59-1006EoxhdcweKhrmg nutritional; endocrine; and metabolic disorders (1 source)Underweight; Translations: [Underweight]Onset: EpisodicOther screening for suspected conditions (not mental disorders or infectious disease) (1 source)Patient encounter status; Translations: [Encounter for other screening for malignant neoplasm of breast]60-57-3466GsdyuwlhFgbdznaxp (except that caused by tuberculosis or sexually transmitted disease) (1 source)Sepsis; Translations: [Pneumonia, unspecified organism]Onset: 409381-56-3345HcwvrzvzXptfdwj disorders (20 sources)Hypothyroidism; Translations: [Hypothyroidism, unspecified]Onset: 01-15-2016 Resolved: 55-89-6742Ehoeymi Results Test NameValueInterpretationReference RangeFacilityCardiac echo study Procedure on 07-45-5710Fjztoc Sinus Valsalva2.7 cmBon [facility] Mer[facility] HealthAortic Sinus Valsalva Index1.72 cm/m2[facility] HealthAV Cusp Mmode1.8 cmBon Secours Mercy HealthAV Mean Nefgtzwu6ghPrJsw [facility]AV Mean Velocity0.8 m/s [facility]AV Peak Hzpatnkc3ljSmVmq [facility]AV Peak Velocity1.2 m/sBon Secours Mercy HealthAV Velocity Ratio1.00[facility] HealthAV VTI21.7 cmBon Secours Mercy HealthBody surface area Derived from formula1.62 m2[facility] HealthE/E' Lateral4.63[facility] HealthEF BP64 %55 - 100 %[facility] HealthEF Ejzbepwuv34 %[facility] Fractional Shortening 2D33 %28 - 44 %[facility] HealthInterpretation and review of laboratory resultsAbnormalBon Secours Mercy HealthIVSd0.8 cm0.6 - 0.9 cmBon Secours Mercy HealthLA Area 2C10.5 cm2[facility] HealthLA Area 4C 9.7 cm2[facility] HealthLA Major Axis4.5 cmBon Secours Mercy HealthLA Minor Axis4.2 cmBon Secours Mercy HealthLA Volume BP20 aBKzifncsg38 - 52 mLBon Secours Mercy HealthLA Volume Index BP13 ml/m4Nqzlcdeq33 - 34 ml/m2[facility] HealthLA Volume Index MOD A2C14 ml/a9Ntnhqpnm71 - 34 ml/m2[facility] HealthLA Volume Index MOD A4C11 ml/i4Gbpdflqg46 - 34 ml/m2[facility] HealthLA Volume MOD A2C22 mL22 - 52 mLBon Secours Mercy HealthLA Volume MOD A4C17 wDAmoeordl04 - 52 mLBon Secours Mercy HealthLV E' Lateral Velocity 13.60 cm/sBon Secours Mercy HealthLV EDV A2C33 mLBon Secours Mercy HealthLV EDV A4C51 mLBon Secours Mercy HealthLV EDV Index A2C21 mL/m2[facility] LV EDV Index A4C32 mL/m2[facility] HealthLV Ejection Fraction A2C66 %[facility]LV Ejection Fraction A4C67 %[facility]LV ESV A2C11 mLBon Secours Mercy HealthLV ESV A4C17 mLBon Secours Mercy HealthLV ESV Index A2C7 mL/m2[facility] HealthLV ESV Index A4C11 mL/m2[facility] HealthLV Mass 2D96.8 g67 - 162 gBon Secours Mercy HealthLV Mass 2D Index 61.6 g/m243 - 95 g/m2[facility] HealthLV RWT Ratio0.33[facility] HealthLVIDd4.3 cm3.9 - 5.3 cmBon Secours Mercy HealthLVIDd Index2.74 cm/m2[facility] HealthLVIDs2.9 cmBon Secours Mercy HealthLVIDs Index1.85 cm/m2[facility] HealthLVOT Mean Tphbcadc3xqZjNkz [facility]nann[facility] HealthLVOT Peak Hxfxcgwz7wrHwMrr [facility] HealthLVOT Peak Velocity1.2 m/sBon [facility] HealthLVOT VTI21.1 cmB[facility] Jose Guadalupe Decker HealthLVOT:AV VTI Index0.97[facility]nann[facility] HealthLVPWd0.7 cm0.6 - 0.9 cmWellmont Lones[facility] Hospitalscott [facility]nann[facility] HealthMV A Velocity0.47 m/s [facility] HealthMV E Velocity0.63 m/sBon [facility]alscott [facility] HealthMV E Wave Deceleration Fwux045.0 msWellmont Lonesome Pine [facility] Hospitalscott [facility]nannette HealthMV E/A1.34[facility] HealthPV Max Velocity1.0 m/sBon [facility] HealthPV Peak Nnuzszrf2rlIpCrt [facility]nannette HealthLeft Ventricle: Normal left ventricular systolic function with a visually estimated EF of 60 - 65%. Left ventricle size is normal. Normal wall thickness. Normal wall motion. Normal diastolic function. No significant valvular heart disease was seen. No previous studies were available for comparison. No significant cardiac cause of tachycardia was identified from this study. Left Ventricle Normal left ventricular systolic function with a visually estimated EF of 60 - 65%. Left ventricle size is normal. Normal wall thickness. Normal wall motion. Normal diastolic function. Right Ventricle Right ventricle size is normal. Normal systolic function. Left Atrium Left atrium size is normal. Right Atrium Right atrium size is normal. IVC/SVC IVC diameter is less than or equal to 21 mm and decreases greater than 50% during inspiration; therefore the estimated right atrial pressure is normal (~3 mmHg). IVC size is normal. Mitral Valve Valve structure is normal. No regurgitation. No stenosis noted. Tricuspid Valve Valve structure is normal. No regurgitation. No stenosis noted. Aortic Valve Valve structure is normal. No regurgitation. No stenosis. Pulmonic Valve The pulmonic valve visualization is suboptimal but appears to be functioning normally. Physiologically normal regurgitation. No stenosis noted. Ascending Aorta Normal sized aortic root. Pericardium No pericardial effusion. Study Details Image quality: adequate. No contrast was given.[facility] CV CPAShenandoah Memorial HospitalRadiology Study observation (narrative)[facility]37on 10-11-316411Zo have changed desmopressin dosing to the followin.4 mg in the morning and 0.5 mg at bedtime.[facility] HospitalAbstracton 12-27-2024 [id number] Tiffany Mcintosh 1990 F Date Provider Department Center 12/27/2024 316-KATIUSKA GANDHI. [facility] ENDOCR [facility] No family history on fileNormalUniversity Shelby Memorial HospitalFollow-Upon 24-24-4030Xgmlby-[id number] Tiffany Mcintosh 1990 F Date Provider Department Center 12/27/2024 316-KATIUSKA GANDHI. [facility] ENDOCR [facility] No family history on file Level of Service:90578 GA OFFICE/OUTPATIENT ESTABLISHED LOW MDM 20 MIN (GC) Reason for Visit and Comments: Follow-up [646298][facility].Interpretation:on 75-22-9899BZV Ab IA QlCommentInvalid Interpretation CodeFlower HospitalComment on above:Result Comment: Not infected with HCV unless early or acute infection is suspected (which may be delayed in an immunocompromised individual), or other evidence exists to indicate HCV infection. Performed at: [facility] [address] [id number] PhD Amaris ValdesPerformed By: #### [id number], [id number] #### [facility] [address] [place], [place] [address]Oguiq Hepatitis A B C Panelon 01-94-5204TAY IgM IA QlNegative Invalid Interpretation CodeNegativeFlower HospitalComment on above: Performed By: #### [id number], [id number] #### [facility] [address] [place], [place] [address]BAL core IgM IA QlNegativeInvalid Interpretation CodeNegative Flower HospitalComment on above:Performed By: #### [id number], [id number] #### [facility] [address] [place] [place], [place] [address]CBJ surface Ag IA QlNegativeInvalid Interpretation CodeNegative Flower HospitalComment on above:Performed By: #### [id number], [id number] #### [facility] [address] [place], [place] [address]QRR IgG IA QlNon-ReactiveInvalid Interpretation CodeNon ReactiveFlower HospitalComment on above:Result Comment: Performed at: [facility] [id number] PhD Amaris LucioPerformed By: #### [id number], [id number] #### [facility] [address] [place], [place] [address]Geivusgot Orderon 92-04-0659Srmhbvzvk Order [id number]#1.00TIFBerger HospitalConsent for Treatmenton 75-42-0420Scliymi for Treatment [id number]#1.00TIFBerger HospitalPhysician Orderon 58-09-1595Twrtcinee Order [id number]#1.00[facility] HospitalXR Adult Swallowing Function w/ Videoon 38-78-1780OU Adult Swallowing Function w/ VideoExam Date/Time: 02/01/2024 10:02 EST Reason for Exam: [...] Ka,r in mGy = na DAP = naNormalFishBrook Lane Psychiatric CenterPhysician Orderon 50-20-4533Rjxbiczwc [id number]#1.00TIFFNormalFlower HospitalT3 Freeon 46-95-4663Czst T3 [Mass/Vol]2.5 pg/mLInvalid Interpretation Code2.0-4.4FSelect Medical TriHealth Rehabilitation HospitalComment on above:Result Comment: Performed at: [facility] [id number] PhD Amaris ValdesPerformed By: #### 8184985, 9073826, 1140265, 9047129, 8711237, 14996648, 5754720 #### [facility] [address] [place] [place], [place] [address]GJTdk 69-79-7268Ehwaczl [Mass/Vol]3.8 g/dLNormal3.3-5.0Flower HospitalComment on above:Performed By: #### 5907965, 7362697, 8418207, 0536707, 9874924, 29337973, 2427186 #### [facility] [address] [place] [place], [place] [address]Lrnolni/Globulin [Mass ratio]1.4 {ratio}Normal1.1-2.2FSelect Medical TriHealth Rehabilitation HospitalComment on above:Performed By: #### 5907360, 8917854, 7021781, 2628360, 5934889, 78465273, 2466138 #### [facility] [address] [place], [place] [address]Cfm Phos38 Int._Unit/MXjscbt14-14HuxherFlower Hospital Comment on above:Performed By: #### 5598056, 8163200, 2933196, 6103468, 1072254, 82909068, 6800721 #### [facility] [address] [place], [place] [address]JQY7 Int._Unit/LNormal6-46Flower HospitalComment on above:Performed By: #### 6984435, 4014220, 7139308, 5537942, 4805313, 82104323, 5443883 #### [facility] [address] [place] [place], [place] [address]Engdw gap [Moles/Vol]13 mmol/LNormal6-16Flower HospitalComment on above:Performed By: #### 9774685, 6183700, 7967474, 9708471, 3348938, 87187202, 8135496 #### [facility] [address] [place] [address]VQX83 Int._Unit/LNormal5-43Flower HospitalComment on above:Performed By: #### 1609461, 3177415, 4907266, 7722949, 5405225, 24203839, 3552066 #### [facility] [address] [place] [place], [place] [address]Lbym Total0.3 mg/dLNormal0.0-1.1FSelect Medical TriHealth Rehabilitation Hospital Comment on above:Performed By: #### 8307891, 9552480, 2475016, 5827917, 6719295, 81231638, 3608842 #### [facility] [address] [place] [place], [place] [address]WQB/Creat Ratio16 No FvhsuDobnwb20-98TocfgwFlower HospitalComment on above:Performed By: #### 4839677, 1651746, 6960418, 6196367, 6613013, 55980922, 9244700 #### [facility] [address] [place], [place] [address]Ppbucfx [Mass/Vol]9.0 mg/dLNormal8.9-11.1FSelect Medical TriHealth Rehabilitation HospitalComment on above:Performed By: #### 6145273, 2489254, 5832452, 9330650, 2621753, 35717442, 8000873 #### [facility] [address] [place], [place] [address]Tgtrepcd [Moles/Vol]103 mmol/DPwlemo195-906PfulkkFlower HospitalComment on above:Performed By: #### 4854870, 8319333, 0197698, 0343107, 6396690, 40876772, 8290704 #### [facility] [address] [place] [place], [place] [address]GN2 [Moles/Vol]26 mmol/SPsdyfh30-87OcxpltFlower Hospital Comment on above:Performed By: #### 2804069, 0663073, 7586394, 1813387, 4633823, 16176032, 0427263 #### [facility] [address] [place] [address]Fdhtmnbdza [Mass/Vol]1.1 mg/dLNormal0.5-1.3FSelect Medical TriHealth Rehabilitation HospitalComment on above:Performed By: #### 1719051, 3885210, 2270287, 0059167, 3002548, 29268110, 0773918 #### [facility] [address] [place] [address]Wraalzzp (S) [Mass/Vol]2.8 g/dLNormal1.4-4.0Flower HospitalComment on above:Performed By: #### 4033548, 8681553, 6947836, 4195809, 6033471, 15770330, 7896011 #### [facility] [address] [place] [place], [place] [address]Ozwtljd [Mass/Vol]68 mg/nRQhtvcb33-818YkgtupFlower HospitalComment on above:Performed By: #### 4019687, 1970706, 8224225, 7567757, 4098497, 51387050, 5585144 #### [facility] [address] [place] [address]Nhjnyfxlu [Moles/Vol]4.1 mmol/LNormal3.5-5.3FSelect Medical TriHealth Rehabilitation HospitalComment on above:Performed By: #### 5760681, 1805062, 7906679, 7432374, 6340873, 74053662, 9345105 #### [facility] [address] [place], [place] [address]Xazgxnc [Mass/Vol]6.6 g/dLNormal6.0-7.8Flower HospitalComment on above:Performed By: #### 7598152, 9308447, 5051582, 1955729, 0269498, 96001515, 8390204 #### [facility] [address] [place], [place] [address]Nbmeco [Moles/Vol]138 mmol/ARaqoid350-679OnlfijFlower HospitalComment on above:Performed By: #### 1021519, 8867713, 1298286, 8828991, 7372073, 60248964, 0167319 #### [facility] [address] [place] [place], [place] [address]Loxr nitrogen [Mass/Vol]18 mg/dLNormal5-21Flower HospitalComment on above:Performed By: #### 1861500, 5321879, 5393203, 0499126, 6733601, 09259591, 3492578 #### [facility] [address] [place], [place] [address]Npoiv Panelon 93-22-1724Xsreszlttec [Mass/Vol]113 mg/dLLow 120-200Flower HospitalComment on above:Performed By: #### 7622762, 0596616, 4928867, 0607638, 8465236, 40564985, 6917947 #### [facility] [address] [place] [place], [place] [address]Pcgvjklrgsf in HDL [Mass/Vol]23 mg/dLInvalid Interpretation CodeFlower HospitalComment on above:Result Comment: '>= 60 LOW RISK' '<= 40 HIGH RISK'Performed By: #### 4673342, 2048030, 1957128, 2196805, 9983335, 78599790, 2585143 #### [facility] [address] [place] [place], [place] [address]Dugxdjtdvzn in LDL [Mass/Vol]71 mg/dLNormal<=129Flower HospitalComment on above:Performed By: #### 2487235, 8214614, 4551771, 1942803, 9832091, 32488937, 0334290 #### [facility] [address] [place] [place], [place] [address]Ozqgbhxcxwv in VLDL [Mass/Vol]37 mg/dLNormal7-40Flower HospitalComment on above:Performed By: #### 4981357, 4574488, 9389836, 3721687, 9540442, 33952259, 2655674 #### [facility] [address] [place], [place] [address]Kdqmiylxtihi [Mass/Vol]186 mg/dLHigh<=149Flower HospitalComment on above:Performed By: #### 8456158, 8202442, 2698515, 7765501, 1984121, 69296402, 7426762 #### [facility] [address] [place], [place] [address]gGBSpa 76-28-5727NRD/1.73 sq M.predicted among non-blacks MDRD (S/P/Bld) [Vol rate/Area]mL/min/{1.73_m2}Normal>=59[facility] Comment on above:Order Comment: Order added by Discern Expert.Performed By: #### 7762669, 1517773, 6366494, 0261563, 9769984, 45327773, 9284140 #### [facility] [address] [place] [place], [place] [address]NOU w/Indiceson 86-18-6993Vtbdzbyudpn distribution width (RBC) [Ratio]13.5 %Kxmblj80.9-14.2FSelect Medical TriHealth Rehabilitation HospitalComment on above: Performed By: #### 3693452, 9224932, 2823516, 1832480, 3884442, 53024254, 9891542 #### [facility] [address] [place] [address]Zslbjzjkkl (Bld) [Volume fraction]42.1 %Jutumy61.0-46.0Flower HospitalComment on above:Performed By: #### 6399104, 0813531, 6668629, 6835554, 4278187, 29924631, 4826595 #### [facility] [address] [place] [address]Cpeqsqfvyj (Bld) [Mass/Vol]14.4 g/uPNowhar19.0-16.0Flower HospitalComment on above:Performed By: #### 8968759, 2790036, 2831033, 2419399, 8334371, 88331956, 4837107 #### [facility] [address] [place] [address]HLJ (RBC) [Entitic mass]33.7 neYbdcql20.0-34.0Flower HospitalComment on above:Performed By: #### 7591033, 8477558, 7131661, 7281513, 2122367, 08527989, 5667099 #### [facility] [address] [place] [address]69[address]PMSX (RBC) [Mass/Vol]34.2 g/wYWrjkgc00.4-36.0Flower HospitalComment on above:Performed By: #### 6991917, 8531041, 0939679, 7660168, 6283968, 20300375, 8458697 #### [facility] [address] [place] [address]TWD (RBC) [Entitic vol]98.8 sUWcgyrv24.0-100.0Flower HospitalComment on above:Performed By: #### 6707825, 4865415, 9459338, 3778970, 0605225, 25687817, 1673074 #### [facility] [address] [place] [address]79[address]Dmeemora mean volume (Bld) [Entitic vol]8.6 fLNormal6.4-10.8 Flower HospitalComment on above:Performed By: #### 1637253, 3698561, 2148189, 3583049, 3331926, 32651973, 5099210 #### [facility] [address] [place] [address] 236[address]Lhehkuhex (Bld) [#/Vol]141.0 E9/UAvz467.0-500.0Flower HospitalComment on above:Performed By: #### 5258103, 0893292, 8805851, 9296760, 3279697, 01201164, 2800332 #### [facility] [address] [place] [address]NEX (Bld) [#/Vol]4.3 E12/LNormal4.3-5.9Flower HospitalComment on above:Performed By: #### 9779268, 2750895, 9234711, 3656367, 4332439, 78401937, 1879463 #### [facility] [address] [place] [address] 20[address]AUJ corrected for nucl RBC Auto (Bld) [#/Vol]9.8 E9/LNormal 4.0-11.0Flower HospitalComment on above:Performed By: #### 2047972, 0043101, 5936954, 6919735, 9924530, 44847104, 2452255 #### [facility] [address] [place] [address]Tlsj T4on 61-98-7271Meto T4 [Mass/Vol]0.92 ng/dLNormal0.58-1.64 Flower HospitalComment on above:Performed By: #### 1461009, 5727449, 9148330, 4337465, 9049179, 98007882, 7055796 #### [facility] [address] [place], [place] [address]Mmavwrawd Orderon 67-25-5490Qhsxpefuk Order [id number]#1.00TIFFNormalFlower HospitalTSHon 29-23-6111QXW Qn5.07 m[IU]/LNormal0.34-5.60Flower HospitalComment on above:Performed By: #### 7662054, 7968491, 4546458, 7104152, 8459683, 38114200, 1376837 #### [facility] [address] [place], [place] [address]YJWij 50-23-9308Cjqbb gap [Moles/Vol]13 mmol/LNormal6-16Flower HospitalComment on above:Performed By: #### 3106716, 87701071, 1179215, 4464286 #### [facility] [address] [place], [place] [address]Zqrnfko [Mass/Vol]8.8 mg/dLLow8.9-11.1FSelect Medical TriHealth Rehabilitation HospitalComment on above:Performed By: #### 6818122, 75727902, 7698611, 7489014 #### [facility] [address] [place], [place] [address]Godfeadw [Moles/Vol]109 mmol/BPddkci851-540JtjbhwFlower HospitalComment on above:Performed By: #### 6251539, 59253152, 6864006, 3500979 #### [facility] [address] [place], [place] [address]TS7 [Moles/Vol]23 mmol/WUwuacw27-94QnypkfFlower Hospital Comment on above:Performed By: #### 3881783, 65425257, 5814479, 8558392 #### [facility] [address] [place] [place], [place] [address]Xkjstscpxh [Mass/Vol]1.1 mg/dLNormal0.5-1.3FSelect Medical TriHealth Rehabilitation HospitalComment on above:Performed By: #### 3710121, 15943143, 0578105, 6897857 #### [facility] [address] [place], [place] [address]Lnxbwux [Mass/Vol]74 mg/zPJpxmxu38-429IlfsozFlower HospitalComment on above:Result Comment: If this glucose result represents a fasting glucose, interpretation should refer tothe following reference range: 55-99 mg/dLPerformed By: #### 2092377, 69146250, 2666210, 3891452 #### [facility] [address] [place], [place] [address]Mgjqgrgob [Moles/Vol]4.0 mmol/LNormal3.5-5.3FSelect Medical TriHealth Rehabilitation HospitalComment on above:Performed By: #### 0236727, 04515905, 4256595, 7808712 #### [facility] [address] [place] [address]Rxxivi [Moles/Vol]141 mmol/UGuhqai663-498NlxwyoFlower HospitalComment on above:Performed By: #### 2116888, 05460319, 0896209, 2821933 #### [facility] [address] [place], [place] [address]Klzw nitrogen [Mass/Vol]23 mg/dLHigh5-21Flower HospitalComment on above:Performed By: #### 8897901, 75871793, 7144017, 2952453 #### [facility] [address] [place] [address]Iyau nitrogen/Creatinine [Mass ratio]21 No VurorXivb64-86NeqtbzFlower HospitalComment on above:Performed By: #### 1949947, 32198642, 0884239, 0645613 #### [facility] [address] [place] [address]Wlbl T4on 81-84-0843Dmid T4 [Mass/Vol]1.45 ng/dLNormal0.58-1.64 Flower HospitalComment on above:Performed By: #### 7485177, 8684499, 4514432, 7866259, 7222969, 46990486, 6487048 #### [facility] [address] [place], [place] [address]CKBzb 84-08-3130CVJ Qn6.49 m[IU]/LHigh0.34-5.60Flower HospitalComment on above:Performed By: #### 5412974, 9720135, 5071772, 0784448, 6317941, 16163582, 7095457 #### [facility] [address] [place], [place] [address]sHQBop 96-37-7663HQY/1.73 sq M.predicted among non-blacks MDRD (S/P/Bld) [Vol rate/Area]67 mL/min/1.73 z8Xqvwjh>=59[facility] Comment on above:Order Comment: Order added by Discern Expert.Result Comment: Chronic kidney disease could be indicated at eGFR's of less than 60 mL/min/1.73m2. Kidney failure is indicated at less than 15 mL/min/1.73m2. Performed By: #### 2364926, 2960670, 9602526, 8203384, 6143323, 72762159, 7717573 #### [facility] [address] [place], [place] [address]QCTNPEHNMMrjaijr By: SYSTEM SYSTEM on 77-27-6340Mbytg gap [Moles/Vol]13 mmol/LNormal6 - 16 mEq/LFTMC RemisolCalcium [Mass/Vol]8.8 mg/dLLow 8.9 - 11.1 mg/dLFTMC RemisolChloride [Moles/Vol]109 mmol/GAgewjv905 - 111 mmol/L [facility] RemisolCO2 [Moles/Vol]23 mmol/ZRsraol62 - 31 mmol/LFTMC RemisolCreatinine [Mass/Vol]1.1 mg/dLNormal0.5 - 1.3 mg/dLFTMC RemisolFree T4 [Mass/Vol]1.45 ng/dL Normal0.58 - 1.64 ng/dLFTMC RemisolGFR/1.73 sq M.predicted among non-blacks MDRD (S/P/Bld) [Vol rate/Area]67 mL/min/1.73 s0Jukuau>=59mL/min/1.73 m2[facility] Chem S Comment on above:Interpretive Data: Chronic kidney disease could be indicated at eGFR's of less than 60 mL/min/1.73m2. Kidney failure is indicated at less than 15 mL/min/1.73m2.Glucose [Mass/Vol]74 mg/vEGrecjw59 - 199 mg/dLMANGUM [facility] Remisol Comment on above:Interpretive Data: If this glucose result represents a fasting glucose, interpretation should referto the following reference range: 55-99 mg/dLPotassium [Moles/Vol]4.0 mmol/LNormal3.5 - 5.3 mmol/LFTMC RemisolSodium [Moles/Vol]141 mmol/EPtvqpb552 - 145 mmol/LFTMC RemisolTSH Qn6.49 m[IU]/LHigh 0.34 - 5.60 mcIU/mLM[facility] [place] RemisolUrea nitrogen [Mass/Vol]23 mg/dLHigh5 - 21 mg/dL [facility] RemisolUrea nitrogen/Creatinine [Mass ratio]21 mg/pdAged62 - 20[facility] Remisol Physician Orderon 41-10-6744Shnmglrsp Order [id number]#1.00TIFFSheltering Arms HospitalCHEMISTRYOrdered By: SYSTEM SYSTEM on 38-24-3220Ttntfwtmx [Moles/Vol]70 microgram/lVDgocfk00 - 99 mcg/mLMANGUM [facility] [place] RemisolPhysician Orderon 08-17-2023 Physician [id number]#1.00CD:127Sheltering Arms HospitalValproic Acidon 71-42-1041Ognpwrobi [Moles/Vol]70 microgram/vGYbzxha95-22HcmfjjFlower HospitalComment on above:Performed By: #### 9645417, 2465090, 3530074, 5836074, 8218970, 32026245, 1109913 #### [facility] [address] [place], [place] [address]LT CHEST 2 Von 30-32-8815OU CHEST 2 VEXAM: XR CHEST 2 V HISTORY: Congestion COMPARISON: 12/14/2019 TECHNIQUE: PA and lateral views of the chest FINDINGS: The level of inspiration is suboptimal. There is no focal airspace consolidation or acute infiltrate. The cardiomediastinal silhouette is not enlarged. No evidence of pleural effusion or pneumothorax are identified. No acute osseous abnormality. IMPRESSION: No acute cardiopulmonary process. Electronically authenticated by: AZUL UNLU Date: 2023-02-17 22:47NormBellevue HospitalDEPAKENE/ VALPROIC ACIDon 73-60-1704GVYMYPKM07.8 ug/mlNormal 50.0-100.0[facility] Southeast OhioComment on above:Performed By: #### VALP #### [facility] [address] [place] [address] Dr. Wali HollyFRMONSERRAT T4on 13-74-4992Pfqu T4 [Mass/Vol]0.83 ng/dLNormal0.76-1.46 [facility] - Southeast OhioComment on above:Performed By: #### FT4 #### [facility] [address] [place] [address] Dr. Wali Tamayo 13-99-1430OMO5.513 uIU/mLCritically high0.358-3.740[facility] OhioComment on above:Performed By: #### TSH #### [facility] [address] [place] [address] Dr. Wali HollyOSMOLALITY URINEon 68-23-1208Qvplqertvn, Viocl757 mOsmol/kgNormal [facility] OhioComment on above:Result Comment: 24 hr : 300 - 900 Random: 50 - 1400 After 12hr fluid restriction: >850Performed By: #### OSMOU #### [facility] [address] [place] [address] Dr. Wali HollyOSMRENUKALITYon 10-11-5688Bxouxbgnhc [Osmolality]281 mosm/kgNormal 275-295The [facility] Medical CenterComment on above:Performed By: #### OSMO #### [facility] [address] [address] [address] Wali Barrera T4on 84-49-1821Odia T4 [Mass/Vol]0.91 ng/dLNormal0.76-1.46 The [facility] CenterComment on above:Performed By: #### FT4 #### [facility] [address] [address] [address] Wali HollyPROF CHEM 8 (BAS METB)on 72-13-9033Bvtte gap [Moles/Vol]6.1 mmol/LNormalThe [facility] CenterComment on above:Performed By: #### BMP, TSH #### [facility] [address] [place] [address] Dr. Wali HollyCalcium [Mass/Vol]9.1 mg/dLNormal8.5-10.1[facility] Comment on above:Performed By: #### BMP, TSH #### [facility] [address] [place] [address] Dr. Wali HollyChloride [Moles/Vol]102 mmol/FKtjipo04-073LyvSelect Medical Specialty Hospital - [facility] [place] Comment on above:Performed By: #### BMP, TSH #### [facility] [address] [place] [address] Dr. Wali HollyCO2 [Moles/Vol]34.9 mmol/LCritically high21.0-32.0The [facility] Medical CenterComment on above:Performed By: #### BMP, TSH #### [facility] [address] [place] [address] Dr. Wali HollyCreatinine [Mass/Vol]1.35 mg/dLCritically high0.55-1.02The [facility] Medical CenterComment on above:Performed By: #### BMP, TSH #### [facility] [address] [place] [address] Dr. Wali GaryGFR-AF AJEEUCOU49 mL/min/1.76f0Beqoymtuwc low>=60The [facility] Medical CenterComment on above:Performed By: #### BMP, TSH #### [facility] [address] [address] [address] Wali GaryGFR-NON AF ZXWNHJZT60 mL/min/1.26s0Cuixrycwye low>=60The [facility] Medical CenterComment on above:Performed By: #### BMP, TSH #### [facility] [address] [address] [address] Wali HollyGlucose [Mass/Vol]84 mg/sAGyyrku50-227Gjr [facility] Comment on above:Performed By: #### BMP, TSH #### [facility] [address] [address] [address] Wali HollyPotassium [Moles/Vol]4.0 mmol/LNormal3.5-5.1The [facility] Comment on above:Performed By: #### BMP, TSH #### [facility] [address] [address] [address] Wali HollySodium [Moles/Vol]139 mmol/GUfjpfc382-273Eww [facility] Comment on above:Performed By: #### BMP, TSH #### [facility] [address] [address] [address] Wali HollyUrea nitrogen [Mass/Vol]15.0 mg/dLNormal7.0-18.0The [facility] Medical CenterComment on above:Performed By: #### BMP, TSH #### [facility] [address] [address] [address] Wali Dia nitrogen/Creatinine [Mass ratio]11.1 mg/mgNormalThe [facility] CenterComment on above:Performed By: #### BMP, TSH #### [facility] [address] [address] [address] Wali Tamayo 06-85-7022LNG2.185 uIU/mLCritically high0.358-3.740The [facility] Medical CenterComment on above:Performed By: #### BMP, TSH #### [facility] [address] [address] [address] Wali QuinonesAC RHYTHM (SCANNED)on 66-14-2916FRJMercy Health St[facility] AND ELECTRONIC DIFFon 37-08-0679Rodhfsudq (Bld) [#/Vol]0.06 10*3/uLNormal 0.00-0.15[facility] HospitalComment on above:Performed By: #### [id number] #### [facility] [facility] (DEFAULT) [address] [place] [address] 75092Onlegttqc/100 WBC (Bld)0.8 %[facility] HospitalComment on above:Performed By: #### [id number] #### U [facility] (DEFAULT) [address] [place] [address] 88475URHT STATUSElectronic DifferentialNormalOhiMemorial Health System Marietta Memorial HospitalComment on above:Performed By: #### [id number] #### U [facility] (DEFAULT) [address] [place] [address] 16569Ahfvnyljclk (Bld) [#/Vol]0.07 10*3/uLNormal0.00-0.42[facility] HospitalComment on above:Performed By: #### [id number] #### [facility] (DEFAULT) [address] [place] [address] 96129Fqeilcbjxrb/100 WBC (Bld)1.0 %[facility] HospitalComment on above:Performed By: #### [id number] #### [facility] (DEFAULT) [address] [place] [address] 55007Mrhxftfgij (Bld) [Volume fraction]39.1 %Bigljv06.9-44.3[facility] HospitalComment on above:Performed By: #### SFB142 #### [facility] (DEFAULT) [address] [place] [address] 04218Nmqjoawmwu (Bld) [Mass/Vol]13.3 g/aXPtolye94.4-15.2[facility] HospitalComment on above:Performed By: #### [id number] #### [facility] (DEFAULT) [address] [place] [address] 01538Lrrfadxs Grans %1.8 %NormalMercy Health Fairfield HospitalComment on above:Performed By: #### [id number] #### [facility] (DEFAULT) [address] [place] [address] 62788Ujicfxlk Grans Absolute0.13 K/uLHigh<=0.08[facility] HospitalComment on above:Performed By: #### [id number] #### [facility] (DEFAULT) [address] [place] [address] 92369Vvezuxlblga (Bld) [#/Vol]3.29 10*3/uLNormal1.16-3.51[facility] HospitalComment on above:Performed By: #### IUT761 #### [facility] (DEFAULT) [address] [place] [address] 68325Blryjmoxvoc/100 WBC (Bld)46.0 %NormalMercy Health Fairfield HospitalComment on above:Performed By: #### [id number] #### [facility] (DEFAULT) [address] [address]ILZ (RBC) [Entitic vol]100.3 hIBfhd63.6-97.7[facility] HospitalComment on above:Performed By: #### DNM325 #### [facility] (DEFAULT) [address] [address]Ktey Cell Hgb34.1 ksPwxz05.9-33.9[facility] HospitalComment on above:Performed By: #### MIP862 #### [facility] (DEFAULT) [address] [place] [address] 30535Espd Cell Hgb Conc34.0 g/cWJtmyrm34.4-35.9[facility] HospitalComment on above:Performed By: #### TZF194 #### U [facility] (DEFAULT) [address] [place] [address] 89951Ybvlplqvk (Bld) [#/Vol]0.82 10*3/uLNormal0.22-0.87[facility] HospitalComment on above:Performed By: #### AKI543 #### U [facility] (DEFAULT) [address] [place] [address] 66014Sakjyxbat/100 WBC (Bld)11.5 %NormalMercy Health Fairfield HospitalComment on above:Performed By: #### FZB731 #### U [facility] (DEFAULT) [address] [place] [address] 92610Sffpqlsjr RBC0.0 /100 WBCNormal<=0.2[facility] HospitalComment on above:Performed By: #### XTS439 #### U [facility] (DEFAULT) [address] [place] [address] 52009Grzzxhjp mean volume (Bld) [Entitic vol]9.9 fLNormal8.5-12.2 [facility] HospitalComment on above:Performed By: #### [id number] #### [facility] (DEFAULT) [address] [place] [address] 15049Qzxgutpgu (Bld) [#/Vol]110 10*3/qPMxe398-838QaurMercy Health Fairfield HospitalComment on above:Performed By: #### [id number] #### [facility] (DEFAULT) [address] [place] [address] 58882IFX (Bld) [#/Vol]3.90 10*6/uLLow3.91-5.04[facility] HospitalComment on above:Performed By: #### [id number] #### U [facility] (DEFAULT) [address] [place] [address] 23273KCJ Eixshqfyvxbi80.2 %Lvhbqj06.8-14.9[facility] HospitalComment on above:Performed By: #### VXG153 #### [facility] (DEFAULT) [address] [place] [address] 19800Lkoy + Bands Auto38.9 %NormalMercy Health Fairfield HospitalComment on above:Performed By: #### TPD318 #### [facility] (DEFAULT) [address] [place] [address] 51369Icjh + Bands,Absolute Auto2.78 K/uLNormal1.64-7.28[facility] HospitalComment on above:Performed By: #### [id number] #### [facility] (DEFAULT) [address] [place] [address] 27476GTI (Bld) [#/Vol]7.15 10*3/uLNormal3.99-11.19[facility] HospitalComment on above:Performed By: #### KLW754 #### [facility] (DEFAULT) [address] [place] [address] 77095Zgzgfvgys (Bld) [#/Vol]0.06 10*3/uL0.00 - 0.15 K/uLThe University of Toledo Medical CenterBasophils/100 WBC (Bld)0.8 %[facility] CenterDifferential cell count method Nom (Bld)Electronic DifferentialThe [facility] of [facility] Eosinophils (Bld) [#/Vol]0.07 10*3/uL0.00 - 0.42 K/[facility] Eosinophils/100 WBC (Bld)1.0 %[facility] CenterErythrocyte distribution width (RBC) [Ratio]12.2 %10.8 - 14.9 %[facility] CenterHematocrit (Bld) [Volume fraction]39.1 %34.9 - 44.3 %[facility] CenterHemoglobin (Bld) [Mass/Vol]13.3 g/dL11.4 - 15.2 g/dLThe University of [facility]edo Medical CenterImmature granulocytes (Bld) [#/Vol]0.13 10*3/uLHigh<=0.08[facility] Immature granulocytes/100 WBC (Bld)1.8 %[facility] CenterInterpretation and review of laboratory resultsAbnormalOSU [facility] HospitalLymphocytes (Bld) [#/Vol]3.29 10*3/uL1.16 - 3.51 K/uLThe [facility] of [facility] Lymphocytes/100 WBC (Bld)46.0 %[facility] HospitalH (RBC) [Entitic mass] 34.1 buEkkq26.9 - 33.9 pgOSU [facility] HospitalMCHC (RBC) [Mass/Vol]34.0 g/dL 31.4 - 35.9 g/dLOSU [facility] HospitalMCV (RBC) [Entitic vol]100.3 bCOado18.6 - 97.7 [facility] CampusMonocytes (Bld) [#/Vol]0.82 10*3/uL0.22 - 0.87 K/uLThe University of [facility]edo Medical CenterMonocytes/100 WBC (Bld)11.5 %[facility] CenterNeutrophils (Bld) [#/Vol]2.78 10*3/uL1.64 - 7.28 K/uLThe University of [facility]edo Medical CenterNucleated RBC/100 WBC (Bld) [Ratio]0.0 %<=0.2 /100 WBCThe University of Toledo Medical CenterPlatelet mean volume (Bld) [Entitic vol]9.9 fL8.5 - 12.2 [facility] Barber[facility] CampusPlatelets (Bld) [#/Vol]110 10*3/kJWze331 - 393 K/uLThe University of Toledo Medical CenterRBC (Bld) [#/Vol]3.90 10*6/uLLowU Tuscarawas Hospitalegmented neutrophils/100 WBC (Bld)38.9 %[facility] CenterWBC (Bld) [#/Vol]7.15 10*3/uL3.99 - 11.19 K/uLThe [facility] of [facility] Medical CenterOSMetrohealth Parma Medical CenterCHEM 6 (LYTES, BUN CREA)on 67-19-5398Pafqw gap [Moles/Vol]10 mmol/LNormal7-17[facility] HospitalComment on above:Performed By: #### CHM6 #### [facility] (DEFAULT) [address] [address]Rirmbobv [Moles/Vol]103 mmol/POgvezj41-549EjqrMercy Health Fairfield HospitalComment on above:Performed By: #### CHM6 #### U [facility] (DEFAULT) [address] [place] [address] 93220WQ6 [Moles/Vol]31 mmol/VYrhjyn90-00MdktMercy Health Fairfield HospitalComment on above:Performed By: #### CHM6 #### [facility] (DEFAULT) [address] [place] [address] 70097Hlswowiokc [Mass/Vol]1.16 mg/dLNormal0.50-1.20[facility] HospitalComment on above:Performed By: #### CHM6 #### [facility] (DEFAULT) [address] [place] [address] 37515MQY/1.73 sq M.predicted among non-blacks MDRD (S/P/Bld) [Vol rate/Area]63 mL/min/{1.73_m2}Normal>=60[facility] HospitalComment on above:Result Comment: Reported eGFR is based on the CKD-EPI 2020 equation using creatinine, age, and sex.Performed By: #### CHM6 #### [facility] (DEFAULT) [address] [place] [address] 05641Lekhmibrr [Moles/Vol]4.0 mmol/LNormal3.5-5.0[facility] HospitalComment on above:Performed By: #### CHM6 #### [facility] (DEFAULT) [address] [place] [address] 20385Dkcube [Moles/Vol]140 mmol/TByphdt738-083AtksMercy Health Fairfield HospitalComment on above:Performed By: #### CHM6 #### [facility] (DEFAULT) [address] [place] [address] 28307Pxqq nitrogen [Mass/Vol]10 mg/dLNormal7-25[facility] HospitalComment on above:Performed By: #### CHM6 #### [facility] (DEFAULT) [address] [place] [address] 88095Iooh nitrogen/Creatinine [Mass ratio]9 mg/mgNormalOhio State University Wexner Medical CenterComment on above:Performed By: #### CHM6 #### [facility] (DEFAULT) [address] [address]Zqvfr gap [Moles/Vol]10 mmol/L7 - 17 mmol/[facility] General HospitalChloride [Moles/Vol]103 mmol/L98 - 108 mmol/[facility] HospitalCO2 [Moles/Vol]31 mmol/L21 - 31 mmol/[facility] HospitalCreatinine [Mass/Vol] 1.16 mg/dL0.50 - 1.20 mg/dLThe University of [facility]edo Medical CenterGFR/1.73 sq M.predicted CKD- EPI (S/P/Bld) [Vol rate/Area]63>=60 mL/min/1.61o0CNVThe [facility] of [facility] Comment on above:Reported eGFR is based on the CKD-EPI 2020 equation using creatinine, age, and sex.Potassium [Moles/Vol]4.0 mmol/L3.5 - 5.0 mmol/[facility] Centerodium [Moles/Vol]140 mmol/L135 - 145 mmol/[facility] HospitalUrea nitrogen [Mass/Vol]10 mg/dL7 - 25 mg/dLThe University of [facility] Medical CenterUrea nitrogen/Creatinine [Mass ratio]9 mg/mgThe [facility] of [facility] Medical CenterOSMetrohealth Parma Medical CenterProgress Noteson 94-49-5259Zsqinwntcdkqv Authentication Interface Message TextSpoke to Kari @ [place], she will call back when she gets to her office to schedule patient's OR visit----- Friday, August 05, 2022 at 11:13:45 AM ----- ----- Provider: Edelmira Bella Specialist -- Clinic: [facility] -----NormalThe MetroHealth SystemProgress Noteson 08-25-2021 Special Procedures Tech Authentication Interface Message TextPt is special needs. She presents with her [...] of 2019. LG is mom: Camille Mcintosh [phone] Call the [facility] for [phone]: [phone] Tx request sent. [employer] [facility] [place]: OR ----- Signed on Wednesday, August 25, 2021 at 9:36:43 AM ----- ----- Provider: Rogelio Ryan DDS -- Clinic: [place] -----NormalThe [facility] Vital Signs Date TimeVital SignValuePerforming YjwraoesoAqdrgpdl26-31-5509 10:10-0400Body jfemtv191.4 cmMarc Dolce DPM FACFAS Work Phone: [phone] By BlueCarondelet HealthJpnlbagews40-86-0083 10:10-0400Body mass index (BMI) [Ratio]27.73 kg/m2Marc Dolce DPM FACFAS Work Phone: [phone] By BlueCarondelet HealthHxtihfvhft08-69-3982 10:10-0400Body jnucpr36.41 kgMarc Dolce DPM FACFAS Work Phone: [phone] By BlueCarondelet HealthDgichdiaks71-85-8750 09:52-0400Body agyicq923.4 cmMarc Dolce DPM FACFAS Work Phone: [phone] [place], [place] [address]TumriEllis Fischel Cancer CenterDkagryrjmz43-89-0121 09:52-0400Body mass index (BMI) [Ratio]27.73 kg/m2Marc Dolce DPM FACFAS Work Phone: [phone] By BlueCarondelet HealthBrdnywgyln58-74-7699 09:52-0400Body oyiejj39.41 kgMarc Dolce DPM FACFAS Work Phone: [phone] HealthBesvokzshd52-66-7819 09:20-0400Body jqylzc957.4 cmMarc Dolce DPM FACFAS Work Phone: [phone] HealthNnqnfclpti44-57-6001 09:20-0400Body mass index (BMI) [Ratio]27.73 kg/m2Marc Dolce DPM FACFAS Work Phone: [facility] Cancer CenterNnnioimsxf58-17-0982 09:20-0400Body kqguvs28.41 kgMarc Dolce DPM FACFAS Work Phone: [facility] CenterJygnqbxxzz01-32-0767 10:44-0400Body sforqd442.4 cmMarc Dolce DPM FACFAS Work Phone: [facility] Cancer CenterUajbtyvikv53-63-7850 10:44-0400Body mass index (BMI) [Ratio]27.73 kg/m2Marc Dolce DPM FACFAS Work Phone: [facility] Cancer CenterSqpmzkkpil76-29-0358 10:44-0400Body uwgwkh82.41 kgMarc Dolce DPM FACFAS Work Phone: [facility] Cancer CenterSnqjhkdadw56-27-8520 15:00-0500Body xzvixl559.3 Cookie Lorenzo MD Work Phone: [facility]02-27-2025 15:00-0500Body mass index (BMI) [Ratio]29.48 kg/z2XtxfhkJose Lorenzo MD Work Phone: [facility]) HospitalAttachments.me [facility] HospitalQdwvmj75-32-6895 15:00-0500Body nbvuvp97.96 kgJose Lorenzo MD Work Phone: [facility]02-27-2025 15:00-0500Diastolic blood syujseoz80 mm[Hg]Jose Lorenzo MD Work Phone: [facility]02-27-2025 15:00-0500Systolic blood sugchfvf992 mm[Hg]Jose Lorenzo MD Work Phone: [facility]03-07-2024 11:15-0500Body .[facility]03-07-2024 11:15-0500Body mass index (BMI) [Ratio]25.08 kg/m2[facility]03-07-2024 11:15-0500Body pypzpi74.43 kgFairfield Medical Center03-07-2024 11:15-0500Diastolic blood nisoavas59 mm[Hg][facility] 02-02-2024 11:15-0500Systolic blood tojlnmwi573 mm[Hg][facility]09-29-2022 15:30-0400Body gestvuncfgh66.5 [degF]Pastor Beetstra DDS Work Phone: [facility]09-29-2022 15:30-0400 Diastolic blood tdmiwwec22 mm[Hg]Pastor Beetstra DDS Work Phone: [facility]09-29-2022 15:30-0400Heart hrfr320 /minStephen Beetstra DDS Work Phone: [facility]09-29-2022 15:30-0400 Respiratory rate16 /minStephen Beetstra DDS Work Phone: [facility]09-29-2022 15:30-7496KzT3% (BldA) [Mass fraction]99 %Pastor Beetstra DDS Work Phone: [facility]09-29-2022 15:30-0400Systolic blood kleynqhq210 mm[Hg]Pastor Beetstra DDS Work Phone: [facility]09-29-2022 12:00-0400Body cmStephen Beetstra DDS Work Phone: [facility]09-29-2022 12:00-0400Body mass index (BMI) [Ratio]21.43 kg/x1Sawcdth Beetstra DDS Work Phone: [facility]09-29-2022 12:00-0400Body fbkjag69.88 kgStephen Beetstra DDS Work Phone: [facility]09-20-2022 10:00-0400Body kzuzhg071 cmJason Reyes PA-C Work Phone: [phone] [place], [place] 7796309-20-2022 10:00-0400Body mass index (BMI) [Ratio]21.79 kg/s3Uadgx Reyes PA-C Work Phone: [phone] [place], [place] 7796309-20-2022 10:00-0400Body kaiqfduhbeq92.39 [degF]Prasanth Reyes PA-C Work Phone: [phone] [place], [place] 7796309-20-2022 10:00-0400Body .79 kgPrasanth Reyes PA-C Work Phone: [phone] [place], [place] 7796309-20-2022 10:00-0400 Diastolic blood mlxljsxu76 mm[Hg]Prasanth Reyes PA-C Work Phone: [phone] [place], [place] 7796309-20-2022 10:00-0400Heart rate69 /minPrasanth Reyes PA-C Work Phone: [phone] [place], [place] 7796309-20-2022 10:00-0400 Respiratory rate18 /minPrasanth Reyes PA-C Work Phone: [phone] [place], [place] 7796309-20-2022 10:00-8804LeI8% (BldA) [Mass fraction]97 %Prasanth Reyes PA-C Work Phone: [phone] [place], [place] 7796309-20-2022 10:00-0400Systolic blood vabdertt80 mm[Hg]Prasanth Reyes PA-C Work Phone: [phone] [place] [address] Encounters Encounter DateEncounter TypeCare ProviderFacilityStart: 10-02-2025 End: 59-78-4305Cvgbscwwn encounterMarc D Day DPM FACFAS Work Phone: [facility] PODStart: 09-23-2025 End: 99-10-4592Xaeymh flowsheetMarc D Inoce DPM FACFAS Work Phone: NOIN [facility] AustintownStart: 09-23-2025 End: 70-20-4628Oaobva flowsheetMarc D Dolce DPM FACFAS Work Phone: noms [facility] ParkwaynStart: 09-23-2025 End: 19-75-8156Plcpzzn encounter procedureMarc D Dolce DPM FACFAS Work Phone: noms NMA PODComment on above:Tinea unguium (Primary Dx); Pain in right toe(s); Pain in left toe(s)Start: 09-23-2025 End: 41-42-8592rtyqbxzjlbQRVV D DOLCENot AvailableStart: 08-02-2025 End: 96-43-8553Yybzas flowsheetMarc D Dolce DPM FACFAS Work Phone: [phone] [facility] ParkwaynStart: 08-02-2025 End: 28-93-9176Vjrhuo flowsheetMarc D Dolce DPM FACFAS Work Phone: NOQH [facility] ParkwaynStart: 08-02-2025 End: 14-34-2525Snljoj outpatient visit 15 minutesMarc D Dolce DPM FACFAS Work Phone: noms NMA PODComment on above:Onychocryptosis (Primary Dx); Cellulitis of left toe; Abscess, toe, leftStart: 08-02-2025 End: 36-15-9157leudenxzajWUJM D DOLCENot AvailableStart: 07-08-2025 End: 85-37-2190Yxlqju flowsheetMarc D Dolce DPM FACFAS Work Phone: [phone] [facility] ParkwaynStart: 07-08-2025 End: 22-61-5188Nhpsqd flowsheetMarc D Dolce DPM FACFAS Work Phone: [phone] [facility] ParkwaynStart: 07-08-2025 End: 71-81-1278ftgsbszflbZEVA D DOLCENot AvailableStart: 07-08-2025 End: 02-00-9109Qrhnnb outpatient visit 15 minutesMarc D Dolce DPM FACFAS Work Phone: noms NMA PODComment on above:Onychocryptosis (Primary Dx); Tinea unguium; Pain in right toe(s); Pain in left toe(s)Start: 03-19-2025 End: 17-16-2030Kxmkdf flowsheetMarc D Dolce DPM FACFAS Work Phone: noms ASC PODStart: 03-19-2025 End: 76-24-4818Szslwg flowsheetMarc D Dolce DPM FACFAS Work Phone: noms ASC PODStart: 03-19-2025 End: 93-15-8826Wbteay outpatient visit 15 minutesMarc D Dolce DPM FACFAS Work Phone: noms NMA PODComment on above:Onychocryptosis (Primary Dx); Pain in left toe(s); Cellulitis of left toe; Abscess, toe, leftStart: 03-19-2025 End: 72-89-5259cahadfrmagJNET D DOLCENot AvailableStart: 01-24-2025 End: 15-59-1250fvinbkmfniIXMYCJ [facility] HospitalStart: 01-24-2025 End: 22-06-9730Axgfsfjgbq hospital visit by Yaya Lorenzo MD Work Phone: [facility] Non-Invasive CardiologyComment on above:Moderate dehydration; Increased heart rate; Tachycardia; SOB (shortness of breath); Bilateral leg edemaStart: 12-27-2024 End: 15-76-1717xieyoouciwKBVL Y. [facility] Campustart: 09-20-2024 End: 54-81-0823Qaucph flowsheetKareem R Dolce DPM FACFAS Work Phone: noms ASC PODStart: 09-20-2024 End: 89-62-0320Thuylb flowsheetKareem R Dolce DPM FACFAS Work Phone: noms ASC PODStart: 09-20-2024 End: 74-65-4705Bvwruwi encounter procedureKareem R Dolce DPM FACFAS Work Phone: noms NMA PODComment on above:Onychocryptosis (Primary Dx); Abscess, toe, left; Tinea unguium; Pain in left toe(s); Pain in right toe(s)Start: 08-28-2024 End: 42-40-2174Mlxhom flowsheetMarc D Dolce DPM FACFAS Work Phone: noms ASC PODStart: 08-28-2024 End: 41-73-2685Zoaoat flowsheetMarc D Dolce DPM FACFAS Work Phone: noms ASC PODStart: 08-28-2024 End: 97-60-4080Meiawx outpatient new 30 minutesMarc D Dolce DPM FACFAS Work Phone: noms NMA PODComment on above:Onychocryptosis (Primary Dx); Pain in left toe(s); Cellulitis of left toe; Abscess, toe, leftStart: 07-06-2024 End: 90-24-4106Czlmzpnjt encounterAlicia P Brandon [facility] Obstetrics/GynecologyStart: 03-21-2024 End: 14-73-9581Buu Drop offDANIEL AVUGHAN [facility] Start: 03-21-2024 End: 60-47-7188icfinyoihdCCEVTA HERRINGFacility:FTMCStart: 02-02-2024 End: 68-41-6927Bmvwjaw encounter procedurePfws Ob MidwifeProMedica Physicians Obstetrics/GynecologyComment on above:Encounter for screening breast examination (Primary Dx); Surveillance of previously prescribed contraceptive pillStart: 02-01-2024 End: 09-46-9032ccsrpoejpdIEARSR HERRINGFacility:FTMCStart: 02-01-2024 End: 97-45-0688Rsmajnv encounter procedureDANIEL VAUGHAN [facility] Start: 11-30-2023 End: 83-94-9167imnxnxsmqpQGJWRM HERRINGFacility:FTMCStart: 10-12-2023 End: 07-43-5807wgnytsdevwEYHKGI HERRINGFacility:FTMCStart: 10-12-2023 End: 66-31-0751Wbp Drop offDANIEL VAUGHAN [facility] Start: 08-17-2023 End: 25-68-8870jhnpftvfvaPKXUVC HERRINGFacility:FTMCStart: 08-17-2023 End: 41-20-0272Ccn Drop offDANIEL VAUGHAN [facility] Start: 02-17-2023 End: 97-80-5554irprrkbjrkRE ROBIN A HERRINGFacility:W1Krbra: 02-02-2023 End: 03-45-0640qqtahzjvwlPR ROBIN A HERRINGFacility:B9Qgtgz: 12-14-2022 End: 75-77-1494gfqhcectdhTO ROBIN A HERRINGFacility:T7Wtqga: 10-13-2022 End: 97-89-5855kvdiipluxmQU ROBIN A HERRINGFacility:O6Ljwrx: 10-12-2022 End: 13-98-3672xlvbtpjqwzAE ROBIN A HERRINGFacility:P7Ccftn: 08-26-2022 End: 41-35-8763upmysoinetGMDEGJ A CHASEFacility:[facility] ANTONIOtart: 08-26-2022 End: 16-90-7869Nfuehkoxql hospital visit by Diaz Suarez DDS Work Phone: bASUComment on above:Periodontal diseaseStart: 12-80-3301tuswyqvnnoTLUSN D ORRFacility:[facility] ANTONIOtart: 08-17-2022 Encounter for other preprocedural examinationPRASANTH Watson ORRFacility:[facility] ANTONIOtart: 08-17-2022 End: 25-82-9223Gfdpma consultation new/estab patient 40 minPrasanth Reyes PA-C Work Phone: [phone]-Ovmnzvwyn Evaluation and Assessment Antonella Plains Outpatient CareComment on above:Preop exam for internal medicine (Primary Dx); Periodontal disease; Developmental delay; Hypothyroidism, unspecified typeStart: 08-17-2022 End: 39-28-9788Cqxexvh encounter statusPrasanth Reyes PA-C Work Phone: [phone]-Dugagojsx Evaluation and Assessment Antonellaankur ToPlains Outpatient CareStart: 29-91-3757mjsofkhawzONZHM AL MASHNI Facility:METROHealthStart: 08-94-7853Hvcezigdz to same day surgery [facility] DDS Work Phone: [facility] Health SystemStart: 08-25-2021 End: 54-65-4492bomqmcgemlDJWUXMG PROVIDERFacility:[facility] Procedures DateProcedureProcedure DetailPerforming ClinicianStart: 96-60-6100Xqfx [facility]tharl[facility] r-t 2d w/wom-mode compl spec&colr Traci Lorenzo MD Work Phone: Start: 84-76-9691Eojwbepasbh observation [Identifier] in Cervix by Cyto stainPfws MidwifeStart: 37-69-3441FJSROUR RHYTHMOther Other Start: 50-70-7056FOE AND ELECTRONIC DIFFPrasanth Reyes PA-C Work Phone: Start: 61-22-8118Elqimaat blood count with white cell differential, automatedPrasanth Reyes PA-C Work Phone: Start: 70-99-5383Mzbqjoxddh bloodPrasanth Reyes PA-C Work Phone: Plan of Treatment DateCare ActivityDetailAuthorStart: 92-74-7817Ylxigzdf (RZV) Vaccine (1 of 2) Shingles (RZV) Vaccine (1 of 2)[facility] HospitalHealthStart: 36-64-4718Snrdsvduk for malignant neoplasm of cervixPap SmearProTangent Medical Technologies SystemStart: 12-16-2025 End: 13-43-8214Dndpofo encounter xhljjyodc29/19/2026 8:40 AM EST Procedure Visit [facility] [address] [place] [phone] Medhat Rangel, DPM FACFAS [address] [facility] Servicesja[facility] [place] [address] [facility] NMA PODStart: 09-23-2025 End: 29-50-1753Ftbrwbn encounter procedureNOMS NMA PODComment on above:Arrived Start: 08-02-2025 End: 57-11-7296Sakztnm encounter keqetazfs08/05/2025 9:50 AM EDT Office Visit [facility] [address] [place] [id number] Medhat Rangel, DPM FACFAS [address] [facility][Note 3] [place] [address] ArrivedNOMS NMA PODComment on above:ArrivedStart: 07-29-2025 Influenza vaccinationNOGA HealthcareStart: 03-19-2025 End: 17-80-4500Qyuznie encounter nmbvpymqp40/22/2025 11:00 AM EDT Office Visit [facility] POD [address] [place] [phone] Medhat Rangel, DPM FACFAS [address] [facility][Note 3] [place] [address] ArrivedNOMS NMA PODComment on above:ArrivedStart: 64-55-9486Pmirh BMI ScreeningAdult BMI ScreeningProHolzer [facility] SystemStart: 37-71-0343Xkfyjoh ScreeningTobacco ScreeningProHolzer Medical Center – [facility]ca [facility] SystemStart: 09-20-2024 End: 64-95-7286Eeiqtsd encounter pacctjxqg79/24/2024 1:00 PM EDT Office Visit [facility] [address] [place] [id number] Greg Rangel, DPM FACFAS [address] [place] [address] ArrivedNOMS NMA PODComment on above:ArrivedStart: 07-29-2024 COVID-19 Vaccine ( season)COVID-19 Vaccine ( season)[facility] CenterStart: 86-41-4973Fdqnxdlqg vaccinationJORDAN VALLEY [facility] HealthcareStart: 03-29-4224Gvbgntcre vaccinationFlu vaccine (#1)[facility] CenterStart: 07-24-5122Ioplst Wellness Visit (Medicare)Annual Wellness Visit (Medicare)[facility] HealthcareStart: 28-84-3748Dmvescraa [Moles/volume] in Serum or Plasma POTASSIUMOSU [facility] CenterStart: 17-45-7738XSHPW-19 Vaccine ()COVID-19 Vaccine ()[facility] SystemStart: 76-06-2422Yvjkexgpe vaccinationInfluenza VaccineProMedica Health SystemStart: 28-20-3431Edvulctp screenDiabetes screenBon Uk HealthcareStart: 95-27-1895Lpnnasylx vaccinationInfluenza Vaccine (#1)[facility]Start: 08-26-2022 End: 50-38-9693Zwmwwegno to same day surgery wedfjy1208/26/2022 Surgery Multispecialty Pastor Suarez DDS [address] [place] [id number] FULL MOUTH REHABILITATIONUH PERIOPComment on above:[facility] M[facility]TH REHABILITATIONStart: 13-82-0882Titfzjtgic hospital visit by pugyxhvpm16/29/2022 Hospital Encounter Multispecialty Pastor Suarez DDS [address] [place] [address] Periodontal disease BASUComment on above:Periodontal diseaseStart: 08-26-2022 End: 89-86-4212Uohcsnxp procedure dentoalveolar structuresFULL MOUTH REHABILITATION Periodontal disease Dental caries 08/26/2022 1:35 PM EDTOSU UH MAIN ORStart: 08-26-2022 End: 02-17-9574Qrnselt encounter fkojclhtf81/29/2022 Appointment Multispecialty PERIOPStart: 06-06-3348Rghaxdwts vaccinationINFLUENZA VACCINE (#1)[facility] CenterStart: 37-43-5144LESPV-19 Vaccine (3 - Booster for Pfizer series) COVID-19 Vaccine (3 - Booster for Pfizer series)[facility]Start: 02-24-2021 COVID-19 VACCINE (3 - Booster for Pfizer series)COVID-19 VACCINE (3 - Booster for Pfizer series)[facility] CenterStart: 54-35-1802JJpN,Tdap and Td Vaccines (2 - Td or Tdap)DTaP,Tdap and Td Vaccines (2 - Td or Tdap)[facility] SystemStart: 57-56-3991GOuC/Tdap/Td vaccine (2 - Td or Tdap)DTaP/Tdap/Td vaccine (2 - Td or Tdap)[facility] CenterStart: 31-52-4627Wunhbde vaccinationTetanus (Td or Tdap) BoosterMetroHealthStart: 92-61-4696Ihczcfjhp for malignant neoplasm of cervixJORDAN VALLEY [facility]ENTER HealthcareStart: 85-92-0213Lputoppun for malignant neoplasm of cervixMetroHealthStart: 62-79-7137Hgsbsd wellness visit Annual Wellness Visit (G0438)[facility]Start: 05-92-0198Erpttkfdw B vaccine (1 of 3 - 19+ 3-dose series)Hepatitis B vaccine (1 of 3 - 19+ 3-dose series)[facility] CenterStart: 87-57-9510Ehyji diphtheria, tetanus and acellular pertussis (DTaP) vaccinationTDAP (ADULT)[facility] CenterStart: 30-24-0623Niscr BMI Follow Up PlanAdult BMI Follow Up PlanProDecatur Morgan Hospital Health SystemStart: 45-96-7345Zrqwhwlax C screeningMetroHealthStart: 62-97-9478Ohldiwg vaccinationTETANUSOSCleveland Clinic Union Hospitaltart: 65-52-6782XUG screening [facility]Start: 90-63-3986Xdhadlfym vaccine (1 of 2 - 13+ 2-dose series) Varicella vaccine (1 of 2 - 13+ 2-dose series)[facility]: 46-85-0495Mmcmwckxfw ScreenDepression ScreenBon [facility]: 24-05-4279Yukvxxegok ScreeningDepression ScreeningProLakeHealth Beachwood Medical Centertart: 31-89-6741Fjkjnymgh C antibody, confirmatory testHEPATITIS C VIRUS SCREENINGOSCleveland Clinic Union Hospitaltart: 72-36-8349Uactxua stimulating hormone measurementTS OSMetrohealth Parma Medical CenterDENTAL RESTORATIONSDENTAL RESTORATIONS Routine scheduled CariesPHE Surgery CenterNoninvasive ear/pulse oximetry single deterPR NONINVASV OXYGEN SATUR; SINGLE GA - OFFICE PERFORMED Routine Preop exam for internal medicine Periodontal disease Developmental delay Hypothyroidism, unspecified type Ordered: 08/17/2022[facility] HospitalComment on above: Ordered: 08/17/2022 Immunizations Immunization DateImmunizationNotesCare DebffetyLmgmlgqe84-59-5658Kgsvuq (12+ yrs) SARS-COV-2 (COVID-19) vaccine, mRNA, spike protein, LNP, pres. free, 30 mcg/0.3mL dose (VKQ=028)Leonela Lica DDS Work Phone: [phone]bRdclel70-57-1720Lpmzvl (12+ yrs) SARS-COV-2 (COVID-19) vaccine, mRNA, spike protein, LNP, pres. free, 30 mcg/0.3mL dose (OTR=125)Leonela Lica DDS Work Phone: [phone]tPpkerb82-52-1650fbbrcdliq, injectable, quadrivalent, preservative freeElida Lica DDS Work Phone: [phone]oRstedg04-91-0766idkmwkale virus vaccine, unspecified formulationElida Lica DDS Work Phone: [phone]gXcnqpb85-58-9378yvvjlei toxoid, reduced diphtheria toxoid, and acellular pertussis vaccine, adsorbedElida Lica DDS Work Phone: DNAe LTDDetwiler Memorial Hospital Payers DatePayer CategoryPayerPolicy ID2016Medicaid [id number] 2008Medicare [id number] 2.16.840.1.583982.3.57[id number] 2.16840.1.359234.3.57[id number] 2.16840.1.413847.3.57[id number] 2.16840.1.846167.3.57[id number] 2.840.1.777268.3.57[id number] 2.840.1.952465.3.57[id number] 2.0.1.411963.3.57[id number] 2.16840.1.057649.3.57[id number] 2.840.1.111552.3.57[id number] 2.16840.1.079103.3.57[id number] 2.16840.1.209532.3.57[id number] 2.16840.1.494417.3.57[id number] 2.16840.1.385186.3.57[id number] 2..840.1.704134.3.57[id number] 2..840.1.900969.3.579.2.1259 [id number] 1962Medicare [id number] 2.16.840.1.952216.3.579.2. [id number] 2.16.840.1.343261.3.57[id number] 2.16.840.1.843002.3.57[id number] 2.0.1.995495.3.57[id number] 2.16840.1.372054.3.579.2.593 Social History DateTypeDetailFacilityTobacco smoking status NHISTobacco smoking consumption unknownMetroHealth Work Phone: Start: 35-12-5495Ski Assigned At BirthNot on file [facility]HealthStart: 08-26-2022 End: 41-05-0780Vkumphp smoking status NHISNever smoked tobaccoOSU [facility] Hospital CenterStart: 08-26-2022 End: 71-79-1816Vhkvwfx use and exposureSmokeless tobacco non-userOSU [facility]uff[facility] Hospital CenterStart: 08-26-2022 End: 54-69-5249Mmdbtwh intakeLifetime non-drinker (finding)[facility] HospitalTobacco smoking statusNo Smoking Status EnteredPremier Health [facility] Hospital [facility] CenterStart: 09-20-2024 End: 69-49-3745Ced Assigned At BirthFemalNorwalk Memorial Hospital CenterStart: 09-20-2024 End: 80-18-4122Rzrarwo of Social functionProMedica [facility]wiler [facility] Hospital SystemStart: 75-02-9864XioopnwqsRvodahmJjhUzmuas Health SystemStart: 82-68-9101Ysjmmjaii beverage intakeCurrent non-drinker of alcohol (finding)[facility] Clinical Notes 08-17-2022 to 10-02-2025 Note Date & OeouOtwsTqnuoxbm66-75-2375 Telephone encounter Note* Telephone Encounter - ALFONSO Marino - 10/02/2025 10:01 AM EST I can just prescribe something all send it to the pharmacy but if not better in 2 weeks patient should be seen in the office [facility] CenterCvlvvclafo10-55-5862 Miscellaneous Notes* Telephone Encounter - ALFONSO Marino - 10/02/2025 10:01 AM EST I can just prescribe something all send it to the pharmacy but if not better in 2 weeks patient should be seen in the office * Telephone Encounter - Tana Samuels - 10/02/2025 9:47 AM EST Kristi grissom called and wanted to know if you wanted to see PT for Athletes foot or did you wanted to just prescribe something. documented in this encounterNOCarondelet HealthIqzuvnpsnj07-35-2662 Telephone encounter Note* Telephone Encounter - Tana Samuels - 10/02/2025 9:47 AM EST Kristi grissom called and wanted to know if you wanted to see PT for Athletes foot or did you wanted to just prescribe something. [facility] Eyrejzsuzf11-67-7273 History of Present illness Narrative* ALFONSO Marino - 09/23/2025 10:00 AM EDT Images from the original note were not included. patient: Tiffany Mcintosh : 1990 PCP: Robin Vaughan MD SUBJECTIVE This is a 35 y.o. female that presents today with a chief complaint of painful elongated nails digits 1 through 10. They cause marked limitation in ambulation due to pain and pressure from shoe gear. 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 Negative openings in skin. No macerations noted interdigitally. Web spaces were clean and dry. No ulcerations were noted. Nails 1 through 10 were thickened elongated yellow and crumbly with subungual debris. They were painful to palpation 32736 on the right [address] on the left. VASC: DP /PT were nonpalpable bilateral. Capillary refill time < 3 seconds Digits 1-5 bilateral NEURO: [place] Telma 5.07 monofilament was intact B/L. Vibratory sensation was intact B/L Musculoskeletal: Muscle strength was +5 over 5 all intrinsic and extrinsic muscles tested. Radiographs: AP/MO/LAT: Diagnostic ultrasound: ASSESSMENT 1. Tinea unguium 2. Pain in right toe(s) 3. Pain in left toe(s) PLAN The patient was educated on proper foot care as well as the etiology of onychomycosis. I educated the patient on proper shoe gear as well. Today the nails were debrided both in length and thickness 1through 10. Medhat D Dolce, DPM FACFAS [1] Allergies Allergen Reactions Amoxicillin-Pot Clavulanate Swelling Other Reaction(s): Not available Loracarbef Other Reaction(s): Not available Penicillins Swelling [2] Current Outpatient Medications: Aviane 0.1-20 MG-MCG tablet, TAKE 1 TABLET BY MOUTH DAILY. SKIP PLACEBO PILLS FOR PACK 1 AND 2, TAKE PLACEBO PILLS FOR PACK 3., Disp: , Rfl: busPIRone (Buspar) 15 MG tablet, TAKE ONE TABLET BY MOUTH 3 TIMES DAILY BUSPAR, Disp: , Rfl: clonazePAM (KlonoPIN) 0.5 MG tablet, TAKE ONE TABLET BY MOUTH 3 TIMES DAILY KLONOPIN, Disp: , Rfl: desmopressin (DDAVP) 0.2 MG tablet, TAKE 1 AND 12 TABLETS IN THE MORNING, 1 TABLET AT NOON AND 2 TABLETS AT BEDTIME DDAVP, Disp: , Rfl: divalproex sprinkle (Depakote Sprinkle) [address] capsule, Take 125 mg by mouth in the morning and 125 mg in the evening., Disp: , Rfl: folic acid (Folvite) 1 MG tablet, Take 1 tablet by mouth Daily, Disp: , Rfl: hydroCHLOROthiazide (HYDRODiuril) 25 MG tablet, Take 1 tablet by mouth Daily, Disp: , Rfl: Lactobacillus (Acidophilus/L-Sporogenes) tablet, Acidophilus Ex Str (L. sporog) 35 million-25 million cell tablet TAKE ONE TABLET BY MOUTH ONCE DAILY, Disp: , Rfl: levothyroxine (Synthroid, Levoxyl) 75 MCG tablet, TAKE 12 TABLET BY MOUTH ONCE DAILY, Disp: , Rfl: loratadine (Claritin) 10 MG tablet, Take 1 tablet by mouth Daily, Disp: , Rfl: metoprolol tartrate (Lopressor) 25 MG tablet, , Disp: , Rfl: metoprolol tartrate (Lopressor) 50 MG tablet, Take 50 mg by mouth in the morning and 50 mg in the evening., Disp: , Rfl: mirtazapine (Remeron) 15 MG tablet, Take 1 tablet by mouth at bedtime, Disp: , Rfl: montelukast (Singulair) 10 MG tablet, Take 1 tablet by mouth at bedtime, Disp: , Rfl: naltrexone (Depade) 50 MG tablet, TAKE ONE TABLET BY MOUTH TWICE A DAY REVIA, Disp: , Rfl: potassium chloride 40 MEQ/15ML (20%) solution, TAKE 15ML BY MOUTH ONCE DAILY DILUTE IN 6 OZ OF WATER/JUICE PRIOR TO ADMINISTERING, Disp: , Rfl: documented in this encounterEllis Fischel Cancer CenterCsgvwgnquo39-41-3873 History of Present illness Narrative* ALFONSO Marino - 08/02/2025 9:50 AM EDT Images from the original note were not included. Patient: Tiffany Mcintosh : 1990 PCP: Robin Vaughan MD SUBJECTIVE This is a 35 y.o. female presents today with a chief complaint of a painful ingrown toenail with associated soft tissue abscess left 3rd digit. The state the pain has been present for several weeks and has progressively worsened. They have attempted trimming the nail back to no avail. They have noticed erythema and drainage coming from the affected border of the nail. They have attempted soaking the nail and topical antibiotics to no avail. The patient rates the pain a scale from 1-10 as a 8 with 10 being the worst pain of their lives. 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 SKIP PLACEBO PILLS FOR PACK 1 AND 2, TAKE PLACEBO PILLS FOR PACK 3., Disp: , Rfl: busPIRone (Buspar) 15 MG tablet, TAKE ONE TABLET BY MOUTH 3 TIMES DAILY BUSPAR, Disp: , Rfl: clonazePAM (KlonoPIN) 0.5 MG tablet, TAKE ONE TABLET BY MOUTH 3 TIMES DAILY KLONOPIN, Disp: , Rfl: desmopressin (DDAVP) 0.2 MG tablet, TAKE 1 AND 12 TABLETS IN THE MORNING, 1 TABLET AT NOON AND 2 TABLETS AT BEDTIME DDAVP, Disp: , Rfl: divalproex sprinkle (Depakote Sprinkle) [address] capsule, Take 125 mg by mouth in the morning and 125 mg in the evening., Disp: , Rfl: folic acid (Folvite) 1 MG tablet, Take 1 tablet by mouth Daily, Disp: , Rfl: hydroCHLOROthiazide (HYDRODiuril) 25 MG tablet, Take 1 tablet by mouth Daily, Disp: , Rfl: Lactobacillus (Acidophilus/L-Sporogenes) tablet, Acidophilus Ex Str (L. sporog) 35 million-25 million cell tablet TAKE ONE TABLET BY MOUTH ONCE DAILY, Disp: , Rfl: levothyroxine (Synthroid, Levoxyl) 75 MCG tablet, TAKE 12 TABLET BY MOUTH ONCE DAILY, Disp: , Rfl: loratadine (Claritin) 10 MG tablet, Take 1 tablet by mouth Daily, Disp: , Rfl: metoprolol tartrate (Lopressor) 25 MG tablet, , Disp: , Rfl: metoprolol tartrate (Lopressor) 50 MG tablet, Take 50 mg by mouth in the morning and 50 mg in the evening., Disp: , Rfl: mirtazapine (Remeron) 15 MG tablet, Take 1 tablet by mouth at bedtime, Disp: , Rfl: montelukast (Singulair) 10 MG tablet, Take 1 tablet by mouth at bedtime, Disp: , Rfl: naltrexone (Depade) 50 MG tablet, TAKE ONE TABLET BY MOUTH TWICE A DAY REVIA, Disp: , Rfl: potassium chloride 40 MEQ/15ML (20%) solution, TAKE 15ML BY MOUTH ONCE DAILY DILUTE IN 6 OZ OF WATER/JUICE PRIOR TO ADMINISTERING, Disp: , Rfl: Review of systems: Constitutional: Denies fever, chills, nausea, vomiting GI: Denies abdominal pain, cramping, loose stool, gastric ulcers Musculoskeletal: Denies low back pain, knee pain, systemic arthritis Neurologic: Denies burning, tingling, transient paralysis OBJECTIVE Physical Examination: DERM: Positive hair growth to b/l feet with good skin turgor noted. Negative openings in skin. The left 3rd toe is incurvated and painful at the nail border. There is significant erythema and drainage with abscess formation noted. Pain on direct palpation of the incurvated border. Localized erythema circumferentially around the digit. There is no ascending cellulitis or lymphangitis noted. VASC: DP /PT were palpable bilateral. Capillary refill time < 3 seconds Digits 1-5 bilateral NEURO: [place] Telma 5.07 monofilament was intact B/L. Vibratory sensation was intact B/L Musculoskeletal: Muscle strength was +5 over 5 all intrinsic and extrinsic muscles tested. ASSESSMENT 1. Cellulitis of left toe 2. Abscess, toe, left PLAN Recommended incision and drainage of the infection of the digit. Consent forms were signed for the procedure today. The digit was prepped and draped in the usual sterile manner. The offending nail border was freed proximally and at the nail bed. The nail was then split and removed in toto. The abscess was drained and copiously lavaged with normal sterile saline. Dressings consisted of Silvadene 4x4s and Coban. The patient was instructed to change the dressing daily. ALFONSO Marino documented in this encounterEllis Fischel Cancer [id number] History of Present illness Narrative* ALFONSO Marino - 07/08/2025 9:00 AM EDT Patient: Tiffany Mcintosh : 1990 PCP: Robin Vaughan MD SUBJECTIVE This is a 35 y.o. female presents today with a chief complaint of a painful ingrown toenail left foot. The state the pain has been present for several weeks and has progressively worsened. They have attempted trimming the nail back to no avail. They have noticed some erythema in drainage coming from the area. Patient is mentally challenged in his here today with her mother was present during examination treatment. This patient presents today chief complaint of painful elongated nails digits 1 through 10. They cause marked limitation in ambulation due to pain and pressure from shoe gear. 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 SKIP PLACEBO PILLS FOR PACK 1 AND 2, TAKE PLACEBO PILLS FOR PACK 3., Disp: , Rfl: busPIRone (Buspar) 15 MG tablet, TAKE ONE TABLET BY MOUTH 3 TIMES DAILY BUSPAR, Disp: , Rfl: clonazePAM (KlonoPIN) 0.5 MG tablet, TAKE ONE TABLET BY MOUTH 3 TIMES DAILY KLONOPIN, Disp: , Rfl: desmopressin (DDAVP) 0.2 MG tablet, TAKE 1 AND 12 TABLETS IN THE MORNING, 1 TABLET AT NOON AND 2 TABLETS AT BEDTIME DDAVP, Disp: , Rfl: divalproex sprinkle (Depakote Sprinkle) [address] capsule, Take 125 mg by mouth in the morning and 125 mg in the evening., Disp: , Rfl: folic acid (Folvite) 1 MG tablet, Take 1 tablet by mouth Daily, Disp: , Rfl: hydroCHLOROthiazide (HYDRODiuril) 25 MG tablet, Take 1 tablet by mouth Daily, Disp: , Rfl: Lactobacillus (Acidophilus/L-Sporogenes) tablet, Acidophilus Ex Str (L. sporog) 35 million-25 million cell tablet TAKE ONE TABLET BY MOUTH ONCE DAILY, Disp: , Rfl: levothyroxine (Synthroid, Levoxyl) 75 MCG tablet, TAKE 12 TABLET BY MOUTH ONCE DAILY, Disp: , Rfl: loratadine (Claritin) 10 MG tablet, Take 1 tablet by mouth Daily, Disp: , Rfl: metoprolol tartrate (Lopressor) 25 MG tablet, , Disp: , Rfl: metoprolol tartrate (Lopressor) 50 MG tablet, Take 50 mg by mouth in the morning and 50 mg in the evening., Disp: , Rfl: mirtazapine (Remeron) 15 MG tablet, Take 1 tablet by mouth at bedtime, Disp: , Rfl: montelukast (Singulair) 10 MG tablet, Take 1 tablet by mouth at bedtime, Disp: , Rfl: naltrexone (Depade) 50 MG tablet, TAKE ONE TABLET BY MOUTH TWICE A DAY REVIA, Disp: , Rfl: potassium chloride 40 MEQ/15ML (20%) solution, TAKE 15ML BY MOUTH ONCE DAILY DILUTE IN 6 OZ OF WATER/JUICE PRIOR TO ADMINISTERING, Disp: , Rfl: Review of systems: Constitutional: Denies fever, chills, [...] Localized erythema. No ascending cellulitis or lymphangitis noted.Nails 1 through 10 are markedly thickened elongated yellow and crumbly with subungual debris and painful to palpation 34818 on the right 38336 on the left VASC: DP /PT were palpable bilateral. Capillary refill time < 3 seconds Digits 1-5 bilateral NEUR: [place] Telma 5.07 monofilament was intact B/L. Vibratory sensation was intact B/L Musculoskeletal: Muscle strength was +5 over 5 all intrinsic and extrinsic muscles tested. Radiographs: AP/MO/LAT: ASSESSMENT 1. Onychocryptosis 2. Tinea unguium 3. Pain in right toe(s) 4. Pain in left toe(s) PLAN The digit was prepped and draped in the usual sterile manner. We freed the offending nail border from the underlying ungual labia. Performed a slant back procedure draining a small abscess at the medial nail fold copiously lavaged with normal sterile saline. Apply topical antibiotics the patient's mother is to apply topical antibiotics daily and follow up with p.r.n. if the pain has improvedThe patient was educated on proper foot care as well as the etiology of onychomycosis. I educated the patient on proper shoe gear as well. Today the nails were debrided both in length and thickness 1 through 10 Medhat Rangel DPM FACRAFIQ documented in this encounterEllis Fischel Cancer [id number] History of Present illness Narrative* Medhat Ragnel DPM FACFAS - 03/19/2025 10:10 AM EDT Images from the original note were not included. Patient: Tiffany Mcintosh : 1990 PCP: Robin Vaughan MD SUBJECTIVE This is a 35 y.o. female presents today with a chief [...] mother was present during examination treatment Allergies: Allergies Allergen Reactions Amoxicillin-Pot Clavulanate Swelling Other Reaction(s): Not available Loracarbef Other Reaction(s): Not available Penicillins Swelling Past Medical History: Past Medical History: Diagnosis Date Anxiety 10/11/2018 Attention deficit hyperactivity disorder (CMS/HCC) 10/11/2018 Bipolar disorder 10/11/2018 Developmental disorder 08/28/2024 Drug-induced nephrogenic diabetes insipidus (CMS/HCC) 01/15/2016 Hypothyroidism due to drugs ([facility]) 01/15/2016 Mental developmental delay 01/08/2016 Thrombocytopenia ([facility]) 01/08/2016 Medications: Current Outpatient Medications: Aviane 0.1-20 MG-MCG tablet, TAKE 1 TABLET BY MOUTH DAILY. SKIP PLACEBO PILLS FOR PACK 1 AND 2, TAKE PLACEBO PILLS FOR PACK 3., Disp: , Rfl: busPIRone (Buspar) 15 MG tablet, TAKE ONE TABLET BY MOUTH 3 TIMES DAILY BUSPAR, Disp: , Rfl: clonazePAM (KlonoPIN) 0.5 MG tablet, TAKE ONE TABLET BY MOUTH 3 TIMES DAILY KLONOPIN, Disp: , Rfl: desmopressin (DDAVP) 0.2 MG tablet, TAKE 1 AND 12 TABLETS IN THE MORNING, 1 TABLET AT NOON AND 2 TABLETS AT BEDTIME DDAVP, Disp: , Rfl: divalproex sprinkle (Depakote Sprinkle) [address] capsule, Take 125 mg by mouth in the morning and 125 mg in the evening., Disp: , Rfl: folic acid (Folvite) 1 MG tablet, Take 1 tablet by mouth Daily, Disp: , Rfl: hydroCHLOROthiazide (HYDRODiuril) 25 MG tablet, Take 1 tablet by mouth Daily, Disp: , Rfl: Lactobacillus (Acidophilus/L-Sporogenes) tablet, Acidophilus Ex Str (L. sporog) 35 million-25 million cell tablet TAKE ONE TABLET BY MOUTH ONCE DAILY, Disp: , Rfl: levothyroxine (Synthroid, Levoxyl) 75 MCG tablet, TAKE 12 TABLET BY MOUTH ONCE DAILY, Disp: , Rfl: loratadine (Claritin) 10 MG tablet, Take 1 tablet by mouth Daily, Disp: , Rfl: metoprolol tartrate (Lopressor) 25 MG tablet, , Disp: , Rfl: metoprolol tartrate (Lopressor) 50 MG tablet, Take 50 mg by mouth in the morning and 50 mg in the evening., Disp: , Rfl: mirtazapine (Remeron) 15 MG tablet, Take 1 tablet by mouth at bedtime, Disp: , Rfl: montelukast (Singulair) 10 MG tablet, Take 1 tablet by mouth at bedtime, Disp: , Rfl: naltrexone (Depade) 50 MG tablet, TAKE ONE TABLET BY MOUTH TWICE A DAY REVIA, Disp: , Rfl: potassium chloride 40 MEQ/15ML (20%) solution, TAKE 15ML BY MOUTH ONCE DAILY DILUTE IN 6 OZ OF WATER/JUICE PRIOR TO ADMINISTERING, Disp: , Rfl: Review of systems: Constitutional: Denies fever, chills, [...] < 3 seconds Digits 1-5 bilateral NEUR: [place] Telma 5.07 monofilament was intact B/L. Vibratory [...] topical antibiotics daily and follow up with p.r.n. if the pain has improved ALFONSO Marino documented in this encounterEllis Fischel Cancer [id number] History of Present illness Narrative* Ngoc Berkowitz - 01/24/2025 3:00 PM EST Explained policies and procedure of an echocardiogram/Doppler study. documented in this encounterBon [facility]25 Note Attestation signed by Katiuska Gandhi at [...] TSH to 4-6?mIU/L. [ (more content not included)...[facility]10-24-2024 History of Present illness Narrative* Greg Rangel DPM FACFAS - 09/20/2024 1:00 PM EDT Images from the original note were not included. Patient: Tiffany Mcintosh : 1990 PCP: Robin Vaughan MD SUBJECTIVE This is a 34 y.o. female that presents today from [facility] with aid for follow up a nail avulsion /incision and drainage of abscess left . Patient is doing well they deny fever chills nauseavomiting. They deny any pain they have been [...] Date Anxiety 10/11/2018 Attention deficit hyperactivity disorder ([facility]/HCC) 10/11/2018 Bipolar disorder ([facility]) 10/11/2018 Developmental disorder 08/28/2024 Drug-induced nephrogenic diabetes insipidus ([facility]) 01/15/2016 Hypothyroidism due to drugs ([facility]) 01/15/2016 Mental developmental delay 01/08/2016 Thrombocytopenia ([facility]) 01/08/2016 Medications: No current outpatient medications on [...] through ten are elongated painful thick with berry bungual debris and discoloration VASC: Palpable pedal pulsed [...] They may discontinue topical antibiotics follow up p.r.n.The patient was educated on proper foot care as well as the etiology of onychomycosis. I educated the patient on proper shoe gear as well. Today the nails were debrided both in length and thickness 1 ALFONSO Villeda documented in this encounterEllis Fischel Cancer [id number] History of Present illness Narrative* ALFONSO Marino - 08/28/2024 9:20 AM EDT Images from the original note were not included. Patient: Tiffany J Arnaldo : 1990 PCP: Robin Vaughan MD SUBJECTIVE [...] Date Anxiety 10/11/2018 Attention deficit hyperactivity disorder ([facility]) 10/11/2018 Bipolar disorder ([facility]) 10/11/2018 Developmental disorder 08/28/2024 Drug-induced nephrogenic diabetes insipidus ([facility]) 01/15/2016 Hypothyroidism due to drugs ([facility]) 01/15/2016 Mental developmental delay 01/08/2016 Thrombocytopenia ([facility]) 01/08/2016 Medications: No current outpatient medications on [...] < 3 seconds Digits 1-5 bilateral NEUR: [place] Telma 5.07 monofilament was intact B/L. Vibratory [...] for reassessment. ALFONSO Marino documented in this encounterEllis Fischel Cancer [id number] Miscellaneous Notes* Telephone Encounter - Analy Taylor RN - 07/06/2024 1:51 PM EDT Judy Serna Nurse from [facility] called requesting a clarification fax be sent to them at [phone] for the patient's medication Aviane. The patient is currently taking the Aviane daily and skipping her placebo weeks on week 1 and week 2. She then will take the placebo week on week 3. They are requesting a letter stating that the patient can continue taking the medication as above. Please Advise. MOIZ Hidalgo, RN * Telephone Encounter - Thea Fuentes APRN-[facility] [place] - 07/06/2024 1:51 PM EDT That is colin * Telephone Encounter - Analy Taylor RN - 07/06/2024 1:51 PM EDT Letter printed for the patient and was faxed to [facility]. MOIZ Hidalgo, RN documented in [facility]Mer[facility] Telephone encounter Note* Telephone Encounter - Analy Taylor RN - 07/06/2024 1:51 PM EDT Judy Serna Nurse from [facility] called requesting a clarification fax be sent to them at [phone] for the patient's medication Aviane. The patient is currently taking the Aviane daily and skipping her placebo weeks on week 1 and week 2. She then will take the placebo week on week 3. They are requesting a letter stating that the patient can continue taking the medication as above. Please Advise. MOIZ Hidalgo, RN [facility]08-09-2024 Telephone encounter Note* Telephone Encounter - HERMILO Briscoe - 07/06/2024 1:51 PM EDT That is colin [facility]08-09-2024 Telephone encounter Note* Telephone Encounter - Analy Taylor RN - 07/06/2024 1:51 PM EDT Letter printed for the patient and was faxed to [facility]. MOIZ Hidalgo, RN [facility]04-24-2024 Evaluation + Plan note Diagnostic Tests Pending * Acute Hepatitis A B C Panel 03/21/24 [facility]03-07-2024 History of Present illness Narrative* Thea Fuentes, TANK CAR LOADER-[employer]ENT - 02/02/2024 11:00 AM EST Subjective Tiffany Mcintosh is a 33 y.o. female new patient who presents for medicare pelvic and clinical breast exam screening for cancer. She is non verbal and accompanied by a caregiver today. Caregiver has written instructions that patient is not to have a pap / pelvic. She was seen by Dr. La last [id number]. She is not sexually active, but takes OCPs for period control. She skips placebo week for twomonths and takes it on the third month [...] past medical history, past social history, past surgicalhistory, problem list, and medication reconciliation was completed including current medication andpost discharge medication. Review of Systems Constitutional: Negative. [...] Franco, APRN-CNP 02/02/24 1525 documented in this encounterMercer County Community Hospital09-29-2022 Note* Nursing Notes - Marcelino Augustin RN - 08/26/2022 3:35 PM EDT 1530: Pt arrived on unit, initial assessment and vitals completed, pt positioned on cart, no belongings in SPR to return, call light in reach, family on their way from [facility], this RN to stay with ptuntil family arrives, no further needs at this time. 1545: IV removed, AVS reviewed with mother and caregiver, no questions. Pt helped to restroom and dressed for discharge. Pt escorted to lobby via wheelchair and left in care of mother while waiting for skiing teacher by this RN. [facility]09-29-2022 Miscellaneous Notes* Nursing Notes - Marcelino Augustin RN - 08/26/2022 3:35 PM EDT 1530: Pt arrived on unit, initial assessment and vitals completed, pt positioned on cart, no belongings in SPR to return, call light in reach, family on their way from [facility], this RN to stay with ptuntil family arrives, no further needs at this time. 1545: IV removed, AVS reviewed with mother and caregiver, no questions. Pt helped to restroom and dressed for discharge. Pt escorted to lobby via wheelchair and left in care of mother while waiting for skiing teacher by this RN. * Op Note - Pastor Suarez DDS - 08/26/2022 2:52 PM EDT Current Facility-Administered Medications: chlorhexidine (PERIDEX) 0.12 % [...] Rosa Siddiqui DDS, Last Rate: 50 mL/hr at08/26/22 1245, New Bag at 08/26/22 1245 promethazine [...] mouth scaling was performed with an ultrasonic health science writer. Teeth were polished with prophy paste and prophy cup on slow speed handpiece. Fluoride varnish was applied to teeth. The throat pack was removed at 14:43. The patient was extubated and transferred to PACU in stable condition. Written and verbal post-operative instructions were provided to the patient s escort. Condition: Stable Disposition: Patient to follow up at dental clinic prn and with the [facility] dental clinic for regular exams. EBL (estimated blood loss): minimal TRF (total fluid replacement): 500 mL Lactated Ringers TABBY Guzman DDS, [facility] * Brief Op Note - Pastor Suarez DDS - 08/26/2022 2:47 PM EDT Tiffany Mcintosh ([id number]) PRE OPERATIVE DIAGNOSIS Periodontal disease [K05.6] Dental caries [K02.9] POST OPERATIVE DIAGNOSIS Post-Op Diagnosis Codes: * Periodontal disease [K05.6] * Dental caries [K02.9] PROCEDURE PERFORMED Procedure(s) (LRB): FULL MOUTH REHABILITATION (N/A) PRIMARY CLOSURE Yes INTRAOPERATIVE FINDINGS No significant abnormalities SURGEON Surgeon(s) and Role: * Pastor Suarez DDS - Primary ANESTHESIOLOGIST Anesthesiologist: Katiuska Aguirre DO Sugar Chipper Machine Operator Assisting: Juan Dozier DDS SURGICAL STAFF System Dispatcher: Maria Del Rosario Scanlon RN Scrub Person: Jimmy Neri Resident Assisting: Rosa Siddiqui DDS COMPLICATIONS None ESTIMATED BLOOD LOSS minimal SPECIMENS No specimen sent * No specimens in log * Pastor Suarez DDS August 26, 2022 2:47 PM documented in this encounterOSU [facility]-29-20[facility]* Op Note - Pastor Suarez DDS - 08/26/2022 2:52 PM EDT Current Facility-Administered Medications: chlorhexidine (PERIDEX) 0.12 % oral solution, , , PRN, Pastor Suarez, MARTINEZS, 15 mL at 08/26/22 1358 haloperidol lactate [...] Rosa Siddiqui DDS, Last Rate: 50 mL/hr at08/26/22 1245, New Bag at 08/26/22 1245 promethazine [...] mouth scaling was performed with an ultrasonic health science writer. Teeth were polished with prophy paste and prophy cup on slow speed handpiece. Fluoride varnish was applied to teeth. The throat pack was removed at 14:43. The patient was extubated and transferred to PACU in stable condition. Written and verbal post-operative instructions were provided to the patient s escort. Condition: Stable Disposition: Patient to follow up at dental clinic prn and with the [facility] dental clinic for regular exams. EBL (estimated blood loss): minimal TRF (total fluid replacement): 500 mL Lactated Ringers TABBY Guzman DDS, [facility] Work Phone: [phone]) 354-279309-29-2022 Note* Brief Op Note - Pastor Suarez DDS - 08/26/2022 2:47 PM EDT Tiffany Mcintosh ([id number]) PRE OPERATIVE DIAGNOSIS Periodontal disease [K05.6] Dental caries [K02.9] POST OPERATIVE DIAGNOSIS Post-Op Diagnosis Codes: * Periodontal disease [K05.6] * Dental caries [K02.9] PROCEDURE PERFORMED Procedure(s) (LRB): FULL MOUTH REHABILITATION (N/A) PRIMARY CLOSURE Yes INTRAOPERATIVE FINDINGS No significant abnormalities SURGEON Surgeon(s) and Role: * Pastor Suarez DDS - Primary ANESTHESIOLOGIST Anesthesiologist: Katiuska Aguirre DO Sugar Chipper Machine Operator Assisting: Juan Dozier DDS SURGICAL STAFF System Dispatcher: Maria Del Rosario Scanlon RN Scrub Person: Jimmy Edmondson Assisting: Rosa Siddiqui DDS COMPLICATIONS None ESTIMATED BLOOD LOSS minimal SPECIMENS No specimen sent * No specimens in log * Pastor Suarez DDS August 26, 2022 2:47 PM [facility]09-29-2022 Nurse Surgical operation note* Maria Del Rosario Scanlon RN - 08/26/2022 2:08 PM EDT Pt came to OR with toy ball. Ball taken with pt to PACU. [facility]09-29-2022 Nurse Note* Maria Del Rosario Scanlon RN - 08/26/2022 2:08 PM EDT Pt came to OR with toy ball. Ball taken with pt to PACU. documented in this encounterOSMet[facility]09-29-2022 History and physical note* Hubert Ledbetter DO - 08/26/2022 11:42 AM EDT Hospitalist updated H&P. Patient seen and examined [...] surgery at this time. Hubert Ledbetter DO [facility] Work Phone: 1(473) 703-727209-29-2022 History and physical note* Hubert Ledbetter DO - 08/26/2022 11:42 AM EDT Hospitalist updated H&P. Patient seen and examined [...] time. Hubert Ledbetter DO documented in this encounterThe [facility]09-[facility]-2022 History and physical note* Prasanth Reyes PA-C - 08/17/2022 10:30 AM EDT Images from the original note were not included. History of Present Illness Ms. Mcintosh is a 32 y.o. female is being evaluated in [facility] due to her medical condition of Periodontal [...] patient has been medically OPTIMIZED FOR SURGERY. [facility] Perioperative Clinic [facility] [address] Review of Systems [...] Social History Socioeconomic History Marital status: Single [facility]09-20-2022 History and physical note* Prasanth Reyes PA-C - 08/17/2022 10:30 AM EDT Images from the original note were not [...] patient has been medically OPTIMIZED FOR SURGERY. [facility] Perioperative Clinic [facility] [address] Review of Systems [...] History Marital status: Single documented in this encounterOSU [facility]09-20-2022 History of Present illness Narrative* Arun Montes MD - 08/17/2022 10:30 AM EDT 32 YO F for Full mouth rehabilitation with Dr. Suarez Developmental Delay Hypothyroid HTN Prior anesthetic with grade 1 view with mac 3 Prior ketamine IM though has had more recent anesthetics and tolerated IV well Arun Montes MD Packaging Associate Anesthesiology / Pain Management [facility] * Prasanth Reyes PA-C - 08/17/2022 10:30 AM EDT Addendum 08/18/22: Family called an notified [facility] [...] who agreed plan of action for this medicationissue. documented in this encounterThe [facility]-2022 Instructions* Patient Instructions* Opal Sparks RN - 08/17/2022 10:30 AM [...] take Herbal Medication (including multi-vitamin, fish oil ([place]-3), garlic, Glucosamine -Chondroitin ,gingko, ginseng, Vitamin E, probiotics) vitamins and supplements 2 weeks before surgery. - Do NOT take Excedrin, ibuprofen, Advil, Voltaren (Diclofenac), Motrin, naproxen, or Aleve, Mobic (Meloxicam) for the 7-14 days before surgery. Acetaminophen (Tylenol) is ok to take up until the dayof surgery. Patient Pre-Operative Instructions: Please hold your Naltrexone for 5 days prior to your scheduled procedure date. Diet Instructions: -NO food or drink after 11 pm the night before surgery except for enough water to take your medications. (No Candy, Mints and/or Gum) If she is unable to swallow medication using just water, then she may take it with a tablespoon (15mL) of non-red jello or of mashed up, [...] site one week prior to surgery. - [place] your teeth and rinse your mouth the morning of surgery. - Do NOT bring your dentures or partials with you into surgery. They may be lost. Give them to someone to bring to you after surgery. If you are unable to complete your scheduled testing or appointments made by OPAC please contact OP[facility] at [phone]. Failure to do so could delay or [...] effects patients. In addition, smoking illicit drugs, canalter the way a patient returns to breathing [...] surgery, please notify our team immediately at [phone]. - If you have Sleep apnea and have a CPAP or BIPAP, then bring your CPAP mask and machine with you to the hospital. Also, if you have been ordered a chest x-ray, please report to the Imaging Department on to first floor (to the right of the [place] LILIAN on the first floor) prior to leaving the building. Please contact Medical Information Management Department for all records requests. Tcdwwo-[phone] Wre-[phone] JOSH/ALBERT documented in this encounterOSU [facility] HospitalEvaluation + Plan note No data available for this section [facility]* Diagnosis Caries- Primary Unspecified dental caries [facility] Diagnosis Preop exam for internal medicine- Primary Other specified pre-operative examination Periodontal disease Unspecified gingival and periodontal disease Developmental delay Unspecified delay in development Hypothyroidism, unspecified type Periodontal disease Unspecified gingival and periodontal disease Dental caries Unspecified dental caries [facility] encounter [facility]* Diagnosis Onychocryptosis- Primary Ingrowing nail Pain in left toe(s) Cellulitis of left toe Abscess, toe, left documented in this encounter [facility]* Diagnosis Onychocryptosis- Primary Ingrowing nail Abscess, toe, left Tinea unguium Dermatophytosis of nail Pain in left toe(s) Pain in right toe(s) documented in this encounter [facility] note* Diagnosis Encounter for screening breast examination- Primary Surveillance of previously prescribed contraceptive pill [facility]* Diagnosis Moderate dehydration Dehydration Increased heart rate Tachycardia, unspecified Tachycardia Tachycardia, unspecified SOB (shortness of breath) Shortness of breath Bilateral leg edema Edema [facility] Diagnosis Onychocryptosis- Primary Ingrowing nail Pain in left toe(s) Cellulitis of left toe Abscess, toe, left documented in this encounter [facility]* Diagnosis Onychocryptosis- Primary Ingrowing nail Tinea unguium Dermatophytosis of nail Pain in right toe(s) Pain in left toe(s) documented in this encounter [facility] note* Diagnosis Onychocryptosis- Primary Ingrowing nail Cellulitis of left toe Abscess, toe, left documented in this encounter [facility] note* Diagnosis Tinea unguium- Primary Dermatophytosis of nail Pain in right toe(s) Pain in left toe(s) documented in this encounter [facility] HealthcareEvaluation note* Diagnosis Tinea pedis of both feet- Primary [facility]* Attachments The following attachments cannot be sent through Care Everywhere. * Dental Surgery: Generic: Post-op (Emirati) documented in this encounterOSMetrohealth [facility] CenterHospital Discharge instructions No data available for this section [facility] HospitalInstructions* Attachments The following attachments cannot be sent through Care Everywhere. * Ethinyl Estradiol and Levonorgestrel, ADULT (Emirati) * Cervical cancer screening tests (Emirati) documented in this encounterProCincinnati Children'S Hospital Medical CenterInstructionsNot on file documented in this encounterProCincinnati Children'S Hospital Medical CenterProgress note No data available for this section [facility] HospitalReason for visit Narrative* Auth/CertSpecialty Diagnoses / ProceduresReferred By ContactReferred To Contact Diagnoses Periodontal disease Dental caries Periodontal disease [K05.6] Dental caries [K02.9] Procedures GA DENTAL SURGERY PROCEDURE FULL MOUTH REHABILITATION [facility] [address] [place] [address] [facility] [address] [place] [address] Referral IDStatusReasonStart DateExpiration DateVisits RequestedVisits [id number] [facility] Summary Purpose Family History No Family History Records FoundNo Family History Records FoundNo Family History Records Found No data available for this section No data available for this section No data available for this section No Family History Records FoundNo Family History Records FoundNo Family History Records FoundNo Family History Records Found Advance Directives TypeDate RecordedPatient RepresentativeExplanationDNR Physician Order02/02/2024 11:17 AMDNRCCTypeDate RecordedPatient RepresentativeExplanationACP-Guardianship 12/07/2024 10:21 AMACP-Do Not Resuscitate12/07/2024 10:20 AMACP-Power of Soap Mixer 09/27/2019 4:44 PMRELEASE OF HEALTH INFORMATIONACP-Advance Avkwydooz18/31/2019 4:42 PMDNRCCDate ActivatedDate InactivatedComments02/11/2016 10:05 PM02/16/2016 2:44 PMDate ActivatedDate InactivatedComments01/08/2016 9:29 01/22/2016 4:19 PM Reason for Referral SpecialtyDiagnoses / ProceduresReferred By ContactReferred To Contact Procedures LOW RISK - NO PHARMACOLOGICAL DVT PROPHYLAXIS Pastor Suarez, DDS [address] [place] [address] Referral IDStatusReasonStart DateExpiration DateVisits RequestedVisits [id number] Request/[id number] / ProceduresReferred By ContactReferred To Contact Procedures DVT/VTE RISK ASSESSMENT Pastor Suarez, DDS [address] [place] [address] Referral IDStatusReasonStart DateExpiration DateVisits RequestedVisits [id number] Request/[id number] / ProceduresReferred By ContactReferred To ContactCardiology Diagnoses Moderate dehydration Increased heart rate Tachycardia SOB (shortness of breath) Bilateral leg edema Procedures Echo (TTE) complete (PRN contrast/bubble/strain/3D) GA ECHO TTHRC R-T 2D W/WOM-MODE COMPL SPEC&COLR D GA TTE W OR WO FOL WCMARY ANN,Jose Subramanian MD [address] [place] [address] Referral IDStatusReasonStart DateExpiration DateVisits RequestedVisits [id number] Required - RTA Additional Source Comments INFORMATION SOURCE (unrecogn ized section and content) DATE CREATED AUTHOR 08/07/2022 [facility] DATE CREATED AUTHOR AUTHOR'S ORGANIZ ATION 08/29/2022 [facility] DATE CREATED AUTHOR AUTHOR'S ORGANIZ ATION 03/05/2023 [facility] DATE CREATED AUTHOR AUTHOR'S ORGANIZ ATION 03/23/2024 [facility] DATE CREATED AUTHOR AUTHOR'S ORGANIZ ATION 12/31/2024 [facility] DATE CREATED AUTHOR AUTHOR'S ORGANIZ ATION 01/28/2025 [facility] DATE CREATED AUTHOR AUTHOR'S ORGANIZ ATION 09/24/2025 [facility] EPIC Reason for Visit (unrecogniz ed section and content) ReasonCommentsPreoperative AssessmentSpecialtyDiagnoses / ProceduresReferred By ContactReferred To ContactPreOp Diagnoses Periodontal disease Dental caries Pastor Suarez, DDS [address] [place] [address] [facility] [address] [place] [address] Referral IDStatusReasonStart DateExpiration DateVisits RequestedVisits [id number] [id number] Care Non DM nail careReasonCommentsGynecologic ExamPt is here for breast exam. SpecialtyDiagnoses / ProceduresReferred By ContactReferred To ContactCardiology Diagnoses Moderate dehydration Increased heart rate Tachycardia SOB (shortness of breath) Bilateral leg edema Procedures Echo (TTE) complete (PRN contrast/bubble/strain/3D) GA ECHO TTHRC R-T 2D W/WOM-MODE COMPL SPEC&COLR D GA TTE W OR WO FOL WCON,DOPPLER Jose Lorenzo MD [address] [place] [address] Referral IDStatusReasonStart DateExpiration DateVisits RequestedVisits [id number] Required - [id number] ProblemLt 3rd digit nailReasonCommentsToenail CareNon dm nail care Care Teams (unrecognized sec tion and content) Team MemberRelationshipSpecialtyStart DateEnd Date Robin Vaughan DO [address] [place] [address] PCP - GeneralFamily Medicine08/17/22Team MemberRelationshipSpecialtyStart DateEnd Date Robin Vaughan DO [address] [place] [address] PCP - GeneralFamily Medicine08/17/22Team MemberRelationshipSpecialtyStart DateEnd Date Robin Vaughan MD [address] [place] [address] PCP - GeneralFamily Duxqtjrn27/1/24Team MemberRelationshipSpecialtyStart DateEnd Date Robin Vaughan MD [address] [place] [address] PCP - GeneralFamily Jsdjqxdd90/1/24Team MemberRelationshipSpecialtyStart DateEnd Date Robin Vaughan MD [address] [place] [address] PCP - GeneralFamily Mckthuur90/1/24Team MemberRelationshipSpecialtyStart DateEnd Date Robin Vaughan MD PCP - General12/22/15Team MemberRelationshipSpecialtyStart DateEnd Date Robin Vaughan MD [address] [place] [address] PCP - GeneralFamily Madxlcvn91/1/24Team MemberRelationshipSpecialtyStart DateEnd Date Robin Vaughan MD [address] [place] [address] PCP - GeneralFamily Nedwteay99/1/24Team MemberRelationshipSpecialtyStart DateEnd Date Robin Vaughan MD [address] [place] [address] PCP - [facility] Camnipii91/1/24Te MemberRelationshipSpecialtyStmears DateEnd [facility] Robin Vaughan MD [address] [place] [address] PCP - [facility]08/28/24Te MemberRelationshipSpecialtyAttica DateEnd [facility] Robin Vaughan MD [address] [place] [address] PCP - [facility]08/28/24Te MemberRelationshipSveterans health administrationialtyAttica DateEnd [facility] Robin Vaughan MD [address] [place] [address] PCP - [facility]08/28/24Te MemberRelationsSelect Specialty Hospitalial[facility] End [facility] Robin Vaughan MD [address] [place] [address] PCP - [facility] Tvrygaei46/1/24 Continuous Active and Recently Administ ered Medications (unrecognized section and content) Medication Order// lactated ringers IV solution (CANCELED) Intravenous, at 50 mL/hr, CONTINUOUS, Starting on Sary 08/26/22 at 1145, Until Tue08/26/22 at 1527, Pre-op/Pre-Proc * 1245 ($$New Bag$$ - Provider: Eunice Desai RN) Medication Order// acetaminophen (TYLENOL) tablet 650 mg 650 mg, Oral, EVERY 4 HOURS NEEDED, Starting on Sary 08/26/22 at 1518, Until Sary 08/26/22 at 1804, Mild Pain, Maximum dose of acetaminophen is 4000 mg from all sources in 24 hours., Post-op/Post-Proc chlorhexidine (PERIDEX) 0.12 % oral solution (CANCELED) NEEDED, Starting on Sary 08/26/22 at 1358, Until Sary 08/26/22 at 1453, Intra-op/Intra-Proc * 1358 (Given - Provider: Pastor Suarez, DDS - Comment: mouth) FOR [...] BE BASED ON THE PRIMARY CLINICAL RECORDS. [facility]. provides no warranty or guarantee of the accuracy or completeness of information in this document.
--- OUTSIDE RECORDS SUMMARY | 2025-10-08 06:52 | XMS_ITS | Clinical Summary ---
Author Organization [facility] Address [address], [address] [place] [address] Care Team Providers Care [employer] Manager Name Role Phone Robin Richardson MD Primary Care Provider Allergies Active AllergyReactionsCriticalityNoted DateCommentsAmoxicillin-Pot Clavulanate 02/12/20160980Avlgmdpwgzx73/11/2012 Medications MedicationSigDispense QuantityRefillsLast FilledStart DateEnd DateStatus clonazePAM (KLONOPIN) 0.5 MG tablet Take 1 tablet by mouth 3 times daily 60 tablet Active docusate (COLACE, DULCOLAX) 100 MG CAPS Take 100 mg by mouth as needed 30 capsule Active acetaminophen (TYLENOL) 325 MG tablet Take 2 tablets by mouth every 4 hours as needed for PainActive montelukast (SINGULAIR) 10 MG tablet Take 1 tablet by mouth nightly 30 tablet Active Lactobacillus (ACIDOPHILUS EXTRA STRENGTH PO) Take by mouth dailyActive Sennosides (SENNA LAX PO) Take by mouth 2 times dailyActive ondansetron (ZOFRAN-ODT) 4 MG disintegrating tablet Take 1 tablet by mouth every 6 hours as needed for Nausea or VomitingActive busPIRone (BUSPAR) 15 MG tablet Take 30 mg by mouth 3 times dailyActive folic acid (FOLVITE) 1 MG tablet Take 1 tablet by mouth dailyActive triamcinolone (KENALOG) 0.1 % cream Apply topically 2 times daily Apply topically 2 times daily.Active tolnaftate (TINACTIN) 1 % cream Apply topically 2 times daily Apply topically 2 times daily.Active divalproex (DEPAKOTE) [address] tablet Take 8 tablets by mouth 2 times daily 8 tablets BIDActive levothyroxine (SYNTHROID) 75 MCG tablet Take 1 tablet by mouth DailyActive bisacodyl (DULCOLAX) [address] 1 suppository rectally dailyActive fluocinonide (LIDEX) 0.05 % cream Apply topically 2 times daily Apply topically 2 times daily.Active loratadine (CLARITIN) 10 MG tablet Take 1 tablet by mouth dailyActive guaiFENesin (MUCINEX) 600 MG extended release tablet Take 1 tablet by mouth 2 times dailyActive desmopressin (DDAVP) 0.1 MG tablet Take 2 tablets by mouth 3 times daily 30 tablet 2Active Additional Information Patient taking differently:0.2 mg OralDAILY, 1.5 tablets in AM, 1 tab at noon, 2 tabs in PM, Reported on 06/07/2024 calcium carbonate (TUMS) 500 MG chewable tablet Take 2 tablets by mouth every 4 hours as needed (nausea or upset stomach)Active Potassium Chloride 40 MEQ/15ML (20%) SOLN Take 15 mLs by mouth dailyActive mirtazapine (REMERON) 15 MG tablet Take 1 tablet by mouth nightlyActive levonorgestrel-ethinyl estradiol (AVIANE;ALESSE;LESSINA) 0.1-20 MG-MCG per tablet Take 1 tablet by mouth dailyActive naltrexone (DEPADE) 50 MG tablet Indications:Moderate dehydration,Increased heart rate,Tachycardia,SOB (shortness of breath),Bilateral leg edemaTake 0.5 tablets by mouth in the morning and at bedtimeActive metoprolol tartrate (LOPRESSOR) 50 MG tablet Indications:Moderate dehydration,Increased heart rate,Tachycardia,SOB (shortness of breath),Bilateral leg edemaTake 1 tablet by mouth 2 times daily 180 tablet 5Active Active Problems ProblemNoted DateDiagnosed DateUnderweight due to inadequate caloric intake 02/13/2016Lithium-induced nephrogenic diabetes /18/2016Hypothyroidism due to Ilyybhl6801/15/2016Sepsis due to chsmrdogx05/11/2447Dhyqn49/11/2016 Qolntholdnjbi06/11/8435Yribhhnghftidn24/11/6556Aswrkheiaig25/11/2016Anemia 01/08/20160931Yyvvgdqhaogkotln27/11/5854Iizlfpoaziwmeuxo93/11/2016Metabolic acidosis 01/08/2016Lactic acid hvxezexl39/11/2016Mental developmental delay01/08/2016 Diabetes insipidusDevelopmental disorderMild protein-calorie malnutrition Resolved Problems ProblemNoted DateDiagnosed DateResolved DateAKI (acute kidney injury)01/08/2016 02/14/2016Metabolic bqqleubtpfngac53/20/2016 Family History Medical HistoryRelationNameCommentsCancerFatherRelationNameStatusCommentsBrother 1AliveBrother 2AliveFatherDeceasedMotherAlive Social History Tobacco UseTypesPacks/DayYears UsedDateSmoking Tobacco: NeverSmokeless Tobacco: Never Tobacco Cessation:Counseling Given: No Alcohol UseStandard Drinks/WeekCommentsNo0 (1 standard drink = 0.6 oz pure alcohol)CommentsNoSex and Gender InformationValueDate RecordedSex Assigned at BirthNot on fileLegal AwwYngvoa38/10/2013 9:06 AM ESTGender Identity Not on fileSexual OrientationNot on file Last Filed Vital Signs Vital SignReadingTime TakenCommentsBlood Vrpbmysm820/7902 3:00 PM EST Jpphf560612/10/2024 2:54 PM EYSVrrngwbfhda19.7 ??C (98.1 ??F)02/16/2016 7:00 AM EDTRespiratory Vxoq421812/10/2024 2:54 PM ESTOxygen Ghpjndulwh57%12/10/2024 2:54 PM ESTInhaled Oxygen Concentration--Ouvtlk36 kg (141 lb)01/24/2025 3:00 PM EST Gioqom461.3 cm (4' 9.99 )01/24/2025 3:00 PM ESTBody Mass Index29.48001/24/2025 3:00 PM EST Plan of Treatment Health MaintenanceDue DateLast DoneCommentsDepression Ldxicu1102/23/2000Varicella vaccine (1 of 2 - 13+ 2-dose series)02/22/2001HIV vfxdxi5202/22/2003Hepatitis C xgsidk4502/22/2006Hepatitis B vaccine (1 of 3 - 19+ 3-dose series)02/22/2007Pap smear02/22/2009Cervical cancer hkoubn3002/22/2018HPV (without or with Pap) 02/22/2018DTaP/Tdap/Td vaccine (2 - Td or Tdap)/Diabetes jfzcks4602/22/2023nnual Wellness Visit (Medicare)10/24/2023Flu vaccine (#1) /05/2020COVID-19 Vaccine ( season)/12/2020, 12/09/2020HPV vaccine (No Doses Required)CompletedHepatitis A vaccineAged OutNo longer eligible based on patient's age to complete this topicHib vaccineAged Out No longer eligible based on patient's age to complete this topicMeningococcal (ACWY) vaccineAged OutNo longer eligible based on patient's age to complete this topicMeningococcal B vaccineAged OutNo longer eligible based on patient's age to complete this topicPneumococcal 0-49 years VaccineAged OutNo longer eligible based on patient's age to complete this topicPolio vaccineAged OutNo longer eligible based on patient's age to complete this topic Insurance * Guarantor: Tiffany Mcintosh TypeRelation to PatientDate of PhoneBilling AddressPersonal/GconjaKsqn1990 ([place]) [address] [place] [id number] Advance Directives TypeDate RecordedPatient RepresentativeExplanationACP-Guardianship12/07/2024 10:21 AMACP-Do Not Resuscitate12/07/2024 10:20 AMACP-Power of Bhugmpwf39/31/2019 4:44 PMRELEASE OF HEALTH INFORMATIONACP-Advance Krdcvcnkn82/31/2019 4:42 PMDNRCC * Full Code (Latest Code Status on File) Date ActivatedDate InactivatedComments02/11/2016 10:05 PM02/16/2016 2:44 PM * Full Code Date ActivatedDate InactivatedComments01/08/2016 9:29 PM2 4:19 PM Care Teams Team MemberRelationshipSpecialtyStart DateEnd Date Robin Richardson MD PCP - General12/22/15
--- OUTSIDE RECORDS SUMMARY | 2025-10-08 06:52 | XMS_ITS | Clinical Summary ---
Author Organization [facility] [employer] Address [address] [place] [id number] Care Team Providers Care [employer]els [employer] Manager Name Role Phone Robin Richardson DO Primary Care Provider [phone] Allergies Active AllergyReactionsCriticalityNoted DateCommentsAmoxicillin-Pot Clavulanate 07/21/20223630Jerdhncaaa83/24/2022 Medications MedicationSigDispense QuantityRefillsLast FilledStart DateEnd DateStatus Lactobacillus (ACIDOPHILUS/BIFIDUS PO) Take by mouth.Active BUSPIRONE HCL PO Take 20 mg by mouth 3 times daily.Active chlorhexidine 0.12 % Solution oral solution Take 15 mL by mouth 2 times daily.Active CLONAZEPAM PO Take 0.5 mg by mouth 3 times daily.Active FOLIC ACID PO Take 1 mg by mouth daily every morning.Active desmopressin 0.2 MG tablet Take 0.2 mg by mouth 3 times daily. Take 1 and 1/5 tablets in the morning. 1 tablet at noon and twotablets at bedtime.Active hydroCHLOROthiazide 25 MG tablet Take 25 mg by mouth daily every morning.Active levothyroxine 75 MCG tablet Take 75 mcg by mouth every morning before breakfast.Active metoprolol 100 MG tab regular release Take 100 mg by mouth 4 times daily.Active montelukast 10 MG tablet Take 10 mg by mouth every evening.Active naltrexone 50 MG tablet Take 50 mg by mouth 2 times daily.Active potassium chloride 20 MEQ/15ML (10%) Solution Take 20 mEq by mouth daily every morning.Active levonorgestrel-ethinyl estradiol (Vienva) 0.1-20 MG-MCG tablet Take 1 tablet by mouth daily every morning.Active acetaminophen 325 MG tablet Take 325 mg by mouth every 4 hours as needed for Mild Pain.Active bisacodyl 10 MG Suppository suppository Insert 10 mg rectally as needed for Constipation.Active Dextromethorphan-guaiFENesin (CHEST CONGESTION/COUGH RELIEF PO) Take 400 mg by mouth 2 times daily as needed.Active Docusate Sodium (DOK) 100 MG tablet Take 100 mg by mouth As directed as needed for Constipation.Active Loperamide HCl 2 MG tablet Take 2 mg by mouth As directed as needed.Active loratadine 10 MG tablet Take 10 mg by mouth daily as needed.Active ondansetron 4 MG tablet Take 4 mg by mouth every 8 hours as needed for Nausea / Vomiting.Active senna 8.6 MG tablet Take 17.2 mg by mouth 2 times daily.Active calcium carbonate (Tums) 500 MG Chew Tab tablet Chew 1,000 mg as needed.Active Active Problems No known active problems Social History Tobacco UseTypesPacks/DayYears UsedDateSmoking Tobacco: NeverSmokeless Tobacco: NeverAlcohol UseStandard Drinks/WeekCommentsNever0 (1 standard drink = 0.6 oz pure alcohol)CommentsUnknownSex and Gender InformationValueDate Recorded Sex Assigned at BirthNot on fileLegal AbeHagqeq33/27/2022 2:56 PM EDTGender IdentityNot on fileSexual OrientationNot on file Last Filed Vital Signs Vital SignReadingTime TakenCommentsBlood Frdobiyc362/5709 3:30 PM EDT Ckzmv83803 3:30 PM NUORjplhtmhqlo92.4 ??C (97.5 ??F)08/26/2022 3:30 PM EDTRespiratory Vfpq2079 3:30 PM EDTOxygen Iimxfedijf60%08/26/2022 3:30 PM EDTInhaled Oxygen Concentration--Twdrje08.9 kg (121 lb)08/26/2022 12:00 PM NMNXopdur410 cm (5' 3 )08/26/2022 12:00 PM EDTBody Mass Index21.43008/26/2022 12:00 PM EDT Plan of Treatment Health MaintenanceDue DateLast DoneCommentsHEPATITIS C VIRUS ZVLBEALWM1988 HIV SCREENING JDDPZLFGLK82/28/2003HEP B VACCINE (1 of 3 - 19+ 3-dose series) 02/22/2007CERVICAL CANCER SCREENING ZHXTGKTSJP98/28/2009HPV VACCINE (1 - 3-dose SCDM series)02/22/20157637ORXPDXU01COVID-19 VACCINE ( season)502/12/2020, 12/09/2020INFLUENZA VACCINE (#1)2025 09/03/2020TDAP (ADULT)Wemwbdgko53/20/5037JORIYWCREXvvlvtuibudz47/20/2022 PNEUMOCOCCAL VACCINE SERIESAged OutNo longer eligible based on patient's age to complete this topic Procedures Procedure NamePriorityDate/TimeAssociated DiagnosisCommentsCHEM 6 (LYTES, BUN CREA)Yozqbqm6608/17/2022 11:13 AM EDT Preop exam for internal medicine Periodontal disease Developmental delay Hypothyroidism, unspecified type from Last 3 Months or Most Recently Relevant to Health Maintenance Results * CHEM 6 (LYTES, BUN CREA) (08/17/2022 11:13 AM EDT)ComponentValueRef RangeTest MethodAnalysis TimePerformed AtPathologist UcyprxppsYTV047 - 25 mg/dL 08/17/2022 12:35 PM [facility] MCINKFGCHTNvozav118946 - 145 mmol/L08/17/2022 12:35 PM [facility] LABORATORYPotassium4.0 3.5 - 5.0 mmol/L08/17/2022 12:35 PM [facility] [place]78622 - 108 mmol/L08/17/2022 12:35 PM [facility] AXZSELDBHRAQ61252 - 31 mmol/L08/17/2022 12:35 PM [facility] LABORATORYCreatinine1.160.50 - 1.20 mg/dL08/17/2022 12:35 PM [facility] LABORATORYBun/Crea Weuif13208/17/2022 12:35 PM [facility] LABORATORYAnion Ony232 - 17 mmol/L08/17/2022 12:35 PM EDT [facility] LABORATORYeGFR, CKD-EPI, Flnjuk44>=60 mL/min/1.73m2 08/17/2022 12:35 PM [facility] LABORATORYComment:Reported eGFR is based on the CKD-EPI 2020 equation using creatinine, age, and sex. Specimen (Source)Anatomical Location / LateralityCollection Method / Volume Collection TimeReceived TimeBloodVenipuncture / Stvfuzx2608/17/2022 11:13 AM EDT 08/17/2022 12:02 PM EDT Narrative Authorizing ProviderResult TypeResult StatusPrasanth BUR[facility]IAL HOSPITALEMISTRY ORDERABLES Final ResultPerforming OrganizationAddressCity/State/ZIP CodePhone Number [facility] [address] [place] [address] from Last 3 Months or Most Recently Relevant to Health Maintenance Insurance [address] [place] [address] Care Teams Team MemberRelationshipSpecialtyStart DateEnd Date Robin Richardson DO PCP - GeneralFamily Medicine08/17/22
--- OUTSIDE RECORDS SUMMARY | 2025-10-08 06:52 | XMS_ITS | Clinical Summary ---
Author Organization [facility] Address [address] [place] [address] Care Team Providers Care Cable Tester Name Role Phone Robin Richardson Primary Care Provider [phone] Allergies Active AllergyReactionsCriticalityNoted FoyoWxgwydreIwbhbehvza61/06/2016 QqzmlttyibzGsyftxjd55/11/2012 Medications MedicationSigDispense QuantityRefillsLast FilledStart DateEnd DateStatus acetaminophen (Tylenol) 325 mg tablet Take 650 mg by mouth.Active acetaminophen (Tylenol) 325 mg capsule 2 capsules.Active azithromycin (Zithromax) 250 mg tablet TAKE 2 TABLETS BY MOUTH ON DAY 1 AND 1 TABLET DAILY ON DAYS 2 THRU 5.03/02/2022 Active bisacodyl (Dulcolax) 10 mg suppository Insert 10 mg into the rectum.Active busPIRone (Buspar) 10 mg tablet Take 10 mg by mouth in the morning and 10 mg in the evening.Active busPIRone (Buspar) 15 mg tablet buspirone 15 mg tablet TAKE ONE TABLET BY MOUTH 3 TIMES DAILY BUSPARActive busPIRone (Buspar) 15 mg tablet 10/28/2022ctive busPIRone (Buspar) 5 mg tablet buspirone 5 mg tablet TAKE ONE TABLET BY MOUTH 3 TIMES DAILY BUSPARActive busPIRone (Buspar) 5 mg tablet 10/28/2022ctive calcium carbonate (Tums) 200 mg calcium (500 mg) chewable tablet Chew 1,000 mg.Active chlorhexidine (Peridex) 0.12 % solution chlorhexidine gluconate 0.12 % mouthwash APPLY TOPICALLY TO TEETH AND GUMS TWICE DAILY FOR PREVENTATIVE ORAL CARE.Active chlorhexidine (Peridex) 0.12 % solution APPLY TOPICALLY TO TEETH AND GUMS TWICE DAILY FOR PREVENTATIVE ORAL CARE. 06/01/2022ctive clonazePAM (KlonoPIN) 0.5 mg tablet clonazepam 0.5 mg tablet TAKE ONE TABLET BY MOUTH 3 TIMES DAILY MASWVWMU32/25/2016Active clonazePAM (KlonoPIN) 0.5 mg tablet TAKE ONE TABLET BY MOUTH 3 TIMES DAILY USMYYPMX70/29/2022ctive divalproex (Depakote) 500 mg EC tablet divalproex 500 mg tablet,delayed release TAKE TWO TABLETS BY MOUTH TWICE A DAY DEPAKOTEActive divalproex (Depakote) 500 mg EC tablet 10/28/2022ctive docusate sodium (Colace) 100 mg tablet Take 100 mg by mouth.Active DOK 100 mg tablet Take 100 mg by mouth if needed each day.03/09/2022ctive docusate sodium (Colace) 100 mg capsule DOK 100 mg capsule TAKE ONE CAPSULE BY MOUTH DAILY NEEDED YNNYTU3101/22/2016Active docusate sodium (Colace) 100 mg capsule TAKE ONE CAPSULE BY MOUTH DAILY NEEDED ZLPDCM7602/02/2022ctive fluocinonide (Lidex) 0.05 % cream Apply topically.Active fluocinonide-emollient (Lidex-E) 0.05 % cream fluocinonide-emollient 0.05 % topical cream APPLY TO AFFECTED AREA ON BUTTOCKS NEEDED FOR FLARES LIDEXActive folic acid (Folvite) 1 mg tablet folic acid 1 mg tablet TAKE ONE TABLET BY MOUTH ONCE DAILYActive folic acid (Folvite) 1 mg tablet Take 1,000 mcg by mouth in the morning.10/22/2022ctive gabapentin (Neurontin) 300 mg capsule Take 300 mg by mouth in the morning and 300 mg at noon and 300 mg in the evening.Active guaiFENesin (Humibid 3) 400 mg tablet Chest Congestion Relief 400 mg tablet TAKE ONE TABLET BY MOUTH TWICE A DAY NEEDED FOR SIGNS AND SYMPTOMS OF COLD AND COUGHActive Chest Congestion Relief 400 mg tablet TAKE ONE TABLET BY MOUTH TWICE A DAY NEEDED FOR SIGNS AND SYMPTOMS OF COLD AND COUGH03/02/2022ctive guaiFENesin (Mucinex) 600 mg 12 hr tablet Take 600 mg by mouth.Active pseudoephedrine-guaifenesin (Mucinex D) 60-600 mg 12 hr tablet every 12 (twelve) hours.Active hydroCHLOROthiazide (HYDRODiuril) 25 mg tablet Take 1 tablet by mouth in the morning.Active hydroCHLOROthiazide (HYDRODiuril) 25 mg tablet 10/28/2022ctive hydroCHLOROthiazide (HYDRODiuril) 25 mg tablet hydrochlorothiazide 25 mg tablet TAKE ONE TABLET BY MOUTH ONCE DAILYActive L. acidophilus/Bifid. animalis 32 billion cell capsule Take by mouth.Active acidophilus-sporogenes 35 million- 25 million cell tablet Acidophilus Ex Str (L. sporog) 35 million-25 million cell tablet TAKE ONE TABLET BY MOUTH ONCE DAILYActive Acidophilus Ex Str, L. sporog, 35 million- 25 million cell tablet Take 1 tablet by mouth in the morning.10/20/2022ctive Vienva 0.1-20 mg-mcg tablet TAKE ONE TABLET BY MOUTH ONCE DAILY, SKIP SUGAR PILLS IN PACKS 1 AND 2. TAKE SUGAR PILLS EVERY 3RD PACK.10/07/2022ctive levonorgestreL-ethinyl estrad (Aviane, Alesse, Lessina) 0.1-20 mg-mcg tablet Take 1 tablet by mouth in the morning.Active loperamide (Imodium) 2 mg capsule Take 2 mg by mouth.Active loperamide (Imodium A-D) 2 mg tablet Take 2 mg by mouth.Active loratadine (Claritin) 10 mg tablet Take 10 mg by mouth.Active melatonin 5 mg capsule Take by mouth.Active metoprolol tartrate (Lopressor) 50 mg tablet Take 50 mg by mouth in the morning and 50 mg in the evening.Active metoprolol tartrate (Lopressor) 100 mg tablet metoprolol tartrate 100 mg tablet TAKE ONE TABLET BY MOUTH 4 TIMES DAILYActive metoprolol tartrate (Lopressor) 100 mg tablet 10/28/2022ctive mirtazapine (Remeron) 15 mg tablet mirtazapine 15 mg tablet TAKE ONE TABLET BY MOUTH AT BEDTIMEActive montelukast (Singulair) 10 mg tablet Take 1 tablet by mouth at bedtime.02/16/2016Active montelukast (Singulair) 10 mg tablet 10/28/2022ctive montelukast (Singulair) 10 mg tablet montelukast 10 mg tablet TAKE ONE TABLET BY MOUTH AT BEDTIMEActive naltrexone (Depade) 50 mg tablet naltrexone 50 mg tablet TAKE ONE TABLET BY MOUTH TWICE A DAY REVIAActive naltrexone (Depade) 50 mg tablet 10/28/2022ctive ondansetron ODT (Zofran-ODT) 4 mg disintegrating tablet every 12 (twelve) hours.Active ondansetron (Zofran) 4 mg tablet Take 4 mg by mouth every 8 (eight) hours if needed.Active potassium chloride 20 mEq/15 mL liquid Take 20 mEq by mouth in the morning.Active potassium chloride CR (Klor-Con M20) 20 mEq ER tablet potassium chloride ER 20 mEq tablet,extended release(part/cryst) TAKE TWO TABLETS BY MOUTH ONCE DAILYActive potassium chloride CR (Klor-Con M20) 20 mEq ER tablet 03/18/2022ctive potassium chloride 40 mEq/15 mL liquid TAKE 15ML BY MOUTH ONCE DAILY DILUTE IN 6 OZ OF WATERJUICE PRIOR TO NSNSJMTRHRGZH11/07/2022ctive sennosides (Senokot) 8.6 mg tablet Take 17.2 mg by mouth in the morning and 17.2 mg in the evening.Active sennosides (Senokot) 8.6 mg tablet every 12 (twelve) hours.Active tolnaftate (Tinactin) 1 % cream Apply topically.Active triamcinolone (Kenalog) 0.1 % cream triamcinolone acetonide 0.1 % topical creamActive levothyroxine (Synthroid, Levoxyl) 75 mcg tablet Indications:Hypothyroidism, unspecified typeTake 1 tablet (75 mcg) by mouth in the morning. 30 tablet 3Active desmopressin (DDAVP) 0.2 mg tablet Indications:Diabetes insipidusTake 2 tablets (0.4 mg) by mouth in the morning. 5Active desmopressin (DDAVP) 0.2 mg tablet Indications:Diabetes insipidusTake 2.5 tablets (0.5 mg) by mouth at bedtime. 5Active Active Problems ProblemNoted DateDiagnosed DateDiabetes yvntdloal59 Social History Tobacco UseTypesPacks/DayYears UsedDateSmoking Tobacco: NeverSmokeless Tobacco: Never Tobacco Cessation:Counseling Given: Not Answered Alcohol UseStandard Drinks/WeekCommentsNever0 (1 standard drink = 0.6 oz pure alcohol)UT Safety & EnvironmentAnswerDate RecordedFear of Current or Ex-Partner Not on file01/19/2024Emotionally AbusedNot on file01/19/2024hysically AbusedNot on file01/19/2024Sexually AbusedNot on file01/19/2024hysically or Sexually AbusedNot on 01/19/2024CommentsUnknownSex and Gender Information ValueDate RecordedSex Assigned at BirthNot on fileLegal HldIaauef98/29/2022 9:32 PM EDTGender IdentityNot on fileSexual OrientationNot on file Last Filed Vital Signs Vital SignReadingTime TakenCommentsBlood Aunslpfv098/71012/27/2024 9:48 AM EST Zoens597712/27/2024 9:48 AM ESTTemperature--Respiratory Okwj736701/03/2021 9:40 AM ESTOxygen Dvtncukoym15%12/27/2024 9:48 AM ESTInhaled Oxygen Concentration-- Cgqljf70 kg (141 lb 1.6 oz)12/27/2024 9:48 AM ZODFsqwig346.3 cm (4' 10 ) 12/27/2024 9:48 AM ESTBody Mass Index29.49012/27/2024 9:48 AM EST Plan of Treatment DateTypeDepartmentCare Team (Latest Contact Info)Gcuwfrfhnec37/28/2026 11:00 AM ESTFollow-Up [facility] [address] [place] [address] Miguel Gandhi [address] [place] [address] Health MaintenanceDue DateLast DoneCommentsMedicare Annual Wellness (AWV) 1988Depression Xhtgwrows12/28/2000Varicella Vaccines (1 of 2 - 13+ 2-dose series)02/22/2001Hepatitis B Vaccines (1 of 3 - 19+ 3-dose series)02/22/2007Pap Smear02/22/2009dult Mfkseaa84/HPV Vaccines (1 - 3-dose SCDM series)02/22/2015Cervical Cancer Tnnbyjfxd96/28/2018HPV/Mlfmum7602/22/2018COVID-19 Vaccine ( season)502/12/2020, 12/09/2020Influenza Vaccine (#1)/05/2020Zoster Vaccines (1 of 2)02/22/2038HIB VaccinesAged OutNo longer eligible based on patient's age to complete this topicIPV VaccinesAged OutNo longer eligible based on patient's age to complete this topicMeningococcal B VaccineAged OutNo longer eligible based on patient's age to complete this topicMeningococcal VaccineAged OutNo longer eligible based on patient's age to complete this topicPneumococcal Vaccine: Pediatrics (0 to 5 Years) and At-Risk Patients (6 to 64 Years)Aged OutNo longer eligible based on patient's age to complete this topicRotavirus VaccinesAged OutNo longer eligible based on patient's age to complete this topic Insurance Care Teams Team MemberRelationshipSpecialtyStart DateEnd Robin Richardson DO [address] [place] [address] PCP - Iuvbreg82/5/22
--- OUTSIDE RECORDS SUMMARY | 2025-10-08 06:52 | XMS_ITS | Clinical Summary ---
Author Organization [facility] Address [address] [place] [address] Care Team Providers Care Outside Machinist Helper Name Role Phone Unavailable Primary Care Provider Unavailabl e Source Comments The following information is NOT included in Care Everywhere downloads:Psychiatric notes, ECG results, Cardiac Rehab notes, Pulmonary Function notes, data from [employer] (includes but not limited toPregnancy data,audiograms, eye exams, pre-surgical evaluation notes, well-child exam data).[facility] Allergies Active AllergyReactionsCriticalityNoted DateCommentsAmoxicillin-Pot Clavulanate Pmguggpn96/06/9136Kglxpdghnm28/06/2016 Medications MedicationSigDispense QuantityRefillsLast FilledStart DateEnd DateStatus Probiotic Product (ACIDOPHILUS HIGH-POTENCY) CAPS Take by mouth.Active Levonorgestrel-Ethinyl Estrad (AVIANE ORAL) Take by mouth.Active busPIRone (BUSPAR) 10 MG tablet Take 10 mg by mouth 2 times daily.Active clonazepam (KLONOPIN) 0.5 MG tablet Take 0.5 mg by mouth 2 times daily.Active desmopressin (DDAVP) 0.2 MG tablet Take 0.2 mg by mouth 2 times daily.Active gabapentin (NEURONTIN) 300 MG capsule Take 300 mg by mouth 3 times daily.Active hydrochlorothiazide (HYDRODIURIL) 25 MG tablet Take 25 mg by mouth daily.Active levothyroxine (SYNTHROID) 75 MCG tablet Take 75 mcg by mouth daily.Active Melatonin 5 MG CAPS Take by mouth.Active metoprolol (LOPRESSOR) 50 MG tablet Take 50 mg by mouth 2 times daily.Active montelukast (SINGULAIR) 10 MG tablet Take 10 mg by mouth daily.Active Potassium (POTASSIMIN ORAL) Take by mouth.Active mirtazapine (REMERON) 15 MG tablet Take 15 mg by mouth at bedtime.Active naltrexone 50 MG tablet Take 50 mg by mouth daily.Active Active Problems ProblemNoted DateDiagnosed DateDecay, teeth02/20/2019 Overview (02/20/2019): Added automatically from request for surgery [id number] Immunizations ImmunizationAdministration DatesNext DueInfluenza, injectable, quadrivalent, preservative free (TTH=766)09/03/2020Pfizer Monovalent (12+ yrs) SARS-COV-2 (COVID-19) vaccine, mRNA, spike protein, LNP, pres. free, 30mcg/0.3mL dose (IIO=338)12/30/2020,12/09/2020Tdap (MVO=935)07/17/2009 Social History Tobacco UseTypesPacks/DayYears UsedDateSmoking Tobacco: Never Assessed CommentsUnknownSex and Gender InformationValueDate RecordedSex Assigned at Not on fileLegal BfsKmzpqd08/16/2015 9:21 AM EDTGender IdentityNot on fileSexual OrientationNot on file Last Filed Vital Signs Vital SignReadingTime TakenCommentsBlood Hewwasjy630/7004 12:30 PM EDT Daipv491203/02/2019 12:45 PM VSKQbbultzmius74.3 ??C (97.3 ??F)03/02/2019 12:30 PM EDTRespiratory Mdcw495203/02/2019 12:45 PM EDTOxygen Avrhsxataf10%03/02/2019 12:45 PM EDTInhaled Oxygen Concentration--Naicec02.2 kg (126 lb)03/02/2019 9:15 AM EDT Fcfguk440.3 cm (4' 10 )03/02/2019 9:15 AM EDTBody Mass Index26.33003/02/2019 9:15 AM EDT Plan of Treatment Health MaintenanceDue DateLast DoneCommentsMammography (shared decision-making, age 35-39)1988HIV Test02/22/2003Hepatitis C Igkzryag54/28/2006Hepatitis A (HAV) Vaccine (optional start 19+ years)02/22/2007Hepatitis B (HBV) Vaccine (1 of 3 - 19+ 3-dose series)02/22/2007nnual Wellness Visit (G0438)01/26/2009Pap Smear02/22/2009HPV Vaccine (optional start 27-45 years)02/22/2015Tetanus (Td or Tdap) Zbidbed06COVID-19 Vaccine (3 - 2024- season)2025 12/30/2020, 12/09/2020Influenza Vaccine (#1)Shingles (RZV) Vaccine (1 of 2)02/22/2038Tdap LqyrxcgBdzmxbxcm92/20/2009MammographyDiscontinued Pneumococcal Vaccine(s)Aged OutNo longer eligible based on patient's age to complete this topic Insurance
--- OUTSIDE RECORDS SUMMARY | 2025-10-08 06:52 | XMS_ITS | Clinical Summary ---
Author Organization [employer] [facility] Address [id number] [address] [place] [address] Care Team Providers Care Junior Designer Name Role Phone Unavailable Primary Care Provider Unavailabl e Allergies Active AllergyReactionsCriticalityNoted DateCommentsAmoxicillin-Pot Clavulanate 02/02/20246899Ochdoalhyy20/07/2024 Medications MedicationSigDispense QuantityRefillsLast FilledStart DateEnd DateStatus busPIRone (BUSPAR) 10 mg tablet Take 1.5 tablets (15 mg total) by mouth 3 (three) times a day.Active Lactobacillus acidophilus (ACIDOPHILUS ORAL) Take by mouth.Active metoprolol tartrate (LOPRESSOR) 50 mg tablet Take 1 tablet (50 mg total) by mouth in the morning and 1 tablet (50 mg total) before bedtime.Active melatonin (CIRCADIN) capsule Take by mouth.Active metoprolol tartrate (LOPRESSOR) 100 mg tablet Take 25 mg by mouth in the morning.Active chlorhexidine (HIBICLENS) 4 % external liquid Apply 1 Application (1 mL total) topically daily as needed for wound care.Active clonazePAM (KlonoPIN) 0.5 mg tablet Take 1 tablet (0.5 mg total) by mouth 2 (two) times a day as needed for seizures.Active desmopressin (DDAVP) 0.2 mg tablet Take 1 tablet (200 mcg total) by mouth in the morning.Active divalproex sprinkle (DEPAKOTE SPRINKLE) 125 mg capsule Take 1 capsule (125 mg total) by mouth in the morning and 1 capsule (125 mg total) before bedtime.Active folic acid (FOLVITE) 1 mg tablet Take 1 tablet (1 mg total) by mouth in the morning.Active hydroCHLOROthiazide (HYDRODIURIL) 25 mg tablet Take 1 tablet (25 mg total) by mouth daily.Active loratadine (CLARITIN REDITABS) 10 mg disintegrating tablet Dissolve 1 tablet (10 mg total) on tongue in the morning.Active mirtazapine (REMERON) 15 mg tablet Take 1 tablet (15 mg total) by mouth nightly.Active montelukast (SINGULAIR) 10 mg tablet Take 1 tablet (10 mg total) by mouth nightly.Active naltrexone (REVIA) 50 mg tablet Take 1 tablet (50 mg total) by mouth in the morning.Active acetaminophen (TYLENOL) 325 mg suppository Insert 1 suppository (325 mg total) into the rectum every 4 (four) hours as needed for pain.Active docusate sodium (COLACE) 100 mg capsule Take 1 capsule (100 mg total) by mouth in the morning and 1 capsule (100 mg total) before bedtime.Active ondansetron (ZOFRAN) 4 mg tablet Take 1 tablet (4 mg total) by mouth every 8 (eight) hours as needed for nausea or vomiting.Active calcium carbonate (TUMS) 200 mg elemental (500 mg) chewable tablet Chew 1 tablet (200 mg total) and swallow in the morning.Active senna (SENOKOT) 8.6 mg tablet Take 1 tablet (8.6 mg total) by mouth in the morning.Active levonorgestreL-ethinyl estrad (AVIANE,ALESSE,LESSINA) 0.1-20 mg-mcg per tablet Indications:Surveillance of previously prescribed contraceptive pillTake 1 tablet by mouth in the morning. Pt takes continuously . 84 tablet 4Active Active Problems No known active problems Social History Tobacco UseTypesPacks/DayYears UsedDateSmoking Tobacco: NeverSmokeless Tobacco: Never Tobacco Cessation:Counseling Given: Not Answered Alcohol UseStandard Drinks/WeekCommentsNever0 (1 standard drink = 0.6 oz pure alcohol)ChildcareAnswerDate RvvbyfwjIgcobvivjVcnazaq91/12/2019EmploymentAnswer Date DfxbnkviGyrtezcslkPsnlvir85/12/2019Hunger ScreeningAnswerDate Recorded Within the past 12 months we worried whether our food would run out before we got money to buy more.Patient unable to wimumr4902/02/2024Within the past 12 months the food we bought just didn't last and we didn't have money to get more. Patient unable to wrlnga1202/02/2024CommentsUnknownSex and Gender InformationValueDate RecordedSex Assigned at BirthNot on fileLegal SexFemale 12/22/2015 8:27 PM ESTGender IdentityNot on fileSexual OrientationNot on file Last Filed Vital Signs Vital SignReadingTime TakenCommentsBlood Nolkeivr884/78002/02/2024 11:15 AM EST Pulse--Temperature--Respiratory Rate--Oxygen Saturation--Inhaled Oxygen Concentration--Mqohtl99.4 kg (120 lb)02/02/2024 11:15 AM QWRWexclp371.3 cm (4' 10 )02/02/2024 11:15 AM ESTBody Mass Index25.0802/02/2024 11:15 AM EST Plan of Treatment Health MaintenanceDue DateLast DoneCommentsDepression Sivefzuux92/28/2000 DTaP,Tdap and Td Vaccines (2 - Td or Tdap)dult BMI Xxvrgmmdp22Tobacco Ywbvxvheh25OVID-19 Vaccine ( season)/12/2020, 12/09/2020Influenza Vaccine /05/2020Pap Smear Medical Devices Not on file Insurance Advance Directives TypeDate RecordedPatient RepresentativeExplanationDNR Physician Order02/02/2024 11:17 [facility]
--- OUTSIDE RECORDS SUMMARY | 2025-10-08 06:52 | XMS_ITS | Encounter Summary ---
Author Organization [facility] Address [address] [place] [address] Care Team Providers Care Roster Clerk Name Role Phone Robin Richardson MD Primary Care Provider [phone] Encounter Details DateTypeDepartmentCare Team (Latest Contact Info)Dlkqsbdreqq42/05/2025Telephone [facility] [address] [place] [address] Medhat Bernstein DPM F[facility] [address] [place] [address] Social History Tobacco UseTypesPacks/DayYears UsedDateSmoking Tobacco: NeverSmokeless Tobacco: NeverCommentsUnknownSex and Gender InformationValueDate RecordedSex Assigned at BirthNot on fileLegal NtrKrncuw33/15/2023 6:57 PM EDTGender Identity Not on fileSexual OrientationNot on filedocumented as of this encounter Miscellaneous Notes * Telephone Encounter - Tana Samuels - 10/02/2025 10:27 AM EST LET THEM KNOW THANK YOU. * Telephone Encounter - ALFONSO Marino - 10/02/2025 [...] to just prescribe something. documented in this encounter Plan of Treatment DateTypeDepartmentCare Team (Latest Contact Info)Hpefpmmgisa20/19/2026 8:40 AM ESTProcedure Visit [facility] [address] [place] [address] Medhat Bernstein, ALFONSO FACFAS [address] [place] [address] documented as of this encounter Visit Diagnoses Diagnosis Tinea pedis of both feet- Primary documented in this encounter Care Teams Team MemberRelationshipSpecialtyStart DateEnd Date Robin Richardson MD [address] [place] [address] PCP - GeneralFamily Ubvaqmlv10/1/24documented as of this encounter
--- OUTSIDE RECORDS SUMMARY | 2025-10-08 06:52 | XMS_ITS | Clinical Summary ---
Author Organization [facility] Address [address] [place] [address] Care Team Providers Care Hogshead Roller Name Role Phone Robin Richardson MD Primary Care Provider Allergies Active AllergyReactionsCriticalityNoted DateCommentsAmoxicillin-Pot Clavulanate Mjpplxng64/17/2016 Other Reaction(s): Not available Aklcgdqpba46/06/2016 Other Reaction(s): Not available PljovoeiphfQwjrqema01/11/2012 Medications MedicationSigDispense QuantityRefillsLast FilledStart DateEnd DateStatus busPIRone (Buspar) 15 MG tablet TAKE ONE TABLET BY MOUTH 3 TIMES DAILY BUSPARActive clonazePAM (KlonoPIN) 0.5 MG tablet TAKE ONE TABLET BY MOUTH 3 TIMES DAILY KLONOPINActive desmopressin (DDAVP) 0.2 MG tablet TAKE 1 AND 12 TABLETS IN THE MORNING, 1 TABLET AT NOON AND 2 TABLETS AT BEDTIME DDAVPActive divalproex sprinkle (Depakote Sprinkle) [address] capsule Take 125 mg by mouth in the morning and 125 mg in the evening.Active folic acid (Folvite) 1 MG tablet Take 1 tablet by mouth DailyActive hydroCHLOROthiazide (HYDRODiuril) 25 MG tablet Take 1 tablet by mouth DailyActive Lactobacillus (Acidophilus/L-Sporogenes) tablet Acidophilus Ex Str (L. sporog) 35 million-25 million cell tablet TAKE ONE TABLET BY MOUTH ONCE DAILYActive Aviane 0.1-20 MG-MCG tablet TAKE 1 TABLET BY MOUTH DAILY. SKIP PLACEBO PILLS FOR PACK 1 AND 2, TAKE PLACEBO PILLS FOR PACK 3.Active levothyroxine (Synthroid, Levoxyl) 75 MCG tablet TAKE 12 TABLET BY MOUTH ONCE DAILY11/02/2023ctive loratadine (Claritin) 10 MG tablet Take 1 tablet by mouth DailyActive metoprolol tartrate (Lopressor) 50 MG tablet Take 50 mg by mouth in the morning and 50 mg in the evening.Active metoprolol tartrate (Lopressor) 25 MG tablet 09/13/2024ctive mirtazapine (Remeron) 15 MG tablet Take 1 tablet by mouth at bedtimeActive montelukast (Singulair) 10 MG tablet Take 1 tablet by mouth at bedtimeActive naltrexone (Depade) 50 MG tablet TAKE ONE TABLET BY MOUTH TWICE A DAY REVIAActive potassium chloride 40 MEQ/15ML (20%) solution TAKE 15ML BY MOUTH ONCE DAILY DILUTE IN 6 OZ OF WATER/JUICE PRIOR TO ADMINISTERINGActive econazole nitrate 1 % cream Indications:Tinea PedisApply topically Daily Apply to affected area daily 30 g 5Active Active Problems No known active problems Resolved Problems ProblemNoted DateDiagnosed DateResolved DateDevelopmental /01/2024 08/28/2024ipolar ivwmhezf37ttention deficit hyperactivity xazzecsl45nxietyrug-induced nephrogenic diabetes lrichlirk29Hypothyroidism due to drugs01/15/2016 08/28/2024Mental developmental delayThrombocytopenia Encounters DateTypeDepartmentCare IefqHtmcxwndqam99/05/2025Telephone [facility] [address] [place] [phone] Medhat Bernstein, DPM FACFAS 09/23/2025 10:00 AM EDTProcedure Visit [facility] [address] [facility] [place] [phone] Medhat Bernstein, DPM FACFAS Tinea unguium (Primary Dx); Pain in right toe(s); Pain in left toe(s)09/23/2025amboo flowsheet [facility] [address] [place] [phone] Medhat Bernstein, DPM FACFAS 08/02/2025 9:50 AM EDTOffice Visit [facility] [address] [place] [phone] Medhat Bernstein, DPM FACFAS Onychocryptosis (Primary Dx); Cellulitis of left toe; Abscess, toe, left08/02/2025bstract [facility] [address] [place] [phone] Medhat Bernstein, DPM FACFAS 08/02/2025[facility] flowsheet [facility] [address] [place] [phone] Medhat Bernstein, DPM FACFAS 07/08/2025 9:00 AM EDTOffice Visit [facility] [address] [place] [phone] Medhat Bernstein, DPM FACFAS Onychocryptosis (Primary Dx); Tinea unguium; Pain in right toe(s); Pain in left toe(s)07/08/2025[facility] flowsheet [facility] [address] [place] [phone] Medhat Bernstein, DPM FACFAS from Last 3 Months Family History RelationNameStatusCommentsMotherAlive Social History Tobacco UseTypesPacks/DayYears UsedDateSmoking Tobacco: NeverSmokeless Tobacco: Never Tobacco Cessation:Counseling Given: Yes CommentsUnknownSex and Gender InformationValueDate RecordedSex Assigned at BirthNot on fileLegal PuaAanusx13/15/2023 6:57 PM EDTGender IdentityNot on fileSexual OrientationNot on file Last Filed Vital Signs Vital SignReadingTime TakenCommentsBlood Pressure--Pulse--Temperature-- Respiratory Rate--Oxygen Saturation--Inhaled Oxygen Concentration--Qkaboz64.4 kg (142 lb)09/23/2025 10:10 AM SKCZxslkq209.4 cm (5')09/23/2025 10:10 AM EDTBody Mass Index27.7309/23/2025 10:10 AM EDT Plan of Treatment DateTypeDepartmentCare Team (Latest Contact Info)Qjqrjgmnqcg12/19/2026 8:40 AM ESTProcedure Visit [facility] [address] [place] [address] Medhat Bernstein, DPM FACFAS [address] [place] [address] Insurance [address] [place] [address] Care Teams Team MemberRelationshipSpecialtyStart DateEnd Robin Richardson MD [facility] [address] [place] [address] PCP - GeneralFamily Pwjkkkul49/1/24
[2025-10-08 07:21] LABS: Hematocrit 41.7 % (36.0-48.0); Hemoglobin 14.1 g/dL (12.0-16.0); Immature Granulocytes Abs Auto 0.07 10^3/uL (0.00-0.03); Immature Granulocytes Pct Auto 0.8 % (0.0-0.5); Lymphocytes Absolute Auto 4.9 10^3/uL (1.2-3.8); Mean Corpuscular HGB Conc 33.8 g/dL (29.9-35.2); Mean Corpuscular Hemoglobin 33.7 pg (26.7-34.0); Mean Corpuscular Volume 99.5 fL (81.0-99.0); Platelet Count 143 10^3/uL (150-450); Red Blood Count 4.19 10^6/uL (4.20-5.40); White Blood Count 8.6 10^3/uL (4.0-11.0)
[2025-10-08 08:21] LABS: Alanine Aminotransferase 11 U/L (14-59); Albumin Globulin Ratio 0.8; Albumin Level 3.1 g/dL (3.4-5.0); Alkaline Phosphatase 46 U/L (46-116); Anion Gap 13.5; Aspartate Amino Transferase 14 U/L (15-37); Blood Urea Nitrogen 9.0 mg/dL (7.0-18.0); Calcium 8.5 mg/dL (8.5-10.1); Carbon Dioxide 28.0 mmol/L (21.0-32.0); Chloride 107 mmol/L (98-107); Estimated GFR (African America >60 (>=60 mL/min/1.73m^2); Estimated GFR (Non-African Ame 55 (>=60 mL/min/1.73m^2); Free T3 1.99 pg/mL (2.18-3.98); Globulin 3.8 g/dL; Glucose 80 mg/dL (74-106); Potassium 4.5 mmol/L (3.5-5.1); Sodium 144 mmol/L (136-145); Thyroid Stimulating Hormone 4.142 uIU/mL (0.358-3.740); Total Protein 6.9 g/dL (6.4-8.2)
[2025-10-08 10:20] LABS: Folate 48.40 ng/mL (8.60-58.90)
[2025-10-09 04:07] LABS: Vitamin B12 653 pg/mL (232-1245)
== END 2025-10-08 06:50 | disposition home or self-care (01) ==
LOC: LAB 06:49
PROVIDERS: PCP Family Medicine; Visit Provider Family Medicine
DX: E03.9 Hypothyroidism, unspecified (principal); D52.9 Folate deficiency anemia, unspecified; K59.00 Constipation, unspecified; F31.9 Bipolar disorder, unspecified; E87.0 Hyperosmolality and hypernatremia; N18.30 Chronic kidney disease, stage 3 unspecified; R35.89 Other polyuria; E22.1 Hyperprolactinemia
CPT/HCPCS: 36415; 80053; 80164; 82043; 82306; 82607; 82746; 84439; 84443; 84481; 85025

== ENCOUNTER 2025-10-15 06:37 | Outpatient (REF) | payer MEDICARE, MEDICAID, SELFPAY ==
--- OUTSIDE RECORDS SUMMARY | 2025-10-13 09:16 | XMS_ITS | CCD ---
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 Name Role Phone Unavailable Primary Care Provider Unavailabl e NGHIA RYANTH Admitting Unavailable AL ALEX PETERSON Attending Unavailable PROVIDER, UNKNOWN Admitting Unavailable PROVIDER, UNKNOWN Attending Unavailable Vaughan Robin SEVERINO Primary Care Provider [phone] GERONIMO LANGLEY Admitting Unavailable PASTOR SUAREZ Attending [...] DR ROBIN Byrd Attending Unavailable VAUGHAN, DR ORBIN Byrd Admitting Unavailable VAUGHAN, DR ROBIN Byrd Primary Care Unavailable VAUGHAN, DR ROBIN Byrd Consulting Unavailable VAUGHAN, DR ROBIN Byrd Attending Unavailable VAUGHAN, DR ROBIN Byrd Admitting Unavailable VAUGHAN, DR ROBIN Byrd Primary Care Unavailable VAUGHAN, DR ROBIN Byrd Attending Unavailable VAUGHAN, DR ROBNI Byrd Admitting Unavailable VAUGHAN, DR ROBIN Byrd Primary Care Unavailable VAUGHAN, DR ROBIN Byrd Consulting Unavailable ROBIN VAUGHAN Primary Care Physician [phone] ROBIN VAUGHAN Admitting Unavailable VAUGHAN, ROBIN Attending Unavailable VAUGHAN, ROBIN Attending Unavailable VAUGHAN, ROBIN Admitting Unavailable VAUGHAN, ROBIN Attending Unavailable VAUGHAN, ROBIN Admitting Unavailable VAUGHAN, ROBIN Referring Unavailable VAUGHAN, ROBIN Admitting Unavailable ROBIN VAUGHAN Attending Unavailable ROBIN VAUGHAN Attending Unavailable ROBIN VAUGHAN Admitting Unavailable Unavailable Primary Care Provider Robin Spivey MD A Primary Care Provider [phone] KATIUSKA GANDHI Attending Unavailable Unavailable Primary Care Provider Robin Spivey MD Primary Care Provider [phone] JOSE LORENZO Attending Unavailable JOSE LORENZO Referring Unavailable ROBIN VAUGHAN Primary Care Unavailable Robin Vaughan MD Primary Care Provider MEDHAT RANGEL Attending Unavailable MEDHAT RANGEL Attending Unavailable MEDHAT RANGEL Attending Unavailable MEDHAT RANGEL Attending Unavailable Allergies Allergy ClassificationReported Allergen(s)Allergy TypeDate of OnsetReaction(s) Facility (20 sources)Amoxicillin / Clavulanate; Translations: [AMOXICILLIN-POT CLAVULANATE]Drug Iihjhid06-35-6923OavybxzjAlijcBwxgor (17 sources)loracarbef; Translations: [LORACARBEF]Drug Ohptdxh42-85-8440 [facility] (4 sources)loracarbefDrug Txenvua20-87-0472[facility] (1 source)Amoxicillin / ClavulanateDrug Vzmsufh86-66-8887Mvn [facility] Rep[facility] (1 source)loracarbefDrug Clcvedu18-07-8909Jix [facility] Repository (20 sources)Penicillins; Translations: [penicillins]Drug xcyguej20-44-5694 [facility] Medications Current Medications MedicationDrug Class(es)DatesSig (Normalized)Sig (Original)bacillus coagulans [id number] unt / lactobacillus acidophilus 76102568 unt oral tablet (14 sources)take 1 tablet by mouth once dailyLactobacillus (Acidophilus/L- Sporogenes) tablet Acidophilus Ex Str (L. sporog) 35 million-25 million cell tablet TAKE ONE TABLET BY MOUTH ONCE DAILY Activebetamethasone 0.5 mg/ml / clotrimazole 10 mg/ml topical lotion (2 sources)Azole Antifungal, CorticosteroidStart: 09-20-2024 End: 36-45-8067hizploqapqgt-betamethasone (Lotrisone) lotion Indications: Tinea Pedis Apply topically 2 (two) times a day Apply To Affected Area Twice per Day 30 mL 1 09/20/2024 10/20/2024 Activebifidobacterium animalis [id number] unt / lactobacillus acidophilus 66640880328 unt oral capsule (1 source)Probiotic Product (ACIDOPHILUS [...] ActiveclonazePAM 0.5 mg oral tablet (20 sources)BenzodiazepineStart: 47-85-4155otzx 1 tablet by mouth three times dailyclonazePAM (KLONOPIN) 0.5 MG tablet Take 1 tablet by mouth 3 times daily 60 tablet 3 01/22/2016 ActiveStart: 94-64-7680rowxsjqhas Oral, TID, Refills(s) 0 Start Date: 05/21/11 Status: Orderedtake 1 tablet by mouth twice daily as needed clonazePAM (KlonoPIN) 0.5 mg tablet Take 1 tablet (0.5 mg total) by mouth 2 (two) times a day as needed for seizures. ActivecloNIDine (4 sources)Central alpha-2 Adrenergic AgonistStart: 94-69-8453lnycxduid patch(es), Refills(s) 0 Start Date: 05/21/11 Status: Ordereddesmopressin acetate 0.1 mg oral tablet (20 sources)Vasopressin Analog, Factor VIII ActivatorStart: 75-80-3003cvtt 2 tablets by mouth three times dailydesmopressin [...] 0 Active Dextromethorphan / guaiFENesin (1 source)Uncompetitive R-qkachy-H-aspartate Receptor Antagonist, Sigma-1 Agonisttake 400 mg by mouth twice daily as neededDextromethorphan-guaiFENesin (CHEST CONGESTION/COUGH RELIEF PO) Take 400 mg by mouth 2 times daily as needed. 0 Activedocusate sodium 100 mg oral capsule (4 sources)Start: 23-74-6530dtgqcshe (COLACE, DULCOLAX) 100 MG CAPS Take 100 mg by mouth as needed 30 capsule 3 01/22/2016 ActiveDocusate Sodium (DOK) 100 MG tablet Take 100 mg by mouth As directed as needed for Constipation. 0 Active econazole nitrate 10 mg/ml topical cream (1 source)Azole AntifungalStart: 10-02-2025 End: 65-06-5425vcpuxsiat nitrate 1 % cream Indications: Tinea Pedis Apply topically Daily Apply to affected area daily 30 g 1 10/02/2025 11/01/2025 Active Ethinyl Estradiol / Levonorgestrel (19 sources)Progestin, Estrogen, Progestin-containing Intrauterine DeviceStart: 31-40-5108cddo 1 tablet by mouth once in the [...] TAKEPLACEBO PILLS FOR PACK 3. Active End: 42-64-2998pxkh 1 tablet by mouth once in the [...] by mouth Daily Activegabapentin (5 sources)Anti-epileptic AgentStart: 47-85-2482uwijpqtesm Oral, Refills(s) 0 Start Date: 05/21/11 Status: Orderedtake 1 capsule by mouth three times daily gabapentin (NEURONTIN) 300 MG capsule Take 300 mg by mouth 3 times daily. 0 Qyegeu94 hr guaiFENesin 600 mg extended release oral [...] by mouth. 0 ActiveLactulose (4 sources)Osmotic LaxativeStart: 09-60-1324esbivkged Oral, Daily, EA, Refills(s) 0 Start Date: 05/21/11 Status: OrderedLevonorgestrel-Ethinyl Estrad (AVIANE ORAL) (1 source)Levonorgestrel-Ethinyl Estrad (AVIANE ORAL) Take by mouth. 0 Active levothyroxine sodium 0.075 mg oral tablet (20 sources)l-ThyroxineStart: 11-02-2023 End: 47-60-6709kuykuwpremtbu (Synthroid, Levoxyl) 75 MCG tablet TAKE 12 TABLET BY MOUTH ONCE DAILY 11/02/2023 ActiveStart: 58-59-9046ywvgamlovqbze Daily, Refills(s) 0 Start Date: 05/21/11 Status: OrderedLithium (4 sources)Start: 86-87-0442jeoqfhg Oral, Refills(s) 0 Start Date: 05/21/11 Status: [...] 50 mg oral tablet (20 sources)beta-Adrenergic BlockerStart: 82-85-5447tcpm 1 tablet by mouth twice dailymetoprolol tartrate (LOPRESSOR) 50 MG tablet Indications: Moderate dehydration , Increased heart rate , Tachycardia , SOB (shortness of breath) , Bilateral leg edema Take 1 tablet by mouth 2 times daily 180 tablet 3 12/10/2024 ActiveStart: 56-87-6418gldapjrfvq tartrate (Lopressor) 25 MG tablet 09/13/2024 Activemetoprolol [...] by mouth at bedtime ActiveNasonex (4 sources)CorticosteroidStart: 28-27-8987Edcdmkd Nasal, Daily, Refill(s) 0 Start Date: 05/21/11 Status: Orderedmontelukast 10 mg oral tablet (20 sources)Leukotriene Receptor AntagonistStart: 98-71-3672iowm 1 tablet by mouth once dailymontelukast (SINGULAIR) 10 MG tablet Take 1 tablet by mouth nightly 30 tablet 3 02/16/2016 ActiveStart: 77-36-2680Uidulsfqt qPM, Refills(s) 0 Start Date: 05/21/11 Status: [...] mouth daily. 0 ActiveZyprexa (4 sources)Atypical AntipsychoticStart: 54-73-6049Fyqzurg Refills(s) 0 Start Date: 05/21/11 Status: Orderedondansetron [...] by mouth 2 times daily Active sennosides, correction 8.6 mg oral tablet (3 sources)take 1 tablet by mouth in the morningsenna (SENOKOT) 8.6 mg tablet Take 1 tablet (8.6 mg total) by mouth in the morning. Activetake 2 tablets by mouth twice dailysenna 8.6 MG tablet Take 17.2 mg by mouth 2 times daily. 0 ActiveThioridazine (4 sources)PhenothiazineStart: 79-02-4816plkaxzndbxms Oral, TID, Refills(s) 0 Start Date: 05/21/11 [...] mg oral tablet (5 sources)Start: 08-26-2022 End: 03-73-2145ilge 1 tablet by mouth every four hours [...] meq/ml injectable solution (1 source)Start: 08-26-2022 End: 10-00-8557kiiudttj ringers IV solution Problems Active Problems Problem ClassificationProblemDateDocumented DateEpisodic/ChronicCardiac dysrhythmias (3 sources)Tachycardia; Translations: [Tachycardia, unspecified]Onset: 001867-57-9993IjcgibnxBuuiuffxd of teeth and jaw (7 sources)Dental caries; Translations: [Dental caries, unspecified]Onset: 06-40-0345AbmneznlTqbfz of unknown origin (4 sources)Fever, unspecified; Translations: [FEVER UNSPECIFIED]Onset: 39-59-5424FmbnqqerNjvtd and electrolyte disorders (8 sources)Hyperosmolality and hypernatremia; Translations: [Moderate dehydration]Onset: 434235-51-8630AmhodiukDiyowle and fatigue (1 source)Weakness; Translations: [WEAKNESS]Onset: 96-84-0491OmvxrucyGgooupo (6 sources)Onychomycosis due to dermatophyte ; Translations: [Tinea unguium] 70-32-8977XdyhxaqiGovjregodlb deficiencies (1 source)Deficiency of macronutrients; Translations: [Mild protein-calorie malnutrition]53-29-6903XnnujkjEntdp aftercare (5 sources)Other intermediate accountant (current) drug therapy; Translations: [OTH INTERMEDIATE CURRENT DRUG THERAPY]Onset: 44-37-9530UemifuimWxpsd connective tissue disease (9 sources)Pain of toe of left foot; Translations: [Pain in left toe(s)] 38-79-5781InqyreqiRyreq connective tissue disease (5 sources)Pain of toe of right foot; Translations: [Pain in right toe(s)] 78-42-1382GvebpjsePmhtt diseases of kidney and ureters (5 sources)Nephrogenic diabetes insipidus; 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]Onset: 29-47-3992LgvcgzbSjmri endocrine disorders (3 sources)Diabetes insipidus; Translations: [Diabetes insipidus]Onset: 86-68-7558BvlwtfhUmflk lower respiratory disease (1 source)Dyspnea; Translations: [Shortness of breath]17-81-3227CsvfffldYwxiw lower respiratory disease (1 source)Shortness of breath; Translations: [Shortness of breath]Onset: 43-13-5826UoiptlojIaqzs nutritional; endocrine; and metabolic disorders (1 source)Hypophosphatemia; Translations: [Other disorders of phosphorus metabolism]Onset: 969099-57-7037LhlpisyOfkxc nutritional; endocrine; and metabolic disorders (1 source)Developmental delay; Translations: [Unspecified lack of expected normal physiological development in childhood]EpisodicOther nutritional; endocrine; and metabolic disorders (2 sources)Unspecified lack of expected normal physiological development in childhood; Translations: [Unspecified lack of expected normal physiological development in childhood]Onset: 12-93-2593DkqqqxhaDkkam skin disorders (10 sources)Ingrowing nail; Translations: [Ingrowing nail]18-37-8728Ngoulmgj Other upper respiratory disease (1 source)Nasal congestion; Translations: [NASAL CONGESTION]Onset: 02-20-2023 EpisodicResidual codes; unclassified (1 source)Bilateral lower limb edema; Translations: [Localized edema]01-24-2025 EpisodicResidual codes; unclassified (1 source)Localized edema; Translations: [Localized edema]Onset: 01-24-2025 EpisodicSkin and subcutaneous tissue infections (14 sources)Cellulitis of left toe; Translations: [Cellulitis and abscess of toe, unspecified]65-22-8182Ctshfjxf Past or Other Problems Problem ClassificationProblemDateDocumented DateEpisodic/ChronicAcute and unspecified renal failure (1 source)Acute renal failure syndrome; Translations: [Acute kidney failure, unspecified]Onset: 01-08-2016 Resolved: 905367-37-2688WsmwmljrNcrqvtw disorders (17 sources)Anxiety; Translations: [Anxiety disorder, unspecified]Onset: 10-11-2018 Resolved: 826501-52-8340AvackxhVuzajcfid-zekaznm, conduct, and disruptive behavior disorders (17 sources)Attention deficit hyperactivity disorder; Translations: [Attention- deficit hyperactivity disorder, unspecified type]Onset: 10-11-2018 Resolved: 400559-52-0890HzdxagxRjlvadqcvrm and hemorrhagic disorders (18 sources)Thrombocytopenic disorder; Translations: [Thrombocytopenia, unspecified]Onset: 01-08-2016 Resolved: 514942-07-9306HylizpaQzebhopfpgzcd and procreative management (1 source)Oral contraception; Translations: [Encounter for surveillance of contraceptive pills]91-26-2651LzchwgrnPdkwstlhee and other anemia (1 source)Anemia; Translations: [Anemia, unspecified]Onset: EpisodicDevelopmental disorders (20 sources)Developmental disorder; 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]Onset: 01-08-2016 Resolved: 884768-82-0883XqxkffaJjuhuddkvvkyw symptoms and ill-defined conditions (1 source)Other polyuria; Translations: [OTHER POLYURIA]Onset: 10-15-2022 EpisodicIntestinal obstruction without hernia (1 source)Intestinal obstruction co-occurrent and due to decreased peristalsis; Translations: [Ileus, unspecified]Onset: 572056-76-3718HcvjuwitLusy disorders (17 sources)Bipolar disorder; Translations: [Bipolar disorder, unspecified] Onset: 10-11-2018 Resolved: 914769-45-0815SjijwkgSkbnu and unspecified benign neoplasm (1 source)Benign neoplasm of pituitary gland; Translations: [BENIGN NEOPLASM OF PITUITARY GLAND]Onset: 65-56-1302WephafotBtoum diseases of kidney and ureters (18 sources)Acquired nephrogenic diabetes insipidus; 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]Onset: 01-15-2016 Resolved: 225842-72-5102OgfjzziVvhlb nervous system disorders (1 source)Metabolic encephalopathy; Translations: [Metabolic encephalopathy] Resolved: 290055-70-4636GmxwwftQuejv nutritional; endocrine; and metabolic disorders (1 source)Polydipsia; Translations: [POLYDIPSIA]Onset: 18-15-6006HnbnkgbbZicqr nutritional; endocrine; and metabolic disorders (1 source)Underweight; Translations: [Underweight]Onset: EpisodicOther screening for suspected conditions (not mental disorders or infectious disease) (1 source)Patient encounter status; Translations: [Encounter for other screening for malignant neoplasm of breast]42-55-7618LqifjcubEgsbemkuh (except that caused by tuberculosis or sexually transmitted disease) (1 source)Sepsis; Translations: [Pneumonia, unspecified organism]Onset: 028657-20-2723UwbwdviuJjvbajn disorders (20 sources)Hypothyroidism; Translations: [Hypothyroidism, unspecified]Onset: 01-15-2016 Resolved: 05-13-3589Ytjtwqf Results Test NameValueInterpretationReference RangeFacilityCardiac echo study Procedure on 40-48-9540Vfykon Sinus Valsalva2.7 cmBon Secours Mercy HealthAortic Sinus Valsalva Index1.72 cm/m2[facility] HealthAV Cusp Mmode1.8 cmBon Secours Mercy HealthAV Mean Klhdqkqh5wiLeUcx [facility] HealthAV Mean Velocity0.8 m/s [facility] HealthAV Peak Gkaesqjp3tlCbBko [facility] HealthAV Peak Velocity1.2 m/sBon Secours Mercy HealthAV Velocity Ratio1.00Bon [facility]cy HealthAV VTI21.7 cmBon Secours Mercy HealthBody surface area Derived from formula1.62 m2[facility] HealthE/E' Lateral4.63[facility] HealthEF BP64 %55 - 100 %[facility] HealthEF Dpulyxusq52 %[facility] Fractional Shortening 2D33 %28 - 44 %[facility] HealthInterpretation and review of laboratory resultsAbnormalBon Secours Mercy HealthIVSd0.8 cm0.6 - 0.9 cmBon Secours Mercy HealthLA Area 2C10.5 cm2[facility] HealthLA Area 4C 9.7 cm2[facility] HealthLA Major Axis4.5 cmBon Secours Mercy HealthLA Minor Axis4.2 cmBon Secours Mercy HealthLA Volume BP20 bTVbedscac42 - 52 mLBon Secours Mercy HealthLA Volume Index BP13 ml/w6Rbgmqbfg30 - 34 ml/m2[facility] HealthLA Volume Index MOD A2C14 ml/v2Epuotcph76 - 34 ml/m2[facility] HealthLA Volume Index MOD A4C11 ml/t9Gghjxgcu45 - 34 ml/m2[facility] HealthLA Volume MOD A2C22 mL22 - 52 mLBon Secours Mercy HealthLA Volume MOD A4C17 nBRpekopzz82 - 52 mLBon Secours Mercy HealthLV E' [...] HealthLVIDs Index1.85 cm/m2[facility] HealthLVOT Mean Jeqrzato4nlUkAst [facility] Hospitalnannette HealthLVOT Peak Csdemcpg9iqXpIek [facility] HealthLVOT Peak Velocity1.2 m/sBon [facility] HealthLVOT VTI21.1 cmCopper Queen Community [facility] Jose Guadalupe Decker HealthLVOT:AV VTI Index0.97[facility] Hospitalscott [facility] Hospitalnannette HealthLVPWd0.7 cm0.6 - 0.9 cmCritical Access Hospitalscott Cherrington Hospitalnannette HealthMV A Velocity0.47 m/s [facility] Hospitalnannette HealthMV E Velocity0.63 m/sBon [facility] Hospitalscott [facility] Hospitalnannette HealthMV E Wave Deceleration Elqt627.0 msCritical Access Hospitalscott [facility] Hospitalnannette HealthMV E/A1.34[facility]als[facility] Hospitalnannette HealthPV Max Velocity1.0 m/sBon [facility] HealthPV Peak Lqyzgfbe7qtGvZxz [facility] Hospitalnannette HealthLeft Ventricle: Normal left ventricular systolic [...] Details Image quality: adequate. No contrast was given.[facility] CV CPAHenrico Doctors' Hospital—Henrico CampusRadiology Study observation (narrative)[facility]37on 66-64-037684Pi have changed desmopressin dosing to the followin.4 mg in the morning and 0.5 mg at bedtime.[facility] HospitalAbstracton 12-27-2024 [id number] Tiffany Mcintosh 1990 F Date Provider Department Center 12/27/2024 316-KATIUSKA GANDHI. [facility] ENDOCR [facility] No family history on fileNormalUniversity University Hospitals Beachwood Medical CenterFollow-Upon 69-27-3287Mhhldn-[id number] Tiffany Mcintosh 1990 F Date Provider Department Center 12/27/2024 316-KATIUSKA GANDHI. [facility] ENDOCR [facility] No family history on file Level of Service:[address]504 [place] OFFICE/OUTPATIENT ESTABLISHED LOW MDM 20 MIN (GC) Reason for Visit and Comments: Follow-up [747179][facility].Interpretation:on 53-39-0193MZM Ab IA QlCommentInvalid Interpretation CodeLima Memorial HospitalComment on above:Result Comment: Not infected with HCV unless early or acute infection is suspected (which may be delayed in an immunocompromised individual), or other evidence exists to indicate HCV infection. Performed at: [facility] [address] [id number] PhD Amaris ValdesPerformed By: #### [id number], [id number] #### [facility] [address], [place] [address]Fzutl Hepatitis A B C Panelon 10-46-5079AZX IgM IA QlNegative Invalid Interpretation CodeNegativeLima Memorial HospitalComment on above: Performed By: #### [id number], [id number] #### [facility] [address], [place] [address]WTT core IgM IA QlNegativeInvalid Interpretation CodeNegative [facility] HospitalComment on above:Performed By: #### [id number], [id number] #### [facility] [address], [place] [address]PFH surface Ag IA QlNegativeInvalid Interpretation CodeNegative [facility] HospitalComment on above:Performed By: #### [id number], [id number] #### [facility] [address], [place] [address]IUZ IgG IA QlNon-ReactiveInvalid Interpretation CodeNon ReactiveLima Memorial HospitalComment on above:Result Comment: Performed at: [facility] [id number] PhD Amaris LucioPerformed By: #### [id number], [id number] #### [facility] [address], [place] [address]Uubhotfip Orderon 74-71-2883Yylnhuewc Order [id number]#1.00TIFGuernsey Memorial HospitalConsent for Treatmenton 69-50-1982Ipoolaj for Treatment [id number]#1.00TIFGuernsey Memorial HospitalPhysician Orderon 99-62-5416Sgonplllk Order [id number]#1.00[facility] HospitalXR Adult Swallowing Function w/ Videoon 53-33-7394PU Adult Swallowing Function w/ VideoExam Date/Time: 02/01/2024 [...] Ka,r in mGy = na DAP = naNormalFishHoly Cross HospitalPhysician Orderon 67-98-5301Acmlncqco [id number]#1.00TIFFNormalLima Memorial HospitalT3 Freeon 31-26-2266Ehkm T3 [Mass/Vol]2.5 pg/mLInvalid Interpretation Code2.0-4.4FDayton Osteopathic HospitalComment on above:Result Comment: Performed at: [facility] [id number] PhD Amaris ValdesPerformed By: #### [id number], 7813465, 6788061, 2814245, 5524183, [id number], 0860628 #### [facility] [address], [place] [address]UDGok 03-86-9613Mfbczlv [Mass/Vol]3.8 g/dLNormal3.3-5.0Lima Memorial HospitalComment on above:Performed By: #### 4713918, 3251436, 8991118, 5491340, 3159993, 40848485, 0759145 #### [facility] [address], [place] [address]Xlatgsf/Globulin [Mass ratio]1.4 {ratio}Normal1.1-2.2FDayton Osteopathic HospitalComment on above:Performed By: #### 5941277, 2936621, 7712230, 5569413, 8852027, 21833289, 4631034 #### [facility] [address], [place] [address]Ylt Phos38 Int._Unit/IEzarka25-50DczeykLima Memorial Hospital Comment on above:Performed By: #### 4144107, 5128584, 0270487, 1997827, 0078680, 01463024, 9562444 #### [facility] [address], [place] [address]BWQ8 Int._Unit/LNormal6-46L[facility] Memorial HospitalComment on above:Performed By: #### 0707316, 6943216, 3152978, 9816208, 0178067, 50868750, 8322992 #### [facility] [address], [place] [address]Ddhtq gap [Moles/Vol]13 mmol/LNormal6-16L[facility] Memorial HospitalComment on above:Performed By: #### 8094392, 2494395, 1390719, 0222452, 8658426, 91145405, 1654048 #### [facility] [address] [place] [address]OHA[address] Int._Unit/LNormal5-43L[facility] Memorial HospitalComment on above:Performed By: #### 8389346, 4243683, 1398378, 3484105, 1609604, 53767434, 0195604 #### [facility] [address], [place] [address]Fyqb Total0.3 mg/dLNormal0.0-1.1FDayton Osteopathic Hospital Comment on above:Performed By: #### 6294843, 2134727, 0356595, 9507966, 3292299, 67032719, 6565580 #### [facility] [address], [place] [address]WQS/Creat Ratio16 No QoixwAglnve17-23XmxmayLima Memorial HospitalComment on above:Performed By: #### 8093174, 6864930, 6690642, 1626351, 3214636, 22741332, 3480024 #### [facility] [address], [place] [address]Ccklvds [Mass/Vol]9.0 mg/dLNormal8.9-11.1FDayton Osteopathic HospitalComment on above:Performed By: #### 9550315, 4166329, 5723654, 9618770, 4561347, 43753983, 0172475 #### [facility] [address], [place] [address]Xjwtwfjp [Moles/Vol]103 mmol/CTybdkx827-380GoqcomLima Memorial HospitalComment on above:Performed By: #### 5440142, 6584806, 5701322, 5114922, 2758979, 28570028, 1405283 #### [facility] [address], [place] [address]JV9 [Moles/Vol]26 mmol/PXeqawe44-28RbgiteLima Memorial Hospital Comment on above:Performed By: #### 1650256, 6956350, 3209699, 0277697, 0126969, 55322640, 1167633 #### [facility] [address] [place] [address]Ukilpsyfla [Mass/Vol]1.1 mg/dLNormal0.5-1.3FDayton Osteopathic HospitalComment on above:Performed By: #### 2254612, 0463061, 7037477, 5909318, 2851936, 29837515, 8886037 #### [facility] [address] [place] [address]Jctskmoq (S) [Mass/Vol]2.8 g/dLNormal1.4-4.0Lima Memorial HospitalComment on above:Performed By: #### 4991886, 8144179, 4675037, 7468223, 9964027, 76384949, 0251928 #### [facility] [address], [place] [address]Xknbbbh [Mass/Vol]68 mg/vZVzrlbf39-305QdiasmLima Memorial HospitalComment on above:Performed By: #### 7034810, 0833768, 7156372, 7424068, 5884820, 82080432, 7787321 #### [facility] [address] [place] [address]Cwpjifqut [Moles/Vol]4.1 mmol/LNormal3.5-5.3FDayton Osteopathic HospitalComment on above:Performed By: #### 8574674, 0976146, 2447708, 4338922, 3170333, 10382269, 9734915 #### [facility] [address], [place] [address]Uhvzyxq [Mass/Vol]6.6 g/dLNormal6.0-7.8Lima Memorial HospitalComment on above:Performed By: #### 1067728, 7429903, 8706438, 4877043, 3737797, 01307206, 7256446 #### [facility] [address], [place] [address]Wqlvzq [Moles/Vol]138 mmol/YUeagjq837-578BtcsnrLima Memorial HospitalComment on above:Performed By: #### 9438721, 9537974, 3820974, 4297155, 4259222, 05716472, 3694822 #### [facility] [address], [place] [address]Lnyv nitrogen [Mass/Vol]18 mg/dLNormal5-21L[facility] Memorial HospitalComment on above:Performed By: #### 3883881, 4719485, 5413852, 8602492, 4383264, 84588055, 5331847 #### [facility] [address], [place] [address]Iqevo Panelon 26-00-6824Olpyvjytwcc [Mass/Vol]113 mg/dLLow 120-200Lima Memorial HospitalComment on above:Performed By: #### 8704799, 1615065, 5866018, 3209460, 4390508, 80213120, 2206701 #### [facility] [address], [place] [address]Gjhtlqcqymm in HDL [Mass/Vol]23 mg/dLInvalid Interpretation CodeLima Memorial HospitalComment on above:Result Comment: '>= 60 LOW RISK' '<= 40 HIGH RISK'Performed By: #### 2792326, 0101139, 4081484, 0352731, 6472761, 70790613, 4671495 #### [facility] [address], [place] [address]Zpotspehtcr in LDL [Mass/Vol]71 mg/dLNormal<=129[facility] HospitalComment on above:Performed By: #### 3722528, 9285275, 1360613, 9653422, 8216126, 24538309, 6388423 #### [facility] [address], [place] [address]Sligohauhov in VLDL [Mass/Vol]37 mg/dLNormal7-40[facility] HospitalComment on above:Performed By: #### 2398324, 7669147, 9063418, 3447166, 8619008, 65527667, 6131627 #### [facility] [address], [place] [address]Pvqljeodroxe [Mass/Vol]186 mg/dLHigh<=149[facility] HospitalComment on above:Performed By: #### 0337195, 5376903, 7443204, 8843970, 0450602, 23426306, 9491055 #### [facility] [address], [place] [address]vYAKef 83-51-9960NNE/1.73 sq M.predicted among non-blacks MDRD (S/P/Bld) [Vol rate/Area]mL/min/{1.73_m2}Normal>=59[facility] Comment on above:Order Comment: Order added by Discern Expert.Performed By: #### 5951792, 9162128, 3024678, 3544600, 7592391, 45384236, 7461551 #### [facility] [address], [place] [address]BWU w/Indiceson 34-36-1895Hqabszdkkvs distribution width (RBC) [Ratio]13.5 %Ezygbq84.9-14.2FDayton Osteopathic HospitalComment on above: Performed By: #### 3695709, 0339706, 4959842, 7447177, 3002122, 74235752, 8296619 #### [facility] [address] [place] [address]2Lwjsyvwztr (Bld) [Volume fraction]42.1 %Kaucra67.0-46.0[facility] HospitalComment on above:Performed By: #### 8990911, 0491319, 9359150, 8108174, 8802432, 33090185, 9754963 #### [facility] [address] [place] [address] 820[address]Jedkfsucgy (Bld) [Mass/Vol]14.4 g/oQWmylsh99.0-16.0[facility] HospitalComment on above:Performed By: #### 6656550, 3313614, 4642174, 3311514, 1077531, 89075903, 4209730 #### [facility] [address] [place] [address] 08969KSJ (RBC) [Entitic mass]33.7 bwKniujn72.0-34.0[facility] HospitalComment on above:Performed By: #### 7913433, 2183367, 0319926, 3251642, 2835003, 77482675, 6056038 #### [facility] [address] [place] [address] 00177TNJV (RBC) [Mass/Vol]34.2 g/gUIzewkg45.4-36.0[facility] HospitalComment on above:Performed By: #### 9082100, 5011024, 9394386, 1551477, 7957336, 92655198, 1790048 #### [facility] [address] [place] [address] 14958VNH (RBC) [Entitic vol]98.8 hXOcwvxc59.0-100.0[facility] HospitalComment on above:Performed By: #### 4680005, 1545300, 1272824, 1261103, 6505979, 20875047, 4595354 #### [facility] [address] [place] [address] 81286Eiaqumhm mean volume (Bld) [Entitic vol]8.6 fLNormal6.4-10.8 [facility] HospitalComment on above:Performed By: #### 6402073, 7556631, 2947010, 1359905, 0049439, 80106494, 1896778 #### [facility] [address] [place] [address] 02591Mstckpidn (Bld) [#/Vol]141.0 E9/KLbv131.0-500.0[facility] HospitalComment on above:Performed By: #### 8746649, 5987199, 8655744, 8702263, 6532420, 29814725, 0367719 #### [facility] [address] [place] [address] 76704KFI (Bld) [#/Vol]4.3 E12/LNormal4.3-5.9[facility] HospitalComment on above:Performed By: #### 0135446, 7153727, 4265488, 4456534, 1892022, 79553789, 6193575 #### [facility] [address] [place] [address] 14346PGY corrected for nucl RBC Auto (Bld) [#/Vol]9.8 E9/LNormal 4.0-11.0[facility] HospitalComment on above:Performed By: #### 1400827, 7772021, 6670731, 8774944, 7195188, 62726975, 3033115 #### [facility] [address] [place] [address]Kbeb T4on 83-37-2565Prbs T4 [Mass/Vol]0.92 ng/dLNormal0.58-1.64 [facility] HospitalComment on above:Performed By: #### 4766767, 4713420, 5684957, 5531066, 8575764, 95388524, 4071833 #### [facility] [address], [place] [address]Ugjtpywje Orderon 53-32-1129Mugsavszj Order [id number]#1.00TIFFNormalLima Memorial HospitalTSHon 36-09-1316AMQ Qn5.07 m[IU]/LNormal0.34-5.60[facility] HospitalComment on above:Performed By: #### 5259026, 8621014, 2242396, 7074505, 5033980, 82727997, 1660708 #### [facility] [address], [place] [address]ZYLvv 61-86-2170Ccltz gap [Moles/Vol]13 mmol/LNormal6-16[facility] HospitalComment on above:Performed By: #### 1433387, 32928819, 1497117, 8825447 #### [facility] [address], [place] [address]Yjxcctp [Mass/Vol]8.8 mg/dLLow8.9-11.1FDayton Osteopathic HospitalComment on above:Performed By: #### 2695116, 05539468, 5274219, 2594340 #### [facility] [address], [place] [address]Yyhntjld [Moles/Vol]109 mmol/IEftbyq652-534WdwozgLima Memorial HospitalComment on above:Performed By: #### 8053865, 18854553, 8373254, 4704503 #### [facility] [address], [place] [address]MK2 [Moles/Vol]23 mmol/DTbmjll42-27TkediaLima Memorial Hospital Comment on above:Performed By: #### 5006778, 04028366, 7499050, 0365036 #### [facility] [address], [place] [address]Sdgkvmugpz [Mass/Vol]1.1 mg/dLNormal0.5-1.3FDayton Osteopathic HospitalComment on above:Performed By: #### 6581566, 24986056, 8728346, 8563753 #### [facility] [address], [place] [address]Xqooauz [Mass/Vol]74 mg/zKBmbjdf84-414ZiumgrLima Memorial HospitalComment on above:Result Comment: If this glucose result represents a fasting glucose, interpretation should refer tothe following reference range: 55-99 mg/dLPerformed By: #### 9889990, 06391533, 0201394, 7147564 #### [facility] [address], [place] [address]Ynwkbghcq [Moles/Vol]4.0 mmol/LNormal3.5-5.3FDayton Osteopathic HospitalComment on above:Performed By: #### 5274722, 62012739, 0561270, 3863320 #### [facility] [address] [place] [address]Eyelqx [Moles/Vol]141 mmol/GWbvbpo654-549SqrpztLima Memorial HospitalComment on above:Performed By: #### 0859102, 30627008, 1465372, 7050870 #### [facility] [address], [place] [address]Jhvq nitrogen [Mass/Vol]23 mg/dLHigh5-21[facility] HospitalComment on above:Performed By: #### 2302057, 40981693, 2787861, 0151829 #### [facility] [address] [place] [address]Qpub nitrogen/Creatinine [Mass ratio]21 No HtbqmHuet48-20MiuiskLima Memorial HospitalComment on above:Performed By: #### 0455623, 27673336, 4403369, 1946794 #### [facility] [address] [place] [address] 307[address]Juuf T4on 15-61-5856Zhyz T4 [Mass/Vol]1.45 ng/dLNormal0.58-1.64 [facility] HospitalComment on above:Performed By: #### 0325069, 5574964, 9214713, 1006630, 7344090, 04855586, 5926690 #### [facility] [address], [place] [address]KNRua 76-02-0821EMD Qn6.49 m[IU]/LHigh0.34-5.60[facility] HospitalComment on above:Performed By: #### 0984907, 7912214, 4591689, 5954910, 0210408, 12594994, 3456731 #### [facility] [address], [place] [address]sRZIim 11-20-8349EMA/1.73 sq M.predicted among non-blacks MDRD (S/P/Bld) [Vol rate/Area]67 mL/min/1.73 x8Fusmni>=59[facility] Comment on above:Order Comment: Order added by Discern Expert.Result Comment: Chronic kidney disease could be indicated at eGFR's of less than 60 mL/min/1.73m2. Kidney failure is indicated at less than 15 mL/min/1.73m2. Performed By: #### 3584774, 2366453, 8108671, 1103450, 3537608, 14056298, 1400092 #### [facility] [address], [place] [address]ANBIEEXGPDshhyao By: SYSTEM SYSTEM on 86-23-6593Diyyh gap [Moles/Vol]13 mmol/LNormal6 - 16 mEq/LFTMC RemisolCalcium [Mass/Vol]8.8 mg/dLLow 8.9 - 11.1 mg/dLFTMC RemisolChloride [Moles/Vol]109 mmol/CIfndjp386 - 111 mmol/L [facility] RemisolCO2 [Moles/Vol]23 mmol/EFmrwbl11 - 31 mmol/LFTMC RemisolCreatinine [Mass/Vol]1.1 mg/dLNormal0.5 - 1.3 mg/dLFTMC RemisolFree T4 [Mass/Vol]1.45 ng/dL Normal0.58 - 1.64 ng/dLFTMC RemisolGFR/1.73 sq M.predicted among non-blacks MDRD (S/P/Bld) [Vol rate/Area]67 mL/min/1.73 c2Bbniuj>=59mL/min/1.73 m2[facility] Chem S Comment on above:Interpretive Data: Chronic kidney disease could be indicated at eGFR's of less than 60 mL/min/1.73m2. Kidney failure is indicated at less than 15 mL/min/1.73m2.Glucose [Mass/Vol]74 mg/rEBxwomh39 - 199 mg/dLGRIFFIN [facility] Remisol Comment on above:Interpretive Data: If this glucose result represents a fasting glucose, interpretation should referto the following reference range: 55-99 mg/dLPotassium [Moles/Vol]4.0 mmol/LNormal3.5 - 5.3 mmol/LFTMC RemisolSodium [Moles/Vol]141 mmol/KQwzigb030 - 145 mmol/LFTMC RemisolTSH Qn6.49 m[IU]/LHigh 0.34 - 5.60 mcIU/mLGRIFFIN [facility] RemisolUrea nitrogen [Mass/Vol]23 mg/dLHigh5 - 21 mg/dL [facility] RemisolUrea nitrogen/Creatinine [Mass ratio]21 mg/kgJhqm66 - 20[facility] Remisol Physician Orderon 30-41-5829Kbadzgfgr Order [id number]#1.00TIFFTwin City HospitalCHEMISTRYOrdered By: SYSTEM SYSTEM on 07-32-1677Nacmwjeau [Moles/Vol]70 microgram/jPCkvbec69 - 99 mcg/mLGRIFFIN [facility] RemisolPhysician Orderon 08-17-2023 Physician [id number]#1.00CD:127Twin City HospitalValproic Acidon 16-59-9145Pkehptqxl [Moles/Vol]70 microgram/iSLgllse46-48BtdwupLima Memorial HospitalComment on above:Performed By: #### 6217459, 0679929, 7837629, 6011442, 1603946, 16421812, 7044570 #### [facility] [address] [place], [place] [address]XD CHEST 2 Von 49-20-6156JO CHEST 2 VEXAM: XR CHEST 2 V [...] Electronically authenticated by: AZUL UNLU Date: 2023-02-17 22:47Norm[address] Vincent Medical CenterDEPAKENE/ VALPROIC ACIDon 61-37-6013SHJDSQVB00.8 ug/mlNormal 50.0-100.0[facility] Health SystemComment on above:Performed By: #### VALP #### [facility] [address] [place] [address] Dr. Wali HollyFRMONSERRAT T4on 81-06-9382Apli T4 [Mass/Vol]0.83 ng/dLNormal0.76-1.46 [facility] SystemComment on above:Performed By: #### FT4 #### [facility] [address] [place] [address] Dr. Wali Tamayo 20-97-4762HDO5.513 uIU/mLCritically high0.358-3.740[facility] Health SystemComment on above:Performed By: #### TSH #### [facility] [address] [place] [address] Dr. Wali HollyOSMOLALITY URINEon 00-69-2787Gabnauboaw, Ycivz001 mOsmol/kgNormal [facility] SystemComment on above:Result Comment: 24 hr : 300 - 900 Random: 50 - 1400 After 12hr fluid restriction: >850Performed By: #### OSMOU #### [facility] [address] [place] [address] Dr. Wali HollyOSMRENUKALITYon 20-60-4312Vpwqtrglpz [Osmolality]281 mosm/kgNormal 275-295The [facility] HospitalComment on above:Performed By: #### OSMO #### [facility] [address] [address] [address] Wali Barrera T4on 47-70-0259Jbji T4 [Mass/Vol]0.91 ng/dLNormal0.76-1.46 The [facility] HospitalComment on above:Performed By: #### FT4 #### [facility] [address] [address] [address] Wali HollyPROF CHEM 8 (BAS METB)on 11-55-7885Iynct gap [Moles/Vol]6.1 mmol/LNormalThe [facility] HospitalComment on above:Performed By: #### BMP, TSH #### [facility] [address] [place] [address] Dr. Wali HollyCalcium [Mass/Vol]9.1 mg/dLNormal8.5-10.1[facility] Comment on above:Performed By: #### BMP, TSH #### [facility] [address] [place] [address] Dr. Wali HollyChloride [Moles/Vol]102 mmol/NSdcrtw59-013VxtTrinity Health System Comment on above:Performed By: #### BMP, TSH #### [facility] [address] [place] [address] Dr. Wali HollyCO2 [Moles/Vol]34.9 mmol/LCritically high21.0-32.0The [facility] HospitalComment on above:Performed By: #### BMP, TSH #### [facility] [address] [place] [address] Dr. Wali HollyCreatinine [Mass/Vol]1.35 mg/dLCritically high0.55-1.02The [facility] HospitalComment on above:Performed By: #### BMP, TSH #### [facility] [address] [place] [address] Dr. Wali GaryGFR-AF ROIEBFQR73 mL/min/1.36e6Hsdmdbdcma low>=60The [facility] HospitalComment on above:Performed By: #### BMP, TSH #### [facility] [address] [address] [address] Wali GaryGFR-NON AF NDMVPLKX46 mL/min/1.95j1Iaatxviwpo low>=60The [facility] HospitalComment on above:Performed By: #### BMP, TSH #### [facility] [address] [address] [address] Wali HollyGlucose [Mass/Vol]84 mg/hSJneqdw72-827Jve [facility] Comment on above:Performed By: #### BMP, TSH #### [facility] [address] [address] [address] Wali HollyPotassium [Moles/Vol]4.0 mmol/LNormal3.5-5.1The [facility] Comment on above:Performed By: #### BMP, TSH #### [facility] [address] [address] [address] Wali HollySodium [Moles/Vol]139 mmol/GIcvyjk927-743Egj [facility] Comment on above:Performed By: #### BMP, TSH #### [facility] [address] [address] [address] Wali HollyUrea nitrogen [Mass/Vol]15.0 mg/dLNormal7.0-18.0The [facility] HospitalComment on above:Performed By: #### BMP, TSH #### [facility] [address] [address] [address] Wali Dia nitrogen/Creatinine [Mass ratio]11.1 mg/mgNormalThe [facility] HospitalComment on above:Performed By: #### BMP, TSH #### [facility] [address] [address] [address] Wali Tamayo 38-86-4395JAY0.185 uIU/mLCritically high0.358-3.740The [facility] HospitalComment on above:Performed By: #### BMP, TSH #### [facility] [address] [address] [address] Wali QuinonesAC RHYTHM (SCANNED)on 79-56-4794VXQMount Carmel Health System AND ELECTRONIC DIFFon 14-72-8991Qhwdzsvna (Bld) [#/Vol]0.06 10*3/uLNormal 0.00-0.15[facility] City HospitalComment on above:Performed By: #### [id number] #### [facility] (DEFAULT) [address] [place] [address] 87002Xbopyihbx/100 WBC (Bld)0.8 %[facility] HospitalComment on above:Performed By: #### WMB701 #### [facility] (DEFAULT) [address] [place] [address] 69383XKCQ STATUSElectronic DifferentialNormalOhiSCCI Hospital LimaComment on above:Performed By: #### [id number] #### [facility] (DEFAULT) [address] [place] [address] 33181Xijuwrtnbum (Bld) [#/Vol]0.07 10*3/uLNormal0.00-0.42[facility] HospitalComment on above:Performed By: #### QPM652 #### [facility] (DEFAULT) [address] [place] [address] 85732Vgqydonodgt/100 WBC (Bld)1.0 %[facility] HospitalComment on above:Performed By: #### MKW162 #### [facility] (DEFAULT) [address] [place] [address] 67654Omsjoarwho (Bld) [Volume fraction]39.1 %Rhdbcq76.9-44.3[facility] HospitalComment on above:Performed By: #### ALM875 #### [facility] (DEFAULT) [address] [place] [address] 15383Oywunbnpbc (Bld) [Mass/Vol]13.3 g/sRSvgzsy87.4-15.2[facility] HospitalComment on above:Performed By: #### ORU076 #### [facility] (DEFAULT) [address] [place] [address] 28136Lalnfugh Grans %1.8 %NormalZanesville City HospitalComment on above:Performed By: #### YVU425 #### [facility] (DEFAULT) [address] [place] [address] Grans Absolute0.13 K/uLHigh<=0.08[facility] HospitalComment on above:Performed By: #### EFJ757 #### [facility] (DEFAULT) [address] [place] [address] 27456Smrhkmqdfmk (Bld) [#/Vol]3.29 10*3/uLNormal1.16-3.51[facility] HospitalComment on above:Performed By: #### PAI174 #### [facility] (DEFAULT) [address] [place] [address] 30808Mwkudhtxgia/100 WBC (Bld)46.0 %NormalZanesville City HospitalComment on above:Performed By: #### ILY317 #### [facility] (DEFAULT) [address] [address]XLW (RBC) [Entitic vol]100.3 sUIydx35.6-97.7[facility] HospitalComment on above:Performed By: #### RDM897 #### [facility] (DEFAULT) [address] [address]Jxjm Cell Hgb34.1 ixVbpt01.9-33.9[facility] HospitalComment on above:Performed By: #### DRD778 #### [facility] (DEFAULT) [address] [place] [address] 20469Vvmv Cell Hgb Conc34.0 g/tIQsbutk50.4-35.9[facility] HospitalComment on above:Performed By: #### BIG118 #### [facility] (DEFAULT) [address] [place] [address] 42338Birdczdey (Bld) [#/Vol]0.82 10*3/uLNormal0.22-0.87[facility] HospitalComment on above:Performed By: #### SYA285 #### [facility] (DEFAULT) [address] [place] [address] 86295Ejfcnilot/100 WBC (Bld)11.5 %NormalZanesville City HospitalComment on above:Performed By: #### HMT735 #### [facility] (DEFAULT) [address] [place] [address] 92103Mmqjlabgq RBC0.0 /100 WBCNormal<=0.2[facility] HospitalComment on above:Performed By: #### YZZ117 #### [facility] (DEFAULT) [address] [place] [address] 94859Yoboaulv mean volume (Bld) [Entitic vol]9.9 fLNormal8.5-12.2 [facility] HospitalComment on above:Performed By: #### ILL321 #### [facility] (DEFAULT) [address] [place] [address] 97294Kwikdcosr (Bld) [#/Vol]110 10*3/tVDwx092-326RsheZanesville City HospitalComment on above:Performed By: #### GLY909 #### [facility] (DEFAULT) [address] [place] [address] 37543VCA (Bld) [#/Vol]3.90 10*6/uLLow3.91-5.04[facility] HospitalComment on above:Performed By: #### SAL800 #### [facility] (DEFAULT) [address] [place] [address] 42596QSV Zzxtdxuljflw89.2 %Ueajvo42.8-14.9[facility] HospitalComment on above:Performed By: #### WIR588 #### [facility] (DEFAULT) [address] [place] [address] 88195Ytch + Bands Auto38.9 %NormalZanesville City HospitalComment on above:Performed By: #### GTI400 #### [facility] (DEFAULT) [address] [place] [address] 044[address]Weuy + Bands,Absolute Auto2.78 K/uLNormal1.64-7.28[facility] HospitalComment on above:Performed By: #### GCN775 #### [facility] (DEFAULT) [address] [place] [address] 34769EZZ (Bld) [#/Vol]7.15 10*3/uLNormal3.99-11.19[facility] HospitalComment on above:Performed By: #### KOD564 #### [facility] (DEFAULT) [address] [place] [address] 33281Lhwiixzky (Bld) [#/Vol]0.06 10*3/uL0.00 - 0.15 K/uLGerman HospitalBasophils/100 WBC (Bld)0.8 %German HospitalDifferential cell count method Nom (Bld)Electronic DifferentialGerman Hospital Eosinophils (Bld) [#/Vol]0.07 10*3/uL0.00 - 0.42 K/[facility] Eosinophils/100 WBC (Bld)1.0 %German HospitalErythrocyte distribution width (RBC) [Ratio]12.2 %10.8 - 14.9 %German HospitalHematocrit (Bld) [Volume fraction]39.1 %34.9 - 44.3 %German HospitalHemoglobin (Bld) [Mass/Vol]13.3 g/dL11.4 - 15.2 g/dLGerman HospitalImmature granulocytes (Bld) [#/Vol]0.13 10*3/uLHigh<=0.08[facility] Immature granulocytes/100 WBC (Bld)1.8 %German HospitalInterpretation and review of laboratory resultsAbnormalOSU [facility] - ColumbusLymphocytes (Bld) [#/Vol]3.29 10*3/uL1.16 - 3.51 K/uLGerman Hospital Lymphocytes/100 WBC (Bld)46.0 %[facility] HospitalH (RBC) [Entitic mass] 34.1 ltIrrr18.9 - 33.9 pgOSU [facility] Hospital - ColumbusMCHC (RBC) [Mass/Vol]34.0 g/dL 31.4 - 35.9 g/dLOSU [facility] Hospital - ColumbusMCV (RBC) [Entitic vol]100.3 gPXxic34.6 - 97.7 [facility] HospitalMonocytes (Bld) [#/Vol]0.82 10*3/uL0.22 - 0.87 K/uLGerman HospitalMonocytes/100 WBC (Bld)11.5 %German HospitalNeutrophils (Bld) [#/Vol]2.78 10*3/uL1.64 - 7.28 K/uLGerman HospitalNucleated RBC/100 WBC (Bld) [Ratio]0.0 %<=0.2 /100 WBCGerman HospitalPlatelet mean volume (Bld) [Entitic vol]9.9 fL8.5 - 12.2 [facility] HospitalPlatelets (Bld) [#/Vol]110 10*3/uLUar923 - 393 K/uLGerman HospitalRBC (Bld) [#/Vol]3.90 10*6/uLLowU OhioHealthegmented neutrophils/100 WBC (Bld)38.9 %German HospitalWBC (Bld) [#/Vol]7.15 10*3/uL3.99 - 11.19 K/uLGerman HospitalOSPromedica Toledo HospitalCHEM 6 (LYTES, BUN CREA)on 01-01-5445Gvfet gap [Moles/Vol]10 mmol/LNormal7-17[facility] HospitalComment on above:Performed By: #### CHM6 #### [facility] (DEFAULT) [address] [address]Fzwevwlx [Moles/Vol]103 mmol/QVpmxhz36-204QpxtZanesville City HospitalComment on above:Performed By: #### CHM6 #### [facility] (DEFAULT) [address] [place] [address] 18808GR6 [Moles/Vol]31 mmol/UTrquii97-78VbnkZanesville City HospitalComment on above:Performed By: #### CHM6 #### [facility] (DEFAULT) [address] [place] [address] 34107Thnhxtcfft [Mass/Vol]1.16 mg/dLNormal0.50-1.20[facility] HospitalComment on above:Performed By: #### CHM6 #### [facility] (DEFAULT) [address] [place] [address] 09834MZX/1.73 sq M.predicted among non-blacks MDRD (S/P/Bld) [Vol rate/Area]63 mL/min/{1.73_m2}Normal>=60[facility] HospitalComment on above:Result Comment: Reported eGFR is based on the CKD-EPI 2020 equation using creatinine, age, and sex.Performed By: #### CHM6 #### [facility] (DEFAULT) [address] [place] [address] 72364Xdfglymsx [Moles/Vol]4.0 mmol/LNormal3.5-5.0[facility] HospitalComment on above:Performed By: #### CHM6 #### [facility] (DEFAULT) [address] [place] [address] 46258Htbeha [Moles/Vol]140 mmol/GRvibcv974-021SdmaZanesville City HospitalComment on above:Performed By: #### CHM6 #### [facility] (DEFAULT) [address] [place] [address] 747[address]Mabw nitrogen [Mass/Vol]10 mg/dLNormal7-25[facility] HospitalComment on above:Performed By: #### CHM6 #### [facility] (DEFAULT) [address] [place] [address] 39713Iwre nitrogen/Creatinine [Mass ratio]9 mg/mgNormalOhio State University Wexner Medical CenterComment on above:Performed By: #### CHM6 #### [facility] (DEFAULT) [address] [address]Byrtj gap [Moles/Vol]10 mmol/L7 - 17 mmol/[facility] Medical CenterChloride [Moles/Vol]103 mmol/L98 - 108 mmol/[facility] Medical CenterCO2 [Moles/Vol]31 mmol/L21 - 31 mmol/[facility] Medical CenterCreatinine [Mass/Vol] 1.16 mg/dL0.50 - 1.20 mg/dLGerman HospitalGFR/1.73 sq M.predicted CKD- EPI (S/P/Bld) [Vol rate/Area]63>=60 mL/min/1.04q5UWLGerman Hospital Comment on above:Reported eGFR is based on the CKD-EPI 2020 equation using creatinine, age, and sex.Potassium [Moles/Vol]4.0 mmol/L3.5 - 5.0 mmol/[facility]omerene Hospitalodium [Moles/Vol]140 mmol/L135 - 145 mmol/[facility]terson Medical CenterUrea nitrogen [Mass/Vol]10 mg/dL7 - 25 mg/dLGerman HospitalUrea nitrogen/Creatinine [Mass ratio]9 mg/mgGerman HospitalOSPromedica Toledo HospitalProgress Noteson 70-55-4028Jwdnicmlfkeew Authentication Interface Message TextSpoke to Kari @ [place], she will call back when she gets to her office to schedule patient's OR visit----- Friday, August 05, 2022 at 11:13:45 AM ----- ----- Provider: Edelmira Bella Specialist -- [facility] [place] -----NormalThe MetroHealth SystemProgress Noteson 08-25-2021 [place] Machine Operator Helper Authentication Interface Message TextPt is special needs. [...] of 2019. LG is mom: Camille Mcintosh [phone] Call the [facility] for [phone] ext: [phone] Tx request sent. WEATHERIZATION [facility]IST [facility] [place]: [place] ----- Signed on Wednesday, August 25, 2021 at 9:36:43 AM ----- ----- Provider: Rogelio Ryan DDS -- [place] -----NormalThe [employer] System Vital Signs Date TimeVital SignValuePerforming XjxciutpjIgbjeygp03-66-6385 10:10-0400Body biwjnp899.4 cmMarc Dolce DPM FACFAS Work Phone: 1([phone] RehabLqbembfmmu77-09-7265 10:10-0400Body mass index (BMI) [Ratio]27.73 kg/m2Marc Dolce DPM FACFAS Work Phone: 1(539)viblastAnovaStormSSM RehabWcrrvurchl72-23-8440 10:10-0400Body .41 kgMarc Dolce DPM FACFAS Work Phone: 1(635)viblastAnovaStormSSM RehabIlivmdtnra98-27-0869 09:52-0400Body sworbw053.4 cmMarc Dolce DPM FACFAS Work Phone: [phone] [place], [place] [address]ImalogixMissouri Rehabilitation CenterSbbrifajxb16-57-5798 09:52-0400Body mass index (BMI) [Ratio]27.73 kg/m2Marc Dolce DPM FACFAS Work Phone: 1(290)viblastAnovaStormSSM RehabHtcpgxuauu29-59-3853 09:52-0400Body .41 kgMarc Dolce DPM FACFAS Work Phone: 1(087)OrthohubSSM RehabBwptpkpyow43-71-9342 09:20-0400Body cguqjx402.4 cmMarc Dolce DPM FACFAS Work Phone: 1(875)OrthohubSSM RehabWxlorowjfr80-29-8437 09:20-0400Body mass index (BMI) [Ratio]27.73 kg/m2Marc Dolce DPM FACFAS Work Phone: [facility] CenterUrbiofayuk09-09-9545 09:20-0400Body pdoask81.41 kgMarc Dolce DPM FACFAS Work Phone: [facility] CenterHxyjrkitxg45-03-4722 10:44-0400Body ewuqki539.4 cmMarc Dolce DPM FACFAS Work Phone: [facility] CenterMdqypsekkx61-01-8287 10:44-0400Body mass index (BMI) [Ratio]27.73 kg/m2Marc Dolce DPM FACFAS Work Phone: [facility] CenterFqxxrghlot17-46-8004 10:44-0400Body xqhfix87.41 kgMarc Dolce DPM FACFAS Work Phone: [facility] CenterUhqjkxbjfh76-74-1105 15:00-0500Body imwqze214.3 Cookie Lorenzo MD Work Phone: [facility]02-27-2025 15:00-0500Body mass index (BMI) [Ratio]29.48 kg/i7PasjxyJose Lorenzo MD Work Phone: Bon [facility] HospitalGate[facility] HospitalGwupja16-90-5224 15:00-0500Body wyzyri02.96 kgJose Lorenzo MD Work Phone: [facility]02-27-2025 15:00-0500Diastolic blood fpeffdmc16 mm[Hg]Jose Lorenzo MD Work Phone: [facility]02-27-2025 15:00-0500Systolic blood thusaieh061 mm[Hg]Jose Lorenzo MD Work Phone: [facility]03-07-2024 11:15-0500Body iuhkjw723.3 [facility]03-07-2024 11:15-0500Body mass index (BMI) [Ratio]25.08 kg/m2[facility]03-07-2024 11:15-0500Body dfqxqe79.43 [facility]-2024 11:15-0500Diastolic blood mm[Hg][facility] 02-02-2024 11:15-0500Systolic blood repppsau435 mm[Hg][facility]09-29-2022 15:30-0400Body dpmqbpbibrz43.5 [degF]Pastor Beetstra DDS Work Phone: [facility]09-29-2022 15:30-0400 Diastolic blood iucsxddc45 mm[Hg]Pastor Beetstra DDS Work Phone: [facility]09-29-2022 15:30-0400Heart bkpk243 /minStephen Beetstra DDS Work Phone: [facility]09-29-2022 15:30-0400 Respiratory rate16 /minStephen Beetstra DDS Work Phone: [facility]09-29-2022 15:30-5171EwG1% (BldA) [Mass fraction]99 %Pastor Beetstra DDS Work Phone: [facility]09-29-2022 15:30-0400Systolic blood qofxmvzo761 mm[Hg]Pastor Beetstra DDS Work Phone: [facility]09-29-2022 12:00-0400Body gvogdl861 cmStephen Beetstra DDS Work Phone: [facility]09-29-2022 12:00-0400Body mass index (BMI) [Ratio]21.43 kg/c5Krmtagp Beetstra DDS Work Phone: [facility]09-29-2022 12:00-0400Body huaqcp79.88 kgStephen Beetstra DDS Work Phone: [facility]09-20-2022 10:00-0400Body mnugkv456 cmJason Reyes PA-C Work Phone: [phone])[address] [place], [place] 9787409-20-2022 10:00-0400Body mass index (BMI) [Ratio]21.79 kg/e0Bqxqh Reyes PA-C Work Phone: 1([phone])[address] [place], [place] 9787409-20-2022 10:00-0400Body bfcurldrprn41.39 [degF]Prasanth Reyes PA-C Work Phone: 1(335)[address] [place], [place] 9787409-20-2022 10:00-0400Body jueofe04.79 kgPrasanth Reyes PA-C Work Phone: 1(891)[address] [place], [place] 9787409-20-2022 10:00-0400 Diastolic blood mm[Hg]Prasanth Reyes PA-C Work Phone: 1(182)[address] [place], [place] 9787409-20-2022 10:00-0400Heart rate69 /minPrasanth Reyes PA-C Work Phone: 1(601)[address] [place], [place] 9787409-20-2022 10:00-0400 Respiratory rate18 /minPrasanth Reyes PA-C Work Phone: 1(575)[address] [place], [place] 9787409-20-2022 10:00-8355NtF0% (BldA) [Mass fraction]97 %Prasanth Reyes PA-C Work Phone: 1(003)[address] [place], [place] 9787409-20-2022 10:00-0400Systolic blood wcsvxfyu16 mm[Hg]Prasanth Reyes PA-C Work Phone: [phone] [place] [address] Encounters Encounter DateEncounter TypeCare ProviderFacilityStart: 10-02-2025 End: 79-16-2710Qhfrihbed encounterMarc D Day DPM FACFAS Work Phone: [facility] NMA PODStart: 09-23-2025 End: 83-92-4310Ltdhbu flowsheetMarc D Inoce DPM FACFAS Work Phone: NOXH [facility] AustintownStart: 09-23-2025 End: 51-48-4718Bbqggk flowsheetMarc D Dolce DPM FACFAS Work Phone: [facility]oms [facility] CenternStart: 09-23-2025 End: 55-71-5117Ezemgaf encounter procedureMarc D Dolce DPM FACFAS Work Phone: noms NMA PODComment on above:Tinea unguium (Primary Dx); Pain in right toe(s); Pain in left toe(s)Start: 09-23-2025 End: 47-49-7435asqipwwplyHITN D DOLCENot AvailableStart: 08-02-2025 End: 82-27-7531Qnrbbg flowsheetMarc D Dolce DPM FACFAS Work Phone: [phone] [facility] CenternStart: 08-02-2025 End: 56-38-3931Ygalhu flowsheetMarc D Dolce DPM FACFAS Work Phone: NOII [facility] CenternStart: 08-02-2025 End: 91-44-7250Dnhqwv outpatient visit 15 minutesMarc D Dolce DPM FACFAS Work Phone: noms NMA PODComment on above:Onychocryptosis (Primary Dx); Cellulitis of left toe; Abscess, toe, leftStart: 08-02-2025 End: 26-99-5736eofyrmqiplPKRO D DOLCENot AvailableStart: 07-08-2025 End: 06-25-3014Cjmqmz flowsheetMarc D Dolce DPM FACFAS Work Phone: [phone] [facility] CenternStart: 07-08-2025 End: 60-99-6922Xbosdz flowsheetMarc D Dolce DPM FACFAS Work Phone: [phone] [facility] CenternStart: 07-08-2025 End: 03-00-1491eecvqkglooZKZU D DOLCENot AvailableStart: 07-08-2025 End: 66-77-8934Eiylls outpatient visit 15 minutesMarc D Dolce DPM FACFAS Work Phone: noms NMA PODComment on above:Onychocryptosis (Primary Dx); Tinea unguium; Pain in right toe(s); Pain in left toe(s)Start: 03-19-2025 End: 73-47-8662Wwmwzf flowsheetMarc D Dolce DPM FACFAS Work Phone: noms [facility] PODStart: 03-19-2025 End: 73-59-6556Grssif flowsheetMarc D Dolce DPM FACFAS Work Phone: noms [facility] PODStart: 03-19-2025 End: 81-09-9773Knoeiz outpatient visit 15 minutesMarc D Dolce DPM FACFAS Work Phone: noms NMA PODComment on above:Onychocryptosis (Primary Dx); Pain in left toe(s); Cellulitis of left toe; Abscess, toe, leftStart: 03-19-2025 End: 41-93-4116etpegydrzeKSPG D DOLCENot AvailableStart: 01-24-2025 End: 45-60-1752shyyrezffgYZYUIC [facility] HospitalStart: 01-24-2025 End: 32-15-2405Hqajwuqkyi hospital visit by Yaya Lorenzo MD Work Phone: [facility] Non-Invasive CardiologyComment on above:Moderate dehydration; Increased heart rate; Tachycardia; SOB (shortness of breath); Bilateral leg edemaStart: 12-27-2024 End: 87-08-6156zbzymivtaeQCWO Y. Medina Hospitaltart: 09-20-2024 End: 26-09-1165Knljrm flowsheetKareem R Dolce DPM FACFAS Work Phone: noms ASC PODStart: 09-20-2024 End: 13-04-0249Qaigkk flowsheetKareem R Dolce DPM FACFAS Work Phone: noms ASC PODStart: 09-20-2024 End: 80-95-7289Rkciuhb encounter procedureKareem R Dolce DPM FACFAS Work Phone: noms NMA PODComment on above:Onychocryptosis (Primary Dx); Abscess, toe, left; Tinea unguium; Pain in left toe(s); Pain in right toe(s)Start: 08-28-2024 End: 07-13-9750Ckzaxd flowsheetMarc D Dolce DPM FACFAS Work Phone: noms ASC PODStart: 08-28-2024 End: 20-35-5198Rxzqgi flowsheetMarc D Dolce DPM FACFAS Work Phone: noms ASC PODStart: 08-28-2024 End: 87-02-7503Nrspym outpatient new 30 minutesMarc D Dolce DPM FACFAS Work Phone: noms NMA PODComment on above:Onychocryptosis (Primary Dx); Pain in left toe(s); Cellulitis of left toe; Abscess, toe, leftStart: 07-06-2024 End: 12-34-2056Ckbnatugp encounterAlicia P Brandon [facility] Obstetrics/GynecologyStart: 03-21-2024 End: 56-90-2140Nel Drop offDANIEL VAU[facility]AN [facility] Start: 03-21-2024 End: 03-77-7304nmuoimjcolJAEWOU HERRINGFacility:FTMCStart: 02-02-2024 End: 69-49-7302Uanwfbw encounter procedurePfws Ob MidwifeProMedica Physicians Obstetrics/GynecologyComment on above:Encounter for screening breast examination (Primary Dx); Surveillance of previously prescribed contraceptive pillStart: 02-01-2024 End: 17-47-8831dwxuanoohrBVNZYS HERRINGFacility:FTMCStart: 02-01-2024 End: 27-20-8230Jiivfqw encounter procedureDANIEL VAUGHAN [facility] Start: 11-30-2023 End: 40-11-2069hyxsuhqssmXXFOBS HERRINGFacility:FTMCStart: 10-12-2023 End: 31-55-6269xmbeygmlinIDTRRV HERRINGFacility:FTMCStart: 10-12-2023 End: 93-76-5015Alz Drop offDANIEL VAUGHAN [facility] Start: 08-17-2023 End: 31-57-1302rbrvpdzsyoXDWIVX HERRINGFacility:FTMCStart: 08-17-2023 End: 94-95-7849Gyd Drop offDANIEL VAUGHAN [facility] Start: 02-17-2023 End: 74-07-5075teslxdtbckQC ROBIN A HERRINGFacility:T9Etvin: 02-02-2023 End: 01-19-4543vhcfjslgrkOS ROBIN A HERRINGFacility:Q3Oyhkp: 12-14-2022 End: 15-85-3503qxwkgmxzuiLK ROBIN A HERRINGFacility:S2Pfopz: 10-13-2022 End: 36-73-3232mfhdqajojkBB ROBIN A HERRINGFacility:C2Oqwyx: 10-12-2022 End: 02-86-8199olxcqxjwinVC ROBIN A HERRINGFacility:B4Opidp: 08-26-2022 End: 51-16-2773ycufqfziwqDJLIJY A CHASEFacility:[facility]OWNWOODtart: 08-26-2022 End: 61-74-3307Hvbgyavecm hospital visit by Diaz Suarez DDS Work Phone: bASUComment on above:Periodontal diseaseStart: 86-08-0267thlkfhdqnyIBGXR D ORRFacility:[facility]OWNWOODtart: 08-17-2022 Encounter for other preprocedural examinationPRASANTH Watson ORRFacility:[facility] BROWNWOODtart: 08-17-2022 End: 08-32-4396Vorboi consultation new/estab patient 40 minPrasanth Reyes PA-C Work Phone: [phone]-Btxhrvmhp Evaluation and Assessment Antonella [facility] CareComment on above:Preop exam for internal medicine (Primary Dx); Periodontal disease; Developmental delay; Hypothyroidism, unspecified typeStart: 08-17-2022 End: 90-81-0592Knpnhlg encounter statusPrasanth Reyes PA-C Work Phone: [phone]-Dlhxjxbjv Evaluation and Assessment Antonellaankur ToEast Vandergrift Outpatient CareStart: 36-18-2448gluuazealrSJPMH AL MASHNI Facility:METROHealthStart: 78-26-5903Kknnkqezy to same day surgery [facility] DDS Work Phone: [facility] HospitalStart: 08-25-2021 End: 98-92-8488bzwriapdhuRBQJGJJ PROVIDERFacility:[facility] Procedures DateProcedureProcedure DetailPerforming ClinicianStart: 31-60-0350Fboa [facility] w/wom-mode compl spec&colr Traci Lorenzo MD Work Phone: Start: 88-53-2466Gyrjdvpnzlw observation [Identifier] in Cervix by Cyto stainPfws MidwifeStart: 91-86-4648EFFMOFW RHYTHMOther Other Start: 74-56-7920LCS AND ELECTRONIC DIFFPrasanth Reyes PA-C Work Phone: Start: 37-51-6456Ebmreyjl blood count with white cell differential, automatedPrasanth Reyes PA-C Work Phone: Start: 43-12-2298Ignuoarkwp bloodPrasanth Reyes PA-C Work Phone: Plan of Treatment DateCare ActivityDetailAuthorStart: 29-91-2923Chsfuigl (RZV) Vaccine (1 of 2) Shingles (RZV) Vaccine (1 of 2)[facility] HospitalHealthStart: 64-03-9616Frxbqtvsa for malignant neoplasm of cervixPap SmearProRed Balloon Security SystemStart: 12-16-2025 End: 82-85-6441Orouiib encounter zplcopkjt82/19/2026 8:40 AM EST Procedure Visit [facility] [address] [place] [phone] Medhat Rangel, DPM FACFAS [address] [facility]ja[facility] [place] [address] [facility] NMA PODStart: 09-23-2025 End: 28-24-2636Pyluhtc encounter procedureNOMS NMA PODComment on above:Arrived Start: 08-02-2025 End: 49-88-8432Gjprbgb encounter hvwaqzpag07/05/2025 9:50 AM EDT Office Visit [facility] [address] [place] [phone] Medhat Rangel, DPM FACFAS [address] [facility] [place] [address] ArrivedNOMS NMA PODComment on above:ArrivedStart: 07-29-2025 Influenza vaccinationNODE HealthcareStart: 03-19-2025 End: 17-36-7215Zbinkfk encounter miibmvddm59/22/2025 11:00 AM EDT Office Visit [facility] [address] [place] [phone] Medhat Rnagel, DPM FACFAS [address] [facility] [place] [address] ArrivedNOMS NMA PODComment on above:ArrivedStart: 70-64-9034Maigr BMI ScreeningAdult BMI ScreeningProSelect Medical Specialty Hospital - Cincinnatica Health SystemStart: 73-14-7353Cnbbpks ScreeningTobacco ScreeningProSelect Medical Specialty Hospital - Cincinnatica Health SystemStart: 09-20-2024 End: 38-86-7377Qtcdikm encounter /24/2024 1:00 PM EDT Office Visit [facility] [address] [place] [phone] Greg Rangel, DPM FACFAS [address] [place] [address] ArrivedNOMS NMA PODComment on above:ArrivedStart: 07-29-2024 COVID-19 Vaccine ( season)COVID-19 Vaccine ( season)[facility] CenterStart: 46-28-0663Zgyzzoapy vaccinationBLUE MOUNTAIN [facility]OS[facility] HealthcareStart: 81-03-8098Hktzbrjrb vaccinationFlu vaccine (#1)[facility] CenterStart: 62-17-3387Oleasj Wellness Visit (Medicare)Annual Wellness Visit (Medicare)[facility] CenterStart: 20-22-3192Kuklcfgjl [Moles/volume] in Serum or Plasma POTASSIUMOSU [facility] CenterStart: 25-14-2705SEOMU-19 Vaccine ()COVID-19 Vaccine ()[facility] SystemStart: 16-19-7352Hnwnrnnmc vaccinationInfluenza VaccineProMedica Health SystemStart: 79-48-7745Aubkhftc screenDiabetes screenBon [facility] CenterStart: 40-60-0835Uivgssmin vaccinationInfluenza Vaccine (#1)[facility]roHealthStart: 08-26-2022 End: 04-33-6701Kuoukufbh to same day surgery ouzzwe6908/26/2022 Surgery Multispecialty Pastor Suarez DDS [address] [place] [address] FULL MOUTH REHABILITATIONUH PERIOPComment on above:FULL MOUTH REHABILITATIONStart: 61-21-4887Aywlpwrcss hospital visit by dmmnxjooc45/29/2022 Hospital Encounter Multispecialty Pastor Suarez DDS [address] [place] [address] Periodontal disease BASUComment on above:Periodontal diseaseStart: 08-26-2022 End: 94-66-4441Abfwzewo procedure dentoalveolar structuresFULL MOUTH REHABILITATION Periodontal disease Dental caries 08/26/2022 1:35 PM EDTOSU UH MAIN ORStart: 08-26-2022 End: 21-80-4849Uvdynic encounter kzlhryror50/29/2022 Appointment Multispecialty PERIOPStart: 32-81-7178Etattzhwm vaccinationINFLUENZA VACCINE (#1)[facility] CenterStart: 42-25-6186TLWMQ-19 Vaccine (3 - Booster for Pfizer series) COVID-19 Vaccine (3 - Booster for Pfizer series)[facility]HealthStart: 02-24-2021 COVID-19 VACCINE (3 - Booster for Pfizer series)COVID-19 VACCINE (3 - Booster for Pfizer series)[facility] CenterStart: 48-60-4002OXeU,Tdap and Td Vaccines (2 - Td or Tdap)DTaP,Tdap and Td Vaccines (2 - Td or Tdap)[facility] SystemStart: 03-96-6949QNeU/Tdap/Td vaccine (2 - Td or Tdap)DTaP/Tdap/Td vaccine (2 - Td or Tdap)[facility] CenterStart: 21-31-9187Zqnjyym vaccinationTetanus (Td or Tdap) BoosterMetroHealthStart: 20-91-2708Ydwimsqwt for malignant neoplasm of cervixBLUE MOUNTAIN [facility] HealthcareStart: 07-65-5131Rkhsuvbqf for malignant neoplasm of cervixMetroHealthStart: 99-39-5066Velrss wellness visit Annual Wellness Visit (G0438)MetroHealthStart: 71-09-3999Xnvsffwtj B vaccine (1 of 3 - 19+ 3-dose series)Hepatitis B vaccine (1 of 3 - 19+ 3-dose series)[facility] CenterStart: 34-94-5212Ychey diphtheria, tetanus and acellular pertussis (DTaP) vaccinationTDAP (ADULT)[facility] CenterStart: 63-23-2664Ygwos BMI Follow Up PlanAdult BMI Follow Up PlanProUnity Psychiatric Care [facility] Health SystemStart: 79-12-9140Boyywdqhy C screeningMetroHealthStart: 40-79-0668Tnxpxyp vaccinationTETANUSOSMadison Healthtart: 34-44-2896DIO screening MetroHealthStart: 03-51-0678Wjdhykghe vaccine (1 of 2 - 13+ 2-dose series) Varicella vaccine (1 of 2 - 13+ 2-dose series)Bon [facility]: 59-78-7423Lybppbbzaw ScreenDepression ScreenBon [facility]: 42-81-5775Xfzenqvfsf ScreeningDepression ScreeningProUC West Chester Hospitaltart: 27-78-8828Jlgvbjptu C antibody, confirmatory testHEPATITIS C VIRUS SCREENINGOSMadison Healthtart: 17-99-1104Fovayma stimulating hormone measurementTS OSPromedica Toledo HospitalDENTAL RESTORATIONSDENTAL RESTORATIONS Routine scheduled CariesPHE Surgery CenterNoninvasive ear/pulse oximetry single deterPR NONINVASV OXYGEN SATUR; SINGLE [place] - OFFICE PERFORMED Routine Preop exam for internal medicine Periodontal disease Developmental delay Hypothyroidism, unspecified type Ordered: 08/17/2022[facility] Memorial HospitalComment on above: Ordered: 08/17/2022 Immunizations Immunization DateImmunizationNotesCare FwxmoqteBpuloxuo68-82-4384Ppwdud (12+ yrs) SARS-COV-2 (COVID-19) vaccine, mRNA, spike protein, LNP, pres. free, 30 mcg/0.3mL dose (CMI=196)Leonela Lica DDS Work Phone: [phone]eDcealj19-29-1328Sorfmf (12+ yrs) SARS-COV-2 (COVID-19) vaccine, mRNA, spike protein, LNP, pres. free, 30 mcg/0.3mL dose (TSM=819)Leonela Lica DDS Work Phone: [phone]xQwqicg24-22-6977tlfowbnwl, injectable, quadrivalent, preservative freeElida Lica DDS Work Phone: [phone]tJqsiok92-23-1139iumxdbboy virus vaccine, unspecified formulationElida Lica DDS Work Phone: [phone]fXgrseo65-88-7556brwiafv toxoid, reduced diphtheria toxoid, and acellular pertussis vaccine, adsorbedElida Lica DDS Work Phone: [facility] Payers DatePayer CategoryPayerPolicy ID2016Medicaid [id number] 2008Medicare [id number] 2.16.840.1.867668.3.57[id number] 2.16840.1.856161.3.57[id number] 2.16840.1.396660.3.57[id number] 2.16840.1.232893.3.57[id number] 2.840.1.204767.3.579.2.1[id number] 2.840.1.985901.3.579.[id number] 2.0.1.982400.3.579.2.81620-10-0484Qwjdfbd51934236 2.16840.1.863560.3.579.2.[id number] 2.840.1.267554.3.579.2.80228-05-2961Wdtfozc86562022 2.16840.1.454077.3.57[id number] 2.16840.1.866178.3.579.2.[id number] 2.16840.1.457638.3.57[id number] 2.16840.1.293053.3.579.[id number] 2..840.1.338044.3.579.[id number] 2..840.1.477394.3.579.2.1259 [id number] 1962Medicare [id number] 2.16.840.1.263428.3.579.2. [id number] 2.16.840.1.187324.3.57[id number] 2.16.840.1.413836.3.579.[id number] 2.0.1.587286.3.579.2.97588-12-4709Zgjfgrg4448653 2.16840.1.426879.3.579.2.593 Social History DateTypeDetailFacilityTobacco smoking status NHISTobacco smoking consumption unknownMetroHealth Work Phone: Start: 22-16-1325Ywd Assigned At BirthNot on file MetroHealthStart: 08-26-2022 End: 12-30-1697Jhlclxd smoking status NHISNever smoked tobaccoOSU [facility] CenterStart: 08-26-2022 End: 18-95-0358Zwkfbhb use and exposureSmokeless tobacco non-userOSU [facility] CenterStart: 08-26-2022 End: 49-27-6650Dsgdsaz intakeLifetime non-drinker (finding)[facility] Hospital [facility] ColumbusTobacco smoking statusNo Smoking Status EnteredOhio State Harding Hospital CenterStart: 09-20-2024 End: 88-75-4506Bst Assigned At BirthFemalGalion Community Hospital CenterStart: 09-20-2024 End: 16-92-7139Sxewhah of Social functionProMedica [facility] SystemStart: 57-10-8780ZkbhpesjuYvuwvfiCrkJkjsac Health SystemStart: 39-48-4834Qdrkijbna beverage intakeCurrent non-drinker of alcohol (finding)[facility] Clinical Notes 08-17-2022 to 10-02-2025 Note Date & HfscEpmfOqfnkzxm61-86-3437 Telephone encounter Note* Telephone Encounter - ALFONSO Marino - 10/02/2025 10:01 AM EST I can just prescribe something all send it to the pharmacy but if not better in 2 weeks patient should be seen in the office [facility] CenterOyvzzadycy09-82-5020 Miscellaneous Notes* Telephone Encounter - ALFONSO Marino [...] to just prescribe something. documented in this encounterNOSSM RehabBwuqnyepqm86-35-4905 Telephone encounter Note* Telephone Encounter - Tana Samuels - 10/02/2025 9:47 AM EST Kristi grissom called and wanted to know if you wanted to see PT for Athletes foot or did you wanted to just prescribe something. [facility] Iwqjlxbiuk90-88-5901 History of Present illness Narrative* ALFONSO Marino [...] subungual debris. They were painful to palpation 68100 on the right 86876 on the left. VASC: DP /PT were nonpalpable bilateral. Capillary refill time < 3 seconds Digits 1-5 bilateral NEURO: [place] Telma 5.07 monofilament was intact B/L. Vibratory [...] ADMINISTERING, Disp: , Rfl: documented in this encounterMissouri Rehabilitation CenterBanwixcwer62-70-7377 History of Present illness Narrative* ALFONSO Marino [...] < 3 seconds Digits 1-5 bilateral NEURO: [place] Telma 5.07 monofilament was intact B/L. Vibratory [...] dressing daily. ALFONSO Marino documented in this encounterMissouri Rehabilitation [id number] History of Present illness Narrative* ALFONSO Marino [...] with subungual debris and painful to palpation [id number] on the right [id number] on the left VASC: DP /PT were palpable bilateral. Capillary refill time < 3 seconds Digits 1-5 bilateral NEUR: [place] [employer] 5.07 monofilament was intact B/L. 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 Vibratory [...] has improved ALFONSO Marino documented in this encounterMissouri Rehabilitation [id number] History of Present illness Narrative* Ngoc Berkowitz - 01/24/2025 3:00 PM EST Explained policies and procedure of an echocardiogram/Doppler study. documented in this encounterBon [facility] Attestation signed by Katiuska Gandhi at [...] TSH to 4-6?mIU/L. [ (more content not included)...[facility]10-24-2024 History of Present illness Narrative* Greg Rangel DPM FACFAS - 09/20/2024 1:00 PM EDT Images from the original note were not included. Patient: Tiffany Mcintosh : 1990 PCP: Robin Vaughan MD SUBJECTIVE This is a 34 y.o. 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 Mental developmental delay 01/08/2016 Thrombocytopenia ([facility] [facility] 01[facility]2016 Medications: No current outpatient medications on [...] thickness 1 ALFONSO Villeda documented in this encounterMissouri Rehabilitation [id number] History of Present illness Narrative* ALFONSO Marino [...] Date Anxiety 10/11/2018 Attention deficit hyperactivity disorder ([facility] 10/11/2018 Bipolar disorder ([facility] 10/11/2018 Developmental disorder 08/28/2024 Drug-induced nephrogenic diabetes insipidus ([facility] 01/15/2016 Hypothyroidism due to drugs ([facility] 01/15/2016 Mental developmental delay 01/08/2016 Thrombocytopenia ([facility] 01/08/2016 Medications: No current outpatient medications on [...] < 3 seconds Digits 1-5 bilateral NEUR: [place] Telma 5.07 monofilament was intact B/L. Vibratory [...] for reassessment. ALFONSO Marino documented in this encounterMissouri Rehabilitation [id number] Miscellaneous Notes* Telephone Encounter - Analy Taylor RN - 07/06/2024 1:51 PM EDT Judy Serna Nurse from [facility] called requesting a clarification fax be sent to them at [phone] for the patient's medication Aviane. The patient is currently taking the Aviane daily and skipping her placebo weeks on week 1 and week 2. She then will take the placebo week on week 3. They are requesting a letter stating that the patient can continue taking the medication as above. Please Advise. MOIZ Hidalgo, RN * Telephone Encounter - Thea Fuentes APRN-[facility] - 07/06/2024 1:51 PM EDT That is colin * Telephone Encounter - Analy Taylor RN - 07/06/2024 1:51 PM EDT Letter printed for the patient and was faxed to [facility]. MOIZ Hidalgo, RN documented in this encounter[facility] Telephone encounter Note* Telephone Encounter - Analy Taylor RN - 07/06/2024 1:51 PM EDT Judy Serna Nurse from [facility] called requesting a clarification fax be sent to them at [phone] for the patient's medication Aviane. The patient is currently taking the Aviane daily and skipping her placebo weeks on week 1 and week 2. She then will take the placebo week on week 3. They are requesting a letter stating that the patient can continue taking the medication as above. Please Advise. MOIZ Hidalgo, RN [facility]08-09-2024 Telephone encounter Note* Telephone Encounter - HERMILO Briscoe - 07/06/2024 1:51 PM EDT That is colin [facility]08-09-2024 Telephone encounter Note* Telephone Encounter - Analy Taylor RN - 07/06/2024 1:51 PM EDT Letter printed for the patient and was faxed to [facility]. MOIZ Hidalgo, RN [facility]04-24-2024 Evaluation + Plan note Diagnostic Tests Pending * Acute Hepatitis A B C Panel 03/21/24 [facility]03-07-20[facility] History of Present illness Narrative* Thea Fuentes, LOSS PREVENTION RESEARCH ENGINEER-FORMING DEPARTMENT END FINDER - 02/02/2024 11:00 AM EST Subjective Tiffany Mcintosh is a 33 y.o. female new patient who presents for medicare pelvic and clinical breast exam screening for cancer. She is non verbal and accompanied by a caregiver today. Caregiver has written instructions that patient is not to have a pap / pelvic. She was seen by Dr. La last [id number]. She is not sexually active, but takes [...] Franco, APRN-CNP 02/02/24 1525 documented in this encounterAshtabula [facility]09-29-2022 Note* Nursing Notes - Marcelino Augustin [...] in care of mother while waiting for supervisor paint by this RN. [facility]09-29-2022 Miscellaneous Notes* Nursing Notes - Marcelino Augustin [...] in care of mother while waiting for supervisor paint by this RN. * Op Note - [...] mouth scaling was performed with an ultrasonic director communications. Teeth were polished with prophy paste and [...] clinic prn and with the [facility] dental clinic for regular exams. EBL (estimated blood loss): minimal TRF (total fluid replacement): 500 mL Lactated Ringers TABBY Guzman DDS, [facility] * Brief Op Note - Pastor Suarez DDS - 08/26/2022 2:47 PM EDT Tiffany Mcintosh ([id number]) PRE OPERATIVE DIAGNOSIS Periodontal disease [K05.6] Dental caries [K02.9] POST OPERATIVE DIAGNOSIS Post-Op Diagnosis Codes: * Periodontal disease [K05.6] * Dental caries [K02.9] PROCEDURE PERFORMED Procedure(s) (LRB): FULL MOUTH REHABILITATION (N/A) PRIMARY CLOSURE Yes INTRAOPERATIVE FINDINGS No significant abnormalities SURGEON Surgeon(s) and Role: * Pastor Suarez DDS - Primary ANESTHESIOLOGIST Anesthesiologist: Katiuska Aguirre DO Loan Consultant Assisting: Juan Dozier DDS SURGICAL STAFF Concrete Inspector: Maria Del Rosario Scanlon RN Scrub Person: Jimmy Neri Resident Assisting: Rosa Siddiqui DDS COMPLICATIONS None ESTIMATED BLOOD LOSS minimal SPECIMENS No specimen sent * No specimens in log * Pastor Suarez DDS August 26, 2022 2:47 PM documented in this encounterOSU [facility] Note* Op Note - Pastor Suarez DDS [...] mouth scaling was performed with an ultrasonic director communications. Teeth were polished with prophy paste and [...] clinic prn and with the [facility] dental clinic for regular exams. 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] Dental caries [K02.9] POST OPERATIVE DIAGNOSIS Post-Op Diagnosis Codes: * Periodontal disease [K05.6] * Dental caries [K02.9] PROCEDURE PERFORMED Procedure(s) (LRB): FULL MOUTH REHABILITATION (N/A) PRIMARY CLOSURE Yes INTRAOPERATIVE FINDINGS No significant abnormalities SURGEON Surgeon(s) and Role: * Pastor Suarez DDS - Primary ANESTHESIOLOGIST Anesthesiologist: Katiuska Aguirre DO Loan Consultant Assisting: Juan Dozier DDS SURGICAL STAFF Concrete Inspector: Maria Del Rosario Scanlon RN Scrub Person: Jimmy Edmondson Assisting: Rosa Siddiqui DDS COMPLICATIONS None ESTIMATED BLOOD LOSS minimal SPECIMENS No specimen sent * No specimens in log * Pastor Suarez DDS August 26, 2022 2:47 PM [facility]09-29-2022 Nurse Surgical operation note* Maria Del Rosario Scanlon RN - 08/26/2022 2:08 PM EDT Pt came to OR with toy ball. Ball taken with pt to PACU. [facility]09-29-2022 Nurse Note* Maria Del Rosario Scanlon RN - 08/26/2022 2:08 PM EDT Pt came to OR with toy ball. Ball taken with pt to PACU. documented in this encounterOSPromedica [facility]09-29-2022 History and physical note* Hubert Ledbetter DO [...] surgery at this time. Hubert Ledbetter DO [facility] Work Phone: 1(876) 164-469009-29-2022 History and physical note* Hubert Ledbetter DO [...] time. Hubert Ledbetter DO documented in this encounterGerman Hospital09-20-2022 History and physical note* Prasanth Reyes PA-C - 08/17/2022 10:30 AM EDT Images from the original note were not included. History of Present Illness Ms. Mcintosh is a 32 y.o. female is being evaluated in [facility] due to her medical condition of [...] patient has been medically OPTIMIZED FOR SURGERY. [facility] Perioperative Clinic [facility] [address] Review of Systems [...] Social History Socioeconomic History Marital status: Single [facility]09-20-2022 History and physical note* Prasanth Reyes PA-C [...] patient has been medically OPTIMIZED FOR SURGERY. [facility] Perioperative Clinic [facility] [address] Review of Systems [...] Marital status: Single documented in this encounterOSU [facility]-20[facility] History of Present illness Narrative* Arun Montes MD - 08/17/2022 10:30 AM EDT 32 YO F for Full mouth rehabilitation with Dr. Suarez Developmental Delay Hypothyroid HTN Prior anesthetic with grade 1 view with mac 3 Prior ketamine IM though has had more recent anesthetics and tolerated IV well Arun Montes MD Quality Control Engineering Technician Anesthesiology / Pain Management [facility] * Prasanth Reyes PA-C - 08/17/2022 [...] action for this medicationissue. documented in this encounterGerman Hospital09-20-2022 Instructions* Patient Instructions* Opal Sparks RN - [...] take Herbal Medication (including multi-vitamin, fish oil ([place]-3), garlic, Glucosamine -Chondroitin ,gingko, ginseng, Vitamin E, [...] site one week prior to surgery. - [place] your teeth and rinse your mouth the morning of surgery. - Do NOT bring your dentures or partials with you into surgery. They may be lost. Give them to someone to bring to you after surgery. If you are unable to complete your scheduled testing or appointments made by [facility] please contact [facility] at [phone]. Failure to do so could delay or [...] surgery, please notify our team immediately at [phone]. - If you have Sleep apnea and have a CPAP or BIPAP, then bring your CPAP mask and machine with you to the hospital. Also, if you have been ordered a chest x-ray, please report to the Imaging Department on to first floor (to the right of the [facility] on the first floor) prior to leaving the building. Please contact Medical Information Management Department for all records requests. Nahvbz-[phone] Egx-[phone] JOSH/ALBERT documented in this encounterOSU [facility]Evaluation + Plan note No data available for this section [facility]* Diagnosis Caries- Primary Unspecified dental caries [facility] Diagnosis Preop exam for internal medicine- Primary Other specified pre-operative examination Periodontal disease Unspecified gingival and periodontal disease Developmental delay Unspecified delay in development Hypothyroidism, unspecified type Periodontal disease Unspecified gingival and periodontal disease Dental caries Unspecified dental caries documented in this encounter [facility]* Diagnosis Onychocryptosis- Primary Ingrowing nail Pain in left toe(s) Cellulitis of left toe Abscess, toe, left documented in this encounter [facility]* Diagnosis Onychocryptosis- Primary Ingrowing nail Abscess, toe, left Tinea unguium Dermatophytosis of nail Pain in left toe(s) Pain in right toe(s) documented in this encounter [facility] note* Diagnosis Encounter for screening breast examination- Primary Surveillance of previously prescribed contraceptive pill [facility]* Diagnosis Moderate dehydration Dehydration Increased heart rate Tachycardia, unspecified Tachycardia Tachycardia, unspecified SOB (shortness of breath) Shortness of breath Bilateral leg edema Edema [facility] Diagnosis Onychocryptosis- Primary Ingrowing nail Pain in left toe(s) Cellulitis of left toe Abscess, toe, left documented in this encounter [facility]* Diagnosis Onychocryptosis- Primary Ingrowing nail Tinea unguium Dermatophytosis of nail Pain in right toe(s) Pain in left toe(s) documented in this encounter [facility]* Diagnosis Onychocryptosis- Primary Ingrowing nail Cellulitis of left toe Abscess, toe, left documented in this encounter [facility]* Diagnosis Tinea unguium- Primary Dermatophytosis of nail Pain in right toe(s) Pain in left toe(s) documented in this encounter [facility]* Diagnosis Tinea pedis of both feet- Primary [facility]* Attachments The following attachments cannot be sent through Care Everywhere. * Dental Surgery: Generic: Post-op (Algerian) documented in this encounterOSPromedica Toledo HospitalHospital Discharge instructions No data available for this section [facility]* Attachments The following attachments cannot be sent through Care Everywhere. * Ethinyl Estradiol and Levonorgestrel, ADULT (Algerian) * Cervical cancer screening tests (Algerian) documented in this encounterProGlenbeigh HospitalInstructionsNot on file documented in this encounterProGlenbeigh HospitalProgress note No data available for this section [facility]Reason for visit Narrative* Auth/CertSpecialty Diagnoses / ProceduresReferred By ContactReferred To Contact Diagnoses Periodontal disease Dental caries Periodontal disease [K05.6] Dental caries [K02.9] Procedures [place] DENTAL SURGERY PROCEDURE FULL MOUTH REHABILITATION [facility] [address] [place] [address] [facility] [address] [place] [address] Referral IDStatusReasonStart DateExpiration DateVisits RequestedVisits [id number] [facility] Summary Purpose Family History No Family [...] 10:21 AMACP-Do Not Resuscitate12/07/2024 10:20 AMACP-Power of Electrologist 09/27/2019 4:44 PMRELEASE OF HEALTH INFORMATIONACP-Advance Gzsbushll88/31/2019 4:42 PMDNRCCDate ActivatedDate InactivatedComments02/11/2016 10:05 PM02/16/2016 2:44 PMDate ActivatedDate InactivatedComments01/08/2016 9:29 01/22/2016 4:19 PM Reason for Referral SpecialtyDiagnoses / ProceduresReferred By ContactReferred To Contact Procedures LOW RISK - NO PHARMACOLOGICAL DVT PROPHYLAXIS Pastor Suarez, DDS [address] [place] [address] Referral IDStatusReasonStart DateExpiration DateVisits RequestedVisits [id number] Request/[id number] / ProceduresReferred By ContactReferred To Contact Procedures DVT/VTE RISK ASSESSMENT Pastor Suarez, DDS [address] [place] [address] Referral IDStatusReasonStart DateExpiration DateVisits RequestedVisits [id number] Request/[id number] / ProceduresReferred By ContactReferred To ContactCardiology Diagnoses Moderate dehydration Increased heart rate Tachycardia SOB (shortness of breath) Bilateral leg edema Procedures Echo (TTE) complete (PRN contrast/bubble/strain/3D) IL ECHO TTHRC R-T 2D W/WOM-MODE COMPL SPEC&COLR D IL TTE W OR WO FOL WCMARY ANN,Jose Subramanian MD [address] [place] [address] Referral IDStatusReasonStart DateExpiration DateVisits RequestedVisits [id number] Required - RTA Additional Source Comments INFORMATION SOURCE (unrecogn ized section and content) DATE CREATED AUTHOR 08/07/2022 [facility] DATE CREATED AUTHOR AUTHOR'S ORGANIZ ATION 08/29/2022 [facility] DATE CREATED AUTHOR AUTHOR'S ORGANIZ ATION 03/05/2023 [facility] DATE CREATED AUTHOR AUTHOR'S ORGANIZ ATION 03/23/2024 [facility] DATE CREATED AUTHOR AUTHOR'S ORGANIZ ATION 12/31/2024 [facility] DATE CREATED AUTHOR AUTHOR'S ORGANIZ ATION 01/28/2025 [facility] DATE CREATED AUTHOR AUTHOR'S ORGANIZ ATION 09/24/2025 [facility] EPIC Reason for Visit (unrecogniz ed section and content) ReasonCommentsPreoperative AssessmentSpecialtyDiagnoses / ProceduresReferred By ContactReferred To ContactPreOp Diagnoses Periodontal disease Dental caries Pastor Suarez, DDS [address] [place] [address] [facility] [address] [place] [address] Referral IDStatusReasonStart DateExpiration DateVisits RequestedVisits [id number] [id number] Care Non DM nail careReasonCommentsGynecologic ExamPt is here for breast exam. SpecialtyDiagnoses / ProceduresReferred By ContactReferred To ContactCardiology Diagnoses Moderate dehydration Increased heart rate Tachycardia SOB (shortness of breath) Bilateral leg edema Procedures Echo (TTE) complete (PRN contrast/bubble/strain/3D) IL ECHO TTHRC R-T 2D W/WOM-MODE COMPL SPEC&COLR D IL TTE W OR WO FOL WCON,DOPPLER Jose Lorenzo MD [address] [place] [address] Referral IDStatusReasonStart DateExpiration DateVisits RequestedVisits [id number] Required - [id number] ProblemLt 3rd digit nailReasonCommentsToenail CareNon dm nail care Care Teams (unrecognized sec tion and content) Team MemberRelationshipSpecialtyStart DateEnd Date Robin Vaughan DO [address] [place] [address] PCP - GeneralFamily Medicine08/17/22Team MemberRelationshipSpecialtyStart DateEnd Date Robin Vaughan DO [address] [place] [address] PCP - GeneralFamily Medicine08/17/22Team MemberRelationshipSpecialtyStart DateEnd Date Robin Vaughan MD [address] [place] [address] PCP - GeneralFamily Gwxwqqop50/1/24Team MemberRelationshipSpecialtyStart DateEnd Date Robin Vaughan MD [address] [place] [address] PCP - GeneralFamily Dixvialq40/1/24Team MemberRelationshipSpecialtyStart DateEnd Date Robin Vaughan MD [address] [place] [address] PCP - GeneralFamily Jkpssohx06/1/24Team MemberRelationshipSpecialtyStart DateEnd Date Robin Vaughan MD PCP - General12/22/15Team MemberRelationshipSpecialtyStart DateEnd Date Robin Vaughan MD [address] [place] [address] PCP - GeneralFamily Xntbpmum17/1/24Team MemberRelationshipSpecialtyStart DateEnd Date Robin Vaughan MD [address] [place] [address] PCP - GeneralFamily Euovixsn34/1/24Team MemberRelationshipSpecialtyStart DateEnd Date Robin Vaughan MD [address] [place] [address] PCP - [facility] Zykdhhnw05/1/24Te MemberRelationshipSpecialtyStdouglassville DateEnd [facility] Robin Vaughan MD [address] [place] [address] PCP - [facility]08/28/24Te MemberRelationshipSpecialtyAnch[place] DateEnd [facility] Robin Vaughan MD [address] [place] [address] PCP - [facility]08/28/24Te [address]Relations[address]Sprov[address] mary medical centerialtyAnchorage DateEnd [facility] Robin Vaughan MD [address] [place] [address] PCP - [facility]08/28/24Te MemberRelationsSaint John's HospitalialPark[facility] End [facility] Robin Vaughan MD [address] [place] [address] PCP - [facility] Vdlrzlye47/1/24 Continuous Active and Recently Administ ered Medications [...] BE BASED ON THE PRIMARY CLINICAL RECORDS. [facility]. provides no warranty or guarantee of the accuracy or completeness of information in this document.
--- OUTSIDE RECORDS SUMMARY | 2025-10-13 09:17 | XMS_ITS | Clinical Summary ---
Author Organization [email or web address] tem Address [facility] [id number] [address] [place] [address] Care Team Providers Care Security Infrastructure Engineer Name Role Phone Unavailable Primary Care Provider Unavailabl e Allergies Active AllergyReactionsCriticalityNoted DateCommentsAmoxicillin-Pot Clavulanate 02/02/20247287Fmhrtfygjz81/07/2024 Medications MedicationSigDispense QuantityRefillsLast FilledStart DateEnd DateStatus busPIRone [...] standard drink = 0.6 oz pure alcohol)ChildcareAnswerDate RjxenngoNodvpskvoFfvnqhc11/12/2019EmploymentAnswer Date WryeyrdxFrjclvafwsSiyvlji05/12/2019Hunger ScreeningAnswerDate Recorded Within the past 12 months we worried whether our food would run out before we got money to buy more.Patient unable to eorvru9102/02/2024Within the past 12 months the food we bought just didn't last and we didn't have money to get more. Patient unable to jozwhr4602/02/2024CommentsUnknownSex and Gender InformationValueDate RecordedSex Assigned at BirthNot on fileLegal SexFemale 12/22/2015 8:27 PM ESTGender IdentityNot on fileSexual OrientationNot on file Last Filed Vital Signs Vital SignReadingTime TakenCommentsBlood Kizavypz815/78002/02/2024 11:15 AM EST Pulse--Temperature--Respiratory Rate--Oxygen Saturation--Inhaled Oxygen Concentration--Mednls27.4 kg (120 lb)02/02/2024 11:15 AM FGSVzjuqp355.3 cm (4' 10 )02/02/2024 11:15 AM ESTBody Mass Index25.0802/02/2024 11:15 AM EST Plan of Treatment Health MaintenanceDue DateLast DoneCommentsDepression Jdbpyztjt51/28/2000 DTaP,Tdap and Td Vaccines (2 - Td or Tdap)dult BMI Ulgctqxlj21Tobacco Ynytrxqsm46OVID-19 Vaccine ( season)/12/2020, 12/09/2020Influenza Vaccine /05/2020Pap Smear Medical Devices Not on file Insurance Advance Directives TypeDate RecordedPatient RepresentativeExplanationDNR Physician Order02/02/2024 11:[facility]
--- OUTSIDE RECORDS SUMMARY | 2025-10-13 09:18 | XMS_ITS | Clinical Summary ---
Author Organization [facility] Address [address] [facility] [address] [place] [place] [address] Care Team Providers Care Model Set Artist Name Role Phone Unavailable Primary Care Provider Unavailabl e Source Comments The following information is NOT included in Care Everywhere downloads:Psychiatric notes, ECG results, Cardiac Rehab notes, Pulmonary Function notes, data from [employer] (includes but not limited toPregnancy data,audiograms, eye exams, pre-surgical evaluation notes, well-child exam data).[facility] Allergies Active AllergyReactionsCriticalityNoted DateCommentsAmoxicillin-Pot Clavulanate Asqjrrjw81/06/9868Ffuufsepns73/06/2016 Medications MedicationSigDispense QuantityRefillsLast FilledStart DateEnd DateStatus Probiotic [...] (02/20/2019): Added automatically from request for surgery [id number] Immunizations ImmunizationAdministration DatesNext DueInfluenza, injectable, quadrivalent, preservative free (QDM=726)09/03/2020Pfizer Monovalent (12+ yrs) SARS-COV-2 (COVID-19) vaccine, mRNA, spike protein, LNP, pres. free, 30mcg/0.3mL dose (TDR=776)12/30/2020,12/09/2020Tdap (TPS=528)07/17/2009 Social History Tobacco UseTypesPacks/DayYears UsedDateSmoking Tobacco: Never Assessed CommentsUnknownSex and Gender InformationValueDate RecordedSex Assigned at Not on fileLegal HxkTyvuax29/16/2015 9:21 AM EDTGender IdentityNot on fileSexual OrientationNot on file Last Filed Vital Signs Vital SignReadingTime TakenCommentsBlood Hcgiiwar826/7004 12:30 PM EDT Pvokj532603/02/2019 12:45 PM GWIIkkhdiabwwn04.3 ??C (97.3 ??F)03/02/2019 12:30 PM EDTRespiratory Qkyx266703/02/2019 12:45 PM EDTOxygen Vpiwebsred05%03/02/2019 12:45 PM EDTInhaled Oxygen Concentration--Ppkpxo61.2 kg (126 lb)03/02/2019 9:15 AM EDT Gzbsrp970.3 cm (4' 10 )03/02/2019 9:15 AM EDTBody Mass Index26.33003/02/2019 9:15 AM EDT Plan of Treatment Health MaintenanceDue DateLast DoneCommentsMammography (shared decision-making, age 35-39)1988HIV Test02/22/2003Hepatitis C Opxptzqw27/28/2006Hepatitis A (HAV) Vaccine (optional start 19+ years)02/22/2007Hepatitis B (HBV) Vaccine (1 of 3 - 19+ 3-dose series)02/22/2007nnual Wellness Visit (G0438)01/26/2009Pap Smear02/22/2009HPV Vaccine (optional start 27-45 years)02/22/2015Tetanus (Td or Tdap) Duvqqkj91COVID-19 Vaccine (3 - 2024- season)2025 12/30/2020, 12/09/2020Influenza Vaccine (#1)Shingles (RZV) Vaccine (1 of 2)02/22/2038Tdap HavmnnmFpvirmfud06/20/2009MammographyDiscontinued Pneumococcal Vaccine(s)Aged OutNo longer eligible based on patient's age to complete this topic Insurance
--- OUTSIDE RECORDS SUMMARY | 2025-10-15 06:39 | XMS_ITS | CCD ---
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 Name Role Phone Unavailable Primary Care Provider [...] Robin Spivey MD A Primary Care Provider [phone] KATIUSKA GANDHI Attending Unavailable Unavailable Primary Care Provider Robin Spivey MD Primary Care Provider [phone] JOSE LORENZO Attending Unavailable JOSE LORENZO Referring Unavailable ROBIN VAUGHAN Primary Care Unavailable Robin Vaughan MD Primary Care Provider MEDHAT RANGEL Attending Unavailable MEDHAT RANGEL Attending Unavailable MEDHAT RANGEL Attending Unavailable MEDHAT RANGEL Attending Unavailable Allergies Allergy ClassificationReported Allergen(s)Allergy TypeDate of OnsetReaction(s) Facility (20 sources)Amoxicillin / Clavulanate; Translations: [AMOXICILLIN-POT CLAVULANATE]Drug Owzckwu06-86-0965IrkiaiisWwkxcXhdbyf (17 sources)loracarbef; Translations: [LORACARBEF]Drug Fzqazwc69-91-8522 [facility] (4 sources)loracarbefDrug Cthanfk70-24-0766[facility] ([facility] source)Amoxicillin / ClavulanateDrug Vkfgrfj08-64-0947Fsb [facility] (1 source)loracarbefDrug Ysohgcm54-10-7808Pul [facility] (20 sources)Penicillins; Translations: [penicillins]Drug lxpqque49-45-4814 [facility] Medications Current Medications MedicationDrug Class(es)DatesSig (Normalized)Sig (Original)bacillus coagulans [id number] unt / lactobacillus acidophilus 60391393 unt oral tablet (14 sources)take 1 tablet by mouth once dailyLactobacillus (Acidophilus/L- Sporogenes) tablet Acidophilus Ex Str (L. sporog) 35 million-25 million cell tablet TAKE ONE TABLET BY MOUTH ONCE DAILY Activebetamethasone 0.5 mg/ml / clotrimazole 10 mg/ml topical lotion (2 sources)Azole Antifungal, CorticosteroidStart: 09-20-2024 End: 69-22-8156lhlxcmqgybbd-betamethasone (Lotrisone) lotion Indications: Tinea Pedis Apply topically 2 (two) times a day Apply To Affected Area Twice per Day 30 mL 1 09/20/2024 10/20/2024 Activebifidobacterium animalis [id number] unt / lactobacillus acidophilus 02924182334 unt oral capsule (1 source)Probiotic Product (ACIDOPHILUS [...] ActiveclonazePAM 0.5 mg oral tablet (20 sources)BenzodiazepineStart: 02-34-0741hvvq 1 tablet by mouth three times dailyclonazePAM (KLONOPIN) 0.5 MG tablet Take 1 tablet by mouth 3 times daily 60 tablet 3 01/22/2016 ActiveStart: 40-34-3297wcyulbvckp Oral, TID, Refills(s) 0 Start Date: 05/21/11 Status: Orderedtake 1 tablet by mouth twice daily as needed clonazePAM (KlonoPIN) 0.5 mg tablet Take 1 tablet (0.5 mg total) by mouth 2 (two) times a day as needed for seizures. ActivecloNIDine (4 sources)Central alpha-2 Adrenergic AgonistStart: 67-05-7475hadefgzht patch(es), Refills(s) 0 Start Date: 05/21/11 Status: Ordereddesmopressin acetate 0.1 mg oral tablet (20 sources)Vasopressin Analog, Factor VIII ActivatorStart: 14-80-7336cphi 2 tablets by mouth three times dailydesmopressin [...] 0 Active Dextromethorphan / guaiFENesin (1 source)Uncompetitive G-lkwxkn-D-aspartate Receptor Antagonist, Sigma-1 Agonisttake 400 mg by mouth twice daily as neededDextromethorphan-guaiFENesin (CHEST CONGESTION/COUGH RELIEF PO) Take 400 mg by mouth 2 times daily as needed. 0 Activedocusate sodium 100 mg oral capsule (4 sources)Start: 00-24-9557fqkmnrjt (COLACE, DULCOLAX) 100 MG CAPS Take 100 mg by mouth as needed 30 capsule 3 01/22/2016 ActiveDocusate Sodium (DOK) 100 MG tablet Take 100 mg by mouth As directed as needed for Constipation. 0 Active econazole nitrate 10 mg/ml topical cream (1 source)Azole AntifungalStart: 10-02-2025 End: 92-46-9161gdzcfqfck nitrate 1 % cream Indications: Tinea Pedis Apply topically Daily Apply to affected area daily 30 g 1 10/02/2025 11/01/2025 Active Ethinyl Estradiol / Levonorgestrel (19 sources)Progestin, Estrogen, Progestin-containing Intrauterine DeviceStart: 30-74-7510anbt 1 tablet by mouth once in the [...] TAKEPLACEBO PILLS FOR PACK 3. Active End: 30-43-4261shfp 1 tablet by mouth once in the [...] by mouth Daily Activegabapentin (5 sources)Anti-epileptic AgentStart: 94-52-1414llurzxlkcn Oral, Refills(s) 0 Start Date: 05/21/11 Status: Orderedtake 1 capsule by mouth three times daily gabapentin (NEURONTIN) 300 MG capsule Take 300 mg by mouth 3 times daily. 0 Fgurkg65 hr guaiFENesin 600 mg extended release oral [...] by mouth. 0 ActiveLactulose (4 sources)Osmotic LaxativeStart: 18-29-3550vladojric Oral, Daily, EA, Refills(s) 0 Start Date: 05/21/11 Status: OrderedLevonorgestrel-Ethinyl Estrad (AVIANE ORAL) (1 source)Levonorgestrel-Ethinyl Estrad (AVIANE ORAL) Take by mouth. 0 Active levothyroxine sodium 0.075 mg oral tablet (20 sources)l-ThyroxineStart: 11-02-2023 End: 91-85-2498ydmnpretcmxom (Synthroid, Levoxyl) 75 MCG tablet TAKE 12 TABLET BY MOUTH ONCE DAILY 11/02/2023 ActiveStart: 87-16-9037ycnkcrblfasav Daily, Refills(s) 0 Start Date: 05/21/11 Status: OrderedLithium (4 sources)Start: 64-66-7779ibbzjhx Oral, Refills(s) 0 Start Date: 05/21/11 Status: [...] 50 mg oral tablet (20 sources)beta-Adrenergic BlockerStart: 65-32-2583vhii 1 tablet by mouth twice dailymetoprolol tartrate (LOPRESSOR) 50 MG tablet Indications: Moderate dehydration , Increased heart rate , Tachycardia , SOB (shortness of breath) , Bilateral leg edema Take 1 tablet by mouth 2 times daily 180 tablet 3 12/10/2024 ActiveStart: 66-30-8655knqngriabd tartrate (Lopressor) 25 MG tablet 09/13/2024 Activemetoprolol [...] by mouth at bedtime ActiveNasonex (4 sources)CorticosteroidStart: 12-29-2549Ocysvli Nasal, Daily, Refill(s) 0 Start Date: 05/21/11 Status: Orderedmontelukast 10 mg oral tablet (20 sources)Leukotriene Receptor AntagonistStart: 32-25-5255apmx 1 tablet by mouth once dailymontelukast (SINGULAIR) 10 MG tablet Take 1 tablet by mouth nightly 30 tablet 3 02/16/2016 ActiveStart: 27-74-6898Yicyfzftb qPM, Refills(s) 0 Start Date: 05/21/11 Status: [...] mouth daily. 0 ActiveZyprexa (4 sources)Atypical AntipsychoticStart: 31-91-2793Nekxqug Refills(s) 0 Start Date: 05/21/11 Status: Orderedondansetron [...] by mouth 2 times daily Active sennosides, intermediate 8.6 mg oral tablet (3 sources)take 1 tablet by mouth in the morningsenna (SENOKOT) 8.6 mg tablet Take 1 tablet (8.6 mg total) by mouth in the morning. Activetake 2 tablets by mouth twice dailysenna 8.6 MG tablet Take 17.2 mg by mouth 2 times daily. 0 ActiveThioridazine (4 sources)PhenothiazineStart: 31-57-2814tyqtyoifsunv Oral, TID, Refills(s) 0 Start Date: 05/21/11 [...] mg oral tablet (5 sources)Start: 08-26-2022 End: 94-83-1974ylep 1 tablet by mouth every four hours [...] meq/ml injectable solution (1 source)Start: 08-26-2022 End: 02-80-9230hwpvqwgb ringers IV solution Problems Active Problems Problem ClassificationProblemDateDocumented DateEpisodic/ChronicCardiac dysrhythmias (3 sources)Tachycardia; Translations: [Tachycardia, unspecified]Onset: 954702-39-2883RxyuezosUfnzyajgh of teeth and jaw (7 sources)Dental caries; Translations: [Dental caries, unspecified]Onset: 68-59-1782EhalazsfBktxx of unknown origin (4 sources)Fever, unspecified; Translations: [FEVER UNSPECIFIED]Onset: 49-20-6963NjuacvcvVrwsg and electrolyte disorders (8 sources)Hyperosmolality and hypernatremia; Translations: [Moderate dehydration]Onset: 604901-54-0656ClzuwticSelzwyc and fatigue (1 source)Weakness; Translations: [WEAKNESS]Onset: 86-33-8561YgtmpvtgHvvknzy (6 sources)Onychomycosis due to dermatophyte ; Translations: [Tinea unguium] 14-39-5640BjlpqotkIfuskoqrwqb deficiencies (1 source)Deficiency of macronutrients; Translations: [Mild protein-calorie malnutrition]70-53-3129BwekfotLuqkd aftercare (5 sources)Other superintendent terminal (current) drug therapy; Translations: [OTH NURSING HOME CURRENT DRUG THERAPY]Onset: 07-36-3089HlktkfesZbslu connective tissue disease (9 sources)Pain of toe of left foot; Translations: [Pain in left toe(s)] 83-62-4537HskijvagQqcnm connective tissue disease (5 sources)Pain of toe of right foot; Translations: [Pain in right toe(s)] 65-96-9059LdqrdddsYegej diseases of kidney and ureters (5 sources)Nephrogenic diabetes insipidus; 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]Onset: 04-33-9777YzbtkphAlxbh endocrine disorders (3 sources)Diabetes insipidus; Translations: [Diabetes insipidus]Onset: 15-89-1515XafpqidNybfr lower respiratory disease (1 source)Dyspnea; Translations: [Shortness of breath]70-51-9200BmokjeegNfvsz lower respiratory disease (1 source)Shortness of breath; Translations: [Shortness of breath]Onset: 00-23-1230LvaaoqjgFyiwa nutritional; endocrine; and metabolic disorders (1 source)Hypophosphatemia; Translations: [Other disorders of phosphorus metabolism]Onset: 044414-30-5928CfihudgGgrfd nutritional; endocrine; and metabolic disorders (1 source)Developmental delay; Translations: [Unspecified lack of expected normal physiological development in childhood]EpisodicOther nutritional; endocrine; and metabolic disorders (2 sources)Unspecified lack of expected normal physiological development in childhood; Translations: [Unspecified lack of expected normal physiological development in childhood]Onset: 04-69-8546WzgwvkxwAwcxb skin disorders (10 sources)Ingrowing nail; Translations: [Ingrowing nail]70-46-5059Ykyveniu Other upper respiratory disease (1 source)Nasal congestion; Translations: [NASAL CONGESTION]Onset: 02-20-2023 EpisodicResidual codes; unclassified (1 source)Bilateral lower limb edema; Translations: [Localized edema]01-24-2025 EpisodicResidual codes; unclassified (1 source)Localized edema; Translations: [Localized edema]Onset: 01-24-2025 EpisodicSkin and subcutaneous tissue infections (14 sources)Cellulitis of left toe; Translations: [Cellulitis and abscess of toe, unspecified]05-86-4435Kkkfuwur Past or Other Problems Problem ClassificationProblemDateDocumented DateEpisodic/ChronicAcute and unspecified renal failure (1 source)Acute renal failure syndrome; Translations: [Acute kidney failure, unspecified]Onset: 01-08-2016 Resolved: 918495-50-9033FngpoolqFlhcgfm disorders (17 sources)Anxiety; Translations: [Anxiety disorder, unspecified]Onset: 10-11-2018 Resolved: 774293-05-6288TnzsmvzKqcdmegga-rlekrwv, conduct, and disruptive behavior disorders (17 sources)Attention deficit hyperactivity disorder; Translations: [Attention- deficit hyperactivity disorder, unspecified type]Onset: 10-11-2018 Resolved: 740297-38-0838EghiieuRivobwzrelc and hemorrhagic disorders (18 sources)Thrombocytopenic disorder; Translations: [Thrombocytopenia, unspecified]Onset: 01-08-2016 Resolved: 239779-62-1869FnnyfucXzdeivyiriaqe and procreative management (1 source)Oral contraception; Translations: [Encounter for surveillance of contraceptive pills]34-72-7827PkqkgonzYfxmqygroe and other anemia (1 source)Anemia; Translations: [Anemia, unspecified]Onset: EpisodicDevelopmental disorders (20 sources)Developmental disorder; 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]Onset: 01-08-2016 Resolved: 150264-73-1767QuniaqoSbglmrdvoqedu symptoms and ill-defined conditions (1 source)Other polyuria; Translations: [OTHER POLYURIA]Onset: 10-15-2022 EpisodicIntestinal obstruction without hernia (1 source)Intestinal obstruction co-occurrent and due to decreased peristalsis; Translations: [Ileus, unspecified]Onset: 131153-10-1597DbzilqrfRasn disorders (17 sources)Bipolar disorder; Translations: [Bipolar disorder, unspecified] Onset: 10-11-2018 Resolved: 910281-21-5128DowljehKavpe and unspecified benign neoplasm (1 source)Benign neoplasm of pituitary gland; Translations: [BENIGN NEOPLASM OF PITUITARY GLAND]Onset: 70-35-0460HxdwjfgvUulpk diseases of kidney and ureters (18 sources)Acquired nephrogenic diabetes insipidus; 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]Onset: 01-15-2016 Resolved: 008028-40-2066XntyzptZrrsp nervous system disorders (1 source)Metabolic encephalopathy; Translations: [Metabolic encephalopathy] Resolved: 263387-91-5759HoxqyajDimjm nutritional; endocrine; and metabolic disorders (1 source)Polydipsia; Translations: [POLYDIPSIA]Onset: 48-75-8443BqtlindvTtfse nutritional; endocrine; and metabolic disorders (1 source)Underweight; Translations: [Underweight]Onset: EpisodicOther screening for suspected conditions (not mental disorders or infectious disease) (1 source)Patient encounter status; Translations: [Encounter for other screening for malignant neoplasm of breast]81-18-8626FxjgiaziKcvkplyug (except that caused by tuberculosis or sexually transmitted disease) (1 source)Sepsis; Translations: [Pneumonia, unspecified organism]Onset: 250374-06-1600RlwpxnvzBfgtgdg disorders (20 sources)Hypothyroidism; Translations: [Hypothyroidism, unspecified]Onset: 01-15-2016 Resolved: 20-38-3013Ealkity Results Test NameValueInterpretationReference RangeFacilityCardiac echo study Procedure on 99-25-6862Egfvmp Sinus Valsalva2.7 cmBon [facility]ours Mercy HealthAortic Sinus Valsalva Index1.72 cm/m2[facility] HealthAV Cusp Mmode1.8 cmBon Secours Mercy HealthAV Mean Aspuubum9ztMjXwv [facility] HealthAV Mean Velocity0.8 m/s [facility] HealthAV Peak Eaqeokud1ciHfBax [facility] HealthAV Peak Velocity1.2 m/sBon Secours Mercy HealthAV Velocity Ratio1.00[facility] HealthAV VTI21.7 cmBon Secours Mercy HealthBody surface area Derived from formula1.62 m2[facility] HealthE/E' Lateral4.63[facility] HealthEF BP64 %55 - 100 %[facility] HealthEF Kvhklttjv59 %[facility] Fractional Shortening 2D33 %28 - 44 %[facility] HealthInterpretation and review of laboratory resultsAbnormalBon Secours Mercy HealthIVSd0.8 cm0.6 - 0.9 cmBon Secours Mercy HealthLA Area 2C10.5 cm2[facility] HealthLA Area 4C 9.7 cm2[facility] HealthLA Major Axis4.5 cmBon Secours Mercy HealthLA Minor Axis4.2 cmBon Secours Mercy HealthLA Volume BP20 bBDrlngzpe99 - 52 mLBon Secours Mercy HealthLA Volume Index BP13 ml/i5Skjynwag15 - 34 ml/m2[facility] HealthLA Volume Index MOD A2C14 ml/k7Wjpeqfmc86 - 34 ml/m2[facility] HealthLA Volume Index MOD A4C11 ml/u4Kwisdcyf45 - 34 ml/m2[facility] HealthLA Volume MOD A2C22 mL22 - 52 mLBon Secours Mercy HealthLA Volume MOD A4C17 jGGtkmcrxh05 - 52 mLBon Secours Mercy HealthLV E' [...] HealthLVIDs Index1.85 cm/m2[facility] HealthLVOT Mean Caeswwil5raOlOya [facility] Hospitalnannette HealthLVOT Peak Nqghmuxo5dpSxKgc [facility] HealthLVOT Peak Velocity1.2 m/sBon [facility] HealthLVOT VTI21.1 cmPhoenix [facility] Center Jose Guadalupe Decker HealthLVOT:AV VTI Index0.97[facility]alscott [facility] Hospitalnannette HealthLVPWd0.7 cm0.6 - 0.9 cmInova Women'S Hospitalscott [facility] Hospitalnannette HealthMV A Velocity0.47 m/s [facility] Hospitalnannette HealthMV E Velocity0.63 m/sBon [facility] Centerscott [facility] Hospitalnannette HealthMV E Wave Deceleration Xhwl579.0 msInova Women'S Hospitalscott [facility] Hospitalnannette HealthMV E/A1.34[facility] Hospitalscott [facility] Hospitalnannette HealthPV Max Velocity1.0 m/sBon [facility] HealthPV Peak Khxmwtaw9taTjBru [facility] Hospitalnannette HealthLeft Ventricle: Normal left ventricular systolic [...] Details Image quality: adequate. No contrast was given.[facility] CV CPALewisGale Hospital AlleghanyRadiology Study observation (narrative)[facility]37on 29-06-124571Ym have changed desmopressin dosing to the followin.4 mg in the morning and 0.5 mg at bedtime.[facility] HospitalAbstracton 12-27-2024 [id number] Tiffany Mcintosh 1990 F Date Provider Department Center 12/27/2024 316-KATIUSKA GANDHI. [facility] ENDOCR [facility] No family history on fileNormalUniversity The Bellevue HospitalFollow-Upon 08-86-1416Jijipj-[id number] Tiffany Mcintosh 1990 F Date Provider Department Center 12/27/2024 316-KATIUSKA GANDHI. [facility] ENDOCR [facility] No family history on file Level of Service:91289 [place] OFFICE/OUTPATIENT ESTABLISHED LOW MDM 20 MIN (GC) Reason for Visit and Comments: Follow-up [970048][facility].Interpretation:on 40-59-6358ZON Ab IA QlCommentInvalid Interpretation CodePromedica Defiance Regional HospitalComment on above:Result Comment: Not infected with HCV unless early or acute infection is suspected (which may be delayed in an immunocompromised individual), or other evidence exists to indicate HCV infection. Performed at: [facility] [address] [id number] PhD Amaris ValdesPerformed By: #### [id number], [id number] #### [facility] [address], [place] [address]Nwxbb Hepatitis A B C Panelon 63-08-2428AAS IgM IA QlNegative Invalid Interpretation CodeNegativePromedica Defiance Regional HospitalComment on above: Performed By: #### [id number], [id number] #### [facility] [address], [place] [address]NMY core IgM IA QlNegativeInvalid Interpretation CodeNegative [facility] Regional HospitalComment on above:Performed By: #### [id number], [id number] #### [facility] [address], [place] [address]SAK surface Ag IA QlNegativeInvalid Interpretation CodeNegative [facility]iance Regional HospitalComment on above:Performed By: #### [id number], [id number] #### [facility] [address], [place] [address]JFV IgG IA QlNon-ReactiveInvalid Interpretation CodeNon ReactivePromedica Defiance Regional HospitalComment on above:Result Comment: Performed at: [facility] [id number] PhD Amaris LucioPerformed By: #### [id number], [id number] #### [facility] [address], [place] [address]Kyoaircfu Orderon 44-94-2293Kjsajsevk Order [id number]#1.00TIFOhioHealth Dublin Methodist HospitalConsent for Treatmenton 35-08-6980Efwiqqo for Treatment [id number]#1.00TIFOhioHealth Dublin Methodist HospitalPhysician Orderon 77-29-6316Pcjbinjeq Order [id number]#1.00[facility] CenterXR Adult Swallowing Function w/ Videoon 74-16-9976IZ Adult Swallowing Function w/ VideoExam Date/Time: 02/01/2024 [...] Ka,r in mGy = na DAP = naNormalFishUPMC Western MarylandPhysician Orderon 61-68-1208Hkbjvglwa [id number]#1.00TIFFNormalPromedica Defiance Regional HospitalT3 Freeon 14-45-4273Tcks T3 [Mass/Vol]2.5 pg/mLInvalid Interpretation Code2.0-4.4FOhioHealth Grant Medical CenterComment on above:Result Comment: Performed at: [facility] [id number] PhD Amaris ValdesPerformed By: #### 5353516, 1304696, 1313519, 7750255, 7331242, 93925692, 1154205 #### [facility] [address], [place] [address]NBZxw 80-43-3234Ccgdnfs [Mass/Vol]3.8 g/dLNormal3.3-5.0Promedica Defiance Regional HospitalComment on above:Performed By: #### 1018830, 8723430, 6398691, 5727384, 1453142, 19076649, 5849084 #### [facility] [address], [place] [address]Zpgtnev/Globulin [Mass ratio]1.4 {ratio}Normal1.1-2.2FOhioHealth Grant Medical CenterComment on above:Performed By: #### 6137209, 6469830, 0145460, 0856298, 3117901, 42530111, 4350590 #### [facility] [address], [place] [address]Luu Phos38 Int._Unit/AWiuvdj07-66TljuzlPromedica Defiance Regional Hospital Comment on above:Performed By: #### 6587917, 4982072, 3150087, 9567180, 0471066, 36981952, 2335321 #### [facility] [address], [place] [address]WWT3 Int._Unit/LNormal6-46Promedica Defiance Regional HospitalComment on above:Performed By: #### 3117716, 3301636, 5567290, 0002885, 2125387, 27368396, 5754324 #### [facility] [address], [place] [address]Fivvf gap [Moles/Vol]13 mmol/LNormal6-16Prom[facility] Defiance Regional HospitalComment on above:Performed By: #### 1821839, 7552905, 4161718, 2224171, 8726721, 90291093, 2463293 #### [facility] [address] [place] [address]XWP88 Int._Unit/LNormal5-43Prom[facility] Defiance Regional HospitalComment on above:Performed By: #### 8337490, 4803387, 2481514, 8860250, 3925949, 26804211, 7868604 #### [facility] [address], [place] [address]Wrtz Total0.3 mg/dLNormal0.0-1.1FOhioHealth Grant Medical Center Comment on above:Performed By: #### 1589188, 3536007, 7757837, 2401567, 7944676, 56038641, 5394226 #### [facility] [address], [place] [address]JWA/Creat Ratio16 No YyljoQtujdq85-26DhzxqmPromedica Defiance Regional HospitalComment on above:Performed By: #### 1623810, 0810809, 9239260, 7406554, 7022208, 88342443, 3421216 #### [facility] [address], [place] [address]Igjwvjz [Mass/Vol]9.0 mg/dLNormal8.9-11.1FOhioHealth Grant Medical CenterComment on above:Performed By: #### 0381112, 1395580, 1331591, 5870591, 1832245, 02973408, 3662659 #### [facility] [address], [place] [address]Jyplvoym [Moles/Vol]103 mmol/WSnvyzx010-767PesfvoPromedica Defiance Regional HospitalComment on above:Performed By: #### 0666572, 1890536, 7438011, 6921227, 0534799, 55172109, 6618250 #### [facility] [address], [place] [address]AF3 [Moles/Vol]26 mmol/BRdmgtu56-52QyammqPromedica Defiance Regional Hospital Comment on above:Performed By: #### 5877652, 5419189, 8585529, 1472473, 0014899, 94751204, 1276542 #### [facility] [address] [place] [address]Xioqhrxvfg [Mass/Vol]1.1 mg/dLNormal0.5-1.3FOhioHealth Grant Medical CenterComment on above:Performed By: #### 2900228, 5343718, 6299376, 5253485, 6170039, 53868449, 5858414 #### [facility] [address] [place] [address]Bajadfuc (S) [Mass/Vol]2.8 g/dLNormal1.4-4.0Promedica Defiance Regional HospitalComment on above:Performed By: #### 1597591, 6965078, 3426994, 4865591, 4289834, 05853095, 4512556 #### [facility] [address], [place] [address]Kowteck [Mass/Vol]68 mg/gSIpghhd66-999IryewePromedica Defiance Regional HospitalComment on above:Performed By: #### 7314766, 4804254, 0576781, 1145239, 0379553, 14059227, 1563607 #### [facility] [address] [place] [address]Ywgbpqtiq [Moles/Vol]4.1 mmol/LNormal3.5-5.3FOhioHealth Grant Medical CenterComment on above:Performed By: #### 9968835, 6492818, 0332480, 6190539, 5682653, 34677782, 1742267 #### [facility] [address], [place] [address]Dojbpsl [Mass/Vol]6.6 g/dLNormal6.0-7.8Promedica Defiance Regional HospitalComment on above:Performed By: #### 4652914, 7531841, 8003138, 7799588, 2364019, 62687452, 8669382 #### [facility] [address], [place] [address]Xesjbr [Moles/Vol]138 mmol/OTokrmm651-580EtnoejPromedica Defiance Regional HospitalComment on above:Performed By: #### 2991089, 4787168, 9638088, 0015052, 6852565, 91609331, 8156585 #### [facility] [address], [place] [address]Mnai nitrogen [Mass/Vol]18 mg/dLNormal5-21Promedica Defiance Regional HospitalComment on above:Performed By: #### 0434018, 5450663, 8148003, 8118869, 5842304, 17904042, 8095106 #### [facility] [address], [place] [address]Jkmww Panelon 09-11-2062Romcucwvywp [Mass/Vol]113 mg/dLLow 120-200Promedica Defiance Regional HospitalComment on above:Performed By: #### 8058050, 7776197, 4636363, 6820891, 3105641, 33309955, 6559589 #### [facility] [address], [place] [address]Jxdgrfgihoc in HDL [Mass/Vol]23 mg/dLInvalid Interpretation CodePromedica Defiance Regional HospitalComment on above:Result Comment: '>= 60 LOW RISK' '<= 40 HIGH RISK'Performed By: #### [id number], 2091798, 9604687, 4802071, 1289581, 32628862, 5189659 #### [facility] [address], [place] [address]Mnledpdmphg in LDL [Mass/Vol]71 mg/dLNormal<=129[facility] HospitalComment on above:Performed By: #### 0353933, 8684143, 9571169, 9395654, 9255254, 59334069, 0646502 #### [facility] [address], [place] [address]Ikyadorwspb in VLDL [Mass/Vol]37 mg/dLNormal7-40[facility] HospitalComment on above:Performed By: #### 9376894, 7936244, 1450252, 5954304, 8626688, 88428989, 6590141 #### [facility] [address], [place] [address]Bxhbendltwtg [Mass/Vol]186 mg/dLHigh<=149[facility] HospitalComment on above:Performed By: #### 9477372, 1639468, 5598857, 3143789, 6353496, 32578000, 7092992 #### [facility] [address], [place] [address]mLCDze 51-00-9697ZPG/1.73 sq M.predicted among non-blacks MDRD (S/P/Bld) [Vol rate/Area]mL/min/{1.73_m2}Normal>=59[facility] Comment on above:Order Comment: Order added by Discern Expert.Performed By: #### 5848671, 8284072, 9462361, 4162898, 5729470, 83774244, 6486003 #### [facility] [address], [place] [address]ART w/Indiceson 54-16-3154Ijdowygbgqp distribution width (RBC) [Ratio]13.5 %Rjupjd45.9-14.2FOhioHealth Grant Medical CenterComment on above: Performed By: #### 8627731, 7802140, 3439265, 1948548, 7783687, 43071900, 0315013 #### [facility] [address] [place] [address]Wmbgnslbyc (Bld) [Volume fraction]42.1 %Trdedo49.0-46.0[facility] HospitalComment on above:Performed By: #### 8897184, 7072991, 4113400, 4327035, 5215818, 29570200, 7454709 #### [facility] [address] [place] [address]Tjmxgyqhiv (Bld) [Mass/Vol]14.4 g/oBPubnke87.0-16.0[facility] HospitalComment on above:Performed By: #### 4697713, 2820190, 7037028, 2578263, 1199988, 74394880, 1241588 #### [facility] [address] [place] [address] 46491HIB (RBC) [Entitic mass]33.7 epUjwyph30.0-34.0[facility] HospitalComment on above:Performed By: #### 9409029, 6042742, 2978134, 2562551, 9583182, 48335319, 9042504 #### [facility] [address] [place] [address] 536[address]FKUQ (RBC) [Mass/Vol]34.2 g/uIMncjrw13.4-36.0[facility] HospitalComment on above:Performed By: #### 0169025, 7785692, 5556275, 3202592, 0494401, 19242702, 9075372 #### [facility] [address] [place] [address] 17635IDK (RBC) [Entitic vol]98.8 jDIurjho42.0-100.0[facility] HospitalComment on above:Performed By: #### 8058798, 7739181, 8062435, 4913247, 9636333, 68392166, 9277402 #### [facility] [address] [place] [address] 53[address]Bnvrqceb mean volume (Bld) [Entitic vol]8.6 fLNormal6.4-10.8 [facility] HospitalComment on above:Performed By: #### 6900718, 5133215, 4648344, 9208561, 3540135, 89274515, 7692866 #### [facility] [address] [place] [address] 440[address]Ohykrjlaa (Bld) [#/Vol]141.0 E9/RAmo198.0-500.0[facility] HospitalComment on above:Performed By: #### 8026638, 3556508, 5059334, 2256503, 6119610, 46246812, 0343994 #### [facility] [address] [place] [address] 20383FQI (Bld) [#/Vol]4.3 E12/LNormal4.3-5.9[facility] HospitalComment on above:Performed By: #### 8256056, 2628380, 4445091, 1030464, 4224900, 53992511, 0241701 #### [facility] [address] [place] [address] 439[address]XQV corrected for nucl RBC Auto (Bld) [#/Vol]9.8 E9/LNormal 4.0-11.0[facility] HospitalComment on above:Performed By: #### 9804022, 0774321, 7483381, 0901462, 4859332, 40369166, 3360403 #### [facility] [address] [place] [address] 1966[address]Couy T4on 34-43-4300Nfkh T4 [Mass/Vol]0.92 ng/dLNormal0.58-1.64 [facility] HospitalComment on above:Performed By: #### 5945459, 3117296, 8130929, 4913741, 3053255, 09057749, 8886405 #### [facility] [address], [place] [address]Qzfanqdoe Orderon 65-19-6768Fvhjjfqqd Order [id number]#1.00TIFFNormalPromedica Defiance Regional HospitalTSHon 08-40-6173EEI Qn5.07 m[IU]/LNormal0.34-5.60[facility] HospitalComment on above:Performed By: #### 9872119, 6360066, 5147619, 0249588, 1756913, 55754800, 2366941 #### [facility] [address], [place] [address]OSBdg 20-17-6381Nhxbj gap [Moles/Vol]13 mmol/LNormal6-16[facility] HospitalComment on above:Performed By: #### 2496646, 24808379, 3037841, 3224776 #### [facility] [address], [place] [address]Vxtxrwi [Mass/Vol]8.8 mg/dLLow8.9-11.1FOhioHealth Grant Medical CenterComment on above:Performed By: #### 8044054, 14340263, 5489813, 7739154 #### [facility] [address], [place] [address]Ngfonbsr [Moles/Vol]109 mmol/DGtuejh266-632UvpftxPromedica Defiance Regional HospitalComment on above:Performed By: #### 0981681, 33837745, 6634658, 0891255 #### [facility] [address], [place] [address]IE6 [Moles/Vol]23 mmol/ZMoadzm05-47TpxutcPromedica Defiance Regional Hospital Comment on above:Performed By: #### 6508803, 01116828, 3982027, 3497953 #### [facility] [address], [place] [address]Usivnccgfm [Mass/Vol]1.1 mg/dLNormal0.5-1.3FOhioHealth Grant Medical CenterComment on above:Performed By: #### 7521525, 10750275, 1831183, 2366803 #### [facility] [address], [place] [address]Euduojj [Mass/Vol]74 mg/rTItrzoa61-870YeoxmwPromedica Defiance Regional HospitalComment on above:Result Comment: If this glucose result represents a fasting glucose, interpretation should refer tothe following reference range: 55-99 mg/dLPerformed By: #### 0021534, 18027569, 9357774, 1225460 #### [facility] [address], [place] [address]Nxjgqtaie [Moles/Vol]4.0 mmol/LNormal3.5-5.3FOhioHealth Grant Medical CenterComment on above:Performed By: #### 5203647, 66466473, 8479606, 9980201 #### [facility] [address] [place] [address]Juagtu [Moles/Vol]141 mmol/RPqtnof526-845HssvnaPromedica Defiance Regional HospitalComment on above:Performed By: #### 0862160, 33736242, 0085038, 3428265 #### [facility] [address], [place] [address]Ijat nitrogen [Mass/Vol]23 mg/dLHigh5-21[facility] HospitalComment on above:Performed By: #### 2317037, 03079510, 6204027, 6018546 #### [facility] [address] [place] [address] 88492Bstd nitrogen/Creatinine [Mass ratio]21 No HtpdkEsux83-82AirglmPromedica Defiance Regional HospitalComment on above:Performed By: #### 4605629, 01226180, 2771672, 7718798 #### [facility] [address] [place] [address]Ftxx T4on 86-39-6745Lpil T4 [Mass/Vol]1.45 ng/dLNormal0.58-1.64 [facility] HospitalComment on above:Performed By: #### 6628416, 6956541, 4516433, 4622694, 0485620, 56582411, 1180338 #### [facility] [address], [place] [address]PHDjs 71-39-9480BKK Qn6.49 m[IU]/LHigh0.34-5.60[facility] HospitalComment on above:Performed By: #### 9452081, 2604473, 8271094, 5229471, 2777376, 82802938, 0683090 #### [facility] [address], [place] [address]lYAJxt 24-69-6278FCK/1.73 sq M.predicted among non-blacks MDRD (S/P/Bld) [Vol rate/Area]67 mL/min/1.73 q0Oikysu>=59[facility] Comment on above:Order Comment: Order added by Discern Expert.Result Comment: Chronic kidney disease could be indicated at eGFR's of less than 60 mL/min/1.73m2. Kidney failure is indicated at less than 15 mL/min/1.73m2. Performed By: #### 3062600, 8560899, 0903476, 1483900, 5946576, 19271413, 7625716 #### [facility] [address], [place] [address]WUQTHWWRPNtmlxyr By: SYSTEM SYSTEM on 08-66-2124Yevww gap [Moles/Vol]13 mmol/LNormal6 - 16 mEq/LFTMC RemisolCalcium [Mass/Vol]8.8 mg/dLLow 8.9 - 11.1 mg/dLFTMC RemisolChloride [Moles/Vol]109 mmol/DUeshlj687 - 111 mmol/L [facility] RemisolCO2 [Moles/Vol]23 mmol/ZQvpuyc24 - 31 mmol/LFTMC RemisolCreatinine [Mass/Vol]1.1 mg/dLNormal0.5 - 1.3 mg/dLFTMC RemisolFree T4 [Mass/Vol]1.45 ng/dL Normal0.58 - 1.64 ng/dLFTMC RemisolGFR/1.73 sq M.predicted among non-blacks MDRD (S/P/Bld) [Vol rate/Area]67 mL/min/1.73 p1Hxvlyj>=59mL/min/1.73 m2[facility] Chem S Comment on above:Interpretive Data: Chronic kidney disease could be indicated at eGFR's of less than 60 mL/min/1.73m2. Kidney failure is indicated at less than 15 mL/min/1.73m2.Glucose [Mass/Vol]74 mg/qDAsxxam49 - 199 mg/dLMERCY HOS[facility] Remisol Comment on above:Interpretive Data: If this glucose result represents a fasting glucose, interpretation should referto the following reference range: 55-99 mg/dLPotassium [Moles/Vol]4.0 mmol/LNormal3.5 - 5.3 mmol/LFTMC RemisolSodium [Moles/Vol]141 mmol/ULljjnr827 - 145 mmol/LFTMC RemisolTSH Qn6.49 m[IU]/LHigh 0.34 - 5.60 mcIU/mLMER[facility] RemisolUrea nitrogen [Mass/Vol]23 mg/dLHigh5 - 21 mg/dL [facility] RemisolUrea nitrogen/Creatinine [Mass ratio]21 mg/tjEajv74 - 20[facility] Remisol Physician Orderon 88-41-7316Pvabycsdy Order [id number]#1.00TIFFCleveland Clinic Akron GeneralCHEMISTRYOrdered By: SYSTEM SYSTEM on 05-99-7921Ppreuijcu [Moles/Vol]70 microgram/eWQjuaom19 - 99 mcg/mLMER[facility] RemisolPhysician Orderon 08-17-2023 Physician [id number]#1.00CD:127[facility] GeneralValproic Acidon 88-66-0193Qicrtmogl [Moles/Vol]70 microgram/vETcavda61-64IzjqxoPromedica Defiance Regional HospitalComment on above:Performed By: #### 8647362, 0568861, 9111368, 0378538, 7725399, 22512208, 1594569 #### [facility] [address] [place], [place] [address]KK CHEST 2 Von 24-22-9461ZV CHEST 2 VEXAM: XR CHEST 2 V [...] Electronically authenticated by: AZUL UNLU Date: 2023-02-17 22:47NormSelect Medical Specialty Hospital - ColumbusDEPAKENE/ VALPROIC ACIDon 55-03-1192ZZVKFMEA01.8 ug/mlNormal 50.0-100.0[facility] HospitalComment on above:Performed By: #### VALP #### [facility] [address] [place] [address] Dr. Wali HollyFRMONSERRAT T4on 35-36-2168Vqvk T4 [Mass/Vol]0.83 ng/dLNormal0.76-1.46 [facility] HospitalComment on above:Performed By: #### FT4 #### [facility] [address] [place] [address] Dr. Wali Tamayo 01-47-8058WDL4.513 uIU/mLCritically high0.358-3.740Gen[facility] HospitalComment on above:Performed By: #### TSH #### [facility] [address] [place] [address] Dr. Wali HollyOSMOLALITY URINEon 68-28-2260Yyxogxsjrr, Dbncq328 mOsmol/kgNormal [facility] HospitalComment on above:Result Comment: 24 hr : 300 - 900 Random: 50 - 1400 After 12hr fluid restriction: >850Performed By: #### OSMOU #### [facility] [address] [place] [address] Dr. Wali HollyOSMRENUKALITYon 24-88-3796Jwezagqucz [Osmolality]281 mosm/kgNormal 275-295The [facility], BeachwoodComment on above:Performed By: #### OSMO #### [facility] [address] [address] [address] Wali Barrera T4on 23-28-0536Swci T4 [Mass/Vol]0.91 ng/dLNormal0.76-1.46 The [facility], BeachwoodComment on above:Performed By: #### FT4 #### [facility] [address] [address] [address] Wali HollyPROF CHEM 8 (BAS METB)on 35-60-6844Nmwnm gap [Moles/Vol]6.1 mmol/LNormalThe [facility], BeachwoodComment on above:Performed By: #### BMP, TSH #### [facility] [address] [place] [address] Dr. Wali HollyCalcium [Mass/Vol]9.1 mg/dLNormal8.5-10.1[facility] Comment on above:Performed By: #### BMP, TSH #### [facility] [address] [place] [address] Dr. Wali HollyChloride [Moles/Vol]102 mmol/RHpdggg99-096DsvGenesis Hospital Comment on above:Performed By: #### BMP, TSH #### [facility] [address] [place] [address] Dr. Wali HollyCO2 [Moles/Vol]34.9 mmol/LCritically high21.0-32.0The [facility], BeachwoodComment on above:Performed By: #### BMP, TSH #### [facility] [address] [place] [address] Dr. Wali HollyCreatinine [Mass/Vol]1.35 mg/dLCritically high0.55-1.02The [facility], BeachwoodComment on above:Performed By: #### BMP, TSH #### [facility] [address] [place] [address] Dr. Wali GaryGFR-AF NHYNEWQS10 mL/min/1.92t9Ugiogamnsu low>=60The [facility], BeachwoodComment on above:Performed By: #### BMP, TSH #### [facility] [address] [address] [address] Wali GaryGFR-NON AF WJZNXDIL59 mL/min/1.87j9Oithmusydd low>=60The [facility], BeachwoodComment on above:Performed By: #### BMP, TSH #### [facility] [address] [address] [address] Wali HollyGlucose [Mass/Vol]84 mg/lPQaxcol07-551Cfv [facility] Comment on above:Performed By: #### BMP, TSH #### [facility] [address] [address] [address] Wali HollyPotassium [Moles/Vol]4.0 mmol/LNormal3.5-5.1The [facility] Comment on above:Performed By: #### BMP, TSH #### [facility] [address] [address] [address] Wali HollySodium [Moles/Vol]139 mmol/DUuwjiv204-768Fho [facility] Comment on above:Performed By: #### BMP, TSH #### [facility] [address] [address] [address] Wali HollyUrea nitrogen [Mass/Vol]15.0 mg/dLNormal7.0-18.0The [facility], BeachwoodComment on above:Performed By: #### BMP, TSH #### [facility] [address] [address] [address] Wali Dia nitrogen/Creatinine [Mass ratio]11.1 mg/mgNormalThe [facility], BeachwoodComment on above:Performed By: #### BMP, TSH #### [facility] [address] [address] [address] Wali Tamayo 99-26-0282RPS5.185 uIU/mLCritically high0.358-3.740The [facility], BeachwoodComment on above:Performed By: #### BMP, TSH #### [facility] [address] [address] [address] Wali QuinonesAC RHYTHM (SCANNED)on 09-29-3456KMHGreene Memorial Hospital AND ELECTRONIC DIFFon 46-61-6101Ugtuhddtd (Bld) [#/Vol]0.06 10*3/uLNormal 0.00-0.15[facility] Health HamiltonComment on above:Performed By: #### [id number] #### U [facility] (DEFAULT) [address] [place] [address] 29[address]Azujzvrhn/100 WBC (Bld)0.8 %[facility] - WestComment on above:Performed By: #### [id number] #### U [facility] (DEFAULT) [address] [place] [address]38[address]NBBX STATUSElectronic DifferentialNormalOhiFayette County Memorial HospitalComment on above:Performed By: #### [id number] #### U [facility] (DEFAULT) [address] [place] [address]Tubaimacjek (Bld) [#/Vol]0.07 10*3/uLNormal0.00-0.42[facility] HamiltonComment on above:Performed By: #### [id number] #### [facility] (DEFAULT) [address] [place] [address] 487[address]Jurrijhvfzk/100 WBC (Bld)1.0 %[facility] - WestComment on above:Performed By: #### [id number] #### [facility] (DEFAULT) [address] [place] [address] 14921Ekbrrnaymy (Bld) [Volume fraction]39.1 %Qoeptr39.9-44.3[facility] HamiltonComment on above:Performed By: #### BSU466 #### [facility] (DEFAULT) [address] [place] [address]Jbpqeowexa (Bld) [Mass/Vol]13.3 g/lTShqjzu48.4-15.2[facility] HamiltonComment on above:Performed By: #### WJE909 #### [facility] (DEFAULT) [address] [place] [address]66[address]Aygfwxmp Grans %1.8 %NormalKettering Health HamiltonComment on above:Performed By: #### IQV715 #### [facility] (DEFAULT) [address] [place] [address] 425[address]Gyrimiom Grans Absolute0.13 K/uLHigh<=0.08[facility] HamiltonComment on above:Performed By: #### OVQ661 #### [facility] (DEFAULT) [address] [place] [address] 98251Konhiwhhpxa (Bld) [#/Vol]3.29 10*3/uLNormal1.16-3.51[facility] HamiltonComment on above:Performed By: #### DQU685 #### [facility] (DEFAULT) [address] [place] [address] 23288Evuymgganzr/100 WBC (Bld)46.0 %NormalKettering Health HamiltonComment on above:Performed By: #### MCQ318 #### [facility] (DEFAULT) [address] [address]DOD (RBC) [Entitic vol]100.3 vBAyct78.6-97.7[facility] HamiltonComment on above:Performed By: #### [id number] #### [facility] (DEFAULT) [address] [address]Bbed Cell Hgb34.1 qoCpad18.9-33.9[facility] HamiltonComment on above:Performed By: #### HLY216 #### [facility] (DEFAULT) [address] [place] [address] 17357Vizo Cell Hgb Conc34.0 g/dYFvwuxo40.4-35.9[facility] HamiltonComment on above:Performed By: #### JRQ753 #### U [facility] (DEFAULT) [address] [place] [address] 415[address]Vgohqcaud (Bld) [#/Vol]0.82 10*3/uLNormal0.22-0.87[facility] HamiltonComment on above:Performed By: #### VIV473 #### U [facility] (DEFAULT) [address] [place] [address] 00586Mghlghwvk/100 WBC (Bld)11.5 %NormalKettering Health HamiltonComment on above:Performed By: #### [id number] #### U [facility] (DEFAULT) [address] [place] [address] 17077Dkkgdpuxm RBC0.0 /100 WBCNormal<=0.2[facility] HamiltonComment on above:Performed By: #### [id number] #### U [facility] (DEFAULT) [address] [place] [address] 865[address]Ditjxkqn mean volume (Bld) [Entitic vol]9.9 fLNormal8.5-12.2 [facility] HamiltonComment on above:Performed By: #### IZO767 #### [facility] (DEFAULT) [address] [place] [address] 75[address]Zrhvfcrcd (Bld) [#/Vol]110 10*3/wZJxc150-607NvsxKettering Health HamiltonComment on above:Performed By: #### HGI590 #### [facility] (DEFAULT) [address] [place] [address] 15816PHQ (Bld) [#/Vol]3.90 10*6/uLLow3.91-5.04[facility] HamiltonComment on above:Performed By: #### [id number] #### U [facility] (DEFAULT) [address] [place] [address] 797[address]RTH Fzjlnpowcrod25.2 %Iifplh46.8-14.9[facility] HamiltonComment on above:Performed By: #### [id number] #### [facility] (DEFAULT) [address] [place] [address] 80771Qvhc + Bands Auto38.9 %NormalKettering Health HamiltonComment on above:Performed By: #### [id number] #### [facility] (DEFAULT) [address] [place] [address] 870[address]Qhiv + Bands,Absolute Auto2.78 K/uLNormal1.64-7.28[facility] HamiltonComment on above:Performed By: #### ADA170 #### [facility] (DEFAULT) [address] [place] [address] 19791VWX (Bld) [#/Vol]7.15 10*3/uLNormal3.99-11.19[facility] HamiltonComment on above:Performed By: #### [id number] #### [facility] (DEFAULT) [address] [place] [address] 56164Khfflbsqq (Bld) [#/Vol]0.06 10*3/uL0.00 - 0.15 K/uLAdena Regional Medical CenterBasophils/100 WBC (Bld)0.8 %[facility] CenterDifferential cell count method Nom (Bld)Electronic DifferentialAdena Regional Medical Center Eosinophils (Bld) [#/Vol]0.07 10*3/uL0.00 - 0.42 K/[facility] Eosinophils/100 WBC (Bld)1.0 %[facility] Medical CenterErythrocyte distribution width (RBC) [Ratio]12.2 %10.8 - 14.9 %[facility] Medical CenterHematocrit (Bld) [Volume fraction]39.1 %34.9 - 44.3 %[facility] Medical CenterHemoglobin (Bld) [Mass/Vol]13.3 g/dL11.4 - 15.2 g/dLAdena Regional Medical CenterImmature granulocytes (Bld) [#/Vol]0.13 10*3/uLHigh<=0.08[facility] Immature granulocytes/100 WBC (Bld)1.8 %[facility] CenterInterpretation and review of laboratory resultsAbnormalOSU Mercy Health Tiffin HospitalLymphocytes (Bld) [#/Vol]3.29 10*3/uL1.16 - 3.51 K/uLAdena Regional Medical Center Lymphocytes/100 WBC (Bld)46.0 %[facility] HospitalH (RBC) [Entitic mass] 34.1 vjJkys24.9 - 33.9 pgOSU Mercy Health Tiffin HospitalMCHC (RBC) [Mass/Vol]34.0 g/dL 31.4 - 35.9 g/dLOSU Mercy Health Tiffin HospitalMCV (RBC) [Entitic vol]100.3 kANvnn40.6 - 97.7 [facility] HospitalMonocytes (Bld) [#/Vol]0.82 10*3/uL0.22 - 0.87 K/uLAdena Regional Medical CenterMonocytes/100 WBC (Bld)11.5 %[facility] Medical CenterNeutrophils (Bld) [#/Vol]2.78 10*3/uL1.64 - 7.28 K/uLAdena Regional Medical CenterNucleated RBC/100 WBC (Bld) [Ratio]0.0 %<=0.2 /100 WBCAdena Regional Medical CenterPlatelet mean volume (Bld) [Entitic vol]9.9 fL8.5 - 12.2 [facility] HospitalPlatelets (Bld) [#/Vol]110 10*3/zFFlt514 - 393 K/uLAdena Regional Medical CenterRBC (Bld) [#/Vol]3.90 10*6/uLLowU Marietta Memorial Hospitalegmented neutrophils/100 WBC (Bld)38.9 %[facility] Medical CenterWBC (Bld) [#/Vol]7.15 10*3/uL3.99 - 11.19 K/uLAdena Regional Medical CenterOSGrand Lake Joint Township District Memorial HospitalCHEM 6 (LYTES, BUN CREA)on 09-88-4011Rpioq gap [Moles/Vol]10 mmol/LNormal7-17[facility] HamiltonComment on above:Performed By: #### CHM6 #### [facility] (DEFAULT) [address] [address]Vqobcwgg [Moles/Vol]103 mmol/XOlhsjh59-830IkoyKettering Health HamiltonComment on above:Performed By: #### CHM6 #### U [facility] (DEFAULT) [address] [place] [address] 43[address]KB5 [Moles/Vol]31 mmol/VYpmpzq27-12SuyyKettering Health HamiltonComment on above:Performed By: #### CHM6 #### [facility] (DEFAULT) [address] [place] [address]Dpqftzewdw [Mass/Vol]1.16 mg/dLNormal0.50-1.20[facility] HamiltonComment on above:Performed By: #### CHM6 #### [facility] (DEFAULT) [address] [place] [address] 426[address]DDT/1.73 sq M.predicted among non-blacks MDRD (S/P/Bld) [Vol rate/Area]63 mL/min/{1.73_m2}Normal>=60[facility] HamiltonComment on above:Result Comment: Reported eGFR is based on the CKD-EPI 2020 equation using creatinine, age, and sex.Performed By: #### CHM6 #### [facility] (DEFAULT) [address] [place] [address]8665Roprmwhsb [Moles/Vol]4.0 mmol/LNormal3.5-5.0K[facility]tering Health HamiltonComment on above:Performed By: #### CHM6 #### [facility] (DEFAULT) [address] [place] [address] 36578Oyfvvy [Moles/Vol]140 mmol/CEjavfy329-140HspbKettering Health HamiltonComment on above:Performed By: #### CHM6 #### [facility] (DEFAULT) [address] [place] [address] 04053Nxrs nitrogen [Mass/Vol]10 mg/dLNormal7-25K[facility]tering Health HamiltonComment on above:Performed By: #### CHM6 #### [facility] (DEFAULT) [address] [place] [address] 30441Waij nitrogen/Creatinine [Mass ratio]9 mg/mgNormalOhio State University Wexner Medical CenterComment on above:Performed By: #### CHM6 #### [facility] (DEFAULT) [address] [address]Uthct gap [Moles/Vol]10 mmol/L7 - 17 mmol/[facility]tering Health HamiltonChloride [Moles/Vol]103 mmol/L98 - 108 mmol/[facility] HamiltonCO2 [Moles/Vol]31 mmol/L21 - 31 mmol/[facility] HamiltonCreatinine [Mass/Vol] 1.16 mg/dL0.50 - 1.20 mg/dLAdena Regional Medical CenterGFR/1.73 sq M.predicted CKD- EPI (S/P/Bld) [Vol rate/Area]63>=60 mL/min/1.27h5EBCAdena Regional Medical Center Comment on above:Reported eGFR is based on the CKD-EPI 2020 equation using creatinine, age, and sex.Potassium [Moles/Vol]4.0 mmol/L3.5 - 5.0 mmol/[facility] Hospital - Akronodium [Moles/Vol]140 mmol/L135 - 145 mmol/[facility] Health HamiltonUrea nitrogen [Mass/Vol]10 mg/dL7 - 25 mg/dLAdena Regional Medical CenterUrea nitrogen/Creatinine [Mass ratio]9 mg/mgAdena Regional Medical CenterOSGrand Lake Joint Township District Memorial HospitalProgress Noteson 73-72-8096Uapfsxfmlriph Authentication Interface Message TextSpoke to Kari @ [place], she will call back when she gets to her office to schedule patient's OR visit----- Friday, August 05, 2022 at 11:13:45 AM ----- ----- Provider: Edelmira Bella Specialist -- Clinic: [place] -----NormalThe MetroHealth SystemProgress Noteson 08-25-2021 [employer] Machine Operator Authentication Interface Message TextPt is special needs. [...] of 2019. LG is mom: Camille Mcintosh [phone] Call the [facility] for [phone] ext: [phone] Tx request sent. HOSPITAL ATTENDANT [facility] [place]: OR ----- Signed on Wednesday, August 25, 2021 at 9:36:43 AM ----- ----- Provider: Rogelio Ryan DDS -- Clinic: [place] -----NormalThe [facility] Vital Signs Date TimeVital SignValuePerforming IlrcdzymkHcuxvbdk42-72-8121 10:10-0400Body paatdf696.4 cmMarc Dolce DPM FACFAS Work Phone: [phone] ROW SPORTSNortheast Missouri Rural Health NetworkWauubeuhtt18-88-1416 10:10-0400Body mass index (BMI) [Ratio]27.73 kg/m2Marc Dolce DPM FACFAS Work Phone: [phone])ChinaNetCloudBOATHOUSE ROW SPORTSNortheast Missouri Rural Health NetworkHbeecloclu22-28-6867 10:10-0400Body yvgzcz89.41 kgMarc Dolce DPM FACFAS Work Phone: [phone])ChinaNetCloudBOATHOUSE ROW SPORTSNortheast Missouri Rural Health NetworkWnysoaiffb98-44-5067 09:52-0400Body tfaqdo619.4 cmMarc Dolce DPM FACFAS Work Phone: [phone] [place], [place] [address]K[employer] Bond Rating AgencyPemiscot Memorial Health SystemsCagntgyqff03-81-4436 09:52-0400Body mass index (BMI) [Ratio]27.73 kg/m2Marc Dolce DPM FACFAS Work Phone: [phone])ChinaNetCloudBOATHOUSE ROW SPORTSNortheast Missouri Rural Health NetworkYxykqsuhmf37-23-3957 09:52-0400Body nzfqma39.41 kgMarc Dolce DPM FACFAS Work Phone: [phone])NetScalerNortheast Missouri Rural Health NetworkFrsacoqvcd40-56-4890 09:20-0400Body yrhicn527.4 cmMarc Dolce DPM FACFAS Work Phone: [phone])NetScalerNortheast Missouri Rural Health NetworkEwddasxbod63-91-1448 09:20-0400Body mass index (BMI) [Ratio]27.73 kg/m2Marc Dolce DPM FACFAS Work Phone: [facility] SystemsVkamgmkotg55-36-5921 09:20-0400Body uclvgy33.41 kgMarc Dolce DPM FACFAS Work Phone: [facility] SystemsMwgxfkbtcd76-89-1718 10:44-0400Body .4 cmMarc Dolce DPM FACFAS Work Phone: [facility] SystemsXuoqxtrfyr58-40-1257 10:44-0400Body mass index (BMI) [Ratio]27.73 kg/m2Marc Dolce DPM FACFAS Work Phone: [facility] SystemsRkyuenmxpm76-42-1696 10:44-0400Body egpbaq37.41 kgMarc Dolce DPM FACFAS Work Phone: [facility] SystemsXdcyzwcgqu49-04-0645 15:00-0500Body lpugqd637.3 Cookie Lorenzo MD Work Phone: [facility]02-27-2025 15:00-0500Body mass index (BMI) [Ratio]29.48 kg/b9BwhwwaJose Lorenzo MD Work Phone: Bon [facility] CenterKwanji [facility] Medical CenterQzsvlk32-27-7777 15:00-0500Body geguhh19.96 kgJose Lorenzo MD Work Phone: [facility]02-27-2025 15:00-0500Diastolic blood msfhnreo37 mm[Hg]Jose Lorenzo MD Work Phone: [facility]02-27-2025 15:00-0500Systolic blood riqpgxev181 mm[Hg]Jose Lorenzo MD Work Phone: [facility]03-07-2024 11:15-0500Body bcdakn267.3 [facility]03-07-2024 11:15-0500Body mass index (BMI) [Ratio]25.08 kg/m2[facility]03-07-2024 11:15-0500Body pmanbv65.43 kgMartin [facility]03-07-2024 11:15-0500Diastolic blood mm[Hg][facility] 02-02-2024 11:15-0500Systolic blood uwmnnvsn953 mm[Hg][facility]09-29-2022 15:30-0400Body nkhxgazgmow03.5 [degF]Pastor Beetstra DDS Work Phone: [facility]09-29-2022 15:30-0400 Diastolic blood hahqutnu19 mm[Hg]Pastor Beetstra DDS Work Phone: [facility]09-29-2022 15:30-0400Heart hlbo323 /minStephen Beetstra DDS Work Phone: [facility]09-29-2022 15:30-0400 Respiratory rate16 /minStephen Beetstra DDS Work Phone: [facility]09-29-2022 15:30-5631IpK7% (BldA) [Mass fraction]99 %Pastor Beetstra DDS Work Phone: [facility]09-29-2022 15:30-0400Systolic blood gsyamydv312 mm[Hg]Pastor Beetstra DDS Work Phone: [facility]09-29-2022 12:00-0400Body hcodyo399 cmStephen Beetstra DDS Work Phone: [facility]09-29-2022 12:00-0400Body mass index (BMI) [Ratio]21.43 kg/y4Duoxnia Beetstra DDS Work Phone: [facility]09-29-2022 12:00-0400Body lugvil31.88 kgStephen Beetstra DDS Work Phone: [facility]09-20-2022 10:00-0400Body exrkrn054 cmJason Reyes PA-C Work Phone: [phone] [place], [place] 5662709-20-2022 10:00-0400Body mass index (BMI) [Ratio]21.79 kg/d9Yvofa Reyes PA-C Work Phone: [phone] [place], [place] 5662709-20-2022 10:00-0400Body ysnwhwzmoar33.39 [degF]Prasanth Reyes PA-C Work Phone: [phone] [place], [place] 5662709-20-2022 10:00-0400Body .79 kgPrasanth Reyes PA-C Work Phone: [phone] [place], [place] 5662709-20-2022 10:00-0400 Diastolic blood aukvooyl30 mm[Hg]Prasanth Reyes PA-C Work Phone: [phone] [place], [place] 5662709-20-2022 10:00-0400Heart rate69 /minPrasanth Reyes PA-C Work Phone: [phone] [place], [place] 5662709-20-2022 10:00-0400 Respiratory rate18 /minPrasanth Reyes PA-C Work Phone: [phone] [place], [place] 5662709-20-2022 10:00-9755ZfK0% (BldA) [Mass fraction]97 %Prasanth Reyes PA-C Work Phone: [phone])[address] [place], [place] 5662709-20-2022 10:00-0400Systolic blood gcoejhru22 mm[Hg]Prasanth Reyes PA-C Work Phone: [phone] [place] [address] Encounters Encounter DateEncounter TypeCare ProviderFacilityStart: 10-02-2025 End: 56-72-2319Eiilswbit encounterMarc D Day DPM FACFAS Work Phone: [facility] NMA PODStart: 09-23-2025 End: 70-82-9847Abwmxi flowsheetMarc D Inoce DPM FACFAS Work Phone: [facility] AustintownStart: 09-23-2025 End: 20-52-9611Vdecib flowsheetMarc D Dolce DPM FACFAS Work Phone: noms [facility] CenternStart: 09-23-2025 End: 54-84-8428Vnwbtqs encounter procedureMarc D Dolce DPM FACFAS Work Phone: noms NMA PODComment on above:Tinea unguium (Primary Dx); Pain in right toe(s); Pain in left toe(s)Start: 09-23-2025 End: 62-02-2158vmxfziheniGDON D DOLCENot AvailableStart: 08-02-2025 End: 66-66-9637Mzjjjz flowsheetMarc D Dolce DPM FACFAS Work Phone: [phone] [facility] CenternStart: 08-02-2025 End: 95-95-6424Lxsnyh flowsheetMarc D Dolce DPM FACFAS Work Phone: NOFY [facility] CenternStart: 08-02-2025 End: 94-23-3526Hyttvh outpatient visit 15 minutesMarc D Dolce DPM FACFAS Work Phone: noms NMA PODComment on above:Onychocryptosis (Primary Dx); Cellulitis of left toe; Abscess, toe, leftStart: 08-02-2025 End: 79-18-9691kadvoglywnUZGH D DOLCENot AvailableStart: 07-08-2025 End: 21-97-0425Hrxdfq flowsheetMarc D Dolce DPM FACFAS Work Phone: [phone] [facility] CenternStart: 07-08-2025 End: 96-34-2438Gbaynj flowsheetMarc D Dolce DPM FACFAS Work Phone: [phone] [facility] CenternStart: 07-08-2025 End: 67-28-2394damhochepzYCOH D DOLCENot AvailableStart: 07-08-2025 End: 57-84-3986Thpzoz outpatient visit 15 minutesMarc D Dolce DPM FACFAS Work Phone: noms NMA PODComment on above:Onychocryptosis (Primary Dx); Tinea unguium; Pain in right toe(s); Pain in left toe(s)Start: 03-19-2025 End: 86-87-9520Kyqhvz flowsheetMarc D Dolce DPM FACFAS Work Phone: noms ASC PODStart: 03-19-2025 End: 39-87-2067Cycshu flowsheetMarc D Dolce DPM FACFAS Work Phone: noms ASC PODStart: 03-19-2025 End: 83-90-6320Kgbucg outpatient visit 15 minutesMarc D Dolce DPM FACFAS Work Phone: noms NMA PODComment on above:Onychocryptosis (Primary Dx); Pain in left toe(s); Cellulitis of left toe; Abscess, toe, leftStart: 03-19-2025 End: 62-62-7721sjovtbjeanZFQL D DOLCENot AvailableStart: 01-24-2025 End: 61-28-6949pdlzjdzbtgNSYOGT [facility] HospitalStart: 01-24-2025 End: 86-23-8018Bvjyylwtpk hospital visit by Yaya Lorenzo MD Work Phone: [facility] Non-Invasive CardiologyComment on above:Moderate dehydration; Increased heart rate; Tachycardia; SOB (shortness of breath); Bilateral leg edemaStart: 12-27-2024 End: 94-80-6761gwakirbhnoLNUT Y. [facility] Hospitaltart: 09-20-2024 End: 44-82-3327Aualzs flowsheetKareem R Dolce DPM FACFAS Work Phone: noms ASC PODStart: 09-20-2024 End: 00-92-6761Rcfyxe flowsheetKareem R Dolce DPM FACFAS Work Phone: noms ASC PODStart: 09-20-2024 End: 76-11-4925Fetyivh encounter procedureKareem R Dolce DPM FACFAS Work Phone: noms NMA PODComment on above:Onychocryptosis (Primary Dx); Abscess, toe, left; Tinea unguium; Pain in left toe(s); Pain in right toe(s)Start: 08-28-2024 End: 33-93-4916Njslgv flowsheetMarc D Dolce DPM FACFAS Work Phone: noms ASC PODStart: 08-28-2024 End: 05-20-5053Yecamg flowsheetMarc D Dolce DPM FACFAS Work Phone: noms ASC PODStart: 08-28-2024 End: 35-07-4255Uqmhgi outpatient new 30 minutesMarc D Dolce DPM FACFAS Work Phone: noms NMA PODComment on above:Onychocryptosis (Primary Dx); Pain in left toe(s); Cellulitis of left toe; Abscess, toe, leftStart: 07-06-2024 End: 19-03-8481Woqemerux encounterAlicia P Brandon [facility] Obstetrics/GynecologyStart: 03-21-2024 End: 31-58-3192Gkk Drop offDANIEL VAUGHAN [facility] Start: 03-21-2024 End: 90-78-1921akjaxmoctnETVSHN HERRINGFacility:FTMCStart: 02-02-2024 End: 70-57-3017Lypdbja encounter procedurePfws Ob MidwifeProMedica Physicians Obstetrics/GynecologyComment on above:Encounter for screening breast examination (Primary Dx); Surveillance of previously prescribed contraceptive pillStart: 02-01-2024 End: 53-40-9914xzpsvzrlckMVNRGT HERRINGFacility:FTMCStart: 02-01-2024 End: 90-72-4954Lxawkjc encounter procedureDANIEL VAUGHAN [facility] Start: 11-30-2023 End: 80-71-1213atqmcscgmuCGWPTQ HERRINGFacility:FTMCStart: 10-12-2023 End: 41-08-1934akdysemlysXETMYO HERRINGFacility:FTMCStart: 10-12-2023 End: 04-80-6270Yws Drop offDANIEL VAUGHAN [facility] Start: 08-17-2023 End: 12-82-1598peptymhebpZEHXXH HERRINGFacility:FTMCStart: 08-17-2023 End: 55-60-2904Kxz Drop offDANIEL VAUGHAN [facility] Start: 02-17-2023 End: 70-00-2100gvaskdklwnZW ROBIN A HERRINGFacility:D5Qjtek: 02-02-2023 End: 60-01-0935qutwtkzisnGP ROBIN A HERRINGFacility:M0Peffu: 12-14-2022 End: 27-54-1940qofegzjdxdOP ROBIN A HERRINGFacility:L1Zhzmk: 10-13-2022 End: 70-67-5645vagejpovtqXM ROBIN A HERRINGFacility:O9Npnzn: 10-12-2022 End: 18-02-3971goiberjddtNW ROBIN A HERRINGFacility:V0Fphpz: 08-26-2022 End: 93-11-2329qhrbwqaowpUBLUWF A CHASEFacility:[facility]ITALtart: 08-26-2022 End: 66-92-6025Qggsbhoyii hospital visit by Diaz Suarez DDS Work Phone: bASUComment on above:Periodontal diseaseStart: 53-04-5929pghxyduygcBQRRN D ORRFacility:[facility]PITALtart: 08-17-2022 Encounter for other preprocedural examinationPRASANTH Watson ORRFacility:[facility]PITALtart: 08-17-2022 End: 73-80-6075Usmdgq consultation new/estab patient 40 minPrasanth Reyes PA-C Work Phone: [phone]-Wletldgqi Evaluation and Assessment Antonella [facility] Outpatient CareComment on above:Preop exam for internal medicine (Primary Dx); Periodontal disease; Developmental delay; Hypothyroidism, unspecified typeStart: 08-17-2022 End: 12-61-1257Cksynrw encounter statusPrasanth Reyes PA-C Work Phone: [phone]-Nvtgxuvwe Evaluation and Assessment Antonellaankur ToCharlotte Outpatient CareStart: 83-57-4833sjmfwufozkBFPWO AL MASHNI Facility:METROHealthStart: 92-69-0031Yhfvzgpkd to same day surgery [facility] DDS Work Phone: [facility] HospitalStart: 08-25-2021 End: 92-19-6956uyqdpmufynRAHYMUN PROVIDERFacility:[facility] Procedures DateProcedureProcedure DetailPerforming ClinicianStart: 99-21-0222Zakb [facility] r-t 2d w/wom-mode compl spec&colr Traci Lorenzo MD Work Phone: Start: 49-34-7405Pwrtbgkxgom observation [Identifier] in Cervix by Cyto stainPfws MidwifeStart: 69-53-3043AXRYVDQ RHYTHMOther Other Start: 93-73-4884VLE AND ELECTRONIC DIFFPrasanth Reyes PA-C Work Phone: Start: 88-57-8131Adwzatod blood count with white cell differential, automatedPrasanth Reyes PA-C Work Phone: Start: 11-07-8251Lhymiwmvij bloodPrasanth Reyes PA-C Work Phone: Plan of Treatment DateCare ActivityDetailAuthorStart: 75-18-2941Yphlyfnn (RZV) Vaccine (1 of 2) Shingles (RZV) Vaccine (1 of 2)[facility] [place] By [facility] HealthHealthStart: 10-23-6469Icrtivpdp for malignant neoplasm of cervixPap SmearPromusiXmatch SystemStart: 12-16-2025 End: 43-50-2527Tshlytm encounter kfltoisjk12/19/2026 8:40 AM EST Procedure Visit [facility] [address] [place] [phone] Medhat Rangel, DPM FACFAS [address] [facility] Centerjaiden [facility]b [place] [address] [facility]OMS NMA PODStart: 09-23-2025 End: 62-54-4413Fbfwzgt encounter procedureNOMS NMA PODComment on above:Arrived Start: 08-02-2025 End: 39-65-7653Hbisijj encounter blpeddyyv58/05/2025 9:50 AM EDT Office Visit [facility] [address] [place] [address] Medhat Rangel, DPM FACFAS [address] [facility] [place] [address] ArrivedNOMS NMA PODComment on above:ArrivedStart: 07-29-2025 Influenza vaccinationNONE HealthcareStart: 03-19-2025 End: 00-46-5030Bzvsjhp encounter zrqzdkbys34/22/2025 11:00 AM EDT Office Visit [facility] [address] [place] [phone] Medhat Rangel, DPM FACFAS [address] [facility] [place] [address] ArrivedNOMS NMA PODComment on above:ArrivedStart: 30-84-8262Ecgfw BMI ScreeningAdult BMI ScreeningProAdena Health Systemca Health SystemStart: 20-73-0343Odkmscg ScreeningTobacco ScreeningProAdena Health Systemca Health SystemStart: 09-20-2024 End: 36-84-1357Besidpn encounter plfiorypm43/24/2024 1:00 PM EDT Office Visit [facility] [address] [place] [phone] Greg Rangel, DPM FACFAS [address] [place] [address] ArrivedNOMS NMA PODComment on above:ArrivedStart: 07-29-2024 COVID-19 Vaccine ( season)COVID-19 Vaccine ( season)[facility] CenterStart: 22-86-7006Knpdzygwj vaccinationALTA VIEW HOSPITAL HealthcareStart: 96-59-3029Tymjvafuy vaccinationFlu vaccine (#1)[facility] CenterStart: 61-98-7606Sjtwal Wellness Visit (Medicare)Annual Wellness Visit (Medicare)[facility] OhioStart: 02-17-6273Mhiinrmrx [Moles/volume] in Serum or Plasma POTASSIUMOSU [facility] CenterStart: 74-39-8261KPCNM-19 Vaccine ()COVID-19 Vaccine ()[facility] SystemStart: 68-60-9517Nsxergdde vaccinationInfluenza VaccineProMedica Health SystemStart: 88-47-1564Jjjlsaqj screenDiabetes screenBon [facility] OhioStart: 51-91-3804Cltdokgqb vaccinationInfluenza Vaccine (#1)MetroHealthStart: 08-26-2022 End: 78-30-3432Vbglkkhdn to same day surgery nqklhe8308/26/2022 Surgery Multispecialty Pastor Suarez DDS [address] [employer] [address] [place] [address] FULL MOUTH REHABILITATIONUH PERIOPComment on above:FULL MOUTH REHABILITATIONStart: 29-76-0870Uqsqzwkdnx hospital visit by goflfwjzs85/29/2022 Hospital Encounter Multispecialty Pastor Suarez DDS [address] [place] [address] Periodontal disease BASUComment on above:Periodontal diseaseStart: 08-26-2022 End: 33-57-5182Tfnffntn procedure dentoalveolar structuresFULL MOUTH REHABILITATION Periodontal disease Dental caries 08/26/2022 1:35 PM EDTOSU UH MAIN ORStart: 08-26-2022 End: 62-64-5409Izgzpzk encounter jopmpoiak58/29/2022 Appointment Multispecialty PERIOPStart: 27-82-1559Tdtdqhgfi vaccinationINFLUENZA VACCINE (#1)OSScci [facility] CenterStart: 42-99-9575QBSLF-19 Vaccine (3 - Booster for Pfizer series) COVID-19 Vaccine (3 - Booster for Pfizer series)[facility]roHealthStart: 02-24-2021 COVID-19 VACCINE (3 - Booster for Pfizer series)COVID-19 VACCINE (3 - Booster for Pfizer series)OSScci Hospital Lima CenterStart: 56-33-9877NUaO,Tdap and Td Vaccines (2 - Td or Tdap)DTaP,Tdap and Td Vaccines (2 - Td or Tdap)[facility] SystemStart: 63-75-5975HFgX/Tdap/Td vaccine (2 - Td or Tdap)DTaP/Tdap/Td vaccine (2 - Td or Tdap)[facility] CenterStart: 76-85-7503Xxjootv vaccinationTetanus (Td or Tdap) BoosterMetroHealthStart: 94-79-6054Tyukifzbp for malignant neoplasm of cervixALTA VIEW HOSPITAL HealthcareStart: 28-88-7609Enhwbhqcu for malignant neoplasm of cervixMetroHealthStart: 48-09-3302Btfxrf wellness visit Annual Wellness Visit (G0438)MetroHealthStart: 48-26-5715Rizmvrrsh B vaccine (1 of 3 - 19+ 3-dose series)Hepatitis B vaccine (1 of 3 - 19+ 3-dose series)[facility] CenterStart: 86-60-9267Bowqh diphtheria, tetanus and acellular pertussis (DTaP) vaccinationTDAP (ADULT)OSScci [facility] CenterStart: 77-64-5370Txkpp BMI Follow Up PlanAdult BMI Follow Up PlanProChilton Medical Center Health SystemStart: 35-71-7925Ofpcjupii C screeningMetroHealthStart: 30-22-3994Wvdegdd vaccinationTETANUSOSTrumbull Regional Medical Centertart: 01-65-0747XBV screening MetroHealthStart: 78-79-7053Zavwnwxgl vaccine (1 of 2 - 13+ 2-dose series) Varicella vaccine (1 of 2 - 13+ 2-dose series)[facility]: 69-19-6705Dwqxdgpwnj ScreenDepression ScreenBon [facility]: 29-28-2114Rncqhnyvif ScreeningDepression ScreeningProGerman Hospitaltart: 93-47-9281Fsphdixzt C antibody, confirmatory testHEPATITIS C VIRUS SCREENINGOSTrumbull Regional Medical Centertart: 28-10-9848Igyfngx stimulating hormone measurementTS OSGrand Lake Joint Township District Memorial HospitalDENTAL RESTORATIONSDENTAL RESTORATIONS Routine scheduled CariesPHE Surgery CenterNoninvasive ear/pulse oximetry single deterPR NONINVASV OXYGEN SATUR; SINGLE WI - OFFICE PERFORMED Routine Preop exam for internal medicine Periodontal disease Developmental delay Hypothyroidism, unspecified type Ordered: 08/17/2022[facility] HospitalComment on above: Ordered: 08/17/2022 Immunizations Immunization DateImmunizationNotesCare CjzdzaofGmgcnfoh07-98-9893Gzfbaa (12+ yrs) SARS-COV-2 (COVID-19) vaccine, mRNA, spike protein, LNP, pres. free, 30 mcg/0.3mL dose (NLI=175)Leonela Lica DDS Work Phone: [phone]nQqofmq24-07-2511Yhizgq (12+ yrs) SARS-COV-2 (COVID-19) vaccine, mRNA, spike protein, LNP, pres. free, 30 mcg/0.3mL dose (WCA=542)Leonela Lica DDS Work Phone: [phone]dCmxmlc35-79-1180sjfnznhep, injectable, quadrivalent, preservative freeElida Lica DDS Work Phone: [phone]tLlhxdh53-52-9962zzyvnccnz virus vaccine, unspecified formulationElida Lica DDS Work Phone: [phone]fCrntkk05-13-9315cangggm toxoid, reduced diphtheria toxoid, and acellular pertussis vaccine, adsorbedElida Lica DDS Work Phone: [facility] Payers DatePayer CategoryPayerPolicy ID2016Medicaid [id number] 2008Medicare [id number] 2.16.840.1.900785.3.57[id number] 2.16840.1.052797.3.57[id number] 2.16840.1.907689.3.57[id number] 2.16840.1.281255.3.57[id number] 2.840.1.936349.3.57[id number] 2.840.1.965099.3.57[id number] 2.0.1.111800.3.57[id number] 2.16840.1.371206.3.57[id number] 2.840.1.088699.3.57[id number] 2.16840.1.371403.3.57[id number] 2.16840.1.047275.3.57[id number] 2.16840.1.071236.3.57[id number] 2.16840.1.742668.3.57[id number] 2..840.1.188838.3.57[id number] 2..840.1.900235.3.579.2.1259 [id number] 1960Medicare [id number] 2.16.840.1.348672.3.579.2. [id number] 2.16.840.1.690088.3.5[id number] 2.16.840.1.833953.3.57[id number] 2.0.1.340457.3.[id number] 2.16840.1.188483.3.579.2.593 Social History DateTypeDetailFacilityTobacco smoking status NHISTobacco smoking consumption unknownMet[facility] Work Phone: Start: 85-43-9718Pnn Assigned At BirthNot on file [facility]HealthStart: 08-26-2022 End: 51-67-8354Cmhgned smoking status NHISNever smoked tobaccoOSU [facility] Hospital CenterStart: 08-26-2022 End: 88-69-6831Rtofnyr use and exposureSmokeless tobacco non-userOSU Brown Memorial Hospital CenterStart: 08-26-2022 End: 28-38-0981Pmbfcsi intakeLifetime non-drinker (finding)[facility] HospitalTobacco smoking statusNo Smoking Status EnteredUniversity Hospitals Samaritan [facility] CenterStart: 09-20-2024 End: 07-09-4885Xjs Assigned At BirthFemalCleveland Clinic Foundation CenterStart: 09-20-2024 End: 92-46-1299[place] of Social functionProMedica Reg[facility] SystemStart: 07-63-0434YfleekupoGwtabweNzgDzzjbz Health SystemStart: 33-79-7829Xtsswrerj beverage intakeCurrent non-drinker of alcohol (finding)[facility] Clinical Notes 08-17-2022 to 10-02-2025 Note Date & JgnuHaidUceqaucf77-22-4373 Telephone encounter Note* Telephone Encounter - ALFONSO Marino - 10/02/2025 10:01 AM EST I can just prescribe something all send it to the pharmacy but if not better in 2 weeks patient should be [facility] [id number] Miscellaneous Notes* Telephone Encounter - ALFONSO Marino [...] to just prescribe something. documented in this encounterNONortheast Missouri Rural Health [id number] Telephone encounter Note* Telephone Encounter - Tana Samuels - 10/02/2025 9:47 AM EST Kristi grissom called and wanted to know if you wanted to see PT for Athletes foot or did you wanted to just prescribe something. ANNA [facility] [id number] History of Present illness Narrative* ALFONSO Marino [...] subungual debris. They were painful to palpation 20934 on the right 51280 on the left. VASC: DP /PT were nonpalpable bilateral. Capillary refill time < 3 seconds Digits 1-5 bilateral NEURO: Bowie Telma 5.07 monofilament was intact B/L. Vibratory [...] ADMINISTERING, Disp: , Rfl: documented in this encounterPemiscot Memorial Health [id number] History of Present illness Narrative* ALFONSO Marino [...] < 3 seconds Digits 1-5 bilateral NEURO: Bowie Telma 5.07 monofilament was intact B/L. Vibratory [...] dressing daily. ALFONSO Marino documented in this encounterPemiscot Memorial Health [id number] History of Present illness Narrative* ALFONSO Marino [...] with subungual debris and painful to palpation 00813 on the right 09177 on the left VASC: DP /PT were palpable bilateral. Capillary refill time < 3 seconds Digits 1-5 bilateral NEUR: Bowie Telma 5.07 monofilament was intact B/L. 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 Vibratory [...] has improved ALFONSO Marino documented in this encounterPemiscot Memorial Health [id number] History of Present illness Narrative* Ngoc Berkowitz - 01/24/2025 3:00 PM EST Explained policies and procedure of an echocardiogram/Doppler study. documented in this encounterBon [facility] Note Attestation signed by Katiuska Gandhi at [...] TSH to 4-6?mIU/L. [ (more content not included)...[facility]10-24-2024 History of Present illness Narrative* Greg Rangel DPM FACFAS - 09/20/2024 1:00 PM EDT Images from the original note were not included. Patient: Tiffany Mcintosh : 1990 PCP: Robin Vaughan MD SUBJECTIVE This is a 34 y.o. 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 Mental developmental delay 01/08/2016 Thrombocytopenia ([facility]) 01/08/2016 Medications: No current outpatient medications [...] thickness 1 ALFONSO Villeda documented in this encounterPemiscot Memorial Health [id number] History of Present illness Narrative* ALFONSO Marino [...] Date Anxiety 10/11/2018 Attention deficit hyperactivity disorder ([facility]) 10/11/2018 Bipolar disorder ([facility]) 10/11/2018 Developmental disorder 08/28/2024 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 Vibratory [...] for reassessment. ALFONSO Marino documented in this encounterPemiscot Memorial Health [id number] Miscellaneous Notes* Telephone Encounter - Analy Taylor RN - 07/06/2024 1:51 PM EDT Judy Serna Nurse from [facility] called requesting a clarification fax be sent to them at [phone] for the patient's medication Aviane. The patient is currently taking the Aviane daily and skipping her placebo weeks on week 1 and week 2. She then will take the placebo week on week 3. They are requesting a letter stating that the patient can continue taking the medication as above. Please Advise. MOIZ Hidalgo, RN * Telephone Encounter - Thea Fuentes APRN-[facility] - 07/06/2024 1:51 PM EDT That is colin * Telephone Encounter - Analy Taylor RN - 07/06/2024 1:51 PM EDT Letter printed for the patient and was faxed to [facility]. MOIZ Hidalgo, RN documented in this encounterC[facility] Telephone encounter Note* Telephone Encounter - Analy Taylor RN - 07/06/2024 1:51 PM EDT Judy Serna Nurse from [facility] called requesting a clarification fax be sent to them at [phone] for the patient's medication Aviane. The patient is currently taking the Aviane daily and skipping her placebo weeks on week 1 and week 2. She then will take the placebo week on week 3. They are requesting a letter stating that the patient can continue taking the medication as above. Please Advise. MOIZ Hidalgo, RN [facility]08-09-2024 Telephone encounter Note* Telephone Encounter - HERMILO Briscoe - 07/06/2024 1:51 PM EDT That is colin [facility]08-09-2024 Telephone encounter Note* Telephone Encounter - Analy Taylor RN - 07/06/2024 1:51 PM EDT Letter printed for the patient and was faxed to [facility]. MOIZ Hidalgo, RN [facility]04-24-2024 Evaluation + Plan note Diagnostic Tests Pending * Acute Hepatitis A B C Panel 03/21/24 [facility]03-07-2024 History of Present illness Narrative* Thea Fuentes, TRAVEL COORDINATOR-LIVESTOCK FARM MANAGER - 02/02/2024 11:00 AM EST Subjective Tiffany Mcintosh is a 33 y.o. female new patient who presents for medicare pelvic and clinical breast exam screening for cancer. She is non verbal and accompanied by a caregiver today. Caregiver has written instructions that patient is not to have a pap / pelvic. She was seen by Dr. La last [id number]. She is not sexually active, but takes [...] Franco, APRN-CNP 02/02/24 1525 documented in this encounterCincinnati VA Medical Center09-29-2022 Note* Nursing Notes - Marcelino Augustin RN [...] in care of mother while waiting for sock lining stitcher by this RN. [facility]09-29-2022 Miscellaneous Notes* Nursing Notes - [...] in care of mother while waiting for sock lining stitcher by this RN. * Op Note - [...] mouth scaling was performed with an ultrasonic satin finisher. Teeth were polished with prophy paste and prophy cup on slow speed handpiece. Fluoride varnish was applied to teeth. The throat pack was removed at 14:43. The patient was extubated and transferred to PACU in stable condition. Written and verbal post-operative instructions were provided to the patient s escort. Condition: Stable Disposition: Patient to follow up at dental clinic prn and with the [facility] dental clinic for regular exams. EBL (estimated blood loss): minimal TRF (total fluid replacement): 500 mL Lactated Ringers TABBY Guzman DDS, [facility] * Brief Op Note - Pastor Suarez DDS - 08/26/2022 2:47 PM EDT Tiffany Mcintosh ([id number]) PRE OPERATIVE DIAGNOSIS Periodontal disease [K05.6] Dental caries [K02.9] POST OPERATIVE DIAGNOSIS Post-Op Diagnosis Codes: * Periodontal disease [K05.6] * Dental caries [K02.9] PROCEDURE PERFORMED Procedure(s) (LRB): FULL MOUTH REHABILITATION (N/A) PRIMARY CLOSURE Yes INTRAOPERATIVE FINDINGS No significant abnormalities SURGEON Surgeon(s) and Role: * Pastor Suarez DDS - Primary ANESTHESIOLOGIST Anesthesiologist: Katiuska Aguirre DO Chipper Assisting: Juan Dozier DDS SURGICAL STAFF Assembly Machine Operator: Maria Del Rosario Scanlon RN Scrub Person: Jimmy Neri Resident Assisting: Rosa Siddiqui DDS COMPLICATIONS None ESTIMATED BLOOD LOSS minimal SPECIMENS No specimen sent * No specimens in log * Pastor Suarez DDS August 26, 2022 2:47 PM documented in this encounterOSU [facility]09-29-2022 Note* Op Note - Pastor Suarez [...] mouth scaling was performed with an ultrasonic satin finisher. Teeth were polished with prophy paste and prophy cup on slow speed handpiece. Fluoride varnish was applied to teeth. The throat pack was removed at 14:43. The patient was extubated and transferred to PACU in stable condition. Written and verbal post-operative instructions were provided to the patient s escort. Condition: Stable Disposition: Patient to follow up at dental clinic prn and with the [facility] dental clinic for regular exams. EBL (estimated blood loss): minimal TRF (total fluid replacement): 500 mL Lactated Ringers TABBY Guzman DDS, [facility] Work Phone: 1(954) 617-112709-29-2022 Note* Brief Op Note - Pastor Suarez DDS - 08/26/2022 2:47 PM EDT Tiffany Mcintosh ([id number]) PRE OPERATIVE DIAGNOSIS Periodontal disease [K05.6] Dental caries [K02.9] POST OPERATIVE DIAGNOSIS Post-Op Diagnosis Codes: * Periodontal disease [K05.6] * Dental caries [K02.9] PROCEDURE PERFORMED Procedure(s) (LRB): FULL MOUTH REHABILITATION (N/A) PRIMARY CLOSURE Yes INTRAOPERATIVE FINDINGS No significant abnormalities SURGEON Surgeon(s) and Role: * Pastor Suarez DDS - Primary ANESTHESIOLOGIST Anesthesiologist: Katiuska Aguirre DO Chipper Assisting: Juan Dozier DDS SURGICAL STAFF Assembly Machine Operator: Maria Del Rosario Scanlon RN Scrub Person: Jimmy Edmondson Assisting: Rosa Siddiqui DDS COMPLICATIONS None ESTIMATED BLOOD LOSS minimal SPECIMENS No specimen sent * No specimens in log * Pastor Suarez DDS August 26, 2022 2:47 PM [facility]09-29-2022 Nurse Surgical operation note* Maria Del Rosario Scanlon RN - 08/26/2022 2:08 PM EDT Pt came to OR with toy ball. Ball taken with pt to PACU. [facility]09-29-2022 Nurse Note* Maria Del Rosario Scanlon RN - 08/26/2022 2:08 PM EDT Pt came to OR with toy ball. Ball taken with pt to PACU. documented in this encounterOSGrand Lake Joint Township District [facility]09-29-2022 History and physical note* Hubert Ledbetter [...] surgery at this time. Hubert Ledbetter DO [facility] Work Phone: [phone]) 481-465009-29-2022 History and physical note* Hubert Ledbetter DO [...] time. Hubert Ledbetter DO documented in this encounterAdena Regional Medical Center09-20-2022 History and physical note* Prasanth Reyes PA-C - 08/17/2022 10:30 AM EDT Images from the original note were not included. History of Present Illness Ms. Mcintosh is a 32 y.o. female is being evaluated in [facility] due to her medical condition of Periodontal [...] patient has been medically OPTIMIZED FOR SURGERY. [facility] Perioperative Clinic [facility] [address] Review of Systems (OSUROS)Review [...] Social History Socioeconomic History Marital status: Single [facility]09-20-2022 History and physical note* Prasanth [...] receiving blood products? - yes Mother Camille Micntosh(Mother) is the guardian and will be present [...] patient has been medically OPTIMIZED FOR SURGERY. [facility] Per[facility]operative [facility] [address] Review of Systems (OSUROS)Review [...] Marital status: Single documented in this encounterOSU [facility]09-20-2022 History of Present illness Narrative* Arun Montes MD - 08/17/2022 10:30 AM EDT 32 YO F for Full mouth rehabilitation with Dr. Suarez Developmental Delay Hypothyroid HTN Prior anesthetic with grade 1 view with mac 3 Prior ketamine IM though has had more recent anesthetics and tolerated IV well Arun Montes MD Informatics Physician Liaison Anesthesiology / Pain Management [facility] * Prasanth Reyes PA-C - 08/17/2022 10:30 [...] action for this medicationissue. documented in this encounterAdena Regional Medical Center09-20-2022 Instructions* Patient Instructions* Opal Sparks [...] take Herbal Medication (including multi-vitamin, fish oil (Banks-3), garlic, Glucosamine -Chondroitin ,gingko, ginseng, Vitamin E, [...] site one week prior to surgery. - [place] your teeth and rinse your mouth the morning of surgery. - Do NOT bring your dentures or partials with you into surgery. They may be lost. Give them to someone to bring to you after surgery. If you are unable to complete your scheduled testing or appointments made by [facility] please contact [facility] at [phone]. Failure to do so could delay or [...] surgery, please notify our team immediately at [phone]. - If you have Sleep apnea and have a CPAP or BIPAP, then bring your CPAP mask and machine with you to the hospital. Also, if you have been ordered a chest x-ray, please report to the Imaging Department on to first floor (to the right of the [employer] [facility]ILIAN on the first floor) prior to leaving the building. Please contact Medical Information Management Department for all records requests. [phone] JOSH/ALBERT documented in this encounterOSU [facility]iffin HospitalEvaluation + Plan note No data available for this section [facility] Center[facility] note* Diagnosis Caries- Primary Unspecified dental caries [facility] Diagnosis Preop exam for internal medicine- Primary Other specified pre-operative examination Periodontal disease Unspecified gingival and periodontal disease Developmental delay Unspecified delay in development Hypothyroidism, unspecified type Periodontal disease Unspecified gingival and periodontal disease Dental caries Unspecified dental caries documented in this encounter [facility]* Diagnosis Onychocryptosis- Primary Ingrowing nail Pain in left toe(s) Cellulitis of left toe Abscess, toe, left documented in this encounter [facility]* Diagnosis Onychocryptosis- Primary Ingrowing nail Abscess, toe, left Tinea unguium Dermatophytosis of nail Pain in left toe(s) Pain in right toe(s) documented in this encounter [facility]* Diagnosis Encounter for screening breast examination- Primary Surveillance of previously prescribed contraceptive pill documented [facility] this encounter [facility]* Diagnosis Moderate dehydration Dehydration Increased heart rate Tachycardia, unspecified Tachycardia Tachycardia, unspecified SOB (shortness of breath) Shortness of breath Bilateral leg edema Edema documented in this encounter [facility] Diagnosis Onychocryptosis- Primary Ingrowing nail Pain in left toe(s) Cellulitis of left toe Abscess, toe, left documented in this encounter [facility]* Diagnosis Onychocryptosis- Primary Ingrowing nail Tinea unguium Dermatophytosis of nail Pain in right toe(s) Pain in left toe(s) documented in this encounter [facility]* Diagnosis Onychocryptosis- Primary Ingrowing nail Cellulitis of left toe Abscess, toe, left documented in this encounter [facility]* Diagnosis Tinea unguium- Primary Dermatophytosis of nail Pain in right toe(s) Pain in left toe(s) documented in this encounter [facility]* Diagnosis Tinea pedis of both feet- Primary documented [facility] encounter [facility]* Attachments The following attachments cannot be sent through Care Everywhere. * Dental Surgery: Generic: Post-op (Rwandan) documented in this encounterOSGrand Lake Joint Township District Memorial HospitalHospital Discharge instructions No data available for this section [facility] CenterInstructions* Attachments The following attachments cannot be sent through Care Everywhere. * Ethinyl Estradiol and Levonorgestrel, ADULT (Rwandan) * Cervical cancer screening tests (Rwandan) documented in this encounterProMercy Health Fairfield HospitalInstructionsNot on file documented in this encounterProMercy Health Fairfield HospitalProgress note No data available for this section [facility] CenterReason for visit Narrative* Auth/CertSpecialty Diagnoses / ProceduresReferred By ContactReferred To Contact Diagnoses Periodontal disease Dental caries Periodontal disease [K05.6] Dental caries [K02.9] Procedures [place] DENTAL SURGERY PROCEDURE FULL MOUTH REHABILITATION [facility] [address] [place] [address] [facility] [address] [place] [address] Referral IDStatusReasonStart DateExpiration DateVisits RequestedVisits [id number] [facility] Summary Purpose Family History [...] 10:21 AMACP-Do Not Resuscitate12/07/2024 10:20 AMACP-Power of Concrete Mixer Truck Driver 09/27/2019 4:44 PMRELEASE OF HEALTH INFORMATIONACP-Advance Gvhzhibew53/31/2019 4:42 PMDNRCCDate ActivatedDate InactivatedComments02/11/2016 10:05 PM02/16/2016 2:44 PMDate ActivatedDate InactivatedComments01/08/2016 9:29 01/22/2016 4:19 PM Reason for Referral SpecialtyDiagnoses / ProceduresReferred By ContactReferred To Contact Procedures LOW RISK - NO PHARMACOLOGICAL DVT PROPHYLAXIS Pastor Suarez, DDS [address] [place] [address] Referral IDStatusReasonStart DateExpiration DateVisits RequestedVisits [id number] Request/[id number] / ProceduresReferred By ContactReferred To Contact Procedures DVT/VTE RISK ASSESSMENT Pastor Suarez, DDS [address] [place] [address] Referral IDStatusReasonStart DateExpiration DateVisits RequestedVisits [id number] Request/[id number] / ProceduresReferred By ContactReferred To ContactCardiology Diagnoses Moderate dehydration Increased heart rate Tachycardia SOB (shortness of breath) Bilateral leg edema Procedures Echo (TTE) complete (PRN contrast/bubble/strain/3D) WI ECHO TTHRC R-T 2D W/WOM-MODE COMPL SPEC&COLR D WI TTE W OR WO FOL WCMARY ANN,Jose Subramanian MD [address] [place] [address] Referral IDStatusReasonStart DateExpiration DateVisits RequestedVisits [id number] Required - RTA Additional Source Comments INFORMATION SOURCE (unrecogn ized section and content) DATE CREATED AUTHOR 08/07/2022 [facility] DATE CREATED AUTHOR AUTHOR'S ORGANIZ ATION 08/29/2022 [facility] DATE CREATED AUTHOR AUTHOR'S ORGANIZ ATION 03/05/2023 [facility] DATE CREATED AUTHOR AUTHOR'S ORGANIZ ATION 03/23/2024 [facility] DATE CREATED AUTHOR AUTHOR'S ORGANIZ ATION 12/31/2024 [facility] DATE CREATED AUTHOR AUTHOR'S ORGANIZ ATION 01/28/2025 [facility] DATE CREATED AUTHOR AUTHOR'S ORGANIZ ATION 09/24/2025 [facility] EPIC Reason for Visit (unrecogniz ed section and content) ReasonCommentsPreoperative AssessmentSpecialtyDiagnoses / ProceduresReferred By ContactReferred To ContactPreOp Diagnoses Periodontal disease Dental caries Pastor Suarez, DDS [address] [place] [address] [facility] [address] [place] [address] Referral IDStatusReasonStart DateExpiration DateVisits RequestedVisits [id number] [id number] Care Non DM nail careReasonCommentsGynecologic ExamPt is here for breast exam. SpecialtyDiagnoses / ProceduresReferred By ContactReferred To ContactCardiology Diagnoses Moderate dehydration Increased heart rate Tachycardia SOB (shortness of breath) Bilateral leg edema Procedures Echo (TTE) complete (PRN contrast/bubble/strain/3D) WI ECHO TTHRC R-T 2D W/WOM-MODE COMPL SPEC&COLR D WI TTE W OR WO FOL WCON,DOPPLER Jose Lorenzo MD [address] [place] [address] Referral IDStatusReasonStart DateExpiration DateVisits RequestedVisits [id number] Required - [id number] ProblemLt 3rd digit nailReasonCommentsToenail CareNon dm nail care Care Teams (unrecognized sec tion and content) Team MemberRelationshipSpecialtyStart DateEnd Date Robin Vaughan DO [address] [place] [address] PCP - GeneralFamily Medicine08/17/22Team MemberRelationshipSpecialtyStart DateEnd Date Robin Vaughan DO [address] [place] [address] PCP - GeneralFamily Medicine08/17/22Team MemberRelationshipSpecialtyStart DateEnd Date Robin Vaughan MD [address] [place] [address] PCP - GeneralFamily Sggiveua96/1/24Team MemberRelationshipSpecialtyStart DateEnd Date Robin Vaughan MD [address] [place] [address] PCP - GeneralFamily Zajzefdr76/1/24Team MemberRelationshipSpecialtyStart DateEnd Date Robin Vaughan MD [address] [place] [address] PCP - GeneralFamily Oylgglla61/1/24Team MemberRelationshipSpecialtyStart DateEnd Date Robin Vaughan MD PCP - General12/22/15Team MemberRelationshipSpecialtyStart DateEnd Date Robin Vaughan MD [address] [place] [address] PCP - GeneralFamily Qlenzbwi33/1/24Team MemberRelationshipSpecialtyStart DateEnd Date Robin Vaughan MD [address] [place] [address] PCP - GeneralFamily Xxqieicj69/1/24Team MemberRelationshipSpecialtyStart DateEnd Date oRbin Vaughan MD [address] [place] [address] PCP - [facility] Ldefigjb17/1/24Te MemberRelationshipSpecialtyStnorth [place] DateEnd [facility] Robin Vaughan MD [address] [place] [address] PCP - [facility]08/28/24Te MemberRelationshipSpecialtyGenes[place] DateEnd [facility] Robin Vaughan MD [address] [place] [address] PCP - [facility]08/28/24Te MemberRelationshipSmason general hospitalialtyGenesee DateEnd [facility] Robin Vaughan MD [address] [place] [address] PCP - [facility]08/28/24Te MemberRelationsMissouri Delta Medical CenterialLouis [facility] End [facility] Robin Vaughan MD [address] [place] [address] PCP - [facility] Eljomlyp07/1/24 Continuous Active and Recently Administ ered Medications [...] BE BASED ON THE PRIMARY CLINICAL RECORDS. [facility]. provides no warranty or guarantee of the accuracy or completeness of information in this document.
--- OUTSIDE RECORDS SUMMARY | 2025-10-15 06:41 | XMS_ITS | Clinical Summary ---
Author Organization [facility] Address [address] [place] [address] Care Team Providers Care Handbag Framer Name Role Phone Robin Richardson Primary Care Provider [phone] Allergies Active AllergyReactionsCriticalityNoted MnyiAihiejsaBzslzkwqyt77/06/2016 GkluhbxmxkdIzckrgzl99/11/2012 Medications MedicationSigDispense QuantityRefillsLast FilledStart DateEnd DateStatus acetaminophen [...] ONE TABLET BY MOUTH 3 TIMES DAILY ADBCNYPG85/25/2016Active clonazePAM (KlonoPIN) 0.5 mg tablet TAKE ONE TABLET BY MOUTH 3 TIMES DAILY SVDPACWZ78/29/2022ctive divalproex (Depakote) 500 mg EC tablet divalproex [...] TAKE ONE CAPSULE BY MOUTH DAILY NEEDED UQXUDA4201/22/2016Active docusate sodium (Colace) 100 mg capsule TAKE ONE CAPSULE BY MOUTH DAILY NEEDED IINCTG5302/02/2022ctive fluocinonide (Lidex) 0.05 % cream Apply topically.Active [...] IN 6 OZ OF WATERJUICE PRIOR TO COTBWMYLZFPCK49/07/2022ctive sennosides (Senokot) 8.6 mg tablet Take 17.2 [...] bedtime. 5Active Active Problems ProblemNoted DateDiagnosed DateDiabetes Social History Tobacco UseTypesPacks/DayYears UsedDateSmoking Tobacco: NeverSmokeless Tobacco: Never Tobacco Cessation:Counseling Given: Not Answered Alcohol UseStandard Drinks/WeekCommentsNever0 (1 standard drink = 0.6 oz pure alcohol)UT Safety & EnvironmentAnswerDate RecordedFear of Current or Ex-Partner Not on file01/19/2024Emotionally AbusedNot on file01/19/2024hysically AbusedNot on file01/19/2024Sexually AbusedNot on file01/19/2024hysically or Sexually AbusedNot on 01/19/2024CommentsUnknownSex and Gender Information ValueDate RecordedSex Assigned at BirthNot on fileLegal YxuMxczld26/29/2022 9:32 PM EDTGender IdentityNot on fileSexual OrientationNot on file Last Filed Vital Signs Vital SignReadingTime TakenCommentsBlood Lbgnfmci262/71012/27/2024 9:48 AM EST Ozlsa541212/27/2024 9:48 AM ESTTemperature--Respiratory Xlda962101/03/2021 9:40 AM ESTOxygen Wglnfhwzlu82%12/27/2024 9:48 AM ESTInhaled Oxygen Concentration-- Ttlyxh46 kg (141 lb 1.6 oz)12/27/2024 9:48 AM XIVUlpxug491.3 cm (4' 10 ) 12/27/2024 9:48 AM ESTBody Mass Index29.49012/27/2024 9:48 AM EST Plan of Treatment DateTypeDepartmentCare Team (Latest Contact Info)Uajcjjvzvtv98/28/2026 11:00 AM ESTFollow-Up [facility] [address] [place] [address] Miguel Gandhi [address] [facility] [address] [place] [address] Health MaintenanceDue DateLast DoneCommentsMedicare Annual Wellness (AWV) 1988Depression Ajdyodsgg27/28/2000Varicella Vaccines (1 of 2 - 13+ 2-dose series)02/22/2001Hepatitis B Vaccines (1 of 3 - 19+ 3-dose series)02/22/2007Pap Smear02/22/2009dult Nuoxmuw70/HPV Vaccines (1 - 3-dose SCDM series)02/22/2015Cervical Cancer Uvxqfbtwy12/28/2018HPV/Rpfiqk0502/22/2018COVID-19 Vaccine ( season)502/12/2020, 12/09/2020Influenza Vaccine (#1)/05/2020Zoster Vaccines [...] DateEnd Robin Richardson DO [address] [place] [address] PCP - Ggazifn50/5/22
--- OUTSIDE RECORDS SUMMARY | 2025-10-15 06:41 | XMS_ITS | Clinical Summary ---
Author Organization [employer] tem Address [id number] [address] [place] [address] Care Team Providers Care Military Source Operations Specialist Name Role Phone Unavailable Primary Care Provider Unavailabl e Allergies Active AllergyReactionsCriticalityNoted DateCommentsAmoxicillin-Pot Clavulanate 02/02/20249731Bhszfcndzl07/07/2024 Medications MedicationSigDispense QuantityRefillsLast FilledStart DateEnd DateStatus busPIRone [...] standard drink = 0.6 oz pure alcohol)ChildcareAnswerDate LiihxlqjGheaavldhXnyxnlz56/12/2019EmploymentAnswer Date YbqkztbzYfsurkmkfwYnzypjm04/12/2019Hunger ScreeningAnswerDate Recorded Within the past 12 months we worried whether our food would run out before we got money to buy more.Patient unable to aicxws9402/02/2024Within the past 12 months the food we bought just didn't last and we didn't have money to get more. Patient unable to dthpew8402/02/2024CommentsUnknownSex and Gender InformationValueDate RecordedSex Assigned at BirthNot on fileLegal SexFemale 12/22/2015 8:27 PM ESTGender IdentityNot on fileSexual OrientationNot on file Last Filed Vital Signs Vital SignReadingTime TakenCommentsBlood Xdqebjhm184/78002/02/2024 11:15 AM EST Pulse--Temperature--Respiratory Rate--Oxygen Saturation--Inhaled Oxygen Concentration--Ilgxez20.4 kg (120 lb)02/02/2024 11:15 AM PNJPovxjv248.3 cm (4' 10 )02/02/2024 11:15 AM ESTBody Mass Index25.0802/02/2024 11:15 AM EST Plan of Treatment Health MaintenanceDue DateLast DoneCommentsDepression Teisgplul82/28/2000 DTaP,Tdap and Td Vaccines (2 - Td or Tdap)dult BMI Illkfwpxh73Tobacco Jttffveff44OVID-19 Vaccine ( season)/12/2020, 12/09/2020Influenza Vaccine /05/2020Pap Smear Medical Devices Not on file Insurance Advance Directives TypeDate RecordedPatient RepresentativeExplanationDNR Physician Order02/02/2024 11:17 [facility]
--- OUTSIDE RECORDS SUMMARY | 2025-10-15 06:41 | XMS_ITS | Clinical Summary ---
Author Organization [facility] Address [address] [facility] [place] [address] Care Team Providers Care Director Outcomes Name Role Phone Unavailable Primary Care Provider Unavailabl e Source Comments The following information is NOT included in Care Everywhere downloads:Psychiatric notes, ECG results, Cardiac Rehab notes, Pulmonary Function notes, data from [employer] (includes but not limited toPregnancy data,audiograms, eye exams, pre-surgical evaluation notes, well-child exam data).[facility] Allergies Active AllergyReactionsCriticalityNoted DateCommentsAmoxicillin-Pot Clavulanate Anqzilms89/06/4652Gcrvjrtlox10/06/2016 Medications MedicationSigDispense QuantityRefillsLast FilledStart DateEnd DateStatus Probiotic [...] (02/20/2019): Added automatically from request for surgery [id number] Immunizations ImmunizationAdministration DatesNext DueInfluenza, injectable, quadrivalent, preservative free (SRF=717)09/03/2020Pfizer Monovalent (12+ yrs) SARS-COV-2 (COVID-19) vaccine, mRNA, spike protein, LNP, pres. free, 30mcg/0.3mL dose (NSL=503)12/30/2020,12/09/2020Tdap (JXC=362)07/17/2009 Social History Tobacco UseTypesPacks/DayYears UsedDateSmoking Tobacco: Never Assessed CommentsUnknownSex and Gender InformationValueDate RecordedSex Assigned at Not on fileLegal XqtAjgsog38/16/2015 9:21 AM EDTGender IdentityNot on fileSexual OrientationNot on file Last Filed Vital Signs Vital SignReadingTime TakenCommentsBlood Ftktjixm224/7004 12:30 PM EDT Uiwud987003/02/2019 12:45 PM JNJQdnrlaaposj82.3 ??C (97.3 ??F)03/02/2019 12:30 PM EDTRespiratory Laec038103/02/2019 12:45 PM EDTOxygen Xszyvpdkyi90%03/02/2019 12:45 PM EDTInhaled Oxygen Concentration--Yhbpke70.2 kg (126 lb)03/02/2019 9:15 AM EDT Tyatrt258.3 cm (4' 10 )03/02/2019 9:15 AM EDTBody Mass Index26.33003/02/2019 9:15 AM EDT Plan of Treatment Health MaintenanceDue DateLast DoneCommentsMammography (shared decision-making, age 35-39)1988HIV Test02/22/2003Hepatitis C Kahtrsgz02/28/2006Hepatitis A (HAV) Vaccine (optional start 19+ years)02/22/2007Hepatitis B (HBV) Vaccine (1 of 3 - 19+ 3-dose series)02/22/2007nnual Wellness Visit (G0438)01/26/2009Pap Smear02/22/2009HPV Vaccine (optional start 27-45 years)02/22/2015Tetanus (Td or Tdap) Xxwlqjh86COVID-19 Vaccine (3 - 2024- season)2025 12/30/2020, 12/09/2020Influenza Vaccine (#1)Shingles (RZV) Vaccine (1 of 2)02/22/2038Tdap PgcpoipLxbjjpehh28/20/2009MammographyDiscontinued Pneumococcal Vaccine(s)Aged OutNo longer eligible based on patient's age to complete this topic Insurance
--- OUTSIDE RECORDS SUMMARY | 2025-10-15 06:42 | XMS_ITS | Clinical Summary ---
Author Organization [facility] Address [address] [place] [address] Care Team Providers Care Paralegal Internship Name Role Phone Robin Richardson DO Primary Care Provider [phone] Allergies Active AllergyReactionsCriticalityNoted DateCommentsAmoxicillin-Pot Clavulanate 07/21/20228475Wqlvwjjfhj82/24/2022 Medications MedicationSigDispense QuantityRefillsLast FilledStart DateEnd DateStatus Lactobacillus [...] Recorded Sex Assigned at BirthNot on fileLegal AoyOsbiia44/27/2022 2:56 PM EDTGender IdentityNot on fileSexual OrientationNot on file Last Filed Vital Signs Vital SignReadingTime TakenCommentsBlood Penuznrb625/5709 3:30 PM EDT Ulres39993 3:30 PM FMSYeoybxezxqc51.4 ??C (97.5 ??F)08/26/2022 3:30 PM EDTRespiratory Xiee3421 3:30 PM EDTOxygen Peyqcbdltz16%08/26/2022 3:30 PM EDTInhaled Oxygen Concentration--Rppbae07.9 kg (121 lb)08/26/2022 12:00 PM KPDOqmdrm414 cm (5' 3 )08/26/2022 12:00 PM EDTBody Mass Index21.43008/26/2022 12:00 PM EDT Plan of Treatment Health MaintenanceDue DateLast DoneCommentsHEPATITIS C VIRUS MQOSJCGUP1988 HIV SCREENING UHXRHFANVI29/28/2003HEP B VACCINE (1 of 3 - 19+ 3-dose series) 02/22/2007CERVICAL CANCER SCREENING BHVYRYBKYL29/28/2009HPV VACCINE (1 - 3-dose SCDM series)02/22/20155684UEKGWZT02COVID-19 VACCINE ( season)502/12/2020, 12/09/2020INFLUENZA VACCINE (#1)2025 09/03/2020TDAP (ADULT)Fyjuskjvm80/20/2355KRSVQAVNWUqgqhnppmjuu15/20/2022 PNEUMOCOCCAL VACCINE SERIESAged OutNo longer eligible based on patient's age to complete this topic Procedures Procedure NamePriorityDate/TimeAssociated DiagnosisCommentsCHEM 6 (LYTES, BUN CREA)Wsupjmf8008/17/2022 11:13 AM EDT Preop exam for internal medicine Periodontal disease Developmental delay Hypothyroidism, unspecified type from Last 3 Months or Most Recently Relevant to Health Maintenance Results * CHEM 6 (LYTES, BUN CREA) (08/17/2022 11:13 AM EDT)ComponentValueRef RangeTest MethodAnalysis TimePerformed AtPathologist ZpickjurhLPW249 - 25 mg/dL 08/17/2022 12:35 PM [facility] CLINICAL PZELIKGLTOLjdlmv484221 - 145 mmol/L08/17/2022 12:35 PM [facility] CLINICAL LABORATORYPotassium4.0 3.5 - 5.0 mmol/L08/17/2022 12:35 PM [facility]ORY Klaegtun20695 - 108 mmol/L08/17/2022 12:35 PM [facility] CLINICAL XOTPUQMUXGJN11552 - 31 mmol/L08/17/2022 12:35 PM [facility] CLINICAL LABORATORYCreatinine1.160.50 - 1.20 mg/dL08/17/2022 12:[address] [facility] LABORATORYBun/Crea Lumut05708/17/2022 12:35 PM [facility] CLINICAL LABORATORYAnion Hpb361 - 17 mmol/L08/17/2022 12:35 PM EDT [facility] CLINICAL LABORATORYeGFR, CKD-EPI, Zzaeid50>=60 mL/min/1.73m2 08/17/2022 12:35 PM [facility] CLINICAL LABORATORYComment:Reported eGFR is based on the CKD-EPI 2020 equation using creatinine, age, and sex. Specimen (Source)Anatomical Location / LateralityCollection Method / Volume Collection TimeReceived TimeBloodVenipuncture / Vhjrmjm7608/17/2022 11:13 AM EDT 08/17/2022 12:02 PM EDT Narrative Authorizing ProviderResult TypeResult StatusPrasanth [facility] WESTEMISTRY ORDERABLES Final ResultPerforming OrganizationAddressCity/State/ZIP CodePhone Number [facility] [address] [place] [address] from Last 3 Months or Most Recently Relevant to Health Maintenance Insurance [address] [place] [address] Care Teams Team MemberRelationshipSpecialtyStart DateEnd Date Robin Richardson DO PCP - GeneralFamily Medicine08/17/22
--- OUTSIDE RECORDS SUMMARY | 2025-10-15 06:42 | XMS_ITS | Clinical Summary ---
Author Organization [facility] Address [address] [place] [address] Care Team Providers Care Emergency Doctor Name Role Phone Robin Richardson MD Primary Care Provider Allergies Active AllergyReactionsCriticalityNoted DateCommentsAmoxicillin-Pot Clavulanate Btiavqkx95/17/2016 Other Reaction(s): Not available Tjotokrxbg49/06/2016 Other Reaction(s): Not available YkylaaejfkcMnlnmsxk41/11/2012 Medications MedicationSigDispense QuantityRefillsLast FilledStart DateEnd DateStatus busPIRone [...] problems Resolved Problems ProblemNoted DateDiagnosed DateResolved DateDevelopmental gogaairx30/01/2024 08/28/2024ipolar hqrclzsz89ttention deficit hyperactivity sqznxpvx55nxietyrug-induced nephrogenic diabetes ydkxvsgyw71Hypothyroidism due to drugs01/15/2016 08/28/2024Mental developmental delayThrombocytopenia Encounters DateTypeDepartmentCare SgfxQhzchczgntc27/05/2025Telephone [facility] [address] [place] [phone] Medhat Bernstein, DPM FACFAS 09/23/2025 10:00 AM EDTProcedure Visit [facility] [address] [facility] [place] [phone] Medhat Bernstein, DPM FACFAS Tinea unguium (Primary Dx); Pain in right toe(s); Pain in left toe(s)09/23/2025amboo flowsheet [facility] [address] [place] [address] Medhat Bernstein, ALFONSO FACFAS 08/02/2025 9:50 AM EDTOffice Visit [facility] [address] [facility] [place] [phone] Medhat Bernstein, DPM FACFAS Onychocryptosis (Primary Dx); Cellulitis of left toe; Abscess, toe, left08/02/2025bstract [facility] [address] [place] [address] Medhat Bernstein, ALFONSO FACFAS 08/02/2025amboo flowsheet [facility] [address] [place] [address] Medhat Bernstein, DPM FACFAS from Last 3 Months Family History RelationNameStatusCommentsMotherAlive Social History Tobacco UseTypesPacks/DayYears UsedDateSmoking Tobacco: NeverSmokeless Tobacco: Never Tobacco Cessation:Counseling Given: Yes CommentsUnknownSex and Gender InformationValueDate RecordedSex Assigned at BirthNot on fileLegal ElhXjfxqu28/15/2023 6:57 PM EDTGender IdentityNot on fileSexual OrientationNot on file Last Filed Vital Signs Vital SignReadingTime TakenCommentsBlood Pressure--Pulse--Temperature-- Respiratory Rate--Oxygen Saturation--Inhaled Oxygen Concentration--Hldidy91.4 kg (142 lb)09/23/2025 10:10 AM BMUCiuwpy801.4 cm (5')09/23/2025 10:10 AM EDTBody Mass Index27.7309/23/2025 10:10 AM EDT Plan of Treatment DateTypeDepartmentCare Team (Latest Contact Info)Gmebgyaafum70/19/2026 8:40 AM ESTProcedure Visit [facility] [address] [place] [phone] Medhat Bernstein, DPM FACFAS [address] [place], [place] [phone] Insurance Care Teams Team MemberRelationshipSpecialtyStart DateEnd Robin Richardson MD [facility] [address] [place] [address] PCP - GeneralFamily Fndxxvux03/1/24
--- OUTSIDE RECORDS SUMMARY | 2025-10-15 06:42 | XMS_ITS | Encounter Summary ---
Author Organization [facility] Address [address] [place] [address] Care Team Providers Care Assistant Auto Center Manager Name Role Phone Robin Richardson MD Primary Care Provider [phone] Encounter Details DateTypeDepartmentCare Team (Latest Contact Info)Ivjaotuhilc40/05/2025Telephone [facility] [address] [place] [address] Medhat Bernstein DPM FACFAS [address] [place] [address] Social History Tobacco UseTypesPacks/DayYears UsedDateSmoking Tobacco: NeverSmokeless Tobacco: NeverCommentsUnknownSex and Gender InformationValueDate RecordedSex Assigned at BirthNot on fileLegal KxhNouoce51/15/2023 6:57 PM EDTGender Identity Not on fileSexual [...] Plan of Treatment DateTypeDepartmentCare Team (Latest Contact Info)Ybuuijwjilm16/19/2026 8:40 AM ESTProcedure Visit [facility] [address] [place] [address] Medhat Bernstein, ALFONSO FACFAS [address] [place] [address] documented as of this encounter Visit Diagnoses Diagnosis Tinea pedis of both feet- Primary documented in this encounter Care Teams Team MemberRelationshipSpecialtyStart DateEnd Date Robin Richardson MD [address] [place] [address] PCP - GeneralFamily Kzsphdcy88/1/24documented as of this encounter
== END 2025-10-15 06:38 | disposition home or self-care (01) ==
LOC: LAB 06:37
PROVIDERS: PCP Family Medicine; Visit Provider Family Medicine
DX: E03.9 Hypothyroidism, unspecified (principal); D52.9 Folate deficiency anemia, unspecified; K59.00 Constipation, unspecified; F31.9 Bipolar disorder, unspecified; E87.0 Hyperosmolality and hypernatremia; N18.30 Chronic kidney disease, stage 3 unspecified; R35.89 Other polyuria; E22.1 Hyperprolactinemia; F90.9 Attention-deficit hyperactivity disorder, unspecified type
CPT/HCPCS: 82043